=== PATIENT | male | born 1940 | race Caucasian/White ===

== ENCOUNTER → 2017-08-29 14:59 | Outpatient (CLI) | payer MEDICARE, OTHER, SELFPAY ==
[2017-08-29 16:58] LABS: Absolute Lymphocyte Count 1.23 X10^3/ul (0.83-4.51); Absolute Neutrophil Count 6.1 X10^3/uL (2.0-7.7); Basophil# 0.03 X10^3/uL; Basophil% 0.4 % (0-1); Eosinophil# 0.44 X10^3/uL; Eosinophils% 5.3 % (0-5); Hematocrit 30.9 % (40-54); Lymphocyte # 1.23 X10^3/ul (4.0); Lymphocyte % 14.7 % (19-41); Mean Corp Hgb Conc 32.4 g/gl (32-36); Mean Corpuscular Hgb 28.8 pg (27.0-32.0); Mean Platelet Vol. 10.6 fl (6.2-12.0); Monocyte% 7.2 % (0-10); Neutrophil # 6.05 X10^3/uL (2.7-7.7); Neutrophil % 72.2 % (47-70); Platelet Count 187 K/mm3 (150-450); RBC Distribution Width SD 45.5 fl (35.1-43.9); Red Blood Count 3.47 M/mm3 (4.6-6.2); White Blood Count 8.4 K/mm3 (4.4-11.0)
[2017-08-29 17:05] LABS: Albumin, Serum 3.5 g/dL (3.2-5.0); BUN 58 mg/dL (7-18); BUN/Creat Ratio 20.9 RATIO (10-20); Calcium,Total 8.2 mg/dL (8.5-10.1); Chloride 101 mmol/L (98-107); Creatinine, Serum 2.77 mg/dL (0.70-1.30); EST Glomerular Filtration Rate 24 mL/min (>60); Est Glom Filt Rate - Afr Amer 29 mL/min (>60); Glucose 159 mg/dL (74-106); Potassium 3.8 mmol/L (3.5-5.1); Sodium Level 138 mmol/L (136-145)
[2017-08-29 17:11] LABS: Hemoglobin A1c 6.6 % (4.2-6.3)
[2017-08-29 17:18] LABS: POSITIVE COUNT NO; POSITIVE DIFFERENTIAL NO; POSITIVE MORPHOLOGY NO
[2017-08-29 18:08] LABS: Microalbumin:Creatinine Ratio 1160.6 mg/g CRE (<30 mg/g CRE); Protein, Urine (Random) 138.9 mg/dL (<11.9); Protein:Creat Ratio 1439 mg/g CRE (0-200)
[2017-08-30 12:00] LABS: Vitamin D,25 Hydroxy 44.3 ng/mL (29.95-100.01)
[2017-08-30 12:02] LABS: PTHIN 184.9 pg/mL (18.4-80.1)
== END ==
PROVIDERS: Family Provider Family Medicine; PCP Family Medicine; Visit Provider Pediatrics Pediatric Nephrology
DX: N25.81 Secondary hyperparathyroidism of renal origin (principal); D63.1 Anemia in chronic kidney disease
CPT/HCPCS: 36415; 80069; 82043; 82306; 82570; 83036; 83970; 84156; 85025

== ENCOUNTER → 2017-11-26 15:02 | Outpatient (CLI) | payer MEDICARE, OTHER, SELFPAY ==
[2017-11-26 16:07] LABS: Absolute Lymphocyte Count 1.22 X10^3/ul (0.83-4.51); Absolute Neutrophil Count 5.1 X10^3/uL (2.0-7.7); Basophil# 0.02 X10^3/uL; Basophil% 0.3 % (0-1); Eosinophil# 0.42 X10^3/uL; Eosinophils% 5.9 % (0-5); Hematocrit 32.9 % (40-54); Hemoglobin 10.7 g/dl (13.0-16.5); Lymphocyte # 1.22 X10^3/ul (4.0); Mean Corp Hgb Conc 32.5 g/gl (32-36); Mean Corpuscular Hgb 28.8 pg (27.0-32.0); Mean Corpuscular Volume 88.4 fL (80-94); Monocyte# 0.43 X10^3/uL; Neutrophil # 5.07 X10^3/uL (2.7-7.7); Neutrophil % 70.7 % (47-70); Platelet Count 193 K/mm3 (150-450); RBC Distribution Width CV 13.8 % (11.6-14.6); RBC Distribution Width SD 44.8 fl (35.1-43.9); Red Blood Count 3.72 M/mm3 (4.6-6.2); White Blood Count 7.2 K/mm3 (4.4-11.0)
[2017-11-26 16:08] LABS: POSITIVE COUNT NO; POSITIVE DIFFERENTIAL NO; POSITIVE MORPHOLOGY NO
[2017-11-26 16:32] LABS: ALB/GLOB Ratio 1.2 RATIO (0.9-2.4); AST(SGOT) 19 U/L (15-37); Alanine Aminotransfer ALT/SGPT 34 U/L (16-61); Albumin, Serum 3.5 g/dL (3.2-5.0); Alkaline Phosphatase 130 U/L (45-117); Anion Gap 8 (5-15); BUN 52 mg/dL (7-18); BUN/Creat Ratio 18.8 RATIO (10-20); Calcium,Total 8.2 mg/dL (8.5-10.1); Chloride 102 mmol/L (98-107); Creatinine, Serum 2.77 mg/dL (0.70-1.30); EST Glomerular Filtration Rate 24 mL/min (>60); Est Glom Filt Rate - Afr Amer 29 mL/min (>60); Glucose 318 mg/dL (74-106); Potassium 4.2 mmol/L (3.5-5.1); Protein, Total 6.5 g/dL (6.4-8.2); Sodium Level 138 mmol/L (136-145); Uric Acid 5.1 mg/dL (3.5-7.2)
== END ==
PROVIDERS: Family Provider Family Medicine; PCP Family Medicine; Visit Provider Internal Medicine Rheumatology
DX: M10.9 Gout, unspecified (principal); M17.0 Bilateral primary osteoarthritis of knee; Q66.7 Congenital pes cavus; I11.0 Hypertensive heart disease with heart failure; I50.9 Heart failure, unspecified; I25.10 Atherosclerotic heart disease of native coronary artery without angina pectoris; E11.9 Type 2 diabetes mellitus without complications; I48.91 Unspecified atrial fibrillation; I69.30 Unspecified sequelae of cerebral infarction; Z95.4 Presence of other heart-valve replacement
CPT/HCPCS: 36415; 80053; 84550; 85025

== ENCOUNTER 2017-12-26 23:41 | Inpatient (IN) | payer MEDICARE, OTHER, SELFPAY ==
[2017-12-26 23:42] VITALS: BP 170/69; PULSE 60; RESP 18; TEMP 36.9; O2SAT 92; BMI 25.8
[2017-12-27] VITALS (17 sets, daily range): BP systolic 136–169; BP diastolic 68–88; PULSE 35–65; RESP 16–18; TEMP 36.6–37.9; O2SAT 93–97; BMI 26.7
--- NOTE | 2017-12-27 00:18 | EKG12_ITS ---
Test Reason : WEAKNESS Blood Pressure : / mmHG Vent. Rate : 055 BPM Atrial Rate : 044 BPM P-R Int : 000 ms QRS Dur : 090 ms QT Int : 460 ms P-R-T Axes : 000 062 113 degrees QTc Int : 440 ms Atrial fibrillation with premature ventricular or aberrantly conducted complexes Nonspecific ST and T wave abnormality Abnormal ECG Confirmed by IBETH MIRANDA, GILDARDO ([id number]), television news video editor KJ ROOT ([id number]) on 12/30/2017 2:27:45 PM Referred By: KAYY Confirmed By:GILDARDO CRISTINA MD
--- NOTE | 2017-12-27 00:20 | RAD_ITS ---
STUDY: X-RAY CHEST REASON FOR EXAM: Male, 77 years old. Weakness TECHNIQUE: A single frontal view of the chest was obtained. COMPARISON: November 30, 2010 FINDINGS: The lungs are underaerated. There are minimal increased markings in both lung bases. There is no demonstrated pleural abnormality. There is moderate enlargement of the cardiac silhouette. Sternotomy wires are present. An aortic valve prosthesis is present. The mediastinum and hilar regions are unremarkable. The central vessels are indistinct. There is atherosclerotic calcification of the thoracic aorta. There are diffuse degenerative changes of the visualized spine. The visualized ribs, clavicles, and shoulders are unremarkable. There is no demonstrated abnormality of the visualized upper abdomen. RAD/Chest 1 View (Portable) IMPRESSION: There is moderate enlargement of the cardiac silhouette with vascular congestion. There is no obvious effusion. There is minimal bibasilar atelectasis. Electronically Signed: Sylwia Perez MD at 1:15 EDT Tel Direct: [phone], Service support ,
--- NOTE | 2017-12-27 00:22 | ED.DCSUM_ITS ---
- ER Visit Summary Date of Service: 12/27/17 Chief Complaint: [] Weakness could not get out of the bathtub History of Present Illness: The patient is a 77 M patient stated he felt weak tonight can get out of the bathtub. He tried for over an hour. He has a deep tab. He has never got caught in it like this before. He has had troubles in the past getting out because it so deep. His try to help him out they finally got him to a stool after working so hard he did not have the strength to stand up. He does have chronic back pain and states that the accident from time to time but no injury. He did not hit his head or neck. He is on Xarelto for fibrillation. stated that he has been feeling mildly weak for 1-2 weeks intermittently. He ambulates without any assist device. He ambulates today without problems. Blood sugar was normal for paramedics. Physical Examination: [] Vital signs reviewed General: Well-nourished well-developed Head: Normocephalic atraumatic Eyes: Pupils equal round and reactive to light extraocular movements intact ENT: TMs clear no hemotympanum no trauma Neck: Nontender full range of motion Cardiovascular: Regular rate with a regular rhythm no murmurs normal S1-S2 Respiratory: No distress clear to auscultation bilaterally chest nontender Abdomen: Soft nontender nondistended normal bowel sounds no masses Back: Nontender no CVA tenderness Extremities: Nontender active range of motion ?4 extremities no trauma Skin: Normal color no trauma Neuro alert oriented cranial nerves II through XII intact. No gross motor or sensory deficit Test Results: [] Emergency Department Course and Treatment: [] Patient given IV fluids. Lab work and EKG as well as chest x-ray obtained. Lab work shows acute leukocytosis with a white count of 17.9 with a left shift. There is no acute source at this time. Is not febrile. He has had intermittent mild cough with no significant respiratory illness. Urine analysis shows no evidence of infection. We will start him on ceftriaxone and azithromycin empirically and get 2 blood cultures. Chest x-ray shows nothing acute. Troponin came back indeterminate 0.14. He has no chest pain or shortness of breath. This could be secondary to his chronic renal insufficiency as his creatinine is 2.7. Patient will be admitted for further evaluation of the above. Treatment Plan: [] Disposition: [] Impression: [] Weakness with inability to ambulate Indeterminate troponin Chronic renal insufficiency Leukocytosis This note was generated with [employer] dictation software. It may contain incorrect words, spelling, and punctuation that were not noted in review of the chart prior to signing ED Disposition - Plan for ED Patient: Chief Complaint: Weakness Referrals: Donavon Hamilton MD [Primary Care Provider] -
[2017-12-27 00:30] LABS: Absolute Lymphocyte Count 0.91 X10^3/ul (0.83-4.51); Absolute Neutrophil Count 15.6 X10^3/uL (2.0-7.7); Basophil# 0.03 X10^3/uL; Basophil% 0.2 % (0-1); Eosinophil# 0.13 X10^3/uL; Eosinophils% 0.7 % (0-5); Hematocrit 30.5 % (40-54); Hemoglobin 10.7 g/dl (13.0-16.5); Lymphocyte # 0.91 X10^3/ul (4.0); Lymphocyte % 5.1 % (19-41); Mean Corp Hgb Conc 35.1 g/gl (32-36); Mean Corpuscular Volume 88.4 fL (80-94); Mean Platelet Vol. 10.5 fl (6.2-12.0); Monocyte# 1.22 X10^3/uL; Monocyte% 6.8 % (0-10); Neutrophil # 15.56 X10^3/uL (2.7-7.7); Neutrophil % 86.8 % (47-70); Platelet Count 180 K/mm3 (150-450); RBC Distribution Width CV 13.5 % (11.6-14.6); RBC Distribution Width SD 41.9 fl (35.1-43.9); Red Blood Count 3.45 M/mm3 (4.6-6.2); White Blood Count 17.9 K/mm3 (4.4-11.0)
[2017-12-27 00:31] LABS: POSITIVE COUNT NO; POSITIVE DIFFERENTIAL NO; POSITIVE MORPHOLOGY NO
[2017-12-27 00:42] LABS: Anion Gap 7 (5-15); BUN 59 mg/dL (7-18); BUN/Creat Ratio 21.6 RATIO (10-20); Calcium,Total 8.5 mg/dL (8.5-10.1); Chloride 105 mmol/L (98-107); Creatinine, Serum 2.73 mg/dL (0.70-1.30); EST Glomerular Filtration Rate 24 mL/min (>60); Est Glom Filt Rate - Afr Amer 29 mL/min (>60); Estimated Creatinine Clearance 20.85 ml/min; Glucose 81 mg/dL (74-106); Potassium 4.5 mmol/L (3.5-5.1); Sodium Level 138 mmol/L (136-145)
[2017-12-27] MEDS: 0.9% Normal Saline 1,000 ML 250 ML IV (00:59)
[2017-12-27 01:25] LABS: Bacteria 0 SEEN /hpf (None Seen); Mucous, Urine 0 SEEN /hpf (<or=2+); Red Blood Cells-Urine 0 SEEN /hpf (0-5); Squamous Epithelial Cells - UA 0 SEEN /hpf (0-5); White Blood Cells 0 SEEN /hpf (0-5)
[2017-12-27 01:29] LABS: Color, Urine Yellow (Yellow); Glucose, Dipstick Normal (Normal); Ketone-Dipstick Negative (Negative); Leukocyte Esterase-Dipstick 25 /ul (Negative); Nitrite-Dipstick Negative (Negative); Occult Blood-Urine 10 /ul (Negative); Protein-Dipstick 500 mg/dl (Negative); Urine Bilirubin Dipstick Negative (Negative); Urine Clarity Clear (Clear); Urine Urobilinogen Normal (Normal)
--- NOTE | 2017-12-27 02:12 | PCM.HP.STD ---
Problem List (1) Leukocytosis Status: Acute Qualifiers: Leukocytosis type: unspecified Qualified Code(s): D72.829 - Elevated white blood cell count, unspecified (2) CAP (community acquired pneumonia) Status: Suspected Qualifiers: Laterality: unspecified laterality Qualified Code(s): J18.9 - Pneumonia, unspecified organism (3) Elevated troponin Status: Acute (4) CKD (chronic kidney disease) Status: Chronic Qualifiers: Chronic kidney disease stage: stage 3 (moderate) Qualified Code(s): N18.3 - Chronic kidney disease, stage 3 (moderate) (5) H/O mitral valve repair Status: Chronic (6) aoritc bovine 2010 replacement Status: Chronic (7) H/O aortic valve repair Status: Chronic (8) Pure hypercholesterolemia Status: Chronic (9) HTN (hypertension) Status: Chronic Qualifiers: Hypertension type: essential hypertension Qualified Code(s): I10 - Essential (primary) hypertension (10) DM (diabetes mellitus) Status: Chronic Qualifiers: Diabetes mellitus type: type 2 Diabetes mellitus care home insulin use: with care home use Diabetes mellitus complication status: with unspecified complications Qualified Code(s): E11.8 - Type 2 diabetes mellitus with unspecified complications; Z79.4 - disease education specialist (current) use of insulin (11) Hx of CABG Status: Chronic (12) Gout Status: Chronic Qualifiers: Gout site: unspecified site Gout etiology: unspecified cause Chronicity: unspecified Qualified Code(s): M10.9 - Gout, unspecified (13) Afib Status: Chronic Qualifiers: Atrial fibrillation type: paroxysmal Qualified Code(s): I48.0 - Paroxysmal atrial fibrillation History of Present Illness Date of Admission: 12/27/17 Chief Complaint: Weakness The patient is a 77 y/o M w/ PMHx: CAD s/p CABG, Chronic Normocytic Anemia, Hx KS, Valvular Heart Disease s/p AVR Bovine and Repair Mitral, Diabetes mellitus type II, Anxiety and Depression, PAF, HTN, HLD, CKD stage III (baseline Cr 2.4-2.7) who presents to the [facility] ED on 12/27/17 with history of severe debilitating weakness, notable on evening prior to presentation, noting he was unable to get out of the bath with recent mild cough, fatigue, malaise over the last 1-2 weeks. He denies any productive sputum and has no coughing during examination. In the ED work-up included T 98.5, heart rate 60, BP 170/69, respiratory rate 18, 92% on room air, CBC with WBC 17.9, hemoglobin 10.7, platelet 180 with left shift, BMP with BUN/creatinine 59/2.73, troponin 0 0.140 with no comparison, urinalysis notable for mild dehydration otherwise no acute infection evident, chest x-ray with cardiomegaly, mild congestion with no obvious effusion, minimal bibasilar atelectasis noted, blood cultures ?2 obtained per ED. In the ED patient administered normal saline, Rocephin, azithromycin as discussed with ED physician for possible community-acquired pneumonia given notable appearance and unclear specific etiology for leukocytosis. Past Medical History Past Medical History (Chronic Problems): Chronic Problems CKD (chronic kidney disease) (Chronic) H/O mitral valve repair (Chronic) aoritc bovine 2010 replacement (Chronic) H/O aortic valve repair (Chronic) Pure hypercholesterolemia (Chronic) HTN (hypertension) (Chronic) DM (diabetes mellitus) (Chronic) Hx of CABG (Chronic) Gout (Chronic) Afib (Chronic) History of myocardial infarction (Chronic) Allergies escitalopram [From Lexapro] Allergy (Verified 12/26/17 23:47) Unknown levofloxacin [From Levaquin] Allergy (Verified 12/31/16 16:35) Other LUPUS Penicillins Allergy (Verified 12/26/17 23:47) Unknown Opioids - Morphine Analogues Adverse Reaction (Verified 12/31/16 16:35) Other CONFUSION Home Medications: Ambulatory Orders Medication Instructions Recorded Allopurinol [Zyloprim] 100 mg PO DAILYCM 12/31/16 Amlodipine [Norvasc] 5 mg PO QHS 12/31/16 Carvedilol [Coreg (Beta Ellie)] 6.25 mg PO BID 12/31/16 Furosemide [Lasix] 40 mg PO BIDLX 12/31/16 Insulin Detemir [Levemir] 40 unit SQ DAILY 12/31/16 Aspirin [Aspir-Low] 81 mg PO DAILY 30 Days tablet. 01/02/17 Atorvastatin Calcium 40 mg PO DAILY 12/27/17 Insulin Aspart [Novolog Flexpen 7 units SC BIDCM 12/27/17 ([facility])] Rivaroxaban [Xarelto] 15 mg PO DAILY 12/27/17 Surgical History: - - CABG x 1, Bovine AVR, Mitral Valve Repair, L TKR, Ear Surgery. Psychiatric History: Anxiety, Depression Lives: Spouse/ Significant Other Smoking Status: Former smoker Tobacco Use: Non-smoker Alcohol: None Drugs: None - *Family History Maternal History Items: Diabetes, Heart Disease, Hypertension Paternal History Items: Diabetes, Heart Disease, Hypertension Review of Systems Constitutional: Reports: Anorexia, Malaise, Weakness, Fatigue. Denies: Chills, Fever, Weight Change HEENT: Denies: Head Aches, Sinus Congestion, Sinus Drainage Cardiovascular: Denies: Chest Pain, Palpitations Respiratory: Reports: Cough, Shortness of breath upon exertion. Denies: Shortness of breath at rest, Sputum production Gastrointestinal: Denies: Abdominal Pain, Nausea, Vomiting Genitourinary: Denies: Dysuria Musculoskeletal: Reports: Back Pain. Denies: Joint Pain, Joint Tenderness Skin: Denies: Rash, Wounds Neurological: Denies: Numbness, Tingling, Focal weakness Psychiatric: Reports: Anxiety, Depression. Denies: Homicidal Ideations, Suicidal Ideations Hematologic/ Lymphatic: Reports: Anemia. Denies: Easy Bruising, Easy Bleeding VTE Information - Inpt Only VTE Present on Admission: No VTE Mechan Device Prophylaxis: SCD's VTE Pharm Prophylaxis ordered?: No Reason prophylaxis not ordered:: Treatment Not Indicated Patient Problems: Active and Suspected Problems Leukocytosis (Acute) CAP (community acquired pneumonia) (Suspected) Elevated troponin (Acute) Subjective: Seated upright in the ED bed, fatigued appearance. Objective: Physical Examination: General: awake, alert, oriented x 3 including person, place, recent events, slow to respond, cooperative, laying in ED bed in no apparent distress. Skin: normal color, turgor, no icterus, cyanosis. HEENT: AT/NC, EOMI, PERRLA, mildly dry MM, no carotid bruits or JVD noted. Lungs: Diminished BS BL bases, mild effort, no rales, ronchi or wheezing. Heart: Regular rate and rhythm; no gallop, rub audible, SM. Abdomen: soft, NTTP, ND, normal BS, no HSM. Extremities: no cyanosis, clubbing, BL pedal mild edema. Neurological: patient awake, alert, oriented x 3 as noted; cognitive function appears intact but suspect mildly decreased from baseline; pupils equally reactive to light and accomodation; cranial nerves II-XII grossly normal, moving all 4 extremities but strength severely globally decreased. Psychiatric: affect appears flat, no acute evidence of depressive or anxiety feelings. - Physical Exam Vital Signs Temp Pulse Resp BP Pulse Ox 98.5 F 60 18 170/69 H 92 12/26/17 23:42 12/26/17 23:42 12/26/17 23:42 12/26/17 23:42 12/26/17 23:42 Oxygen Delivery Method Room Air Weight: 165 lb Body Mass Index (BMI) 25.8 Laboratory Tests Past 24 Hrs 12/27/17 12/27/17 12/27/17 00:05 00:05 01:20 WBC 17.9 H RBC 3.45 L Hgb 10.7 L Hct 30.5 L MCV 88.4 MCH 31.0 MCHC 35.1 RDW 13.5 RDW Differential 41.9 Plt Count 180 MPV 10.5 Immature Gran % (Auto) 0.400 Neut % (Auto) 86.8 H Lymph % (Auto) 5.1 L Cedar % (Auto) 6.8 Eos % (Auto) 0.7 Baso % (Auto) 0.2 Absolute Neuts (auto) 15.6 H Absolute Lymphs (auto) 0.91 Total Counted Not Reportable Sodium 138 Potassium 4.5 Chloride 105 Carbon Dioxide 26.0 Anion Gap 7 BUN 59 H Creatinine 2.73 H Estim Creat Clear Calc 20.85 Est GFR (MDRD) Af Amer 29 L Est GFR (MDRD) Non-Af 24 L BUN/Creatinine Ratio 21.6 H Glucose 81 Calcium 8.5 Troponin I 0.140 H Urine Color Yellow Urine Clarity Clear Urine pH 6.0 Ur Specific [place] 1.020 Urine Protein 500 H Urine Glucose (UA) Normal Urine Ketones Negative Urine Occult Blood 10 H Urine Nitrite Negative Urine Bilirubin Negative Urine Urobilinogen Normal Ur Leukocyte Esterase 25 H Urine RBC 0 SEEN Urine WBC 0 SEEN Ur Squamous Epith Cells 0 SEEN Urine Bacteria 0 SEEN Urine Mucus 0 SEEN Assessment/Plan All Active Problems Leukocytosis (Acute) Elevated troponin (Acute) The patient is a 77 y/o M w/ PMHx: CAD s/p CABG, Chronic Normocytic Anemia, Hx KS, Valvular Heart Disease s/p AVR Bovine and Repair Mitral, Diabetes mellitus type II, Anxiety and Depression, PAF, HTN, HLD, CKD stage III who presents to the [facility] ED on 12/27/17 with history of severe debilitating weakness, notable on evening prior to presentation, noting he was unable to get out of the bath with recent mild cough, fatigue, malaise over the last 1-2 weeks. He denies any productive sputum and has no coughing during examination. (1) Debility, Weakness, Leukocytosis suspected secondary to ? Community Acquired Pneumonia: CXR in the ED w/ cardiomegaly, mild congestion, bibasilar atelectasis. Admission CBC w/ WBC 17.9 with left shift. Will admit to MS, maintain on oxygen with wean as tolerated to room air, continue ATC duonebs, PRN albuterol, maintained on IV Rocephin and Azithromycin, HOB, IS parameters w/ pending sputum cultures and urine antigens as well as respiratory viral panel. Bld cx x 2 obtained in the ED. Given not marked appearance of ED initial plain single view film, will hydrate and repeat PA and Lateral in AM. PT, OT, CM consulted given severity of weakness, may need placement. (2) Indeterminate cardiac enzyme: EKG in ED SR with no acute evidence of ischemia, CXR w/ chronic changes, suspected CAP as noted, initial trop 0.140. Will place on a monitored bed to assure no acute myocardial infarction with serial cardiac enzymes and EKGs. ASA, NG. Mag pending. ECHO pending. Cardiology consulted, pending. (3) CAD: s/p KS, CABG, continue home asa, statin, BB regimen. (4) Hypertension: Continue home regimen including Norvasc, Coreg, Lasix, PRN hydralazine. (5) Hyperlipidemia: Continue home statin regimen. (6) Diabetes mellitus type II: Continue home insulin regimen, ADA diet, accu checks w/ ISS. (7) Valvular heart disease: Status post AVR with bovine valve and repair of mitral valve. [facility], requested as noted. (8) PAF: Maintain on home coreg, xarelto regimen. No recent ECHO noted in [place], requested as noted. (9) Chronic Kidney Disease Stage III: Admission BUN/Cr 59/2.73, baseline renal function 2.4-2.7 more recently, repeat BMP in AM. (10) Chronic Normocytic Anemia: Admission Hgb 10.7, baseline 9-10 range, stable. (11) DVT prophylaxis: SCDs, continue home Xarelto regimen. (12) CODE status: Discussed CODE status at length including difference between FULL code, DNR-CCA and DNR-CC status. Patient notes having living will and healthcare power of tax attorney is his . Following discussions about the differences in these status, requested FULL CODE status. Advanced Care Planning Face to Face Time: 17 minutes. Code Visit Inpatient E&M: 35619 Init Hosp L3 Procedures: 26877 Advncd Care Plan 30 Min
[2017-12-27] MEDS: Ceftriaxone 1 GM/50 ML BAG IV (02:31)
--- NOTE | 2017-12-27 02:55 | NURSING ---
er report received. called ana rosa winchester and let him know the patient can come to the floor.
--- NOTE | 2017-12-27 03:19 | ECHOD_ITS ---
Reason For Study: Arrhythmia Procedure This was a 2D Doppler, Color Flow transthoracic echocardiogram. The exam was of fair technical quality due to diminished acoustic windows. Exam performed portable in patient room. Left Ventricle Normal LV size. Mild segmental systolic dysfunction (see wall motion). The estimated ejection fraction is 50 %. Unable to assess diastolic dysfunction. Mid-inferoseptal : Hypokinetic. Mid- anteroseptal : Hypokinetic. Septal Seffner : Hypokinetic. Right Ventricle Normal RV size. Normal systolic function. Atria The left atrium is severely enlarged. The right atrium is mildly enlarged. No doppler evidence for ASD. Mitral Valve An annuloplasty ring is noted in the mitral position. Trivial transvalvular insufficiency of the mitral valve. Tricuspid Valve Normal tricuspid valve. Moderate (2+) tricuspid valve insufficiency. Right ventricular systolic pressure estimated to be 92 mmHg. Aortic Valve Stable appearing bioprosthetic aortic valve apparatus. Pulmonic Valve The pulmonic valve is not well visualized. Moderate (2+) pulmonic valve insufficiency. Great Vessels Normal sized aortic root. Pericardium/Pleural No pericardial effusion. MMode/2D Measurements & Calculations LVIDd: 5.2 cm IVSd: 1.2 cm LVOT diam: 2.0 cm LVIDs: 3.0 cm LVPWd: 1.4 cm LVOT area: 3.2 cm2 FS: 42.2 % Ao root diam: 3.7 cm LAV(MOD-sp4): 144.7 ml LA A4 area: 35.0 cm2 RA A4 area: 23.5 cm2 Doppler Measurements & Calculations MV E max jessica: 291.1 cm/sec MV V2 max: 290.0 cm/sec MV P1/2t max jessica: 292.1 cm/sec MV max P.6 mmHg MV P1/2t: 148.9 msec MV V2 mean: 102.3 cm/sec MV dec slope: 574.6 cm/sec2 MV mean P.8 mmHg MVA(P1/2t): 1.5 cm2 MV V2 VTI: 95.2 cm MVA(VTI): 0.76 cm2 Ao V2 max: 260.7 cm/sec LV V1 max: 98.6 cm/sec SV(LVOT): 72.4 ml Ao max P.2 mmHg LV V1 max P.9 mmHg Ao V2 mean: 157.6 cm/sec LV V1 mean P.8 mmHg Ao mean P.3 mmHg LV V1 mean: 62.4 cm/sec Ao V2 VTI: 52.9 cm LV V1 VTI: 22.5 cm PAUL(I,D): 1.4 cm2 PAUL(V,D): 1.2 cm2 PA V2 max: 140.2 cm/sec TR max jessica: 457.7 cm/sec TR max P.8 mmHg Interpretation Summary Mild segmental systolic dysfunction (see wall motion). The estimated ejection fraction is 50 %. The left atrium is severely enlarged. The right atrium is mildly enlarged. An annuloplasty ring is noted in the mitral position. Trivial transvalvular insufficiency of the mitral valve. Moderate (2+) tricuspid valve insufficiency. Stable appearing bioprosthetic aortic valve apparatus. Moderate (2+) pulmonic valve insufficiency. Right ventricular systolic pressure estimated to be 92 mmHg c/w severe pulmonary hypertension. Unable to assess diastolic dysfunction. Ordering Physician: Yari Cohen Referring Physician: Pallavi Campbell Performed By: Celio Lynch RCS
[2017-12-27] MEDS: 0.9% Normal Saline 1,000 ML 100 ML IV ×3 (03:27→21:21)
[2017-12-27 04:11] LABS: Bedside Glucose 53 mg/dL (70-110)
[2017-12-27 04:11] LABS: Bedside Glucose 80 mg/dL (70-110)
[2017-12-27 05:26] LABS: Magnesium 2.6 mg/dL (1.6-2.6)
--- NOTE | 2017-12-27 05:55 | EKG12_ITS ---
Test Reason : AM EKG Blood Pressure : / mmHG Vent. Rate : 054 BPM Atrial Rate : 312 BPM P-R Int : 000 ms QRS Dur : 094 ms QT Int : 530 ms P-R-T Axes : 000 044 192 degrees QTc Int : 502 ms Atrial fibrillation Nonspecific ST and T wave abnormality Prolonged QT Abnormal ECG Confirmed by IBETH MIRANDA, GILDARDO ([id number]), society editor KJ ROOT ([id number]) on 12/30/2017 3:45:01 PM Referred By: SIVAKUMAR Confirmed By:GILDARDO CRISTINA MD
[2017-12-27] MEDS: Ipratropium/Albuterol Sulfate 3 ML AMPUL.NEB INHALATION ×3 (06:36→17:07)
[2017-12-27 06:49] LABS: Absolute Lymphocyte Count 1.27 X10^3/ul (0.83-4.51); Basophil# 0.02 X10^3/uL; Basophil% 0.1 % (0-1); Eosinophil# 0.11 X10^3/uL; Eosinophils% 0.7 % (0-5); Hematocrit 28.1 % (40-54); Hemoglobin 9.6 g/dl (13.0-16.5); Lymphocyte # 1.27 X10^3/ul (4.0); Lymphocyte % 8.2 % (19-41); Mean Corp Hgb Conc 34.2 g/gl (32-36); Mean Corpuscular Hgb 30.7 pg (27.0-32.0); Mean Corpuscular Volume 89.8 fL (80-94); Mean Platelet Vol. 10.1 fl (6.2-12.0); Monocyte# 1.03 X10^3/uL; Monocyte% 6.6 % (0-10); Neutrophil # 13.01 X10^3/uL (2.7-7.7); Neutrophil % 84.1 % (47-70); Platelet Count 155 K/mm3 (150-450); RBC Distribution Width CV 13.5 % (11.6-14.6); RBC Distribution Width SD 43.3 fl (35.1-43.9); Red Blood Count 3.13 M/mm3 (4.6-6.2); White Blood Count 15.5 K/mm3 (4.4-11.0)
[2017-12-27 06:50] LABS: Bedside Glucose 103 mg/dL (70-110)
[2017-12-27 06:56] LABS: POSITIVE COUNT NO; POSITIVE DIFFERENTIAL NO; POSITIVE MORPHOLOGY NO
[2017-12-27 07:12] LABS: Anion Gap 8 (5-15); BUN 59 mg/dL (7-18); BUN/Creat Ratio 21.9 RATIO (10-20); Chloride 106 mmol/L (98-107); Cholesterol 84 mg/dL (200); Creatinine, Serum 2.69 mg/dL (0.70-1.30); EST Glomerular Filtration Rate 25 mL/min (>60); Est Glom Filt Rate - Afr Amer 30 mL/min (>60); Estimated Creatinine Clearance 21.16 ml/min; Glucose 103 mg/dL (74-106); High Density Lipoprotein 46 mg/dL; Potassium 4.6 mmol/L (3.5-5.1); Sodium Level 139 mmol/L (136-145); Triglycerides 46 mg/dL; Very Low Density Lipoprotein 9 mg/dL (5-40)
--- NOTE | 2017-12-27 08:30 | RAD_ITS ---
STUDY: X-RAY CHEST REASON FOR EXAM: Male, 77 years old. Short of breath TECHNIQUE: Frontal and lateral views of the chest. COMPARISON: 12/27/2017 at 12:27 AM. FINDINGS: Possible infiltrate developing or worsening in the medial right lung base since prior study. No other significant changes. Again seen is moderate cardiomegaly with prosthetic cardiac valves. RAD/Chest PA and Lateral IMPRESSION: Possible developing or worsening infiltrate in the medial right lung base. Electronically Signed: Mauro Del Rio MD at 16:55 EDT , Service support ,
--- NOTE | 2017-12-27 09:58 | CASEMGMT ---
SEE MALATHI SANABRIA ASSESS LINK: D/C PLAN: Home with possible Out-pt PT/OT. Ordered. Evaluations pending. If out-pt PT/OT recommended, pt will need a script for [facility] where pt states is agreeable to going to. MALATHI SANABRIA Face to Face with patient for initial transition planning/care coordination assessment. MALATHI SANABRIA introduced self and role at [facility]. Patient resting in bed, alert and oriented. Patient willing to participate in assessment and is able to answer all questions appropriately. Pt lives with his . has 2-story home with the bedrooms and bathroom with a tub on the 2nd floor and [facility] also a bathroom on the 1st floor that has a shower. Pt could use a tub bench in the bathroom upstairs. Script obtained and given to pt. Pt made aware this will not be covered under insurance but that it will be tax-deductible with the script. Pt also instructed hand-held shower could be purchased at [employer] as well. Pt voices no other needs at this time. CM to continue to follow for discharge planning that may arise. Rodrigo CARRERA RN, CM
[2017-12-27] MEDS: Glucerna Shake 120 ML LIQUID PO ×3 (10:06→16:51)
--- NOTE | 2017-12-27 10:06 | PCM.CONS.C ---
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 (5) H/O mitral valve repair Status: Chronic (6) Pure hypercholesterolemia Status: Chronic (7) HTN (hypertension) Status: Chronic Qualifiers: Hypertension type: essential hypertension Qualified Code(s): I10 - Essential (primary) hypertension (8) DM (diabetes mellitus) Status: Chronic Qualifiers: Diabetes mellitus type: type 2 Diabetes mellitus rn long term care insulin use: with snf use Diabetes mellitus complication status: with unspecified complications Qualified Code(s): E11.8 - Type 2 diabetes mellitus with unspecified complications; Z79.4 - alf (current) use of insulin (9) CKD (chronic kidney disease) Status: Chronic Qualifiers: Chronic kidney disease stage: stage 3 (moderate) Qualified Code(s): N18.3 - Chronic kidney disease, stage 3 (moderate) (10) Leukocytosis Status: Acute Qualifiers: Leukocytosis type: unspecified Qualified Code(s): D72.829 - Elevated white blood cell count, unspecified (11) CAP (community acquired pneumonia) Status: Suspected Qualifiers: Laterality: unspecified laterality Qualified Code(s): J18.9 - Pneumonia, unspecified organism (12) Elevated troponin Status: Acute Reason for Consult Date of Consultation: 12/27/17 History of Present Illness: The patient is a 77 year old white male with a past cardiovascular history which apparently has included atrial fibrillation/flutter, CAD, CABG, status post aortic valve repair/mitral valve repair, status post aortic valve replacement, hyperlipidemia, hypertension, superimposed upon diabetes mellitus, chronic renal insufficiency, who now presents for a variety of symptoms including cough, sputum production, fatigue/weakness, gradual debilitation, who has been noted to have indeterminate troponin I levels. He states he has received his cardiovascular care through the [facility]. He follows with a [facility] manager managed backup services-Dr. Corey Sun. He notes he also follows with a [facility] neurologist in [place], [place]. He has denied any ongoing symptoms of chest discomfort. He has denied any acute episodes of worsening shortness of breath or dyspnea. There has been no issues of near syncope or syncope. He states that he had concerns of cough and sputum production. He was brought into the emergency department. His cardiac enzymes were indeterminant and have demonstrated no significant change. His rhythm has remained in atrial fibrillation/flutter. His ECG demonstrated associated nonspecific ST and T-wave changes. His chest x-ray suggested postoperative changes. The official report is pending at this time. There are no [facility] records available for review at this time. [] Past Medical History Allergies/Adverse Reactions: Allergies escitalopram [From Lexapro] Allergy (Verified 12/26/17 23:47) Unknown levofloxacin [From Levaquin] Allergy (Verified 12/31/16 16:35) Other LUPUS Penicillins Allergy (Verified 12/26/17 23:47) Unknown Opioids - Morphine Analogues Adverse Reaction (Verified 12/31/16 16:35) Other CONFUSION Home Medications: Ambulatory Orders Medication Instructions Recorded Allopurinol [Zyloprim] 100 mg PO DAILYCM 12/31/16 Amlodipine [Norvasc] 5 mg PO QHS 12/31/16 Carvedilol [Coreg (Beta Ellie)] 6.25 mg PO BID 12/31/16 Furosemide [Lasix] 40 mg PO BIDLX 12/31/16 Insulin Detemir [Levemir] 40 unit SQ DAILY 12/31/16 Aspirin [Aspir-Low] 81 mg PO DAILY 30 Days tablet. 01/02/17 Atorvastatin Calcium 40 mg PO DAILY 12/27/17 Insulin Aspart [Novolog Flexpen 7 units SC BIDCM 12/27/17 ([facility])] Rivaroxaban [Xarelto] 15 mg PO DAILY 12/27/17 Past Medical History (Chronic Problems): Chronic Problems Atrial fibrillation and flutter (Chronic) CAD (coronary artery disease) (Chronic) CKD (chronic kidney disease) (Chronic) H/O mitral valve repair (Chronic) aoritc bovine 2010 replacement (Chronic) H/O aortic valve repair (Chronic) Pure hypercholesterolemia (Chronic) HTN (hypertension) (Chronic) DM (diabetes mellitus) (Chronic) Hx of CABG (Chronic) Gout (Chronic) Afib (Chronic) History of myocardial infarction (Chronic) Surgical History: - - CABG x 1, Bovine AVR, Mitral Valve Repair, L TKR, Ear Surgery. Psychiatric History: Anxiety, Depression - *Family History Maternal History Items: Diabetes, Heart Disease, Hypertension Paternal History Items: Diabetes, Heart Disease, Hypertension Lives: Spouse/ Significant Other Smoking Status: Former smoker Tobacco Use: Non-smoker Alcohol: None Drugs: None Review of Systems - Review of Systems General: Reports: Fatigue, Weakness. Denies: Fever, Night Sweats Cardiovascular: Denies: Chest Discomfort, Shortness of Breath, Orthopnea, PND, Peripheral Edema, Palpitations, Lightheadedness, Dizziness, Near Syncope, Syncope Respiratory: Reports: Cough, Sputum Production. Denies: Hemoptysis Gastrointestinal: Denies: Hematemesis, Hematochezia, Melena Genitourinary: Denies: Dysuria, Hematuria Skin: Denies: Rash Subjectve: This is a 77-year-old white male who appears to be resting comfortably at the moment in no acute distress. Objective: Vital Signs Temp Pulse Resp BP Pulse Ox 98.0 F 55 L 18 136/72 H 97 12/27/17 09:25 12/27/17 09:25 12/27/17 09:25 12/27/17 09:25 12/27/17 09:25 Oxygen Delivery Method Room Air Weight: 170 lb 10.205 oz Body Mass Index (BMI) 26.7 Intake and Output for Last 24 Hours 12/25/17 12/26/17 12/27/17 23:59 23:59 23:59 Intake Total 774 / 774 Balance 774 / 774 General: Awake, Alert, Oriented x 3, Cooperative, No Acute Distress Neck: No JVD Lungs: - - Diminished inspiratory effort Cardiovascular: Irregular Rhythm, Normal S1, Normal S2 Murmur Murmur: Grade 2/6, Soft, Mid Systolic, LLSB, LVOT, Sternal Notch Vascular: No Carotid Bruits Abdomen: Bowel Sounds Present, Soft, Non Tender Extremities: No edema 12/27/17 04:12: Troponin I 0.134 H 12/27/17 06:34: WBC 15.5 H, RBC 3.13 L, Hgb 9.6 L, Hct 28.1 L, MCV 89.8, MCH 30.7, MCHC 34.2, RDW 13.5, RDW Differential 43.3, Plt Count 155, MPV 10.1, Immature Gran % (Auto) 0.300, Neut % (Auto) 84.1 H, Lymph % (Auto) 8.2 L, [place] % (Auto) 6.6, Eos % (Auto) 0.7, Baso % (Auto) 0.1, Absolute Neuts (auto) 13.0 H, Total Counted Not Reportable 12/27/17 06:34: Sodium 139, Potassium 4.6, Chloride 106, Carbon Dioxide 25.0, Anion Gap 8, BUN 59 H, Creatinine 2.69 H, Est GFR (MDRD) Af Amer 30 L, Est GFR (MDRD) Non-Af 25 L, BUN/Creatinine Ratio 21.9 H, Glucose 103, Calcium 8.0 L, Triglycerides 46, Cholesterol 84, LDL Cholesterol 29, VLDL Cholesterol 9, HDL Cholesterol 46 12/27/17 06:34: Troponin I 0.135 H Rhythm: Atrial fibrillation/flutter EKG: As noted above ECHO: Pending CXR: As noted above: Official report pending Assessment/Plan 1. Atrial fibrillation/flutter-permanent The patient states he has a history of underlying atrial fibrillation/flutter. He has been on medical therapy. This has included anticoagulant therapy. He will need to continue anti-coagulant therapy and rate limiting therapy as deemed appropriate. 2. CAD status post CABG The details of the patient's underlying CAD and subsequent CABG history are unknown at this time. He states his surgery was many years ago at the [facility]. An attempt will be made to obtain these records. In the meantime he is being followed. His cardiac enzymes and ECGs are being reviewed. An echocardiogram is pending. He will continue medical management as deemed appropriate. 3. Valvular heart disease: Status post aortic and mitral valve repair; status post aortic valve replacement-bioprosthetic The patient does have underlying valvular heart disease as previously described. Again he states his evaluation care has been at the [facility]. Based upon his ongoing concerns and findings an echocardiogram is pending to further evaluate his cardiac anatomy and physiology. 4. Hyperlipidemia He should continue risk factor evaluation care as deemed appropriate. 5. Hypertension His blood pressure can be monitored. His medications can be adjusted as deemed appropriate. 6. Diabetes mellitus He will continue under the care of internal medicine. 7. Chronic renal insufficiency He does follow with a multigrapher in the [place], [place] area. He states he has not been told of the need for hemodialysis thus far. His creatinine level appears to be chronically elevated especially over the last approximately 2 years. His creatinine level would raise concerns about any additional IV contrast related studies that could bring out IV contrast related nephropathy and further deterioration of his renal function, etc. Thus he is not an ideal candidate for such procedures at this time. 8. Leukocytosis The patient did have an elevated WBC. He is being evaluated for obvious infectious disease etiologies may contribute to this. 9. Pneumonia There is concern based on the patient's symptoms and his objective findings thus far that he may have a community-acquired pneumonia. He is being evaluated by internal medicine. He is being treated with antibiotic therapy. 10. Elevated troponin I levels The patient does have indeterminate troponin I levels. They have not significantly changed. He has not had the appearance of acute changes on his electrocardiogram. An echocardiogram is pending to evaluate his ventricular size, wall motion, and systolic function. It is not clear that his elevated troponin I levels represent a primary acute cardiovascular event. This may be a type II event secondary to supply demand mismatch brought on by noncardiovascular events as well as being superimposed upon his chronically elevated creatinine level at approximately 2.7. At the present time, he will continue cardiovascular evaluation care from a noninvasive standpoint. He will continue medical management. Again he is not an ideal candidate for invasive evaluation with cardiac catheterization based upon concerns of IV contrast related nephropathy, etc. This note was generated with [employer] dictation software. It may contain incorrect words, spelling, and punctuation that were not noted in checking the note before signing.
[2017-12-27] MEDS: Insulin Lispro 100 UNIT/ML INSULN.PEN 7 UNIT SC ×2 (10:07→16:52)
[2017-12-27] MEDS: Furosemide 40 MG Tablet PO ×2 (10:08→17:19)
[2017-12-27] MEDS: Rivaroxaban 15 MG Tablet PO (10:08)
[2017-12-27] MEDS: Allopurinol 100 MG Tablet PO (10:08)
[2017-12-27] MEDS: guaiFENesin 1,200 MG Tablet 1200 MG PO ×2 (10:08→21:11)
--- NOTE | 2017-12-27 10:11 | CON.PCM_ITS ---
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 insulin use: with custodial use Diabetes mellitus complication status: with unspecified complications Qualified Code(s): E11.8 - Type 2 diabetes mellitus with unspecified complications; Z79.4 - MCFP (current) use of insulin (9) CKD (chronic kidney disease) Status: Chronic Qualifiers: Chronic kidney disease stage: stage 3 (moderate) Qualified Code(s): N18.3 - Chronic kidney disease, stage 3 (moderate) (10) Leukocytosis Status: Acute Qualifiers: Leukocytosis type: unspecified Qualified Code(s): D72.829 - Elevated white blood cell count, unspecified (11) CAP (community acquired pneumonia) Status: Suspected Qualifiers: Laterality: unspecified laterality Qualified Code(s): J18.9 - Pneumonia, unspecified organism (12) Elevated troponin Status: Acute Reason for Consult Date of Consultation: 12/27/17 History of Present Illness: The patient is a 77 year old white male with a past cardiovascular history which apparently has included atrial fibrillation/flutter, CAD, CABG, status post aortic valve repair/mitral valve repair, status post aortic valve replacement, hyperlipidemia, hypertension, superimposed upon diabetes mellitus, chronic renal insufficiency, who now presents for a variety of symptoms including cough, sputum production, fatigue/weakness, gradual debilitation, who has been noted to have indeterminate troponin I levels. He states he has received his cardiovascular care through the [facility]. He follows with a [facility] university professor-Dr. Corey Sun. He notes he also follows with a [facility] neurologist in [place], [place]. He has denied any ongoing symptoms of chest discomfort. He has denied any acute episodes of worsening shortness of breath or dyspnea. There has been no issues of near syncope or syncope. He states that he had concerns of cough and sputum production. He was brought into the emergency department. His cardiac enzymes were indeterminant and have demonstrated no significant change. His rhythm has remained in atrial fibrillation/flutter. His ECG demonstrated associated nonspecific ST and T-wave changes. His chest x-ray suggested postoperative changes. The official report is pending at this time. There are no [facility] records available for review at this time. [] Past Medical History Allergies/Adverse Reactions: Allergies escitalopram [From Lexapro] Allergy (Verified 12/26/17 23:47) Unknown levofloxacin [From Levaquin] Allergy (Verified 12/31/16 16:35) Other LUPUS Penicillins Allergy (Verified 12/26/17 23:47) Unknown Opioids - Morphine Analogues Adverse Reaction (Verified 12/31/16 16:35) Other CONFUSION Home Medications: Ambulatory Orders Medication Instructions Recorded Allopurinol [Zyloprim] 100 mg PO DAILYCM 12/31/16 Amlodipine [Norvasc] 5 mg PO QHS 12/31/16 Carvedilol [Coreg (Beta Ellie)] 6.25 mg PO BID 12/31/16 Furosemide [Lasix] 40 mg PO BIDLX 12/31/16 Insulin Detemir [Levemir] 40 unit SQ DAILY 12/31/16 Aspirin [Aspir-Low] 81 mg PO DAILY 30 Days tablet. 01/02/17 Atorvastatin Calcium 40 mg PO DAILY 12/27/17 Insulin Aspart [Novolog Flexpen 7 units SC BIDCM 12/27/17 ([facility])] Rivaroxaban [Xarelto] 15 mg PO DAILY 12/27/17 Past Medical History (Chronic Problems): Chronic Problems Atrial fibrillation and flutter (Chronic) CAD (coronary artery disease) (Chronic) CKD (chronic kidney disease) (Chronic) H/O mitral valve repair (Chronic) aoritc bovine 2010 replacement (Chronic) H/O aortic valve repair (Chronic) Pure hypercholesterolemia (Chronic) HTN (hypertension) (Chronic) DM (diabetes mellitus) (Chronic) Hx of CABG (Chronic) Gout (Chronic) Afib (Chronic) History of myocardial infarction (Chronic) Surgical History: - - CABG x 1, Bovine AVR, Mitral Valve Repair, L TKR, Ear Surgery. Psychiatric History: Anxiety, Depression - *Family History Maternal History Items: Diabetes, Heart Disease, Hypertension Paternal History Items: Diabetes, Heart Disease, Hypertension Lives: Spouse/ Significant Other Smoking Status: Former smoker Tobacco Use: Non-smoker Alcohol: None Drugs: None Review of Systems - Review of Systems General: Reports: Fatigue, Weakness. Denies: Fever, Night Sweats Cardiovascular: Denies: Chest Discomfort, Shortness of Breath, Orthopnea, PND, Peripheral Edema, Palpitations, Lightheadedness, Dizziness, Near Syncope, Syncope Respiratory: Reports: Cough, Sputum Production. Denies: Hemoptysis Gastrointestinal: Denies: Hematemesis, Hematochezia, Melena Genitourinary: Denies: Dysuria, Hematuria Skin: Denies: Rash Subjectve: This is a 77-year-old white male who appears to be resting comfortably at the moment in no acute distress. Objective: Vital Signs Temp Pulse Resp BP Pulse Ox 98.0 F 55 L 18 136/72 H 97 12/27/17 09:25 12/27/17 09:25 12/27/17 09:25 12/27/17 09:25 12/27/17 09:25 Oxygen Delivery Method Room Air Weight: 170 lb 10.205 oz Body Mass Index (BMI) 26.7 Intake and Output for Last 24 Hours 12/25/17 12/26/17 12/27/17 23:59 23:59 23:59 Intake Total 774 / 774 Balance 774 / 774 General: Awake, Alert, Oriented x 3, Cooperative, No Acute Distress Neck: No JVD Lungs: - - Diminished inspiratory effort Cardiovascular: Irregular Rhythm, Normal S1, Normal S2 Murmur Murmur: Grade 2/6, Soft, Mid Systolic, LLSB, LVOT, Sternal Notch Vascular: No Carotid Bruits Abdomen: Bowel Sounds Present, Soft, Non Tender Extremities: No edema 12/27/17 04:12: Troponin I 0.134 H 12/27/17 06:34: WBC 15.5 H, RBC 3.13 L, Hgb 9.6 L, Hct 28.1 L, MCV 89.8, MCH 30.7, MCHC 34.2, RDW 13.5, RDW Differential 43.3, Plt Count 155, MPV 10.1, Immature Gran % (Auto) 0.300, Neut % (Auto) 84.1 H, Lymph % (Auto) 8.2 L, [place] % (Auto) 6.6, Eos % (Auto) 0.7, Baso % (Auto) 0.1, Absolute Neuts (auto) 13.0 H , Total Counted Not Reportable 12/27/17 06:34: Sodium 139, Potassium 4.6, Chloride 106, Carbon Dioxide 25.0, Anion Gap 8, BUN 59 H, Creatinine 2.69 H, Est GFR (MDRD) Af Amer 30 L, Est GFR ( MDRD) Non-Af 25 L, BUN/Creatinine Ratio 21.9 H, Glucose 103, Calcium 8.0 L, Triglycerides 46, Cholesterol 84, LDL Cholesterol 29, VLDL Cholesterol 9, HDL Cholesterol 46 12/27/17 06:34: Troponin I 0.135 H Rhythm: Atrial fibrillation/flutter EKG: As noted above ECHO: Pending CXR: As noted above: Official report pending Assessment/Plan 1. Atrial fibrillation/flutter-permanent The patient states he has a history of underlying atrial fibrillation/flutter. He has been on medical therapy. This has included anticoagulant therapy. He will need to continue anti-coagulant therapy and rate limiting therapy as deemed appropriate. 2. CAD status post CABG The details of the patient's underlying CAD and subsequent CABG history are unknown at this time. He states his surgery was many years ago at the [facility]. An attempt will be made to obtain these records. In the meantime he is being followed. His cardiac enzymes and ECGs are being reviewed. An echocardiogram is pending. He will continue medical management as deemed appropriate. 3. Valvular heart disease: Status post aortic and mitral valve repair; status post aortic valve replacement-bioprosthetic The patient does have underlying valvular heart disease as previously described. Again he states his evaluation care has been at the [facility]. Based upon his ongoing concerns and findings an echocardiogram is pending to further evaluate his cardiac anatomy and physiology. 4. Hyperlipidemia He should continue risk factor evaluation care as deemed appropriate. 5. Hypertension His blood pressure can be monitored. His medications can be adjusted as deemed appropriate. 6. Diabetes mellitus He will continue under the care of internal medicine. 7. Chronic renal insufficiency He does follow with a weaver [employer] in the [place], [place] area. He states he has not been told of the need for hemodialysis thus far. His creatinine level appears to be chronically elevated especially over the last approximately 2 years. His creatinine level would raise concerns about any additional IV contrast related studies that could bring out IV contrast related nephropathy and further deterioration of his renal function, etc. Thus he is not an ideal candidate for such procedures at this time. 8. Leukocytosis The patient did have an elevated WBC. He is being evaluated for obvious infectious disease etiologies may contribute to this. 9. Pneumonia There is concern based on the patient's symptoms and his objective findings thus far that he may have a community-acquired pneumonia. He is being evaluated by internal medicine. He is being treated with antibiotic therapy. 10. Elevated troponin I levels The patient does have indeterminate troponin I levels. They have not significantly changed. He has not had the appearance of acute changes on his electrocardiogram. An echocardiogram is pending to evaluate his ventricular size, wall motion, and systolic function. It is not clear that his elevated troponin I levels represent a primary acute cardiovascular event. This may be a type II event secondary to supply demand mismatch brought on by noncardiovascular events as well as being superimposed upon his chronically elevated creatinine level at approximately 2.7. At the present time, he will continue cardiovascular evaluation care from a noninvasive standpoint. He will continue medical management. Again he is not an ideal candidate for invasive evaluation with cardiac catheterization based upon concerns of IV contrast related nephropathy, etc. This note was generated with [employer] dictation software. It may contain incorrect words, spelling, and punctuation that were not noted in checking the note before signing.
--- NOTE | 2017-12-27 10:52 | PCM.PN.HOSP ---
Patient Problems: Active and Suspected Problems Leukocytosis (Acute) CAP (community acquired pneumonia) (Suspected) Elevated troponin (Acute) Subjective: Patient seen and examined. He was admitted by the ED on 318 with the complaint of severe weakness with an associated cough productive of yellowish sputum fatigue and malaise for 1-2 weeks. He was found to have leukocytosis of white cell count of 17.9, initial troponin was mildly elevated at 0.140 chest x-ray showed cardiomegaly with mild congestion and minimal bibasilar atelectasis noted. Has been managed for pneumonia and was started on IV ceftriaxone and IV azithromycin. Patient seen and examined. He still complains of excessive fatigue and was unable to even go to the bathroom on his own without assistance today. He still has a cough which is productive of scanty yellowish sputum. He denies any fever or chills, any abdominal pain, any diarrhea or vomiting. Review of systems otherwise negative. Vitals/I&O's: Vital Signs Temp Pulse Resp BP Pulse Ox 98.0 F 54 L 18 136/72 H 97 12/27/17 09:25 12/27/17 10:16 12/27/17 09:25 12/27/17 09:25 12/27/17 09:25 Oxygen Delivery Method Room Air Weight: 170 lb 10.205 oz Body Mass Index (BMI) 26.7 Intake and Output for Last 24 Hours 12/25/17 12/26/17 12/27/17 23:59 23:59 23:59 Intake Total 774 / 774 Balance 774 / 774 General: Alert, Oriented x3, Cooperative, No apparent distress HEENT: Atraumatic, PERRLA, EOMI, Normocephalic Oral: Moist Mucosa Neck: Supple, No JVD, Negative Carotid Bruits Lungs: - - decreased breath sounds in left lower lung rosado, with coarse crackles bibasally Cardiovascular: Regular Rhythm, Normal S1, Normal S2, No murmurs, Bradycardic Abdomen: Bowel Sounds Present, Soft, Non Tender, Non-Distended, No Hepato-splenomegaly Extremities: No clubbing, No cyanosis, No edema, Capillary Refill Less than 3 Seconds Skin: No rashes, No breakdown Musculoskeletal: No Tenderness to Palpation of Joints or Extremities Lymphatic: No Cervical, Supraclavicular, or Inguinal Adenopathy Neurological: Cranial nerves II-XII grossly intact, Motor Exam 5/5 strength throughout Psych/Mental Status: Normal Affect, Appropriate, Alert and oriented to time, place, person, mood and affect Laboratory Results 12/27/17 03:48: POC Glucose 53 L 12/27/17 04:04: POC Glucose 80 12/27/17 04:12: Troponin I 0.134 H 12/27/17 06:34: WBC 15.5 H, RBC 3.13 L, Hgb 9.6 L, Hct 28.1 L, MCV 89.8, MCH 30.7, MCHC 34.2, RDW 13.5, RDW Differential 43.3, Plt Count 155, MPV 10.1, Immature Gran % (Auto) 0.300, Neut % (Auto) 84.1 H, Lymph % (Auto) 8.2 L, [place] % (Auto) 6.6, Eos % (Auto) 0.7, Baso % (Auto) 0.1, Absolute Neuts (auto) 13.0 H, Absolute Lymphs (auto) 1.27, Total Counted Not Reportable 12/27/17 06:34: Sodium 139, Potassium 4.6, Chloride 106, Carbon Dioxide 25.0, Anion Gap 8, BUN 59 H, Creatinine 2.69 H, Estim Creat Clear Calc 21.16, Est GFR (MDRD) Af Amer 30 L, Est GFR (MDRD) Non-Af 25 L, BUN/Creatinine Ratio 21.9 H, Glucose 103, Calcium 8.0 L, Triglycerides 46, Cholesterol 84, LDL Cholesterol 29, VLDL Cholesterol 9, HDL Cholesterol 46 12/27/17 06:34: Troponin I 0.135 H 12/27/17 06:43: POC Glucose 103 Current Medications Acetaminophen (Tylenol) 650 mg PO Q4H PRN PRN PRN Reason: FEVER Acetaminophen (Tylenol) 650 mg PO Q6H PRN PRN PRN Reason: Mild Pain (scale 0-3)/T>100.7 Al Hydroxide/Mg Hydroxide (Mylanta Ii) 30 ml PO Q6H PRN PRN PRN Reason: Gastric burning Albuterol Sulfate (Ventolin Aerosols) 2.5 mg INHALATION Q2H PRN PRN PRN Reason: SHORTNESS OF BREATH Albuterol/Ipratropium (Duoneb) 3 ml INHALATION Q6H.RT SUJEY Last Admin: 12/27/17 06:36 Dose: 3 ml Allopurinol (Zyloprim) 100 mg PO DAILYCM [facility] Last Admin: 12/27/17 10:08 Dose: 100 mg Amlodipine Besylate (Norvasc) 5 mg PO QHS [facility] Atorvastatin Calcium (Lipitor) 40 mg PO QHS [facility] Carvedilol (Coreg) 6.25 mg PO BID [facility] Last Admin: 12/27/17 10:16 Dose: Not Given Furosemide (Lasix) 40 mg PO BIDLX [facility] Last Admin: 12/27/17 10:08 Dose: 40 mg Guaifenesin (Mucinex) 1,200 mg PO BID [facility] Last Admin: 12/27/17 10:08 Dose: 1,200 mg Sodium Chloride () 1,000 mls @ 100 mls/hr IV .Q10H [facility] Last Admin: 12/27/17 03:27 Dose: 100 mls/hr Azithromycin 500 mg/ Dextrose 255 mls @ 250 mls/hr IV Q24 [facility] Stop: 12/30/17 11:02 Ceftriaxone Sodium (Rocephin) 1 gm in 50 mls @ 100 mls/hr IV Q24 [facility] Insulin Glargine (Lantus (Bkc)) 40 units SC DAILY [facility] Last Admin: 12/27/17 10:08 Dose: 40 units Insulin Human Lispro (Humalog Kwikpen (Bkc)) 7 unit SC BIDCM [facility] Last Admin: 12/27/17 10:07 Dose: 7 units Insulin Human Lispro (Humalog Kwikpen (Bkc)) 0 unit SC ACHS [facility] PRN Reason: Protocol Last Admin: 12/27/17 06:49 Dose: Not Given Magnesium Hydroxide (Milk Of Magnesia) 30 ml PO DAILY PRN PRN Reason: Constipation Nitroglycerin (Nitrostat) 0.4 mg SUBLINGUAL Q5M PRN PRN Reason: Angina pain Nutritional Formula (Lactose Free) (Glucerna Shake) 120 ml PO TIDCM [facility] Last Admin: 12/27/17 10:06 Dose: 120 ml Ondansetron HCl (Zofran) 4 mg IV Q8H PRN PRN PRN Reason: NAUSEA Promethazine HCl (Phenergan) 12.5 mg IV Q6H PRN PRN PRN Reason: NAUSEA/VOMITING Rivaroxaban (Xarelto) 15 mg PO DAILY [facility] Last Admin: 12/27/17 10:08 Dose: 15 mg Medical Necessity - Tobacco Use Smoking Status: Former smoker Tobacco Use: Non-smoker Assessment/Plan All Active Problems Leukocytosis (Acute) Elevated troponin (Acute) 1. Community acquired pneumonia patient remains afebrile but feels very fatigued white cell count has trended down slightly to 15, from 17.9 on admission blood cultures pending urine for Strep an Legionella was negative. CXR showed: mild congestion, cardiomegaly, biasilar atelectasis on breathing treatments with duonebs on IV ceftriaxone and azithromycin oxygen as needed to maintain saturation >92% 2. Elevated troponins troponin was 0.14 on admission, ->0134->0.135 has a history of CAD s/p CABG denies any chest pain; no baseline troponins in EMR may be due to demand ischemia; impaired kidney function may also impair troponin clearance on aspirin, SL nitroglycerin prn 2D echo ordered. Cardiology consulted; advocate conservative management for now 3. CAD s/p CABG: on aspirin, statin and beta tyler 4. Hypertension: fairly controlled. On amlodipine, coreg and lasix 5. Hyperlipidemia: on statin 6. Diabetes mellitus: on lantus 40IU daily and lispro sc 7IU tidwm. on ISS. Accuchecks ACHS 7. Paroxysmal A. fib: On carvedilol and on Xarelto. Rate controlled 8. CKD 3: Creatinine was 2.73 on admission which is around his baseline. 2.69 this morning. Will monitor. 9. Chronic normocytic anemia: Hemoglobin is 10.7 from his baseline. Patient claims of excessive tiredness and fatigue. Check TSH 10. Valvular heart disease s/p aortic valve replacement and mitral valve repair stable. Had bovine valve replacement 11. DVT prophylaxis: On SCDs Code status: Full code This note was generated with [employer] dictation software. It may contain incorrect words, spelling, and punctuation that were not noted in checking the note before signing. Code Visit Inpatient E&M: 31109 [facility] Hosp L3
--- NOTE | 2017-12-27 10:56 | PN_ITS ---
Patient Problems: Active and Suspected Problems Leukocytosis (Acute) CAP (community acquired pneumonia) (Suspected) Elevated troponin (Acute) Subjective: Patient seen and examined. He was admitted by the ED on 318 with the complaint of severe weakness with an associated cough productive of yellowish sputum fatigue and malaise for 1-2 weeks. He was found to have leukocytosis of white cell count of 17.9, initial troponin was mildly elevated at 0.140 chest x-ray showed cardiomegaly with mild congestion and minimal bibasilar atelectasis noted. Has been managed for pneumonia and was started on IV ceftriaxone and IV azithromycin. Patient seen and examined. He still complains of excessive fatigue and was unable to even go to the bathroom on his own without assistance today. He still has a cough which is productive of scanty yellowish sputum. He denies any fever or chills, any abdominal pain, any diarrhea or vomiting. Review of systems otherwise negative. Vitals/I&O's: Vital Signs Temp Pulse Resp BP Pulse Ox 98.0 F 54 L 18 136/72 H 97 12/27/17 09:25 12/27/17 10:16 12/27/17 09:25 12/27/17 09:25 12/27/17 09:25 Oxygen Delivery Method Room Air Weight: 170 lb 10.205 oz Body Mass Index (BMI) 26.7 Intake and Output for Last 24 Hours 12/25/17 12/26/17 12/27/17 23:59 23:59 23:59 Intake Total 774 / 774 Balance 774 / 774 General: Alert, Oriented x3, Cooperative, No apparent distress HEENT: Atraumatic, PERRLA, EOMI, Normocephalic Oral: Moist Mucosa Neck: Supple, No JVD, Negative Carotid Bruits Lungs: - - decreased breath sounds in left lower lung rosado, with coarse crackles bibasally Cardiovascular: Regular Rhythm, Normal S1, Normal S2, No murmurs, Bradycardic Abdomen: Bowel Sounds Present, Soft, Non Tender, Non-Distended, No Hepato- splenomegaly Extremities: No clubbing, No cyanosis, No edema, Capillary Refill Less than 3 Seconds Skin: No rashes, No breakdown Musculoskeletal: No Tenderness to Palpation of Joints or Extremities Lymphatic: No Cervical, Supraclavicular, or Inguinal Adenopathy Neurological: Cranial nerves II-XII grossly intact, Motor Exam 5/5 strength throughout Psych/Mental Status: Normal Affect, Appropriate, Alert and oriented to time, place, person, mood and affect Laboratory Results 12/27/17 03:48: POC Glucose 53 L 12/27/17 04:04: POC Glucose 80 12/27/17 04:12: Troponin I 0.134 H 12/27/17 06:34: WBC 15.5 H, RBC 3.13 L, Hgb 9.6 L, Hct 28.1 L, MCV 89.8, MCH 30.7, MCHC 34.2, RDW 13.5, RDW Differential 43.3, Plt Count 155, MPV 10.1, Immature Gran % (Auto) 0.300, Neut % (Auto) 84.1 H, Lymph % (Auto) 8.2 L, [place] % (Auto) 6.6, Eos % (Auto) 0.7, Baso % (Auto) 0.1, Absolute Neuts (auto) 13.0 H , Absolute Lymphs (auto) 1.27, Total Counted Not Reportable 12/27/17 06:34: Sodium 139, Potassium 4.6, Chloride 106, Carbon Dioxide 25.0, Anion Gap 8, BUN 59 H, Creatinine 2.69 H, Estim Creat Clear Calc 21.16, Est GFR (MDRD) Af Amer 30 L, Est GFR (MDRD) Non-Af 25 L, BUN/Creatinine Ratio 21.9 H, Glucose 103, Calcium 8.0 L, Triglycerides 46, Cholesterol 84, LDL Cholesterol 29 , VLDL Cholesterol 9, HDL Cholesterol 46 12/27/17 06:34: Troponin I 0.135 H 12/27/17 06:43: POC Glucose 103 Current Medications Acetaminophen (Tylenol) 650 mg PO Q4H PRN PRN PRN Reason: FEVER Acetaminophen (Tylenol) 650 mg PO Q6H PRN PRN PRN Reason: Mild Pain (scale 0-3)/T>100.7 Al Hydroxide/Mg Hydroxide (Mylanta Ii) 30 ml PO Q6H PRN PRN PRN Reason: Gastric burning Albuterol Sulfate (Ventolin Aerosols) 2.5 mg INHALATION Q2H PRN PRN PRN Reason: SHORTNESS OF BREATH Albuterol/Ipratropium (Duoneb) 3 ml INHALATION Q6H.RT SUJEY Last Admin: 12/27/17 06:36 Dose: 3 ml Allopurinol (Zyloprim) 100 mg PO DAILYCM [facility] Last Admin: 12/27/17 10:08 Dose: 100 mg Amlodipine Besylate (Norvasc) 5 mg PO QHS [facility] Atorvastatin Calcium (Lipitor) 40 mg PO QHS [facility] Carvedilol (Coreg) 6.25 mg PO BID [facility] Last Admin: 12/27/17 10:16 Dose: Not Given Furosemide (Lasix) 40 mg PO BIDLX [facility] Last Admin: 12/27/17 10:08 Dose: 40 mg Guaifenesin (Mucinex) 1,200 mg PO BID [facility] Last Admin: 12/27/17 10:08 Dose: 1,200 mg Sodium Chloride () 1,000 mls @ 100 mls/hr IV .Q10H [facility] Last Admin: 12/27/17 03:27 Dose: 100 mls/hr Azithromycin 500 mg/ Dextrose 255 mls @ 250 mls/hr IV Q24 [facility] Stop: 12/30/17 11:02 Ceftriaxone Sodium (Rocephin) 1 gm in 50 mls @ 100 mls/hr IV Q24 [facility] Insulin Glargine (Lantus (Bkc)) 40 units SC DAILY [facility] Last Admin: 12/27/17 10:08 Dose: 40 units Insulin Human Lispro (Humalog Kwikpen (Bkc)) 7 unit SC BIDCM [facility] Last Admin: 12/27/17 10:07 Dose: 7 units Insulin Human Lispro (Humalog Kwikpen (Bkc)) 0 unit SC ACHS [facility] PRN Reason: Protocol Last Admin: 12/27/17 06:49 Dose: Not Given Magnesium Hydroxide (Milk Of Magnesia) 30 ml PO DAILY PRN PRN Reason: Constipation Nitroglycerin (Nitrostat) 0.4 mg SUBLINGUAL Q5M PRN PRN Reason: Angina pain Nutritional Formula (Lactose Free) (Glucerna Shake) 120 ml PO TIDCM [facility] Last Admin: 12/27/17 10:06 Dose: 120 ml Ondansetron HCl (Zofran) 4 mg IV Q8H PRN PRN PRN Reason: NAUSEA Promethazine HCl (Phenergan) 12.5 mg IV Q6H PRN PRN PRN Reason: NAUSEA/VOMITING Rivaroxaban (Xarelto) 15 mg PO DAILY [facility] Last Admin: 12/27/17 10:08 Dose: 15 mg Medical Necessity - Tobacco Use Smoking Status: Former smoker Tobacco Use: Non-smoker Assessment/Plan All Active Problems Leukocytosis (Acute) Elevated troponin (Acute) 1. Community acquired pneumonia * patient remains afebrile but feels very fatigued * white cell count has trended down slightly to 15, from 17.9 on admission * blood cultures pending * urine for Strep an Legionella was negative. * CXR showed: mild congestion, cardiomegaly, biasilar atelectasis * on breathing treatments with duonebs * on IV ceftriaxone and azithromycin * oxygen as needed to maintain saturation >92% * 2. Elevated troponins * troponin was 0.14 on admission, ->0134->0.135 * has a history of CAD s/p CABG * denies any chest pain; no baseline troponins in EMR * may be due to demand ischemia; impaired kidney function may also impair troponin clearance * on aspirin, SL nitroglycerin prn * 2D echo ordered. * Cardiology consulted; advocate conservative management for now * 3. CAD s/p CABG: on aspirin, statin and beta tyler 4. Hypertension: fairly controlled. On amlodipine, coreg and lasix 5. Hyperlipidemia: on statin 6. Diabetes mellitus: on lantus 40IU daily and lispro sc 7IU tidwm. on ISS. Accuchecks ACHS 7. Paroxysmal A. fib: On carvedilol and on Xarelto. Rate controlled 8. CKD 3: Creatinine was 2.73 on admission which is around his baseline. 2.69 this morning. Will monitor. 9. Chronic normocytic anemia: Hemoglobin is 10.7 from his baseline. Patient claims of excessive tiredness and fatigue. Check TSH 10. Valvular heart disease s/p aortic valve replacement and mitral valve repair * stable. Had bovine valve replacement 11. DVT prophylaxis: On SCDs Code status: Full code This note was generated with [employer] software. It may contain incorrect words, spelling, and punctuation that were not noted in checking the note before signing. Code Visit Inpatient E&M: 84694 [facility] Hosp L3
[2017-12-27 12:01] LABS: Thyroid Stim Hormone (TSH) 1.86 uIU/mL (0.358-3.74)
[2017-12-27 12:21] LABS: Bedside Glucose 93 mg/dL (70-110)
[2017-12-27] MEDS: Oseltamivir Phosphate 30 MG Capsule PO (12:55)
--- NOTE | 2017-12-27 14:14 | CASEMGMT ---
Addendum entered by Migdalia Parker 12/27/17 17:18: Pt continues w/fatigue and weakness and did not ambulate further than 6 feet w/PT. D/C plan undetermined at this time. Rodrigo CARRERA RN, CM Original Note: MALATHI SANABRIA NOTE: Out-pt order for PT/OT given to pt and for [employer]. Order also faxed to [employer] @ [phone] along with facesheet and insurance information. stated she will call to make an appointment after pt discharged. Pt and both deny further needs at this time. CM to follow for discharge planning needs that may arise. Rodrigo CARRERA RN, CM
[2017-12-27 17:01] LABS: Bedside Glucose 125 mg/dL (70-110)
[2017-12-27] MEDS: Carvedilol 6.25 MG Tablet PO (17:19)
[2017-12-27] MEDS: Acetaminophen 325 MG Tablet 650 MG PO (18:40)
[2017-12-27] MEDS: Atorvastatin Calcium 40 MG Tablet PO (21:11)
[2017-12-27] MEDS: amLODIPine 5 MG Tablet PO (21:11)
[2017-12-27 21:25] LABS: Bedside Glucose 74 mg/dL (70-110)
[2017-12-27 22:36] LABS: Bedside Glucose 87 mg/dL (70-110)
[2017-12-28] VITALS (15 sets, daily range): BP systolic 132–195; BP diastolic 56–78; PULSE 47–81; RESP 16–20; TEMP 36.7–37.2; O2SAT 93–97
--- NOTE | 2017-12-28 05:55 | EKG12_ITS ---
Test Reason : CP Blood Pressure : / mmHG Vent. Rate : 050 BPM Atrial Rate : 312 BPM P-R Int : 000 ms QRS Dur : 090 ms QT Int : 472 ms P-R-T Axes : 000 116 -32 degrees QTc Int : 430 ms Atrial flutter with variable A-V block ST & T wave abnormality, consider inferior-lateral ischemia Poor R wave progression Abnormal ECG Confirmed by IBETH MIRANDA, GILDARDO ([id number]), mapping editor KJ ROOT ([id number] on 01/01/2018 11:33:16 AM Referred By: NATALI SHAVER Confirmed By:GILDARDO CRISTINA MD
--- NOTE | 2017-12-28 06:14 | NURSING ---
0530 RN called pts Kristina to inform her of patients increased confusion and disorientation throughout the night. Pt is now convinced that staff is manipulating him and he does not trust us. He is stating that he wants to leave. He is being uncooperative and refuses to listen to staff. So far he is not being physical but RN suggested to to call patients cell phone and see if she can reorient him to the situation. After pt spoke with his and sat with different staff member he became slightly more calm and agreed to lay back in bed and attempt to go to sleep. Bed alarm was turned back on.
[2017-12-28] MEDS: 0.9% Normal Saline 1,000 ML 100 ML IV (06:57)
[2017-12-28 07:06] LABS: Bedside Glucose 73 mg/dL (70-110)
[2017-12-28] MEDS: Glucerna Shake 120 ML LIQUID PO (08:41)
[2017-12-28] MEDS: Carvedilol 6.25 MG Tablet PO ×2 (08:48→21:43)
[2017-12-28] MEDS: Oseltamivir Phosphate 30 MG Capsule PO (08:48)
[2017-12-28] MEDS: Allopurinol 100 MG Tablet PO (08:48)
[2017-12-28] MEDS: Furosemide 40 MG Tablet PO ×2 (08:48→17:22)
[2017-12-28] MEDS: Rivaroxaban 15 MG Tablet PO (08:48)
[2017-12-28] MEDS: guaiFENesin 1,200 MG Tablet 1200 MG PO ×2 (08:48→21:42)
[2017-12-28] MEDS: Ceftriaxone 1 GM/50 ML BAG IV (08:53)
[2017-12-28] MEDS: Acetaminophen 325 MG Tablet 650 MG PO (09:34)
--- NOTE | 2017-12-28 09:39 | PCM.PN.HOSP ---
Patient Problems: Active and Suspected Problems Leukocytosis (Acute) CAP (community acquired pneumonia) (Suspected) Elevated troponin (Acute) Subjective: Patient seen and examined. He was sitting up in bed still quite weak. He said he felt a bit better but still not as well as he was prior to when he came in. She tested positive for influenza A and has been started on Tamiflu 75 mg twice daily. He remains on IV ceftriaxone and azithromycin. Cough is better and he denies any fever or chills, no abdominal pain, any diarrhea or vomiting. Review of systems is otherwise negative. Cardiology on board o/a of slightly elevated troponins. Vitals and labs reviewed. Vitals/I&O's: Vital Signs Temp Pulse Resp BP Pulse Ox 98.7 F 68 18 187/78 H 94 12/28/17 08:55 12/28/17 08:55 12/28/17 08:55 12/28/17 08:55 12/28/17 08:55 Oxygen Delivery Method Room Air Weight: 170 lb 10.205 oz Body Mass Index (BMI) 26.7 Intake and Output for Last 24 Hours 12/26/17 12/27/17 12/28/17 23:59 23:59 23:59 Intake Total 3298 / 3298 626 / 626 Output Total 800 / 800 Balance 2498 / 2498 626 / 626 General: Alert, Oriented x3, Cooperative, No apparent distress, Lethargic HEENT: Atraumatic, PERRLA, EOMI, Normocephalic Oral: Moist Mucosa Neck: Supple, No JVD, Negative Carotid Bruits Lungs: - - has decreased breath sounds bibasally, with few coarse crackles auscultated. Cardiovascular: Regular rate, Regular Rhythm, Normal S1, Normal S2, No murmurs Abdomen: Bowel Sounds Present, Soft, Non Tender, Non-Distended, No Hepato-splenomegaly Extremities: No clubbing, No cyanosis, Capillary Refill Less than 3 Seconds, - - mild 1+ pitting pedal edema Skin: No rashes, No breakdown Musculoskeletal: No Tenderness to Palpation of Joints or Extremities Lymphatic: No Cervical, Supraclavicular, or Inguinal Adenopathy Neurological: Cranial nerves II-XII grossly intact, Neuro grossly intact Psych/Mental Status: Normal Affect, Appropriate, Alert and oriented to time, place, person, mood and affect Microbiology Past 72 Hours 12/27/17 05:42 Mucosa - Nasopharyngeal Respiratory Panel (PCR) - Preliminary Laboratory Results 12/27/17 06:34: TSH 1.86 12/27/17 12:07: POC Glucose 93 12/27/17 16:50: POC Glucose 125 H 12/27/17 21:09: POC Glucose 74 12/27/17 22:32: POC Glucose 87 12/28/17 07:00: POC Glucose 73 Microbiology 12/27/17 05:42 Respiratory Panel (PCR) - Preliminary Mucosa - Nasopharyngeal 12/27/17 01:20 Legionella Antigen - Final Interface Orders Streptococcus pneumoniae Antigen (M - Final Laboratory Tests 12/28/17 12/27/17 12/27/17 Range/Units 07:00 22:32 21:09 TSH (0.358-3.74) uIU/mL POC Glucose 73 87 74 (70-110) mg/dL 12/27/17 12/27/17 12/27/17 Range/Units 16:50 12:07 06:34 TSH 1.86 (0.358-3.74) uIU/mL POC Glucose 125 H 93 (70-110) mg/dL Diagnostic Data Chest X-Ray 12/27/17 08:30 IMPRESSION: Possible developing or worsening infiltrate in the medial right lung base. Electronically Signed: Mauro Del Rio MD at 16:55 EDT , Service support , Current Medications Acetaminophen (Tylenol) 650 mg PO Q4H PRN PRN PRN Reason: FEVER Last Admin: 12/28/17 09:34 Dose: 650 mg Acetaminophen (Tylenol) 650 mg PO Q6H PRN PRN PRN Reason: Mild Pain (scale 0-3)/T>100.7 Al Hydroxide/Mg Hydroxide (Mylanta Ii) 30 ml PO Q6H PRN PRN PRN Reason: Gastric burning Albuterol Sulfate (Ventolin Aerosols) 2.5 mg INHALATION Q2H PRN PRN PRN Reason: SHORTNESS OF BREATH Albuterol/Ipratropium (Duoneb) 3 ml INHALATION Q6H.RT SUJEY Last Admin: 12/28/17 07:52 Dose: Not Given Allopurinol (Zyloprim) 100 mg PO DAILYCM [facility] Last Admin: 12/28/17 08:48 Dose: 100 mg Amlodipine Besylate (Norvasc) 5 mg PO QHS [facility] Last Admin: 12/27/17 21:11 Dose: 5 mg Atorvastatin Calcium (Lipitor) 40 mg PO QHS [facility] Last Admin: 12/27/17 21:11 Dose: 40 mg Carvedilol (Coreg) 6.25 mg PO BID [facility] Last Admin: 12/28/17 08:48 Dose: 6.25 mg Furosemide (Lasix) 40 mg PO BIDLX [facility] Last Admin: 12/28/17 08:48 Dose: 40 mg Guaifenesin (Mucinex) 1,200 mg PO BID [facility] Last Admin: 12/28/17 08:48 Dose: 1,200 mg Azithromycin 500 mg/ Dextrose 255 mls @ 250 mls/hr IV Q24 [facility] Stop: 12/30/17 11:02 Last Admin: 12/28/17 09:34 Dose: 250 mls/hr Ceftriaxone Sodium (Rocephin) 1 gm in 50 mls @ 100 mls/hr IV Q24 [facility] Last Admin: 12/28/17 08:53 Dose: 100 mls/hr Insulin Glargine (Lantus (Bkc)) 40 units SC DAILY [facility] Last Admin: 12/28/17 08:49 Dose: 40 units Insulin Human Lispro (Humalog Kwikpen (Bkc)) [facility] Last Admin: 12/28/17 08:41 Dose: Not Given Insulin Human Lispro (Humalog Kwikpen (Bkc)) 0 unit SC ACHS [facility] PRN Reason: Protocol Last Admin: 12/28/17 07:37 Dose: Not Given Magnesium Hydroxide (Milk Of Magnesia) 30 ml PO DAILY PRN PRN Reason: Constipation Nitroglycerin (Nitrostat) 0.4 mg SUBLINGUAL Q5M PRN PRN Reason: Angina pain Nutritional Formula (Lactose Free) (Glucerna Shake) 120 ml PO TIDCM [facility] Last Admin: 12/28/17 08:41 Dose: 120 ml Ondansetron HCl (Zofran) 4 mg IV Q8H PRN PRN PRN Reason: NAUSEA Oseltamivir Phosphate (Tamiflu) 30 mg PO DAILY [facility] Stop: 12/31/17 10:01 Last Admin: 12/28/17 08:48 Dose: 30 mg Promethazine HCl (Phenergan) 12.5 mg IV Q6H PRN PRN PRN Reason: NAUSEA/VOMITING Rivaroxaban (Xarelto) 15 mg PO DAILY [facility] Last Admin: 12/28/17 08:48 Dose: 15 mg Medical Necessity - Tobacco Use Smoking Status: Former smoker Tobacco Use: Non-smoker Assessment/Plan All Active Problems Leukocytosis (Acute) Elevated troponin (Acute) 1. Influenza infection Patient tested positive for influenza A. Was started on Tamiflu yesterday. White cell count pending today. Was elevated on admission. Blood culture pending. Continue Tamiflu for 5 days- on renally adjusted dose 2. Community acquired pneumonia patient remains afebrile but feels very fatigued White cell count pending today. X-ray repeated on 12/27/2017 showed possible infiltrates developing or worsening in the medial right lung base since prior study. Remains on IV ceftriaxone and azithromycin. Continue to monitor. Maintain oxygen to maintain saturation above 92%. on breathing treatments with duonebs 2. Elevated troponins troponin was 0.14 on admission, ->0134->0.135 has a history of CAD s/p CABG denies any chest pain; no baseline troponins in EMR 2D echo: EF of 50%, severely dilated LA an mildly enlarged RA, mild segmental systolic dysfunction, with hypokinetic mid anteroseptal and mid inferoseptal camp, an hyokinetic septal apex. RVSP was 92mmHg indicating severe pulmonary hypertension. Mild segemental systolic dysfunction; unable to assess diastolic dysfunction cardiology on board. Advocate conservative management now. 3. Severe pulmonary hypertension RVSP is 92mmHg per echo. Will discuss with cardiology aboaut further workup. may benefit from right heart cath to confirm pressures. 4. CAD s/p CABG: on aspirin, statin and beta tyler 5. Hypertension: fairly controlled. On amlodipine, coreg and lasix 6. Hyperlipidemia: on statin 7. Diabetes mellitus: on lantus 40IU daily and lispro sc 7IU tidwm. on ISS. Accuchecks ACHS 8. Paroxysmal A. fib: On carvedilol and on Xarelto. Rate controlled 9. CKD 3: Creatinine was 2.73 on admission which is around his baseline. 2.69 this morning. Will monitor. 10. Chronic normocytic anemia: Hemoglobin is 10.7 from his baseline. Patient claims of excessive tiredness and fatigue. TSH was WNL. 11. Valvular heart disease s/p aortic valve replacement and mitral valve repair stable. Had bovine valve replacement 12. DVT prophylaxis: On SCDs Code status: Full code This note was generated with [employer] software. It may contain incorrect words, spelling, and punctuation that were not noted in checking the note before signing. Code Visit Inpatient E&M: 44838 Subs Hosp L3
--- NOTE | 2017-12-28 09:51 | PN_ITS ---
Patient Problems: Active and Suspected Problems Leukocytosis (Acute) CAP (community acquired pneumonia) (Suspected) Elevated troponin (Acute) Subjective: Patient seen and examined. He was sitting up in bed still quite weak. He said he felt a bit better but still not as well as he was prior to when he came in. She tested positive for influenza A and has been started on Tamiflu 75 mg twice daily. He remains on IV ceftriaxone and azithromycin. Cough is better and he denies any fever or chills, no abdominal pain, any diarrhea or vomiting. Review of systems is otherwise negative. Cardiology on board o/a of slightly elevated troponins. Vitals and labs reviewed. Vitals/I&O's: Vital Signs Temp Pulse Resp BP Pulse Ox 98.7 F 68 18 187/78 H 94 12/28/17 08:55 12/28/17 08:55 12/28/17 08:55 12/28/17 08:55 12/28/17 08:55 Oxygen Delivery Method Room Air Weight: 170 lb 10.205 oz Body Mass Index (BMI) 26.7 Intake and Output for Last 24 Hours 12/26/17 12/27/17 12/28/17 23:59 23:59 23:59 Intake Total 3298 / 3298 626 / 626 Output Total 800 / 800 Balance 2498 / 2498 626 / 626 General: Alert, Oriented x3, Cooperative, No apparent distress, Lethargic HEENT: Atraumatic, PERRLA, EOMI, Normocephalic Oral: Moist Mucosa Neck: Supple, No JVD, Negative Carotid Bruits Lungs: - - has decreased breath sounds bibasally, with few coarse crackles auscultated. Cardiovascular: Regular rate, Regular Rhythm, Normal S1, Normal S2, No murmurs Abdomen: Bowel Sounds Present, Soft, Non Tender, Non-Distended, No Hepato- splenomegaly Extremities: No clubbing, No cyanosis, Capillary Refill Less than 3 Seconds, - - mild 1+ pitting pedal edema Skin: No rashes, No breakdown Musculoskeletal: No Tenderness to Palpation of Joints or Extremities Lymphatic: No Cervical, Supraclavicular, or Inguinal Adenopathy Neurological: Cranial nerves II-XII grossly intact, Neuro grossly intact Psych/Mental Status: Normal Affect, Appropriate, Alert and oriented to time, place, person, mood and affect Microbiology Past 72 Hours 12/27/17 05:42 Mucosa - Nasopharyngeal Respiratory Panel (PCR) - Preliminary Laboratory Results 12/27/17 06:34: TSH 1.86 12/27/17 12:07: POC Glucose 93 12/27/17 16:50: POC Glucose 125 H 12/27/17 21:09: POC Glucose 74 12/27/17 22:32: POC Glucose 87 12/28/17 07:00: POC Glucose 73 Microbiology 12/27/17 05:42 Respiratory Panel (PCR) - Preliminary Mucosa - Nasopharyngeal 12/27/17 01:20 Legionella Antigen - Final Interface Orders Streptococcus pneumoniae Antigen (M - Final Laboratory Tests 3 12/28/17 12/27/17 12/27/17 Range/Units 07:00 22:32 21:09 TSH (0.358-3.74) uIU/mL POC Glucose 73 87 74 (70-110) mg/dL 3 12/27/17 12/27/17 12/27/17 Range/Units 16:50 12:07 06:34 TSH 1.86 (0.358-3.74) uIU/mL POC Glucose 125 H 93 (70-110) mg/dL Diagnostic Data Chest X-Ray 12/27/17 08:30 IMPRESSION: Possible developing or worsening infiltrate in the medial right lung base. Electronically Signed: Mauro Del Rio MD at 16:55 EDT , Service support , Current Medications Acetaminophen (Tylenol) 650 mg PO Q4H PRN PRN PRN Reason: FEVER Last Admin: 12/28/17 09:34 Dose: 650 mg Acetaminophen (Tylenol) 650 mg PO Q6H PRN PRN PRN Reason: Mild Pain (scale 0-3)/T>100.7 Al Hydroxide/Mg Hydroxide (Mylanta Ii) 30 ml PO Q6H PRN PRN PRN Reason: Gastric burning Albuterol Sulfate (Ventolin Aerosols) 2.5 mg INHALATION Q2H PRN PRN PRN Reason: SHORTNESS OF BREATH Albuterol/Ipratropium (Duoneb) 3 ml INHALATION Q6H.RT SUJEY Last Admin: 12/28/17 07:52 Dose: Not Given Allopurinol (Zyloprim) 100 mg PO DAILYCM [facility] Last Admin: 12/28/17 08:48 Dose: 100 mg Amlodipine Besylate (Norvasc) 5 mg PO QHS [facility] Last Admin: 12/27/17 21:11 Dose: 5 mg Atorvastatin Calcium (Lipitor) 40 mg PO QHS [facility] Last Admin: 12/27/17 21:11 Dose: 40 mg Carvedilol (Coreg) 6.25 mg PO BID [facility] Last Admin: 12/28/17 08:48 Dose: 6.25 mg Furosemide (Lasix) 40 mg PO BIDLX [facility] Last Admin: 12/28/17 08:48 Dose: 40 mg Guaifenesin (Mucinex) 1,200 mg PO BID [facility] Last Admin: 12/28/17 08:48 Dose: 1,200 mg Azithromycin 500 mg/ Dextrose 255 mls @ 250 mls/hr IV Q24 [facility] Stop: 12/30/17 11:02 Last Admin: 12/28/17 09:34 Dose: 250 mls/hr Ceftriaxone Sodium (Rocephin) 1 gm in 50 mls @ 100 mls/hr IV Q24 [facility] Last Admin: 12/28/17 08:53 Dose: 100 mls/hr Insulin Glargine (Lantus (Bkc)) 40 units SC DAILY [facility] Last Admin: 12/28/17 08:49 Dose: 40 units Insulin Human Lispro (Humalog Kwikpen (Bkc)) 7 unit SC BIDCM [facility] Last Admin: 12/28/17 08:41 Dose: Not Given Insulin Human Lispro (Humalog Kwikpen (Bkc)) 0 unit SC ACHS [facility] PRN Reason: Protocol Last Admin: 12/28/17 07:37 Dose: Not Given Magnesium Hydroxide (Milk Of Magnesia) 30 ml PO DAILY PRN PRN Reason: Constipation Nitroglycerin (Nitrostat) 0.4 mg SUBLINGUAL Q5M PRN PRN Reason: Angina pain Nutritional Formula (Lactose Free) (Glucerna Shake) 120 ml PO TIDCM [facility] Last Admin: 12/28/17 08:41 Dose: 120 ml Ondansetron HCl (Zofran) 4 mg IV Q8H PRN PRN PRN Reason: NAUSEA Oseltamivir Phosphate (Tamiflu) 30 mg PO DAILY [facility] Stop: 12/31/17 10:01 Last Admin: 12/28/17 08:48 Dose: 30 mg Promethazine HCl (Phenergan) 12.5 mg IV Q6H PRN PRN PRN Reason: NAUSEA/VOMITING Rivaroxaban (Xarelto) 15 mg PO DAILY [facility] Last Admin: 12/28/17 08:48 Dose: 15 mg Medical Necessity - Tobacco Use Smoking Status: Former smoker Tobacco Use: Non-smoker Assessment/Plan All Active Problems Leukocytosis (Acute) Elevated troponin (Acute) 1. Influenza infection * Patient tested positive for influenza A. Was started on Tamiflu yesterday. * White cell count pending today. Was elevated on admission. Blood culture pending. * Continue Tamiflu for 5 days- on renally adjusted dose 2. Community acquired pneumonia * patient remains afebrile but feels very fatigued * White cell count pending today. X-ray repeated on 12/27/2017 showed possible infiltrates developing or worsening in the medial right lung base since prior study. * Remains on IV ceftriaxone and azithromycin. * Continue to monitor. * Maintain oxygen to maintain saturation above 92%. * on breathing treatments with duonebs * 2. Elevated troponins * troponin was 0.14 on admission, ->0134->0.135 * has a history of CAD s/p CABG * denies any chest pain; no baseline troponins in EMR * 2D echo: EF of 50%, severely dilated LA an mildly enlarged RA, mild segmental systolic dysfunction, with hypokinetic mid anteroseptal and mid inferoseptal camp, an hyokinetic septal apex. RVSP was 92mmHg indicating severe pulmonary hypertension. Mild segemental systolic dysfunction; unable to assess diastolic dysfunction * cardiology on board. Advocate conservative management now. 3. Severe pulmonary hypertension * RVSP is 92mmHg per echo. Will discuss with cardiology aboaut further workup. may benefit from right heart cath to confirm pressures. * 4. CAD s/p CABG: on aspirin, statin and beta tyler 5. Hypertension: fairly controlled. On amlodipine, coreg and lasix 6. Hyperlipidemia: on statin 7. Diabetes mellitus: on lantus 40IU daily and lispro sc 7IU tidwm. on ISS. Accuchecks ACHS 8. Paroxysmal A. fib: On carvedilol and on Xarelto. Rate controlled 9. CKD 3: Creatinine was 2.73 on admission which is around his baseline. 2.69 this morning. Will monitor. 10. Chronic normocytic anemia: Hemoglobin is 10.7 from his baseline. Patient claims of excessive tiredness and fatigue. TSH was WNL. 11. Valvular heart disease s/p aortic valve replacement and mitral valve repair * stable. Had bovine valve replacement 12. DVT prophylaxis: On SCDs Code status: Full code This note was generated with [employer] dictation software. It may contain incorrect words, spelling, and punctuation that were not noted in checking the note before signing. Code Visit Inpatient E&M: 14419 Subs Hosp L3
[2017-12-28 10:36] LABS: Bedside Glucose 165 mg/dL (70-110)
--- NOTE | 2017-12-28 10:41 | EKG12_ITS ---
Test Reason : AM EKG Blood Pressure : / mmHG Vent. Rate : 055 BPM Atrial Rate : 288 BPM P-R Int : 000 ms QRS Dur : 090 ms QT Int : 480 ms P-R-T Axes : 000 042 -69 degrees QTc Int : 459 ms Atrial fibrillation with premature ventricular or aberrantly conducted complexes Low voltage QRS (limb leads) Poor R wave progression Abnormal ECG Confirmed by IBETH MIRANDA, GILDARDO ([id number]), non linear editor KJ ROOT ([id number] on 01/01/2018 11:28:24 AM Referred By: MARGARET Confirmed By:GILDARDO CRISTINA MD
[2017-12-28 11:04] LABS: Absolute Neutrophil Count 13.8 X10^3/uL (2.0-7.7); Basophil# 0.01 X10^3/uL; Basophil% 0.1 % (0-1); Eosinophil# 0.06 X10^3/uL; Eosinophils% 0.4 % (0-5); Hematocrit 26.3 % (40-54); Hemoglobin 8.8 g/dl (13.0-16.5); Mean Corp Hgb Conc 33.5 g/gl (32-36); Mean Corpuscular Hgb 29.7 pg (27.0-32.0); Mean Corpuscular Volume 88.9 fL (80-94); Mean Platelet Vol. 9.9 fl (6.2-12.0); Monocyte# 1.13 X10^3/uL; Monocyte% 7.1 % (0-10); Neutrophil # 13.81 X10^3/uL (2.7-7.7); Neutrophil % 87.1 % (47-70); Platelet Count 148 K/mm3 (150-450); RBC Distribution Width SD 45.2 fl (35.1-43.9); Red Blood Count 2.96 M/mm3 (4.6-6.2); White Blood Count 15.9 K/mm3 (4.4-11.0)
[2017-12-28 11:09] LABS: POSITIVE COUNT NO; POSITIVE DIFFERENTIAL NO; POSITIVE MORPHOLOGY NO
[2017-12-28 11:14] LABS: Anion Gap 9 (5-15); BUN 59 mg/dL (7-18); BUN/Creat Ratio 21.4 RATIO (10-20); Calcium,Total 7.9 mg/dL (8.5-10.1); Chloride 104 mmol/L (98-107); Creatinine, Serum 2.76 mg/dL (0.70-1.30); EST Glomerular Filtration Rate 24 mL/min (>60); Est Glom Filt Rate - Afr Amer 29 mL/min (>60); Estimated Creatinine Clearance 20.62 ml/min; Glucose 174 mg/dL (74-106); Potassium 4.6 mmol/L (3.5-5.1); Sodium Level 134 mmol/L (136-145)
[2017-12-28 11:16] LABS: Bedside Glucose 158 mg/dL (70-110)
--- NOTE | 2017-12-28 11:57 | CASEMGMT ---
Social Work Referral for placement. Spoke with patient in room along with patient . Patient closing eyes and had to be woken up several times to continue with conversation. Patient agreeable to this social science research assistant speaking with patient spouse, Kristina. Kristina reporting that patient was independent prior to hospitalization and lived at home with spouse in a 2-story home with no steps to enter. Patient bedroom is on the second floor. Patient does have a walker at home if needed and is new on oxygen. Patient utilizing no DME prior to hospitalization. This social science research assistant broaching topic of skilled facility placement as patient has not been able to walk over 15' with a walker. Patient spouse becoming tearful when broaching topic of SNF. Emotional support given. Educated Kristina that plan would be for patient to transition to SNF to have rehabilitation and strengthening prior to returning home and that the goal is not for patient to transition long-term. Kristina voicing to have some SNF's in mind but not open to giving names or receiving a list of facilities at this time. Kristina wanting to see how patient is doing on Saturday and go from there. Support given. Social work to continue to follow as needed. Sadia GONZALES, ELECTRICIAN
[2017-12-28] MEDS: Ipratropium/Albuterol Sulfate 3 ML AMPUL.NEB INHALATION ×2 (12:42→18:43)
--- NOTE | 2017-12-28 14:07 | PCM.PN.CARD ---
Subjectve: The patient is awake and alert. He denies ongoing chest discomfort or difficulty breathing at this time. He notes earlier today he had an episode when getting up where he became somewhat diaphoretic. He felt better after resting in bed. Objective: Vital Signs Temp Pulse Resp BP Pulse Ox 98.2 F 48 L 16 195/73 H 97 12/28/17 10:33 12/28/17 12:43 12/28/17 12:43 12/28/17 10:33 12/28/17 12:43 Oxygen Flow Rate (L/min) 2 Oxygen Delivery Method Nasal Cannula Weight: 170 lb 10.205 oz Body Mass Index (BMI) 26.7 Intake and Output for Last 24 Hours 12/26/17 12/27/17 12/28/17 23:59 23:59 23:59 Intake Total 3298 / 3298 1566 / 1566 Output Total 800 / 800 Balance 2498 / 2498 1566 / 1566 General: Awake, Alert, Oriented x 3, Cooperative, No Acute Distress Neck: No JVD Lungs: - - Diminished inspiratory effort Cardiovascular: Irregular Rhythm, Normal S1, Normal S2 Murmur Murmur: Grade 2/6, Soft, Mid Systolic, LLSB, LVOT, Sternal Notch Abdomen: Bowel Sounds Present, Soft, Non Tender 12/28/17 10:45: WBC 15.9 H, RBC 2.96 L, Hgb 8.8 L, Hct 26.3 L, MCV 88.9, MCH 29.7, MCHC 33.5, RDW 14.0, RDW Differential 45.2 H, Plt Count 148 L, MPV 9.9, Immature Gran % (Auto) 0.300, Neut % (Auto) 87.1 H, Lymph % (Auto) 5.0 L, [place] % (Auto) 7.1, Eos % (Auto) 0.4, Baso % (Auto) 0.1, Absolute Neuts (auto) 13.8 H, Total Counted Not Reportable 12/28/17 10:45: Sodium 134 L, Potassium 4.6, Chloride 104, Carbon Dioxide 21.0, Anion Gap 9, BUN 59 H, Creatinine 2.76 H, Est GFR (MDRD) Af Amer 29 L, Est GFR (MDRD) Non-Af 24 L, BUN/Creatinine Ratio 21.4 H, Glucose 174 H, Calcium 7.9 L Rhythm: Atrial fibrillation EKG: Atrial fibrillation; T wave abnormality: Consider myocardial ischemia-inferolateral ECHO: Please see official report Medical Necessity - Tobacco Use Smoking Status: Former smoker Tobacco Use: Non-smoker Assessment/Plan 1. Atrial fibrillation/flutter-permanent The patient states he has a history of underlying atrial fibrillation/flutter. He has been on medical therapy. This has included anticoagulant therapy. He will need to continue anti-coagulant therapy and rate limiting therapy as deemed appropriate. 2. CAD status post CABG The details of the patient's underlying CAD and subsequent CABG history are unknown at this time. He states his surgery was many years ago at the [facility]. An attempt will be made to obtain these records. In the meantime he is being followed. His cardiac enzymes and ECGs are being reviewed. He is ECG did demonstrate a T wave abnormality potentially compatible with myocardial ischemia in the inferolateral distribution. His transthoracic echocardiogram demonstrated his overall LV systolic function to be borderline low with an estimated LVEF of 50%. Ideally, based upon a combination of his symptoms, cardiac enzymes, ECG changes, etc. he would be considered for further evaluation with diagnostic cardiac catheterization to reassess his underlying [place] vessel and graft vessel status for the need for further catheter based revascularization therapy. However, there is hesitancy in doing so based upon his elevated creatinine level and the risk of IV contrast related nephropathy. Thus at the present time an attempt will be made to optimize his medical management. He will be placed on aspirin therapy, nitrate therapy, as well as antihypertensive and afterload reducing therapy with hydralazine. 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 3. Valvular heart disease: Status post aortic and mitral valve repair; status post aortic valve replacement-bioprosthetic Based upon his echocardiographic studies his mitral valve annuloplasty ring appears to be stable and his bioprosthetic aortic valve apparatus appears to be stable. 4. Hyperlipidemia He should continue risk factor evaluation care as deemed appropriate. 5. Hypertension His blood pressure can be monitored. His medications can be adjusted as deemed appropriate. 6. Diabetes mellitus He will continue under the care of internal medicine. 7. Chronic renal insufficiency He does follow with a car distributor in the [place], [place] area. He states he has not been told of the need for hemodialysis thus far. His creatinine level appears to be chronically elevated especially over the last approximately 2 years. His creatinine level would raise concerns about any additional IV contrast related studies that could bring out IV contrast related nephropathy and further deterioration of his renal function, etc. Thus he is not an ideal candidate for such procedures at this time. 8. Leukocytosis The patient did have an elevated WBC. He is being evaluated and cared for with respect to concerns of an underlying influenza virus. 9. Pneumonia There is concern based on the patient's symptoms and his objective findings thus far that he may have a community-acquired pneumonia. He is being evaluated by internal medicine. He is being treated with antibiotic therapy. 10. Elevated troponin I levels The patient does have indeterminate troponin I levels. They have not significantly changed. His noninvasive studies are as noted above. It is not clear that his elevated troponin I levels represent a primary acute cardiovascular event. This may be a type II event secondary to supply demand mismatch brought on by noncardiovascular events as well as being superimposed upon his chronically elevated creatinine level at approximately 2.7. At the present time, he will continue cardiovascular evaluation care from a noninvasive standpoint. He will continue medical management. Again he is not an ideal candidate for invasive evaluation with cardiac catheterization based upon concerns of IV contrast related nephropathy, etc. Comment: The above was discussed and reviewed with the patient and the [facility] staff. This note was generated with [employer] dictation software. It may contain incorrect words, spelling, and punctuation that were not noted in checking the note before signing.
--- NOTE | 2017-12-28 14:13 | PN.CARD_ITS ---
Subjectve: The patient is awake and alert. He denies ongoing chest discomfort or difficulty breathing at this time. He notes earlier today he had an episode when getting up where he became somewhat diaphoretic. He felt better after resting in bed. Objective: Vital Signs Temp Pulse Resp BP Pulse Ox 98.2 F 48 L 16 195/73 H 97 12/28/17 10:33 12/28/17 12:43 12/28/17 12:43 12/28/17 10:33 12/28/17 12:43 Oxygen Flow Rate (L/min) 2 Oxygen Delivery Method Nasal Cannula Weight: 170 lb 10.205 oz Body Mass Index (BMI) 26.7 Intake and Output for Last 24 Hours 12/26/17 12/27/17 12/28/17 23:59 23:59 23:59 Intake Total 3298 / 3298 1566 / 1566 Output Total 800 / 800 Balance 2498 / 2498 1566 / 1566 General: Awake, Alert, Oriented x 3, Cooperative, No Acute Distress Neck: No JVD Lungs: - - Diminished inspiratory effort Cardiovascular: Irregular Rhythm, Normal S1, Normal S2 Murmur Murmur: Grade 2/6, Soft, Mid Systolic, LLSB, LVOT, Sternal Notch Abdomen: Bowel Sounds Present, Soft, Non Tender 12/28/17 10:45: WBC 15.9 H, RBC 2.96 L, Hgb 8.8 L, Hct 26.3 L, MCV 88.9, MCH 29.7, MCHC 33.5, RDW 14.0, RDW Differential 45.2 H, Plt Count 148 L, MPV 9.9, Immature Gran % (Auto) 0.300, Neut % (Auto) 87.1 H, Lymph % (Auto) 5.0 L, [place] % (Auto) 7.1, Eos % (Auto) 0.4, Baso % (Auto) 0.1, Absolute Neuts (auto) 13.8 H , Total Counted Not Reportable 12/28/17 10:45: Sodium 134 L, Potassium 4.6, Chloride 104, Carbon Dioxide 21.0, Anion Gap 9, BUN 59 H, Creatinine 2.76 H, Est GFR (MDRD) Af Amer 29 L, Est GFR ( MDRD) Non-Af 24 L, BUN/Creatinine Ratio 21.4 H, Glucose 174 H, Calcium 7.9 L Rhythm: Atrial fibrillation EKG: Atrial fibrillation; T wave abnormality: Consider myocardial ischemia- inferolateral ECHO: Please see official report Medical Necessity - Tobacco Use Smoking Status: Former smoker Tobacco Use: Non-smoker Assessment/Plan 1. Atrial fibrillation/flutter-permanent The patient states he has a history of underlying atrial fibrillation/flutter. He has been on medical therapy. This has included anticoagulant therapy. He will need to continue anti-coagulant therapy and rate limiting therapy as deemed appropriate. 2. CAD status post CABG The details of the patient's underlying CAD and subsequent CABG history are unknown at this time. He states his surgery was many years ago at the [facility]. An attempt will be made to obtain these records. In the meantime he is being followed. His cardiac enzymes and ECGs are being reviewed. He is ECG did demonstrate a T wave abnormality potentially compatible with myocardial ischemia in the inferolateral distribution. His transthoracic echocardiogram demonstrated his overall LV systolic function to be borderline low with an estimated LVEF of 50%. Ideally, based upon a combination of his symptoms, cardiac enzymes, ECG changes , etc. he would be considered for further evaluation with diagnostic cardiac catheterization to reassess his underlying [place] vessel and graft vessel status for the need for further catheter based revascularization therapy. However, there is hesitancy in doing so based upon his elevated creatinine level and the risk of IV contrast related nephropathy. Thus at the present time an attempt will be made to optimize his medical management. He will be placed on aspirin therapy, nitrate therapy, as well as antihypertensive and afterload reducing therapy with hydralazine. 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 3. Valvular heart disease: Status post aortic and mitral valve repair; status post aortic valve replacement-bioprosthetic Based upon his echocardiographic studies his mitral valve annuloplasty ring appears to be stable and his bioprosthetic aortic valve apparatus appears to be stable. 4. Hyperlipidemia He should continue risk factor evaluation care as deemed appropriate. 5. Hypertension His blood pressure can be monitored. His medications can be adjusted as deemed appropriate. 6. Diabetes mellitus He will continue under the care of internal medicine. 7. Chronic renal insufficiency He does follow with a shoe treer in the [place], [place] area. He states he has not been told of the need for hemodialysis thus far. His creatinine level appears to be chronically elevated especially over the last approximately 2 years. His creatinine level would raise concerns about any additional IV contrast related studies that could bring out IV contrast related nephropathy and further deterioration of his renal function, etc. Thus he is not an ideal candidate for such procedures at this time. 8. Leukocytosis The patient did have an elevated WBC. He is being evaluated and cared for with respect to concerns of an underlying influenza virus. 9. Pneumonia There is concern based on the patient's symptoms and his objective findings thus far that he may have a community-acquired pneumonia. He is being evaluated by internal medicine. He is being treated with antibiotic therapy. 10. Elevated troponin I levels The patient does have indeterminate troponin I levels. They have not significantly changed. His noninvasive studies are as noted above. It is not clear that his elevated troponin I levels represent a primary acute cardiovascular event. This may be a type II event secondary to supply demand mismatch brought on by noncardiovascular events as well as being superimposed upon his chronically elevated creatinine level at approximately 2.7. At the present time, he will continue cardiovascular evaluation care from a noninvasive standpoint. He will continue medical management. Again he is not an ideal candidate for invasive evaluation with cardiac catheterization based upon concerns of IV contrast related nephropathy, etc. Comment: The above was discussed and reviewed with the patient and the [facility] staff. This note was generated with [employer] dictation software. It may contain incorrect words, spelling, and punctuation that were not noted in checking the note before signing.
[2017-12-28] MEDS: Aspirin E.C. 81 MG Tablet PO (14:43)
[2017-12-28] MEDS: Isosorbide DN 10 MG Tablet PO ×2 (14:44→21:43)
[2017-12-28] MEDS: hydrALAZINE 25 MG Tablet PO ×2 (14:44→21:42)
[2017-12-28 16:16] LABS: Bedside Glucose 75 mg/dL (70-110)
[2017-12-28] MEDS: amLODIPine 5 MG Tablet PO (21:42)
[2017-12-28] MEDS: Atorvastatin Calcium 40 MG Tablet PO (21:43)
[2017-12-29] VITALS (18 sets, daily range): BP systolic 132–185; BP diastolic 67–92; PULSE 54–108; RESP 16–24; TEMP 36.6–36.9; O2SAT 91–98
[2017-12-29 00:21] LABS: Bedside Glucose 98 mg/dL (70-110)
[2017-12-29] MEDS: Phenol/Sodium Phenolate 180ML 5 SPRAY MM (01:31)
[2017-12-29] MEDS: Isosorbide DN 10 MG Tablet PO ×3 (05:54→22:09)
[2017-12-29] MEDS: hydrALAZINE 25 MG Tablet PO ×3 (05:54→22:09)
[2017-12-29] MEDS: Dextrose 50%-Water 25 GM/50 ML DISP.SYRIN IV (06:02)
[2017-12-29 06:15] LABS: Absolute Lymphocyte Count 0.94 X10^3/ul (0.83-4.51); Absolute Neutrophil Count 12.2 X10^3/uL (2.0-7.7); Basophil# 0.02 X10^3/uL; Basophil% 0.1 % (0-1); Eosinophil# 0.22 X10^3/uL; Eosinophils% 1.5 % (0-5); Hematocrit 24.7 % (40-54); Hemoglobin 8.3 g/dl (13.0-16.5); Lymphocyte # 0.94 X10^3/ul (4.0); Lymphocyte % 6.5 % (19-41); Mean Corp Hgb Conc 33.6 g/gl (32-36); Mean Corpuscular Hgb 29.6 pg (27.0-32.0); Mean Corpuscular Volume 88.2 fL (80-94); Mean Platelet Vol. 10.7 fl (6.2-12.0); Monocyte# 1.08 X10^3/uL; Monocyte% 7.4 % (0-10); Neutrophil # 12.21 X10^3/uL (2.7-7.7); Neutrophil % 84.3 % (47-70); Platelet Count 163 K/mm3 (150-450); RBC Distribution Width SD 45.6 fl (35.1-43.9); White Blood Count 14.5 K/mm3 (4.4-11.0)
[2017-12-29 06:23] LABS: POSITIVE COUNT NO; POSITIVE DIFFERENTIAL NO; POSITIVE MORPHOLOGY NO
[2017-12-29 06:29] LABS: Anion Gap 12 (5-15); BUN 65 mg/dL (7-18); BUN/Creat Ratio 22.2 RATIO (10-20); Chloride 103 mmol/L (98-107); Creatinine, Serum 2.93 mg/dL (0.70-1.30); EST Glomerular Filtration Rate 22 mL/min (>60); Est Glom Filt Rate - Afr Amer 27 mL/min (>60); Estimated Creatinine Clearance 19.43 ml/min; Glucose 44 mg/dL (74-106); Potassium 4.2 mmol/L (3.5-5.1); Sodium Level 138 mmol/L (136-145)
[2017-12-29] MEDS: Ipratropium/Albuterol Sulfate 3 ML AMPUL.NEB INHALATION ×2 (07:16→19:18)
[2017-12-29] MEDS: Allopurinol 100 MG Tablet PO (07:56)
[2017-12-29] MEDS: Aspirin E.C. 81 MG Tablet PO (07:56)
[2017-12-29] MEDS: Glucerna Shake 120 ML LIQUID PO ×3 (07:56→17:06)
[2017-12-29 08:06] LABS: Bedside Glucose 103 mg/dL (70-110)
--- NOTE | 2017-12-29 09:42 | PCM.PN.HOSP ---
Patient Problems: Active and Suspected Problems Leukocytosis (Acute) CAP (community acquired pneumonia) (Suspected) Elevated troponin (Acute) Subjective: Patient seen and examined. He was sitting up in a chair and looks more alert. He denied any active issues overnight. Denies any fever chills, and had a mild cough which is nonproductive. He denied any chest pain, abdominal pain, diarrhea vomiting. His tightness seems to be improving. 12 point Review of systems otherwise negative. Vitals/I&O's: Vital Signs Temp Pulse Resp BP Pulse Ox 97.9 F 54 L 16 185/78 H 98 12/29/17 05:51 12/29/17 07:16 12/29/17 07:16 12/29/17 05:51 12/29/17 07:16 Oxygen Flow Rate (L/min) 2 Oxygen Delivery Method Nasal Cannula Weight: 170 lb 10.205 oz Body Mass Index (BMI) 26.7 Intake and Output for Last 24 Hours 12/27/17 12/28/17 12/29/17 23:59 23:59 23:59 Intake Total 3298 / 3298 2286 / 2286 120 / 120 Output Total 800 / 800 Balance 2498 / 2498 2286 / 2286 120 / 120 General: Alert, Oriented x3, Cooperative, No apparent distress HEENT: Atraumatic, PERRLA, EOMI, Normocephalic Oral: Moist Mucosa Neck: Supple, No JVD, Negative Carotid Bruits Lungs: Normal air movement, - - coarse crackles in right lower lung base Cardiovascular: Regular rate, Regular Rhythm, Normal S1, Normal S2, No murmurs Abdomen: Bowel Sounds Present, Soft, Non Tender, Non-Distended, No Hepato-splenomegaly Extremities: No clubbing, No cyanosis, No edema, Capillary Refill Less than 3 Seconds Skin: No rashes, No breakdown Musculoskeletal: No Tenderness to Palpation of Joints or Extremities Lymphatic: No Cervical, Supraclavicular, or Inguinal Adenopathy Neurological: Cranial nerves II-XII grossly intact, Neuro grossly intact Psych/Mental Status: Flat Affect, Alert and oriented to time, place, person, mood and affect Microbiology Past 72 Hours 12/27/17 05:42 Mucosa - Nasopharyngeal Respiratory Panel (PCR) - Preliminary Laboratory Results 12/28/17 10:29: POC Glucose 165 H 12/28/17 10:45: WBC 15.9 H, RBC 2.96 L, Hgb 8.8 L, Hct 26.3 L, MCV 88.9, MCH 29.7, MCHC 33.5, RDW 14.0, RDW Differential 45.2 H, Plt Count 148 L, MPV 9.9, Immature Gran % (Auto) 0.300, Neut % (Auto) 87.1 H, Lymph % (Auto) 5.0 L, [place] % (Auto) 7.1, Eos % (Auto) 0.4, Baso % (Auto) 0.1, Absolute Neuts (auto) 13.8 H, Absolute Lymphs (auto) 0.80 L, Total Counted Not Reportable 12/28/17 10:45: Sodium 134 L, Potassium 4.6, Chloride 104, Carbon Dioxide 21.0, Anion Gap 9, BUN 59 H, Creatinine 2.76 H, Estim Creat Clear Calc 20.62, Est GFR (MDRD) Af Amer 29 L, Est GFR (MDRD) Non-Af 24 L, BUN/Creatinine Ratio 21.4 H, Glucose 174 H, Calcium 7.9 L 12/28/17 11:11: POC Glucose 158 H 12/28/17 16:13: POC Glucose 75 12/28/17 21:47: POC Glucose 98 12/29/17 05:20: WBC 14.5 H, RBC 2.80 L, Hgb 8.3 L, Hct 24.7 L, MCV 88.2, MCH 29.6, MCHC 33.6, RDW 14.0, RDW Differential 45.6 H, Plt Count 163, MPV 10.7, Immature Gran % (Auto) 0.200, Neut % (Auto) 84.3 H, Lymph % (Auto) 6.5 L, [place] % (Auto) 7.4, Eos % (Auto) 1.5, Baso % (Auto) 0.1, Absolute Neuts (auto) 12.2 H, Absolute Lymphs (auto) 0.94, Total Counted Not Reportable 12/29/17 05:20: Sodium 138, Potassium 4.2, Chloride 103, Carbon Dioxide 23.0, Anion Gap 12, BUN 65 H, Creatinine 2.93 H, Estim Creat Clear Calc 19.43, Est GFR (MDRD) Af Amer 27 L, Est GFR (MDRD) Non-Af 22 L, BUN/Creatinine Ratio 22.2 H, Glucose 44 L*, Calcium 8.0 L 12/29/17 07:54: POC Glucose 103 Current Medications Acetaminophen (Tylenol) 650 mg PO Q4H PRN PRN PRN Reason: FEVER Last Admin: 12/28/17 09:34 Dose: 650 mg Acetaminophen (Tylenol) 650 mg PO Q6H PRN PRN PRN Reason: Mild Pain (scale 0-3)/T>100.7 Al Hydroxide/Mg Hydroxide (Mylanta Ii) 30 ml PO Q6H PRN PRN PRN Reason: Gastric burning Albuterol Sulfate (Ventolin Aerosols) 2.5 mg INHALATION Q2H PRN PRN PRN Reason: SHORTNESS OF BREATH Albuterol/Ipratropium (Duoneb) 3 ml INHALATION Q6H.RT [facility] Last Admin: 12/29/17 07:16 Dose: 3 ml Allopurinol (Zyloprim) 100 mg PO DAILYCM [facility] Last Admin: 12/29/17 07:56 Dose: 100 mg Amlodipine Besylate (Norvasc) 5 mg PO QHS [facility] Last Admin: 12/28/17 21:42 Dose: 5 mg Aspirin (Ecotrin) 81 mg PO DAILY@0800 [facility] Last Admin: 12/29/17 07:56 Dose: 81 mg Atorvastatin Calcium (Lipitor) 40 mg PO QHS [facility] Last Admin: 12/28/17 21:43 Dose: 40 mg Carvedilol (Coreg) 6.25 mg PO BID [facility] Last Admin: 12/28/17 21:43 Dose: 6.25 mg Dextrose (D50w Syringe) 0 gm IV X1 PRN; Protocol PRN Reason: Hypoglycemia Furosemide (Lasix) 40 mg PO BIDLX [facility] Last Admin: 12/28/17 17:22 Dose: 40 mg Glucagon () 1 mg IM .X1 PRN PRN Reason: Hypoglycemia Guaifenesin (Mucinex) 1,200 mg PO BID [facility] Last Admin: 12/28/17 21:42 Dose: 1,200 mg Hydralazine HCl (Apresoline) 25 mg PO TID [facility] Last Admin: 12/29/17 05:54 Dose: 25 mg Azithromycin 500 mg/ Dextrose 255 mls @ 250 mls/hr IV Q24 [facility] Stop: 12/30/17 11:02 Last Admin: 12/28/17 09:34 Dose: 250 mls/hr Ceftriaxone Sodium (Rocephin) 1 gm in 50 mls @ 100 mls/hr IV Q24 [facility] Last Admin: 12/28/17 08:53 Dose: 100 mls/hr Insulin Glargine (Lantus (Bkc)) 40 units SC DAILY [facility] Last Admin: 12/29/17 08:08 Dose: Not Given Insulin Human Lispro (Humalog Kwikpen (Bkc)) 7 unit SC BIDCM [facility] Last Admin: 12/29/17 08:00 Dose: Not Given Insulin Human Lispro (Humalog Kwikpen (Bkc)) 0 unit SC ACHS [facility] PRN Reason: Protocol Last Admin: 12/29/17 07:36 Dose: Not Given Isosorbide Dinitrate (Isordil) 10 mg PO TID [facility] Last Admin: 12/29/17 05:54 Dose: 10 mg Magnesium Hydroxide (Milk Of Magnesia) 30 ml PO DAILY PRN PRN Reason: Constipation Nitroglycerin (Nitrostat) 0.4 mg SUBLINGUAL Q5M PRN PRN Reason: Angina pain Nutritional Formula (Lactose Free) (Glucerna Shake) 120 ml PO TIDCM [facility] Last Admin: 12/29/17 07:56 Dose: 120 ml Ondansetron HCl (Zofran) 4 mg IV Q8H PRN PRN PRN Reason: NAUSEA Oseltamivir Phosphate (Tamiflu) 30 mg PO DAILY [facility] Stop: 12/31/17 10:01 Last Admin: 12/28/17 08:48 Dose: 30 mg Phenol/Menthol (Chloraseptic (Bkc)) 5 spray MM Q2H PRN PRN PRN Reason: SORE THROAT Last Admin: 12/29/17 01:31 Dose: 5 spray Promethazine HCl (Phenergan) 12.5 mg IV Q6H PRN PRN PRN Reason: NAUSEA/VOMITING Rivaroxaban (Xarelto) 15 mg PO DAILY [facility] Last Admin: 12/28/17 08:48 Dose: 15 mg Medical Necessity - Tobacco Use Smoking Status: Former smoker Tobacco Use: Non-smoker Assessment/Plan All Active Problems Leukocytosis (Acute) Elevated troponin (Acute) 1. Influenza infection Patient tested positive for influenza A. Was started on Tamiflu- today is day 3 white count remains elevated at 14.5; no other obvious source of infection blood cultures showed no growth in 48 hrs 2. Community acquired pneumonia white cell count remains elevated but patient feels better wbc is 15 today. X-ray repeated on 12/27/2017 showed possible infiltrates developing or worsening in the medial right lung base since prior study. on IV ceftriaxone and azithromycin. will switch to PO doxycycline today as patient has remained afebrile. Continue to monitor. Maintain oxygen to maintain saturation above 92%. on breathing treatments with duonebs 2. Elevated troponins troponin was 0.14 on admission, ->0134->0.135 has a history of CAD s/p CABG 2D echo: EF of 50%, severely dilated LA an mildly enlarged RA, mild segmental systolic dysfunction, with hypokinetic mid anteroseptal and mid inferoseptal camp, an hyokinetic septal apex. RVSP was 92mmHg indicating severe pulmonary hypertension. Mild segemental systolic dysfunction; unable to assess diastolic dysfunction cardiology on board. Advocate conservative management now in light of patient's debilitated state and CKD which puts him at risk of contrast induced nephrophaty 3. Severe pulmonary hypertension RVSP is 92mmHg per echo. conservative management for now in light of comorbidities. 4. CAD s/p CABG: on aspirin, statin and beta tyler 5. Hypertension: poorly controlled. On amlodipine, coreg and lasix. BP is 185/78 this morning. Goes down to 130s overnight. Will adjust BP meds as appropriate 6. Hyperlipidemia: on statin 7. Diabetes mellitus: was hypoglycemic this morning, with blood sugar being in the 40s. Hypoglycemia resolved with administration of D50. will hold lantus 40IU daily and lispro sc 7IU tidwm. on ISS. Accuchecks ACHS 8. Paroxysmal A. fib: On carvedilol and on Xarelto. Rate controlled 9. CKD 3: Creatinine was 2.73 on admission which is around his baseline. 2.93 this morning. Will monitor. 10. Chronic normocytic anemia: Hb today is 8.3' baseline is ~ 10. will monitor 11. Valvular heart disease s/p aortic valve replacement and mitral valve repair stable. Had bovine valve replacement 12. DVT prophylaxis: On SCDs Code status: Full code Disposition: for likely DC tomorrow This note was generated with [employer] dictation software. It may contain incorrect words, spelling, and punctuation that were not noted in checking the note before signing. Code Visit Inpatient E&M: 78229 Subs Hosp L2
--- NOTE | 2017-12-29 09:51 | PN_ITS ---
Patient Problems: Active and Suspected Problems Leukocytosis (Acute) CAP (community acquired pneumonia) (Suspected) Elevated troponin (Acute) Subjective: Patient seen and examined. He was sitting up in a chair and looks more alert. He denied any active issues overnight. Denies any fever chills, and had a mild cough which is nonproductive. He denied any chest pain, abdominal pain, diarrhea vomiting. His tightness seems to be improving. 12 point Review of systems otherwise negative. Vitals/I&O's: Vital Signs Temp Pulse Resp BP Pulse Ox 97.9 F 54 L 16 185/78 H 98 12/29/17 05:51 12/29/17 07:16 12/29/17 07:16 12/29/17 05:51 12/29/17 07:16 Oxygen Flow Rate (L/min) 2 Oxygen Delivery Method Nasal Cannula Weight: 170 lb 10.205 oz Body Mass Index (BMI) 26.7 Intake and Output for Last 24 Hours 12/27/17 12/28/17 12/29/17 23:59 23:59 23:59 Intake Total 3298 / 3298 2286 / 2286 120 / 120 Output Total 800 / 800 Balance 2498 / 2498 2286 / 2286 120 / 120 General: Alert, Oriented x3, Cooperative, No apparent distress HEENT: Atraumatic, PERRLA, EOMI, Normocephalic Oral: Moist Mucosa Neck: Supple, No JVD, Negative Carotid Bruits Lungs: Normal air movement, - - coarse crackles in right lower lung base Cardiovascular: Regular rate, Regular Rhythm, Normal S1, Normal S2, No murmurs Abdomen: Bowel Sounds Present, Soft, Non Tender, Non-Distended, No Hepato- splenomegaly Extremities: No clubbing, No cyanosis, No edema, Capillary Refill Less than 3 Seconds Skin: No rashes, No breakdown Musculoskeletal: No Tenderness to Palpation of Joints or Extremities Lymphatic: No Cervical, Supraclavicular, or Inguinal Adenopathy Neurological: Cranial nerves II-XII grossly intact, Neuro grossly intact Psych/Mental Status: Flat Affect, Alert and oriented to time, place, person, mood and affect Microbiology Past 72 Hours 12/27/17 05:42 Mucosa - Nasopharyngeal Respiratory Panel (PCR) - Preliminary Laboratory Results 12/28/17 10:29: POC Glucose 165 H 12/28/17 10:45: WBC 15.9 H, RBC 2.96 L, Hgb 8.8 L, Hct 26.3 L, MCV 88.9, MCH 29.7, MCHC 33.5, RDW 14.0, RDW Differential 45.2 H, Plt Count 148 L, MPV 9.9, Immature Gran % (Auto) 0.300, Neut % (Auto) 87.1 H, Lymph % (Auto) 5.0 L, [place] % (Auto) 7.1, Eos % (Auto) 0.4, Baso % (Auto) 0.1, Absolute Neuts (auto) 13.8 H , Absolute Lymphs (auto) 0.80 L, Total Counted Not Reportable 12/28/17 10:45: Sodium 134 L, Potassium 4.6, Chloride 104, Carbon Dioxide 21.0, Anion Gap 9, BUN 59 H, Creatinine 2.76 H, Estim Creat Clear Calc 20.62, Est GFR (MDRD) Af Amer 29 L, Est GFR (MDRD) Non-Af 24 L, BUN/Creatinine Ratio 21.4 H, Glucose 174 H, Calcium 7.9 L 12/28/17 11:11: POC Glucose 158 H 12/28/17 16:13: POC Glucose 75 12/28/17 21:47: POC Glucose 98 12/29/17 05:20: WBC 14.5 H, RBC 2.80 L, Hgb 8.3 L, Hct 24.7 L, MCV 88.2, MCH 29.6, MCHC 33.6, RDW 14.0, RDW Differential 45.6 H, Plt Count 163, MPV 10.7, Immature Gran % (Auto) 0.200, Neut % (Auto) 84.3 H, Lymph % (Auto) 6.5 L, [place] % (Auto) 7.4, Eos % (Auto) 1.5, Baso % (Auto) 0.1, Absolute Neuts (auto) 12.2 H , Absolute Lymphs (auto) 0.94, Total Counted Not Reportable 12/29/17 05:20: Sodium 138, Potassium 4.2, Chloride 103, Carbon Dioxide 23.0, Anion Gap 12, BUN 65 H, Creatinine 2.93 H, Estim Creat Clear Calc 19.43, Est GFR (MDRD) Af Amer 27 L, Est GFR (MDRD) Non-Af 22 L, BUN/Creatinine Ratio 22.2 H , Glucose 44 L*, Calcium 8.0 L 12/29/17 07:54: POC Glucose 103 Current Medications Acetaminophen (Tylenol) 650 mg PO Q4H PRN PRN PRN Reason: FEVER Last Admin: 12/28/17 09:34 Dose: 650 mg Acetaminophen (Tylenol) 650 mg PO Q6H PRN PRN PRN Reason: Mild Pain (scale 0-3)/T>100.7 Al Hydroxide/Mg Hydroxide (Mylanta Ii) 30 ml PO Q6H PRN PRN PRN Reason: Gastric burning Albuterol Sulfate (Ventolin Aerosols) 2.5 mg INHALATION Q2H PRN PRN PRN Reason: SHORTNESS OF BREATH Albuterol/Ipratropium (Duoneb) 3 ml INHALATION Q6H.RT [facility] Last Admin: 12/29/17 07:16 Dose: 3 ml Allopurinol (Zyloprim) 100 mg PO DAILYCM [facility] Last Admin: 12/29/17 07:56 Dose: 100 mg Amlodipine Besylate (Norvasc) 5 mg PO QHS [facility] Last Admin: 12/28/17 21:42 Dose: 5 mg Aspirin (Ecotrin) 81 mg PO DAILY@0800 [facility] Last Admin: 12/29/17 07:56 Dose: 81 mg Atorvastatin Calcium (Lipitor) 40 mg PO QHS [facility] Last Admin: 12/28/17 21:43 Dose: 40 mg Carvedilol (Coreg) 6.25 mg PO BID [facility] Last Admin: 12/28/17 21:43 Dose: 6.25 mg Dextrose (D50w Syringe) 0 gm IV X1 PRN; Protocol PRN Reason: Hypoglycemia Furosemide (Lasix) 40 mg PO BIDLX [facility] Last Admin: 12/28/17 17:22 Dose: 40 mg Glucagon () 1 mg IM .X1 PRN PRN Reason: Hypoglycemia Guaifenesin (Mucinex) 1,200 mg PO BID [facility] Last Admin: 12/28/17 21:42 Dose: 1,200 mg Hydralazine HCl (Apresoline) 25 mg PO TID [facility] Last Admin: 12/29/17 05:54 Dose: 25 mg Azithromycin 500 mg/ Dextrose 255 mls @ 250 mls/hr IV Q24 [facility] Stop: 12/30/17 11:02 Last Admin: 12/28/17 09:34 Dose: 250 mls/hr Ceftriaxone Sodium (Rocephin) 1 gm in 50 mls @ 100 mls/hr IV Q24 [facility] Last Admin: 12/28/17 08:53 Dose: 100 mls/hr Insulin Glargine (Lantus (Bkc)) 40 units SC DAILY [facility] Last Admin: 12/29/17 08:08 Dose: Not Given Insulin Human Lispro (Humalog Kwikpen (Bkc)) 7 unit SC BIDCM [facility] Last Admin: 12/29/17 08:00 Dose: Not Given Insulin Human Lispro (Humalog Kwikpen (Bkc)) 0 unit SC ACHS [facility] PRN Reason: Protocol Last Admin: 12/29/17 07:36 Dose: Not Given Isosorbide Dinitrate (Isordil) 10 mg PO TID [facility] Last Admin: 12/29/17 05:54 Dose: 10 mg Magnesium Hydroxide (Milk Of Magnesia) 30 ml PO DAILY PRN PRN Reason: Constipation Nitroglycerin (Nitrostat) 0.4 mg SUBLINGUAL Q5M PRN PRN Reason: Angina pain Nutritional Formula (Lactose Free) (Glucerna Shake) 120 ml PO TIDCM [facility] Last Admin: 12/29/17 07:56 Dose: 120 ml Ondansetron HCl (Zofran) 4 mg IV Q8H PRN PRN PRN Reason: NAUSEA Oseltamivir Phosphate (Tamiflu) 30 mg PO DAILY [facility] Stop: 12/31/17 10:01 Last Admin: 12/28/17 08:48 Dose: 30 mg Phenol/Menthol (Chloraseptic (Bkc)) 5 spray MM Q2H PRN PRN PRN Reason: SORE THROAT Last Admin: 12/29/17 01:31 Dose: 5 spray Promethazine HCl (Phenergan) 12.5 mg IV Q6H PRN PRN PRN Reason: NAUSEA/VOMITING Rivaroxaban (Xarelto) 15 mg PO DAILY [facility] Last Admin: 12/28/17 08:48 Dose: 15 mg Medical Necessity - Tobacco Use Smoking Status: Former smoker Tobacco Use: Non-smoker Assessment/Plan All Active Problems Leukocytosis (Acute) Elevated troponin (Acute) 1. Influenza infection * Patient tested positive for influenza A. Was started on Tamiflu- today is day 3 * white count remains elevated at 14.5; no other obvious source of infection * blood cultures showed no growth in 48 hrs * * 2. Community acquired pneumonia * white cell count remains elevated but patient feels better * wbc is 15 today. * X-ray repeated on 12/27/2017 showed possible infiltrates developing or worsening in the medial right lung base since prior study. * on IV ceftriaxone and azithromycin. will switch to PO doxycycline today as patient has remained afebrile. * Continue to monitor. * Maintain oxygen to maintain saturation above 92%. * on breathing treatments with duonebs * 2. Elevated troponins * troponin was 0.14 on admission, ->0134->0.135 * has a history of CAD s/p CABG * 2D echo: EF of 50%, severely dilated LA an mildly enlarged RA, mild segmental systolic dysfunction, with hypokinetic mid anteroseptal and mid inferoseptal camp, an hyokinetic septal apex. RVSP was 92mmHg indicating severe pulmonary hypertension. Mild segemental systolic dysfunction; unable to assess diastolic dysfunction * cardiology on board. Advocate conservative management now in light of patient' s debilitated state and CKD which puts him at risk of contrast induced nephrophaty 3. Severe pulmonary hypertension * RVSP is 92mmHg per echo. * conservative management for now in light of comorbidities. * 4. CAD s/p CABG: on aspirin, statin and beta tyler 5. Hypertension: * poorly controlled. On amlodipine, coreg and lasix. * BP is 185/78 this morning. Goes down to 130s overnight. Will adjust BP meds as appropriate 6. Hyperlipidemia: on statin 7. Diabetes mellitus: * was hypoglycemic this morning, with blood sugar being in the 40s. Hypoglycemia resolved with administration of D50. * will hold lantus 40IU daily and lispro sc 7IU tidwm. on ISS. Accuchecks ACHS 8. Paroxysmal A. fib: On carvedilol and on Xarelto. Rate controlled 9. CKD 3: Creatinine was 2.73 on admission which is around his baseline. 2.93 this morning. Will monitor. 10. Chronic normocytic anemia: * Hb today is 8.3' baseline is ~ 10. * will monitor * 11. Valvular heart disease s/p aortic valve replacement and mitral valve repair * stable. Had bovine valve replacement 12. DVT prophylaxis: On SCDs Code status: Full code Disposition: for likely DC tomorrow This note was generated with S[employer]oki dictation software. It may contain incorrect words, spelling, and punctuation that were not noted in checking the note before signing. Code Visit Inpatient E&M: 40118 Subs Hosp L2
[2017-12-29] MEDS: Furosemide 40 MG Tablet PO ×2 (10:39→17:05)
[2017-12-29] MEDS: Oseltamivir Phosphate 30 MG Capsule PO (10:39)
[2017-12-29] MEDS: guaiFENesin 1,200 MG Tablet 1200 MG PO ×2 (10:39→22:09)
[2017-12-29] MEDS: Rivaroxaban 15 MG Tablet PO (10:40)
[2017-12-29] MEDS: Carvedilol 6.25 MG Tablet PO ×2 (10:40→22:09)
[2017-12-29] MEDS: Ceftriaxone 1 GM/50 ML BAG IV (10:40)
[2017-12-29] MEDS: amLODIPine 10 MG Tablet PO (10:57)
[2017-12-29] MEDS: Insulin Lispro 100 UNIT/ML INSULN.PEN SC ×3 (11:36→22:21)
[2017-12-29 11:45] LABS: Bedside Glucose 153 mg/dL (70-110)
--- NOTE | 2017-12-29 11:47 | PCM.PN.CARD ---
Subjectve: The patient appears to be without continued complaints of chest discomfort or worsening shortness of breath or dyspnea. He denies any palpitations. Objective: Vital Signs Temp Pulse Resp BP Pulse Ox 98.0 F 55 L 16 182/82 H 97 12/29/17 10:48 12/29/17 10:48 12/29/17 10:48 12/29/17 10:48 12/29/17 10:48 Oxygen Flow Rate (L/min) 1 Oxygen Delivery Method Nasal Cannula Weight: 170 lb 10.205 oz Body Mass Index (BMI) 26.7 Intake and Output for Last 24 Hours 12/27/17 12/28/17 12/29/17 23:59 23:59 23:59 Intake Total 3298 / 3298 2286 / 2286 120 / 120 Output Total 800 / 800 Balance 2498 / 2498 2286 / 2286 120 / 120 General: Awake, Alert, Oriented x 3, No Acute Distress Neck: No JVD Lungs: - - Diminished inspiratory effort Cardiovascular: Irregular Rhythm, Premature Ectopic Beats, Normal S1, Normal S2 Murmur Murmur: Grade 2/6, Soft, Mid Systolic, LLSB, LVOT, Sternal Notch Abdomen: Bowel Sounds Present, Soft, Non Tender 12/29/17 05:20: WBC 14.5 H, RBC 2.80 L, Hgb 8.3 L, Hct 24.7 L, MCV 88.2, MCH 29.6, MCHC 33.6, RDW 14.0, RDW Differential 45.6 H, Plt Count 163, MPV 10.7, Immature Gran % (Auto) 0.200, Neut % (Auto) 84.3 H, Lymph % (Auto) 6.5 L, [place] % (Auto) 7.4, Eos % (Auto) 1.5, Baso % (Auto) 0.1, Absolute Neuts (auto) 12.2 H, Total Counted Not Reportable 12/29/17 05:20: Sodium 138, Potassium 4.2, Chloride 103, Carbon Dioxide 23.0, Anion Gap 12, BUN 65 H, Creatinine 2.93 H, Est GFR (MDRD) Af Amer 27 L, Est GFR (MDRD) Non-Af 22 L, BUN/Creatinine Ratio 22.2 H, Glucose 44 L*, Calcium 8.0 L Rhythm: Atrial fibrillation; intermittent episodes of an nonsustained wide complex tachycardia Medical Necessity - Tobacco Use Smoking Status: Former smoker Tobacco Use: Non-smoker Assessment/Plan 1. Atrial fibrillation/flutter-permanent The patient states he has a history of underlying atrial fibrillation/flutter. He has been on medical therapy. This has included anticoagulant therapy. He will need to continue anti-coagulant therapy and rate limiting therapy as deemed appropriate. 2. Nonsustained wide complex tachycardia The patient has demonstrated episodes of a nonsustained wide complex tachycardia. It is unclear whether this represents a Marrero C versus nonsustained VT. The patient appears to be without obvious associated symptoms or hemodynamic compromise. He will continue medical management. Ideally this would include his beta-tyler therapy. However based upon his underlying cardiovascular condition and his recurrent events that may be reasonable to consider additional therapy with antiarrhythmic therapy such as amiodarone. 3. CAD status post CABG The details of the patient's underlying CAD and subsequent CABG history are unknown at this time. He states his surgery was many years ago at the [facility]. Request has been placed to obtain previous medical records for continuity of care. In the meantime he is being followed. His cardiac enzymes and ECGs are being reviewed. He is ECG did demonstrate a T wave abnormality potentially compatible with myocardial ischemia in the inferolateral distribution. His transthoracic echocardiogram demonstrated his overall LV systolic function to be borderline low with an estimated LVEF of 50%. Ideally, based upon a combination of his symptoms, cardiac enzymes, ECG changes, etc. he would be considered for further evaluation with diagnostic cardiac catheterization to reassess his underlying [place] vessel and graft vessel status for the need for further catheter based revascularization therapy. However, there is hesitancy in doing so based upon his elevated creatinine level and the risk of IV contrast related nephropathy. Thus at the present time an attempt will be made to optimize his medical management. He will be placed on aspirin therapy, nitrate therapy, as well as antihypertensive and afterload reducing therapy with hydralazine. If he does progress to a point where he does require repeat invasive evaluation care then iteration may be given if it is in the patient's best interest to return to his primary freelance programmer/app developer, who is an maple syrup maker, at the [facility] system for further tertiary care center evaluation from a cardiovascular standpoint as well as from a nephrology standpoint. 4. Valvular heart disease: Status post aortic and mitral valve repair; status post aortic valve replacement-bioprosthetic Based upon his echocardiographic studies his mitral valve annuloplasty ring appears to be stable and his bioprosthetic aortic valve apparatus appears to be stable. 5. Hyperlipidemia He should continue risk factor evaluation care as deemed appropriate. 6. Hypertension His blood pressure can be monitored. His amlodipine dose is being increased to assist with his blood pressure control. 7. Diabetes mellitus He will continue under the care of internal medicine. 8. Chronic renal insufficiency He does follow with a director museum or zoo in the [place], [place] area. He states he has not been told of the need for hemodialysis thus far. His creatinine level appears to be chronically elevated especially over the last approximately 2 years. His creatinine level would raise concerns about any additional IV contrast related studies that could bring out IV contrast related nephropathy and further deterioration of his renal function, etc. Thus he is not an ideal candidate for such procedures at this time. 9. Leukocytosis The patient did have an elevated WBC. He is being evaluated and cared for with respect to concerns of an underlying influenza virus. 10. Pneumonia There is concern based on the patient's symptoms and his objective findings thus far that he may have a community-acquired pneumonia. He is being evaluated by internal medicine. He is being treated with antibiotic therapy. 11. Elevated troponin I levels The patient does have indeterminate troponin I levels. They have not significantly changed. His noninvasive studies are as noted above. It is not clear that his elevated troponin I levels represent a primary acute cardiovascular event. This may be a type II event secondary to supply demand mismatch brought on by noncardiovascular events as well as being superimposed upon his chronically elevated creatinine level at approximately 2.7. At the present time, he will continue cardiovascular evaluation care from a noninvasive standpoint. He will continue medical management. Again he is not an ideal candidate for invasive evaluation with cardiac catheterization based upon concerns of IV contrast related nephropathy, etc. Comment: The above was discussed and reviewed with the patient and the [facility] staff. This note was generated with Work[employer]ation software. It may contain incorrect words, spelling, and punctuation that were not noted in checking the note before signing.
--- NOTE | 2017-12-29 11:51 | PN.CARD_ITS ---
Subjectve: The patient appears to be without continued complaints of chest discomfort or worsening shortness of breath or dyspnea. He denies any palpitations. Objective: Vital Signs Temp Pulse Resp BP Pulse Ox 98.0 F 55 L 16 182/82 H 97 12/29/17 10:48 12/29/17 10:48 12/29/17 10:48 12/29/17 10:48 12/29/17 10:48 Oxygen Flow Rate (L/min) 1 Oxygen Delivery Method Nasal Cannula Weight: 170 lb 10.205 oz Body Mass Index (BMI) 26.7 Intake and Output for Last 24 Hours 12/27/17 12/28/17 12/29/17 23:59 23:59 23:59 Intake Total 3298 / 3298 2286 / 2286 120 / 120 Output Total 800 / 800 Balance 2498 / 2498 2286 / 2286 120 / 120 General: Awake, Alert, Oriented x 3, No Acute Distress Neck: No JVD Lungs: - - Diminished inspiratory effort Cardiovascular: Irregular Rhythm, Premature Ectopic Beats, Normal S1, Normal S2 Murmur Murmur: Grade 2/6, Soft, Mid Systolic, LLSB, LVOT, Sternal Notch Abdomen: Bowel Sounds Present, Soft, Non Tender 12/29/17 05:20: WBC 14.5 H, RBC 2.80 L, Hgb 8.3 L, Hct 24.7 L, MCV 88.2, MCH 29.6, MCHC 33.6, RDW 14.0, RDW Differential 45.6 H, Plt Count 163, MPV 10.7, Immature Gran % (Auto) 0.200, Neut % (Auto) 84.3 H, Lymph % (Auto) 6.5 L, [place] % (Auto) 7.4, Eos % (Auto) 1.5, Baso % (Auto) 0.1, Absolute Neuts (auto) 12.2 H , Total Counted Not Reportable 12/29/17 05:20: Sodium 138, Potassium 4.2, Chloride 103, Carbon Dioxide 23.0, Anion Gap 12, BUN 65 H, Creatinine 2.93 H, Est GFR (MDRD) Af Amer 27 L, Est GFR (MDRD) Non-Af 22 L, BUN/Creatinine Ratio 22.2 H, Glucose 44 L*, Calcium 8.0 L Rhythm: Atrial fibrillation; intermittent episodes of an nonsustained wide complex tachycardia Medical Necessity - Tobacco Use Smoking Status: Former smoker Tobacco Use: Non-smoker Assessment/Plan 1. Atrial fibrillation/flutter-permanent The patient states he has a history of underlying atrial fibrillation/flutter. He has been on medical therapy. This has included anticoagulant therapy. He will need to continue anti-coagulant therapy and rate limiting therapy as deemed appropriate. 2. Nonsustained wide complex tachycardia The patient has demonstrated episodes of a nonsustained wide complex tachycardia. It is unclear whether this represents a Marrero C versus nonsustained VT. The patient appears to be without obvious associated symptoms or hemodynamic compromise. He will continue medical management. Ideally this would include his beta- tyler therapy. However based upon his underlying cardiovascular condition and his recurrent events that may be reasonable to consider additional therapy with antiarrhythmic therapy such as amiodarone. 3. CAD status post CABG The details of the patient's underlying CAD and subsequent CABG history are unknown at this time. He states his surgery was many years ago at the [facility]. Request has been placed to obtain previous medical records for continuity of care. In the meantime he is being followed. His cardiac enzymes and ECGs are being reviewed. He is ECG did demonstrate a T wave abnormality potentially compatible with myocardial ischemia in the inferolateral distribution. His transthoracic echocardiogram demonstrated his overall LV systolic function to be borderline low with an estimated LVEF of 50%. Ideally, based upon a combination of his symptoms, cardiac enzymes, ECG changes , etc. he would be considered for further evaluation with diagnostic cardiac catheterization to reassess his underlying [place] vessel and graft vessel status for the need for further catheter based revascularization therapy. However, there is hesitancy in doing so based upon his elevated creatinine level and the risk of IV contrast related nephropathy. Thus at the present time an attempt will be made to optimize his medical management. He will be placed on aspirin therapy, nitrate therapy, as well as antihypertensive and afterload reducing therapy with hydralazine. If he does progress to a point where he does require repeat invasive evaluation care then iteration may be given if it is in the patient's best interest to return to his primary grass farm laborer, who is an director acute, at the [facility] system for further tertiary care center evaluation from a cardiovascular standpoint as well as from a nephrology standpoint. 4. Valvular heart disease: Status post aortic and mitral valve repair; status post aortic valve replacement-bioprosthetic Based upon his echocardiographic studies his mitral valve annuloplasty ring appears to be stable and his bioprosthetic aortic valve apparatus appears to be stable. 5. Hyperlipidemia He should continue risk factor evaluation care as deemed appropriate. 6. Hypertension His blood pressure can be monitored. His amlodipine dose is being increased to assist with his blood pressure control. 7. Diabetes mellitus He will continue under the care of internal medicine. 8. Chronic renal insufficiency He does follow with a creative consultant in the [place], [place] area. He states he has not been told of the need for hemodialysis thus far. His creatinine level appears to be chronically elevated especially over the last approximately 2 years. His creatinine level would raise concerns about any additional IV contrast related studies that could bring out IV contrast related nephropathy and further deterioration of his renal function, etc. Thus he is not an ideal candidate for such procedures at this time. 9. Leukocytosis The patient did have an elevated WBC. He is being evaluated and cared for with respect to concerns of an underlying influenza virus. 10. Pneumonia There is concern based on the patient's symptoms and his objective findings thus far that he may have a community-acquired pneumonia. He is being evaluated by internal medicine. He is being treated with antibiotic therapy. 11. Elevated troponin I levels The patient does have indeterminate troponin I levels. They have not significantly changed. His noninvasive studies are as noted above. It is not clear that his elevated troponin I levels represent a primary acute cardiovascular event. This may be a type II event secondary to supply demand mismatch brought on by noncardiovascular events as well as being superimposed upon his chronically elevated creatinine level at approximately 2.7. At the present time, he will continue cardiovascular evaluation care from a noninvasive standpoint. He will continue medical management. Again he is not an ideal candidate for invasive evaluation with cardiac catheterization based upon concerns of IV contrast related nephropathy, etc. Comment: The above was discussed and reviewed with the patient and the [facility] staff. This note was generated with TerraLUXation software. It may contain incorrect words, spelling, and punctuation that were not noted in checking the note before signing.
[2017-12-29] MEDS: Amiodarone 200 MG Tablet PO ×2 (13:08→22:09)
[2017-12-29] MEDS: Insulin Lispro 100 UNIT/ML INSULN.PEN 7 UNIT SC (17:04)
[2017-12-29 17:10] LABS: Bacteria 0 SEEN /hpf (None Seen); Mucous, Urine 0 SEEN /hpf (<or=2+); Red Blood Cells-Urine 0 SEEN /hpf (0-5); Squamous Epithelial Cells - UA 0 SEEN /hpf (0-5)
[2017-12-29 17:10] LABS: Bedside Glucose 247 mg/dL (70-110)
[2017-12-29 17:54] LABS: Color, Urine Yellow (Yellow); Glucose, Dipstick Normal (Normal); Ketone-Dipstick Negative (Negative); Leukocyte Esterase-Dipstick 25 /ul (Negative); Nitrite-Dipstick Negative (Negative); Occult Blood-Urine Negative /ul (Negative); Protein-Dipstick 100 mg/dl (Negative); Urine Bilirubin Dipstick Negative (Negative); Urine Clarity Clear (Clear); Urine Urobilinogen Normal (Normal)
[2017-12-29 18:01] LABS: White Blood Cells 0-5 SEEN /hpf (0-5)
[2017-12-29] MEDS: Mag Hydrox/Al Hydrox/Simeth 30 ML UDC PO (22:02)
[2017-12-29] MEDS: Atorvastatin Calcium 40 MG Tablet PO (22:09)
[2017-12-29 22:31] LABS: Bedside Glucose 152 mg/dL (70-110)
[2017-12-30] VITALS (24 sets, daily range): BP systolic 118–190; BP diastolic 56–95; PULSE 42–66; RESP 16–24; TEMP 36.7–37.3; O2SAT 88–100
[2017-12-30] MEDS: Sodium Chloride 0.65% 1 SPRAY SPRAY.BTL 2 SPRAY NASAL (04:08)
[2017-12-30] MEDS: hydrALAZINE 25 MG Tablet PO (05:23)
[2017-12-30] MEDS: Isosorbide DN 10 MG Tablet PO (05:23)
[2017-12-30] MEDS: Amiodarone 200 MG Tablet PO (05:23)
[2017-12-30] MEDS: Ipratropium/Albuterol Sulfate 3 ML AMPUL.NEB INHALATION ×2 (05:45→12:24)
--- NOTE | 2017-12-30 05:55 | EKG12_ITS ---
Test Reason : Blood Pressure : / mmHG Vent. Rate : 054 BPM Atrial Rate : 250 BPM P-R Int : 000 ms QRS Dur : 090 ms QT Int : 474 ms P-R-T Axes : 000 053 245 degrees QTc Int : 449 ms Atrial fibrillation Low voltage QRS Nonspecific ST and T wave abnormality Abnormal ECG Confirmed by IBETH MIRANDA, GILDARDO ([id number]), deputy editor in chief KJ ROOT ([id number] on 01/01/2018 11:26:29 AM Referred By: SIENA Confirmed By:GILDARDO CRISTINA MD
[2017-12-30 06:03] LABS: Absolute Lymphocyte Count 1.23 X10^3/ul (0.83-4.51); Absolute Neutrophil Count 12.5 X10^3/uL (2.0-7.7); Basophil# 0.01 X10^3/uL; Basophil% 0.1 % (0-1); Eosinophil# 0.35 X10^3/uL; Eosinophils% 2.3 % (0-5); Hematocrit 25.9 % (40-54); Hemoglobin 8.8 g/dl (13.0-16.5); Lymphocyte # 1.23 X10^3/ul (4.0); Lymphocyte % 8.2 % (19-41); Mean Corpuscular Hgb 29.7 pg (27.0-32.0); Mean Corpuscular Volume 87.5 fL (80-94); Mean Platelet Vol. 10.1 fl (6.2-12.0); Monocyte# 0.84 X10^3/uL; Monocyte% 5.6 % (0-10); Neutrophil # 12.49 X10^3/uL (2.7-7.7); Neutrophil % 83.6 % (47-70); Platelet Count 217 K/mm3 (150-450); RBC Distribution Width SD 44.9 fl (35.1-43.9); Red Blood Count 2.96 M/mm3 (4.6-6.2)
[2017-12-30 06:06] LABS: POSITIVE COUNT NO; POSITIVE DIFFERENTIAL NO; POSITIVE MORPHOLOGY NO
[2017-12-30 06:27] LABS: Anion Gap 15 (5-15); BUN 72 mg/dL (7-18); BUN/Creat Ratio 22.2 RATIO (10-20); Calcium,Total 8.2 mg/dL (8.5-10.1); Chloride 98 mmol/L (98-107); Creatinine, Serum 3.24 mg/dL (0.70-1.30); EST Glomerular Filtration Rate 20 mL/min (>60); Est Glom Filt Rate - Afr Amer 24 mL/min (>60); Estimated Creatinine Clearance 17.57 ml/min; Glucose 143 mg/dL (74-106); Potassium 4.6 mmol/L (3.5-5.1); Sodium Level 134 mmol/L (136-145)
[2017-12-30 07:06] LABS: Bedside Glucose 150 mg/dL (70-110)
[2017-12-30] MEDS: Insulin Lispro 100 UNIT/ML INSULN.PEN 7 UNIT SC (08:38)
[2017-12-30] MEDS: Insulin Lispro 100 UNIT/ML INSULN.PEN SC ×2 (08:38→11:36)
[2017-12-30] MEDS: Allopurinol 100 MG Tablet PO (08:40)
[2017-12-30] MEDS: Glucerna Shake 120 ML LIQUID PO ×2 (08:40→11:36)
[2017-12-30] MEDS: Aspirin E.C. 81 MG Tablet PO (08:44)
[2017-12-30] MEDS: Carvedilol 6.25 MG Tablet PO (09:12)
[2017-12-30] MEDS: Oseltamivir Phosphate 30 MG Capsule PO (09:12)
[2017-12-30] MEDS: 0.9% Normal Saline 1,000 ML 60 ML IV (09:47)
[2017-12-30] MEDS: Ceftriaxone 1 GM/50 ML BAG IV (09:47)
[2017-12-30 09:56] LABS: Bedside Glucose 214 mg/dL (70-110)
[2017-12-30] MEDS: Rivaroxaban 15 MG Tablet PO (09:57)
[2017-12-30] MEDS: amLODIPine 10 MG Tablet PO (09:57)
--- NOTE | 2017-12-30 11:08 | CASEMGMT ---
Addendum entered by Aysha Jamison 12/30/17 12:03: Social Work Met with pt and in room and pt continues to deny need for SNF. Therapy notes reviewed with pt and . SW discussed home health PT/OT. Pt is reluctant to home health but is insistant that pt receive continued therapy and pt cooperative. No preferred home health company. Pt does have a wheeled walker. Pt bedroom is on second floor but there is a bath on the first floor. Pt plans to sleep on couch or recliner if he is unable to complete stairs at this time. Referral made to MALATHI Cleary CM for home health. Plan: Home with home health services JANET Martinez Original Note: Social Work Reviewed weekend therapy notes and SW conversation on Saturday. Met with pt in room. Presented idea of SNF and pt denies need. Also denies need for home health. He states he can return home and will get stronger on his own. SW inquired about bed and bath on second floor and pt confirmed this. With pt permission, phone call placed to to discuss discharge plan. VM left and will await return call for d/c planning. JANET Martinez
[2017-12-30 11:31] LABS: Bedside Glucose 190 mg/dL (70-110)
[2017-12-30] MEDS: guaiFENesin 1,200 MG Tablet 1200 MG PO (11:36)
--- NOTE | 2017-12-30 12:26 | CASEMGMT ---
Per Ronel HANNAH, pt agrees to [facility] at this time and pt/ state no preference. Call to Mishel at [facility] and she states they can take pt at this time for PT/OT and requests referral be faxed. Referral to [facility] at this time. Jason SERVIN CM
[2017-12-30 13:25] LABS: Bedside Glucose 228 mg/dL (70-110)
--- NOTE | 2017-12-30 14:06 | CASEMGMT ---
Social Work SW responded to rapid response. Pt in room and SW met with her. SW offered support and asked if she would like to step out of the room. denies stating as she wants to stay in the room during code. SW stayed with and offered support. denies need for SW to call someone to come in stating she will call her family. SW escorted pt to ICU waiting room and informed nurses she will wait to be taken back to the room with pt. denies SW to sit with her until she can see pt. SW offered emotional support. Will followup. JANET Martinez
--- NOTE | 2017-12-30 14:20 | PCM.PN.HOSP ---
Patient Problems: Active and Suspected Problems Leukocytosis (Acute) CAP (community acquired pneumonia) (Suspected) Elevated troponin (Acute) Subjective: Patient seen and examined. Patient when reviewed earlier this morning had no complaints and wanted to go home. He denied any shortness of breath, fever or chills, cough, chest pain, abdominal pain, diarrhea or vomiting. He wasn't as confused as he had been yesterday. REview of systems was otherwise negative. Patient was noted to desaturate to 88% with ambulation, and so he was to go home with home oxygen. However, after working with physical therapy, patient became lethargic and was found to be bradycardic, with HR going down into 30s and 40s. A rapid response was called. BP was in the 140s systolic, and he was very diaphoretic, with a weak pulse. After a dose of 0.5mg of atropine, HR went up to 50s. EKG showed junctional bradycardia. He was emergently transferred up to the ICU. Vitals/I&O's: Vital Signs Temp Pulse Resp BP Pulse Ox 98.3 F 61 16 161/77 H 98 12/30/17 08:37 12/30/17 12:24 12/30/17 12:24 12/30/17 08:37 12/30/17 14:06 Oxygen Flow Rate (L/min) 4 Oxygen Delivery Method Nasal Cannula Weight: 170 lb 10.205 oz Body Mass Index (BMI) 26.7 Intake and Output for Last 24 Hours 12/28/17 12/29/17 12/30/17 23:59 23:59 23:59 Intake Total 2286 / 2286 1444 / 1444 240 / 240 Output Total 200 / 200 Balance 2286 / 2286 1244 / 1244 240 / 240 General: Alert, Oriented x3, Cooperative, Lethargic, - - very weak and diaphoretic HEENT: Atraumatic, PERRLA, EOMI, Normocephalic Oral: Moist Mucosa Neck: Supple, No JVD, Negative Carotid Bruits Lungs: Clear to auscultation, Normal air movement, No rhonchi, No wheeze Cardiovascular: Normal S1, Normal S2, No murmurs, Bradycardic Abdomen: Bowel Sounds Present, Soft, Non Tender, Non-Distended, No Hepato-splenomegaly Extremities: No clubbing, No cyanosis, No edema, Capillary Refill Less than 3 Seconds Skin: No rashes, No breakdown Musculoskeletal: No Tenderness to Palpation of Joints or Extremities Lymphatic: No Cervical, Supraclavicular, or Inguinal Adenopathy Neurological: Cranial nerves II-XII grossly intact, Motor Exam 5/5 strength throughout Psych/Mental Status: Flat Affect Microbiology Past 72 Hours 12/28/17 14:23 Sputum, Expectorated/Coughed Gram Stain - Final 12/28/17 14:23 Sputum, Expectorated/Coughed Respiratory Culture - Preliminary 12/27/17 05:42 Mucosa - Nasopharyngeal Respiratory Panel (PCR) - Preliminary Laboratory Results 12/29/17 16:58: POC Glucose 247 H 12/29/17 17:00: Urine Color Yellow, Urine Clarity Clear, Urine pH 5.0, Ur Specific [place] 1.020, Urine Protein 100 H, Urine Glucose (UA) Normal, Urine Ketones Negative, Urine Occult Blood Negative, Urine Nitrite Negative, Urine Bilirubin Negative, Urine Urobilinogen Normal, Ur Leukocyte Esterase 25 H, Urine RBC 0 SEEN, Urine WBC 0-5 SEEN, Ur Squamous Epith Cells 0 SEEN, Urine Bacteria 0 SEEN, Urine Mucus 0 SEEN 12/29/17 22:16: POC Glucose 152 H 12/30/17 05:38: WBC 15.0 H, RBC 2.96 L, Hgb 8.8 L, Hct 25.9 L, MCV 87.5, MCH 29.7, MCHC 34.0, RDW 14.0, RDW Differential 44.9 H, Plt Count 217, MPV 10.1, Immature Gran % (Auto) 0.200, Neut % (Auto) 83.6 H, Lymph % (Auto) 8.2 L, [place] % (Auto) 5.6, Eos % (Auto) 2.3, Baso % (Auto) 0.1, Absolute Neuts (auto) 12.5 H, Absolute Lymphs (auto) 1.23, Total Counted Not Reportable 12/30/17 05:38: Sodium 134 L, Potassium 4.6, Chloride 98, Carbon Dioxide 21.0, Anion Gap 15, BUN 72 H, Creatinine 3.24 H, Estim Creat Clear Calc 17.57, Est GFR (MDRD) Af Amer 24 L, Est GFR (MDRD) Non-Af 20 L, BUN/Creatinine Ratio 22.2 H, Glucose 143 H, Calcium 8.2 L 12/30/17 06:42: POC Glucose 150 H 12/30/17 09:49: POC Glucose 214 H 12/30/17 11:20: POC Glucose 190 H 12/30/17 13:23: POC Glucose 228 H Diagnostic Data Chest X-Ray 12/27/17 08:30 IMPRESSION: Possible developing or worsening infiltrate in the medial right lung base. Electronically Signed: Mauro Del Rio MD at 16:55 EDT , Service support , Current Medications Acetaminophen (Tylenol) 650 mg PO Q4H PRN PRN PRN Reason: FEVER Last Admin: 12/28/17 09:34 Dose: 650 mg Acetaminophen (Tylenol) 650 mg PO Q6H PRN PRN PRN Reason: Mild Pain (scale 0-3)/T>100.7 Al Hydroxide/Mg Hydroxide (Mylanta Ii) 30 ml PO Q6H PRN PRN PRN Reason: Gastric burning Last Admin: 12/29/17 22:02 Dose: 30 ml Albuterol Sulfate (Ventolin Aerosols) 2.5 mg INHALATION Q2H PRN PRN PRN Reason: SHORTNESS OF BREATH Albuterol/Ipratropium (Duoneb) 3 ml INHALATION Q6H.RT [facility] Last Admin: 12/30/17 12:24 Dose: 3 ml [facility] Last Admin: 12/30/17 08:40 Dose: 100 mg Amiodarone HCl (Cordarone) 200 mg PO TID [facility] Stop: 01/05/18 06:01 Last Admin: 12/30/17 05:23 Dose: 200 mg Amiodarone HCl (Cordarone) 200 mg PO BID [facility] Stop: 01/19/18 10:01 Amiodarone HCl (Cordarone) 200 mg PO DAILY [facility] Amlodipine Besylate (Norvasc) 10 mg PO DAILY [facility] Last Admin: 12/30/17 09:57 Dose: 10 mg Aspirin (Ecotrin) 81 mg PO DAILY@0800 [facility] Last Admin: 12/30/17 08:44 Dose: 81 mg Atorvastatin Calcium (Lipitor) 40 mg PO QHS [facility] Last Admin: 12/29/17 22:09 Dose: 40 mg Carvedilol (Coreg) 6.25 mg PO BID [facility] Last Admin: 12/30/17 09:12 Dose: 6.25 mg Dextrose (D50w Syringe) 0 gm IV X1 PRN; Protocol PRN Reason: Hypoglycemia Glucagon () 1 mg IM .X1 PRN PRN Reason: Hypoglycemia Guaifenesin (Mucinex) 1,200 mg PO BID [facility] Last Admin: 12/30/17 11:36 Dose: 1,200 mg Hydralazine HCl (Apresoline) 25 mg PO TID [facility] Last Admin: 12/30/17 05:23 Dose: 25 mg Ceftriaxone Sodium (Rocephin) 1 gm in 50 mls @ 100 mls/hr IV Q24 [facility] Last Admin: 12/30/17 09:47 Dose: 100 mls/hr Sodium Chloride () 1,000 mls @ 60 mls/hr IV .[id number] [facility] Stop: 12/30/17 23:54 Last Admin: 12/30/17 09:47 Dose: 60 mls/hr Insulin Glargine (Lantus (Bkc)) 40 units SC DAILY [facility] Last Admin: 12/30/17 10:03 Dose: 40 units Insulin Human Lispro (Humalog Kwikpen (Bkc)) 7 unit SC BIDCM [facility] Last Admin: 12/30/17 08:38 Dose: 7 units Insulin Human Lispro (Humalog Kwikpen (Bkc)) 0 unit SC ACHS [facility] PRN Reason: Protocol Last Admin: 12/30/17 11:36 Dose: 2 u Isosorbide Dinitrate (Isordil) 10 mg PO TID [facility] Last Admin: 12/30/17 05:23 Dose: 10 mg Magnesium Hydroxide (Milk Of Magnesia) 30 ml PO DAILY PRN PRN Reason: Constipation Nitroglycerin (Nitrostat) 0.4 mg SUBLINGUAL Q5M PRN PRN Reason: Angina pain Nutritional Formula (Lactose Free) (Glucerna Shake) 120 ml PO TIDCM [facility] Last Admin: 12/30/17 11:36 Dose: 120 ml Ondansetron HCl (Zofran) 4 mg IV Q8H PRN PRN PRN Reason: NAUSEA Oseltamivir Phosphate (Tamiflu) 30 mg PO DAILY [facility] Stop: 12/31/17 10:01 Last Admin: 12/30/17 09:12 Dose: 30 mg Phenol/Menthol (Chloraseptic (Bkc)) 5 spray MM Q2H PRN PRN PRN Reason: SORE THROAT Last Admin: 12/29/17 01:31 Dose: 5 spray Promethazine HCl (Phenergan) 12.5 mg IV Q6H PRN PRN PRN Reason: NAUSEA/VOMITING Rivaroxaban (Xarelto) 15 mg PO DAILY [facility] Last Admin: 12/30/17 09:57 Dose: 15 mg Sodium Chloride ([place] Nasal [place]) 2 spray NASAL TID PRN PRN PRN Reason: NASAL DRYNESS Last Admin: 12/30/17 04:08 Dose: 2 spray Medical Necessity - Tobacco Use Smoking Status: Former smoker Tobacco Use: Non-smoker Assessment/Plan All Active Problems Leukocytosis (Acute) Elevated troponin (Acute) 1. Bradycardia became acutely bradycardic today after working with physical therapy HR went down into the 30s and 40s,a nd he was very diaphoretic. BP was 140s systolic given 0.5mg of atropine once, and HR went up into the 50s this may be due to a conduction abnormality, in light of his elevated troponins; cath had been deferred o/a of CKD and conservative management was advocated cardiology consulted 2. Influenza infection resolving. Today is day 4 on tamiflu. stop date is . 3. Community acquired pneumonia resolving. wbc still remains elevated on PO doxycycline. breathing treatments with atrovent 4. Elevated troponins troponin was 0.14 on admission, ->0134->0.135 has a history of CAD s/p CABG 2D echo: EF of 50%, severely dilated LA an mildly enlarged RA, mild segmental systolic dysfunction, with hypokinetic mid anteroseptal and mid inferoseptal camp, an hyokinetic septal apex. RVSP was 92mmHg indicating severe pulmonary hypertension. Mild segemental systolic dysfunction; unable to assess diastolic dysfunction cardiology on board. Advocate conservative management now in light of patient's debilitated state and CKD which puts him at risk of contrast induced nephrophathy cardiology to re-evaluate him in light of new onset bradycardia 5. Severe pulmonary hypertension RVSP is 92mmHg per echo. conservative management for now in light of comorbidities. 6. CAD s/p CABG: on aspirin, statin and beta tyler 7. Hypertension: poorly controlled. On amlodipine, coreg and lasix. amlodipine was increased to 10mg yesterday; will hold Coreg in light of symptomatic bradycardia on hydralazine 25mg tid; will increase 8. Hyperlipidemia: on statin 9. Diabetes mellitus: lantus on hold o/a of asymptomatic hypoglycemia 1 day ago ISS. Accuchecks ACHS will monitor 10. Paroxysmal A. fib: On carvedilol and on Xarelto. Started on amiodarone 200mg tid per cardiology. will hold amiodarone and Carvedilol on hold o/a of bradycardia 11. CKD 3: Creatinine was 2.73 on admission which is around his baseline. Cr went up to 3.24 today. Given bolus of IVF NS 500cc once. will monitor. 12. Chronic normocytic anemia: Hb today is 8.8' baseline is ~ 10. will monitor 13. Valvular heart disease s/p aortic valve replacement and mitral valve repair stable. Had bovine valve replacement 12. DVT prophylaxis: On xarelto Code status: Full code Disposition: for likely DC tomorrow This note was generated with [employer] dictation software. It may contain incorrect words, spelling, and punctuation that were not noted in checking the note before signing. Code Visit Inpatient E&M: 63711 Subs Hosp L3
--- NOTE | 2017-12-30 14:30 | PN_ITS ---
Patient Problems: Active and Suspected Problems Leukocytosis (Acute) CAP (community acquired pneumonia) (Suspected) Elevated troponin (Acute) Subjective: Patient seen and examined. Patient when reviewed earlier this morning had no complaints and wanted to go home. He denied any shortness of breath, fever or chills, cough, chest pain, abdominal pain, diarrhea or vomiting. He wasn't as confused as he had been yesterday. REview of systems was otherwise negative. Patient was noted to desaturate to 88% with ambulation, and so he was to go home with home oxygen. However, after working with physical therapy, patient became lethargic and was found to be bradycardic, with HR going down into 30s and 40s. A rapid response was called. BP was in the 140s systolic, and he was very diaphoretic, with a weak pulse. After a dose of 0.5mg of atropine, HR went up to 50s. EKG showed junctional bradycardia. He was emergently transferred up to the ICU. Vitals/I&O's: Vital Signs Temp Pulse Resp BP Pulse Ox 98.3 F 61 16 161/77 H 98 12/30/17 08:37 12/30/17 12:24 12/30/17 12:24 12/30/17 08:37 12/30/17 14:06 Oxygen Flow Rate (L/min) 4 Oxygen Delivery Method Nasal Cannula Weight: 170 lb 10.205 oz Body Mass Index (BMI) 26.7 Intake and Output for Last 24 Hours 12/28/17 12/29/17 12/30/17 23:59 23:59 23:59 Intake Total 2286 / 2286 1444 / 1444 240 / 240 Output Total 200 / 200 Balance 2286 / 2286 1244 / 1244 240 / 240 General: Alert, Oriented x3, Cooperative, Lethargic, - - very weak and diaphoretic HEENT: Atraumatic, PERRLA, EOMI, Normocephalic Oral: Moist Mucosa Neck: Supple, No JVD, Negative Carotid Bruits Lungs: Clear to auscultation, Normal air movement, No rhonchi, No wheeze Cardiovascular: Normal S1, Normal S2, No murmurs, Bradycardic Abdomen: Bowel Sounds Present, Soft, Non Tender, Non-Distended, No Hepato- splenomegaly Extremities: No clubbing, No cyanosis, No edema, Capillary Refill Less than 3 Seconds Skin: No rashes, No breakdown Musculoskeletal: No Tenderness to Palpation of Joints or Extremities Lymphatic: No Cervical, Supraclavicular, or Inguinal Adenopathy Neurological: Cranial nerves II-XII grossly intact, Motor Exam 5/5 strength throughout Psych/Mental Status: Flat Affect Microbiology Past 72 Hours 12/28/17 14:23 Sputum, Expectorated/Coughed Gram Stain - Final 12/28/17 14:23 Sputum, Expectorated/Coughed Respiratory Culture - Preliminary 12/27/17 05:42 Mucosa - Nasopharyngeal Respiratory Panel (PCR) - Preliminary Laboratory Results 12/29/17 16:58: POC Glucose 247 H 12/29/17 17:00: Urine Color Yellow, Urine Clarity Clear, Urine pH 5.0, Ur Specific [place] 1.020, Urine Protein 100 H, Urine Glucose (UA) Normal, Urine Ketones Negative, Urine Occult Blood Negative, Urine Nitrite Negative, Urine Bilirubin Negative, Urine Urobilinogen Normal, Ur Leukocyte Esterase 25 H, Urine RBC 0 SEEN, Urine WBC 0-5 SEEN, Ur Squamous Epith Cells 0 SEEN, Urine Bacteria 0 SEEN, Urine Mucus 0 SEEN 12/29/17 22:16: POC Glucose 152 H 12/30/17 05:38: WBC 15.0 H, RBC 2.96 L, Hgb 8.8 L, Hct 25.9 L, MCV 87.5, MCH 29.7, MCHC 34.0, RDW 14.0, RDW Differential 44.9 H, Plt Count 217, MPV 10.1, Immature Gran % (Auto) 0.200, Neut % (Auto) 83.6 H, Lymph % (Auto) 8.2 L, [place] % (Auto) 5.6, Eos % (Auto) 2.3, Baso % (Auto) 0.1, Absolute Neuts (auto) 12.5 H , Absolute Lymphs (auto) 1.23, Total Counted Not Reportable 12/30/17 05:38: Sodium 134 L, Potassium 4.6, Chloride 98, Carbon Dioxide 21.0, Anion Gap 15, BUN 72 H, Creatinine 3.24 H, Estim Creat Clear Calc 17.57, Est GFR (MDRD) Af Amer 24 L, Est GFR (MDRD) Non-Af 20 L, BUN/Creatinine Ratio 22.2 H , Glucose 143 H, Calcium 8.2 L 12/30/17 06:42: POC Glucose 150 H 12/30/17 09:49: POC Glucose 214 H 12/30/17 11:20: POC Glucose 190 H 12/30/17 13:23: POC Glucose 228 H Diagnostic Data Chest X-Ray 12/27/17 08:30 IMPRESSION: Possible developing or worsening infiltrate in the medial right lung base. Electronically Signed: Mauro Del Rio MD at 16:55 EDT , Service support , Current Medications Acetaminophen (Tylenol) 650 mg PO Q4H PRN PRN PRN Reason: FEVER Last Admin: 12/28/17 09:34 Dose: 650 mg Acetaminophen (Tylenol) 650 mg PO Q6H PRN PRN PRN Reason: Mild Pain (scale 0-3)/T>100.7 Al Hydroxide/Mg Hydroxide (Mylanta Ii) 30 ml PO Q6H PRN PRN PRN Reason: Gastric burning Last Admin: 12/29/17 22:02 Dose: 30 ml Albuterol Sulfate (Ventolin Aerosols) 2.5 mg INHALATION Q2H PRN PRN PRN Reason: SHORTNESS OF BREATH Albuterol/Ipratropium (Duoneb) 3 ml INHALATION Q6H.RT [facility] Last Admin: 12/30/17 12:24 Dose: 3 ml [facility]) [facility] Last Admin: 12/30/17 08:40 Dose: 100 mg Amiodarone HCl (Cordarone) 200 mg PO TID [facility] Stop: 01/05/18 06:01 Last Admin: 12/30/17 05:23 Dose: 200 mg Amiodarone HCl (Cordarone) 200 mg PO BID [facility] Stop: 01/19/18 10:01 Amiodarone HCl (Cordarone) 200 mg PO DAILY [facility] Amlodipine Besylate (Norvasc) 10 mg PO DAILY [facility] Last Admin: 12/30/17 09:57 Dose: 10 mg Aspirin (Ecotrin) 81 mg PO DAILY@0800 [facility] Last Admin: 12/30/17 08:44 Dose: 81 mg Atorvastatin Calcium (Lipitor) 40 mg PO QHS [facility] Last Admin: 12/29/17 22:09 Dose: 40 mg Carvedilol (Coreg) 6.25 mg PO BID [facility] Last Admin: 12/30/17 09:12 Dose: 6.25 mg Dextrose (D50w Syringe) 0 gm IV X1 PRN; Protocol PRN Reason: Hypoglycemia Glucagon () 1 mg IM .X1 PRN PRN Reason: Hypoglycemia Guaifenesin (Mucinex) 1,200 mg PO BID [facility] Last Admin: 12/30/17 11:36 Dose: 1,200 mg Hydralazine HCl (Apresoline) 25 mg PO TID [facility] Last Admin: 12/30/17 05:23 Dose: 25 mg Ceftriaxone Sodium (Rocephin) 1 gm in 50 mls @ 100 mls/hr IV Q24 [facility] Last Admin: 12/30/17 09:47 Dose: 100 mls/hr Sodium Chloride () 1,000 mls @ 60 mls/hr IV .[id number] [facility] Stop: 12/30/17 23:54 Last Admin: 12/30/17 09:47 Dose: 60 mls/hr Insulin Glargine (Lantus (Bkc)) 40 units SC DAILY [facility] Last Admin: 12/30/17 10:03 Dose: 40 units Insulin Human Lispro (Humalog Kwikpen (Bkc)) 7 unit SC BIDCM [facility] Last Admin: 12/30/17 08:38 Dose: 7 units Insulin Human Lispro (Humalog Kwikpen (Bkc)) 0 unit SC ACHS [facility] PRN Reason: Protocol Last Admin: 12/30/17 11:36 Dose: 2 u Isosorbide Dinitrate (Isordil) 10 mg PO TID [facility] Last Admin: 12/30/17 05:23 Dose: 10 mg Magnesium Hydroxide (Milk Of Magnesia) 30 ml PO DAILY PRN PRN Reason: Constipation Nitroglycerin (Nitrostat) 0.4 mg SUBLINGUAL Q5M PRN PRN Reason: Angina pain Nutritional Formula (Lactose Free) (Glucerna Shake) 120 ml PO TIDCM [facility] Last Admin: 12/30/17 11:36 Dose: 120 ml Ondansetron HCl (Zofran) 4 mg IV Q8H PRN PRN PRN Reason: NAUSEA Oseltamivir Phosphate (Tamiflu) 30 mg PO DAILY [facility] Stop: 12/31/17 10:01 Last Admin: 12/30/17 09:12 Dose: 30 mg Phenol/Menthol (Chloraseptic (Bkc)) 5 spray MM Q2H PRN PRN PRN Reason: SORE THROAT Last Admin: 12/29/17 01:31 Dose: 5 spray Promethazine HCl (Phenergan) 12.5 mg IV Q6H PRN PRN PRN Reason: NAUSEA/VOMITING Rivaroxaban (Xarelto) 15 mg PO DAILY [facility] Last Admin: 12/30/17 09:57 Dose: 15 mg Sodium Chloride ([place] Nasal [place]) 2 spray NASAL TID PRN PRN PRN Reason: NASAL DRYNESS Last Admin: 12/30/17 04:08 Dose: 2 spray Medical Necessity - Tobacco Use Smoking Status: Former smoker Tobacco Use: Non-smoker Assessment/Plan All Active Problems Leukocytosis (Acute) Elevated troponin (Acute) 1. Bradycardia * became acutely bradycardic today after working with physical therapy * HR went down into the 30s and 40s,a nd he was very diaphoretic. BP was 140s systolic * given 0.5mg of atropine once, and HR went up into the 50s * this may be due to a conduction abnormality, in light of his elevated troponins; cath had been deferred o/a of CKD and conservative management was advocated * cardiology consulted 2. Influenza infection * resolving. Today is day 4 on tamiflu. stop date is . * * 3. Community acquired pneumonia * resolving. wbc still remains elevated * on PO doxycycline. * breathing treatments with atrovent * * 4. Elevated troponins * troponin was 0.14 on admission, ->0134->0.135 * has a history of CAD s/p CABG * 2D echo: EF of 50%, severely dilated LA an mildly enlarged RA, mild segmental systolic dysfunction, with hypokinetic mid anteroseptal and mid inferoseptal camp, an hyokinetic septal apex. RVSP was 92mmHg indicating severe pulmonary hypertension. Mild segemental systolic dysfunction; unable to assess diastolic dysfunction * cardiology on board. Advocate conservative management now in light of patient' s debilitated state and CKD which puts him at risk of contrast induced nephrophathy * cardiology to re-evaluate him in light of new onset bradycardia 5. Severe pulmonary hypertension * RVSP is 92mmHg per echo. * conservative management for now in light of comorbidities. * 6. CAD s/p CABG: on aspirin, statin and beta tyler 7. Hypertension: * poorly controlled. On amlodipine, coreg and lasix. * amlodipine was increased to 10mg yesterday; will hold Coreg in light of symptomatic bradycardia * on hydralazine 25mg tid; will increase * 8. Hyperlipidemia: on statin 9. Diabetes mellitus: * lantus on hold o/a of asymptomatic hypoglycemia 1 day ago * ISS. Accuchecks ACHS * will monitor * 10. Paroxysmal A. fib: On carvedilol and on Xarelto. Started on amiodarone 200mg tid per cardiology. will hold amiodarone and Carvedilol on hold o/a of bradycardia 11. CKD 3: * Creatinine was 2.73 on admission which is around his baseline. Cr went up to 3.24 today. Given bolus of IVF NS 500cc once. will monitor. 12. Chronic normocytic anemia: * Hb today is 8.8' baseline is ~ 10. * will monitor * 13. Valvular heart disease s/p aortic valve replacement and mitral valve repair * stable. Had bovine valve replacement 12. DVT prophylaxis: On xarelto Code status: Full code Disposition: for likely DC tomorrow This note was generated with [employer] dictation software. It may contain incorrect words, spelling, and punctuation that were not noted in checking the note before signing. Code Visit Inpatient E&M: 29985 [facility] Hosp L3
--- NOTE | 2017-12-30 14:46 | CHAPLAIN ---
Type of Pastoral Visit ___ Initial Visit ___ Follow-up Visit ___ On-call Visit ___ General Patient Visit ___ Spiritual Assessment ___ Family Conference ___ Bereavement _x__ Rapid Response ___ Code Blue ___ Other (describe below) Pastoral Care Referral From _x__ Patient ___ Family ___ Nurse ___ Physician ___ B[employer] Cutting Machine Operator ___ Head Coach _x__ Other (describe below) Sacrament/Intervention ___ Active listening ___ Anointing ___ Buddhist ___ Bereavement ___ Communion ___ Shanae exploration ___ ___ Life review ___ Prayer ___ Reconciliation ___ Sacrament of Sick _x__ Supportive presence ___ Wedding ___ Other (describe below) Pastoral Comments patient had been a referral for spiritual support; rapid response called; team cared for patient and moved him to ICU from the PCU; spoke with spouse of pt and offered support for herself and pt; spouse repeated that she was fine; spouse did not seek additional support at this time
--- NOTE | 2017-12-30 15:07 | PCM.CON.CC ---
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 (7) H/O aortic valve repair Status: Chronic (8) Pure hypercholesterolemia Status: Chronic (9) HTN (hypertension) Status: Chronic Qualifiers: Hypertension type: essential hypertension Qualified Code(s): I10 - Essential (primary) hypertension (10) DM (diabetes mellitus) Status: Chronic Qualifiers: Diabetes mellitus type: type 2 Diabetes mellitus halfway insulin use: with local company intermodal truck driver use Diabetes mellitus complication status: with unspecified complications Qualified Code(s): E11.8 - Type 2 diabetes mellitus with unspecified complications; Z79.4 - half-way (current) use of insulin (11) Gout Status: Chronic Qualifiers: Gout site: unspecified site Gout etiology: unspecified cause Chronicity: unspecified Qualified Code(s): M10.9 - Gout, unspecified (12) History of myocardial infarction Status: Chronic Reason for Consult Date of Consultation: 12/30/17 Reason for Consultation: Syncopal event History of Present Illness: The patient is a 77 year old M, with past medical history listed below, who presented to [facility] on 12/27/2017 secondary to severe weakness and an inability to stand. Patient reportedly had had increased cough, fatigue and malaise over the last 1-2 weeks. Patient states that he was in the bathtub and was unable to have the strength to stand. On presentation, patient was noted to have a heart rate of 60 and 92% on room air. Patient did have a leukocytosis with a WBC count of 17.9. Patient's hemoglobin was noted at 10.7. Patient's creatinine was 2.73, which is close to baseline. Chest x-ray showed cardiomegaly with no obvious infiltrate. Patient was placed on Rocephin and azithromycin and then admitted to the PCU. Throughout patient's hospital course, patient was being treated for community-acquired pneumonia. Patient did have a mild elevation in troponin that was to be secondary to supply demand mismatch. Patient was noted to have an elevated RVSP of 92 mmHg indicating severe pulmonary hypertension. Patient had also question of nonsustained ventricular tachycardia and was placed on amiodarone. Patient was reportedly planning on going home today. However, at approximately 1320 rapid response team was called secondary to a syncopal event. Patient reportedly had gone to the bathroom and come back was short of breath. Patient then tried to sit back up on the side of the bed and became less responsive. MACHINE OVERHAULER was called. EKG showed junctional rhythm. Patient was transferred to the intensive care unit for further monitoring. Dr. Mead is aware, but that has not seen the patient to my knowledge. Currently, patient reports that he is back to his baseline while lying at a 30? angle. Patient denies any shortness of breath, chest pain, abdominal pain, nausea or vomiting. 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 Patient denies any exposure to asbestos or tuberculosis. Patient used to drink beer regularly, but has not had any alcohol in approximately 8 years. Patient denies any smoking. Patient denies similar events to this, but states that his heart rate is typically lower when he goes to see his outbound sales professional the [facility]. Patient does report black stools at baseline, but attributes this to supplemental iron therapy. Patient does report that he had a lower GI bleed approximately 1 year ago. Patient had a colonoscopy and Xarelto was held for 3 months. Patient denies any recent bleeding otherwise such as hemoptysis, epistaxis or hematochezia. Review of systems otherwise negative ?10 systems. Past Medical History Past Medical History (Chronic Problems): Chronic Problems Atrial fibrillation and flutter (Chronic) CAD (coronary artery disease) (Chronic) CKD (chronic kidney disease) (Chronic) H/O mitral valve repair (Chronic) aoritc bovine 2010 replacement (Chronic) H/O aortic valve repair (Chronic) Pure hypercholesterolemia (Chronic) HTN (hypertension) (Chronic) DM (diabetes mellitus) (Chronic) Hx of CABG (Chronic) Gout (Chronic) Afib (Chronic) History of myocardial infarction (Chronic) Allergies escitalopram [From Lexapro] Allergy (Verified 12/26/17 23:47) Unknown levofloxacin [From Levaquin] Allergy (Verified 12/31/16 16:35) Other LUPUS Penicillins Allergy (Verified 12/26/17 23:47) Unknown Opioids - Morphine Analogues Adverse Reaction (Verified 12/31/16 16:35) Other CONFUSION Home Medications: Ambulatory Orders Medication Instructions Recorded Allopurinol [Zyloprim] 200 mg PO DAILYCM 12/31/16 Amlodipine [Norvasc] 5 mg PO QHS 12/31/16 Carvedilol [Coreg (Beta Ellie)] 6.25 mg PO BID 12/31/16 Furosemide [Lasix] 40 mg PO BIDLX 12/31/16 Insulin Detemir [Levemir] 40 unit SQ DAILY 12/31/16 Aspirin [Aspir-Low] 81 mg PO DAILY 30 Days tablet. 01/02/17 Atorvastatin Calcium 40 mg PO DAILY 12/27/17 Insulin Aspart [Novolog Flexpen 7 units SC BIDCM 12/27/17 ([facility])] Rivaroxaban [Xarelto] 15 mg PO DAILY 12/27/17 Surgical History: - - CABG x 1, Bovine AVR, Mitral Valve Repair, L TKR, Ear Surgery. Psychiatric History: Anxiety, Depression Lives: Spouse/ Significant Other Smoking Status: Former smoker Tobacco Use: Non-smoker Alcohol: None Drugs: None - *Family History Maternal History Items: Diabetes, Heart Disease, Hypertension Paternal History Items: Diabetes, Heart Disease, Hypertension Review of Systems Comment: HPI, otherwise negative ?10 systems. Patient Problems: Active and Suspected Problems Leukocytosis (Acute) CAP (community acquired pneumonia) (Suspected) Elevated troponin (Acute) Objective: Multiple x-rays were reviewed dating back to November 30, 2017. Patient does have a persistent right lower lobe shadow that has been read as pneumonia. My clinical suspicion is this is secondary to increased hilar prominence from severe pulmonary hypertension. Echocardiogram was reviewed and described in HPI. - Physical Exam General: Alert, Oriented x3, Cooperative, No apparent distress, Well developed, Well nourished, - - Appears stated age. Speaking in full sentences. HEENT: Atraumatic, PERRLA, EOMI, Normocephalic, - - Pale conjunctivae. No scleral icterus or injection noted. Oral: No Gingival or Mucosal Lesions/ Ulcerations, Dry Mucosa Neck: Supple, No JVD, No Nodes, Trachea Midline Lungs: Clear to auscultation, Normal air movement, No rhonchi, No wheeze, No rales, - - Symmetric expansion. No dullness to percussion. Cardiovascular: Regular Rhythm, Normal S1, Normal S2, No murmurs, Bradycardic, No rub noted, No Gallop Abdomen: Bowel Sounds Present, Soft, Non Tender, Non-Distended Extremities: No clubbing, No cyanosis, No edema Skin: No rashes, No breakdown Musculoskeletal: No Tenderness to Palpation of Joints or Extremities Lymphatic: No Cervical, Supraclavicular, or Inguinal Adenopathy Neurological: Cranial nerves II-XII grossly intact, Neuro grossly intact, - - Gait not tested Psych/Mental Status: Alert and oriented to time, place, person, mood and affect Vital Signs Temp Pulse Resp BP Pulse Ox 36.8 C 61 16 161/77 H 98 12/30/17 08:37 12/30/17 12:24 12/30/17 12:24 12/30/17 08:37 12/30/17 14:06 Oxygen Flow Rate (L/min) 4 Oxygen Delivery Method Nasal Cannula Weight: 77.4 kg Body Mass Index (BMI) 26.7 Intake and Output for Last 24 Hours 12/28/17 12/29/17 12/30/17 23:59 23:59 23:59 Intake Total 2286 / 2286 1444 / 1444 240 / 240 Output Total 200 / 200 Balance 2286 / 2286 1244 / 1244 240 / 240 Microbiology Past 72 Hours 12/28/17 14:23 Gram Stain - Final Sputum, Expectorated/Coughed Respiratory Culture - Preliminary 12/27/17 05:42 Respiratory Panel (PCR) - Preliminary Mucosa - Nasopharyngeal Laboratory Tests Past 24 Hrs 12/29/17 12/30/17 12/30/17 17:00 05:38 05:38 WBC 15.0 H RBC 2.96 L Hgb 8.8 L Hct 25.9 L MCV 87.5 MCH 29.7 MCHC 34.0 RDW 14.0 RDW Differential 44.9 H Plt Count 217 MPV 10.1 Immature Gran % (Auto) 0.200 Neut % (Auto) 83.6 H Lymph % (Auto) 8.2 L [place] % (Auto) 5.6 Eos % (Auto) 2.3 Baso % (Auto) 0.1 Absolute Neuts (auto) 12.5 H Absolute Lymphs (auto) 1.23 Total Counted Not Reportable Sodium 134 L Potassium 4.6 Chloride 98 Carbon Dioxide 21.0 Anion Gap 15 BUN 72 H Creatinine 3.24 H Estim Creat Clear Calc 17.57 Est GFR (MDRD) Af Amer 24 L Est GFR (MDRD) Non-Af 20 L BUN/Creatinine Ratio 22.2 H Glucose 143 H Calcium 8.2 L Urine Color Yellow Urine Clarity Clear Urine pH 5.0 Ur Specific [place] 1.020 Urine Protein 100 H Urine Glucose (UA) Normal Urine Ketones Negative Urine Occult Blood Negative Urine Nitrite Negative Urine Bilirubin Negative Urine Urobilinogen Normal Ur Leukocyte Esterase 25 H Urine RBC 0 SEEN Urine WBC 0-5 SEEN Ur Squamous Epith Cells 0 SEEN Urine Bacteria 0 SEEN Urine Mucus 0 SEEN POC Glucose 12/30/17 12/30/17 12/30/17 13:23 11:20 09:49 POC Glucose 228 H 190 H 214 H 12/30/17 12/29/17 12/29/17 06:42 22:16 16:58 POC Glucose 150 H 152 H 247 H Assessment/Plan Active and Suspected Problems Leukocytosis (Acute) CAP (community acquired pneumonia) (Suspected) Elevated troponin (Acute) RECOMMENDATIONS: 1. Repeat CBC to evaluate for further blood loss 2. Obtain chemistries with repletion as indicated 3. Hold blood pressure medications and amiodarone until seen by cardiology 4. Potentially check orthostatics if no intervention planned 5. Wean oxygen as tolerated to keep saturations greater than 90% IMPRESSIONS: 1. Bradycardia Patient appears to be in third-degree heart block with junctional escape on my review of telemetry strips. Patient was placed on amiodarone therapy during this hospitalization secondary to nonsustained wide-complex tachycardia. It is unclear if this is leading to current rhythm dysfunction. Will hold patient's blood pressure medications and amiodarone until seen by cardiology. Patient may require transvenous pacer, but appears to be doing well with no change in body position. Will obtain electrolytes to evaluate for possible metabolic derangements leading to current rhythm. 2. Suspected pneumonia Hospitalist is reporting influenza infection on Tamiflu therapy. This cannot be verified by review of the electronic medical record. Patient does have significant leukocytosis and was placed on doxycycline. Patient's infiltrate appears grossly unchanged compared to previous x-ray on Sima 7. Patient is reporting a cough, but no purulent sputum or fevers have been noted throughout hospitalization. Patient is currently on 4 L nasal cannula, but saturating 100%. 3. Severe pulmonary hypertension/CAD status post CABG/paroxysmal A. fib-flutter/aortic and mitral valve repair Unclear temporal relationship at this time. Elevated pulmonary artery pressures may be leading to symptomatic bradycardia. Patient is not desaturating at this time, but is on supplemental oxygen secondary to elevated troponin previously. 4. Chronic normocytic anemia She is reporting black stools, but is unclear if this represents melena. Patient is on iron at baseline. Patient's hemoglobin appears to be down from his baseline at 10. Will obtain a blood count to see if there is been significant drop in hemoglobin. 5. CKD stage III/diabetes mellitus/hyperlipidemia/hypertension/advanced age Complicates care, management, recovery and prognosis. Renal function appears to be at baseline. Hypertensive medications will be held given his bradycardia. Continue with Accu-Cheks q. before meals and at bedtime. Patient has had asymptomatic hypoglycemia during this hospitalization. Code Visit Inpatient E&M: 28463 Init Hosp L3
[2017-12-30 15:16] LABS: Bedside Glucose 165 mg/dL (70-110)
[2017-12-30 15:16] LABS: Bedside Glucose 42 mg/dL (70-110)
--- NOTE | 2017-12-30 15:20 | CON.PCM_ITS ---
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 (7) H/O aortic valve repair Status: Chronic (8) Pure hypercholesterolemia Status: Chronic (9) HTN (hypertension) Status: Chronic Qualifiers: Hypertension type: essential hypertension Qualified Code(s): I10 - Essential (primary) hypertension (10) DM (diabetes mellitus) Status: Chronic Qualifiers: Diabetes mellitus type: type 2 Diabetes mellitus prison insulin use: with cash management coordinator use Diabetes mellitus complication status: with unspecified complications Qualified Code(s): E11.8 - Type 2 diabetes mellitus with unspecified complications; Z79.4 - penitentiary (current) use of insulin (11) Gout Status: Chronic Qualifiers: Gout site: unspecified site Gout etiology: unspecified cause Chronicity: unspecified Qualified Code(s): M10.9 - Gout, unspecified (12) History of myocardial infarction Status: Chronic Reason for Consult Date of Consultation: 12/30/17 Reason for Consultation: Syncopal event History of Present Illness: The patient is a 77 year old M, with past medical history listed below, who presented to [facility] on 12/27/2017 secondary to severe weakness and an inability to stand. Patient reportedly had had increased cough, fatigue and malaise over the last 1-2 weeks. Patient states that he was in the bathtub and was unable to have the strength to stand. On presentation, patient was noted to have a heart rate of 60 and 92% on room air. Patient did have a leukocytosis with a WBC count of 17.9. Patient's hemoglobin was noted at 10.7. Patient's creatinine was 2.73, which is close to baseline. Chest x-ray showed cardiomegaly with no obvious infiltrate. Patient was placed on Rocephin and azithromycin and then admitted to the PCU. Throughout patient's hospital course, patient was being treated for community- acquired pneumonia. Patient did have a mild elevation in troponin that was to be secondary to supply demand mismatch. Patient was noted to have an elevated RVSP of 92 mmHg indicating severe pulmonary hypertension. Patient had also question of nonsustained ventricular tachycardia and was placed on amiodarone. Patient was reportedly planning on going home today. However, at approximately 1320 rapid response team was called secondary to a syncopal event. Patient reportedly had gone to the bathroom and come back was short of breath. Patient then tried to sit back up on the side of the bed and became less responsive. MACHINE TOOL OPERATOR was called. EKG showed junctional rhythm. Patient was transferred to the intensive care unit for further monitoring. Dr. Mead is aware, but that has not seen the patient to my knowledge. Currently, patient reports that he is back to his baseline while lying at a 30? angle. Patient denies any shortness of breath, chest pain, abdominal pain, nausea or vomiting. 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 Patient denies any exposure to asbestos or tuberculosis. Patient used to drink beer regularly , but has not had any alcohol in approximately 8 years. Patient denies any smoking. Patient denies similar events to this, but states that his heart rate is typically lower when he goes to see his cover cutter the [facility]. Patient does report black stools at baseline, but attributes this to supplemental iron therapy. Patient does report that he had a lower GI bleed approximately 1 year ago. Patient had a colonoscopy and Xarelto was held for 3 months. Patient denies any recent bleeding otherwise such as hemoptysis, epistaxis or hematochezia. Review of systems otherwise negative ?10 systems. Past Medical History Past Medical History (Chronic Problems): Chronic Problems Atrial fibrillation and flutter (Chronic) CAD (coronary artery disease) (Chronic) CKD (chronic kidney disease) (Chronic) H/O mitral valve repair (Chronic) aoritc bovine 2010 replacement (Chronic) H/O aortic valve repair (Chronic) Pure hypercholesterolemia (Chronic) HTN (hypertension) (Chronic) DM (diabetes mellitus) (Chronic) Hx of CABG (Chronic) Gout (Chronic) Afib (Chronic) History of myocardial infarction (Chronic) Allergies escitalopram [From Lexapro] Allergy (Verified 12/26/17 23:47) Unknown levofloxacin [From Levaquin] Allergy (Verified 12/31/16 16:35) Other LUPUS Penicillins Allergy (Verified 12/26/17 23:47) Unknown Opioids - Morphine Analogues Adverse Reaction (Verified 12/31/16 16:35) Other CONFUSION Home Medications: Ambulatory Orders Medication Instructions Recorded Allopurinol [Zyloprim] 200 mg PO DAILYCM 12/31/16 Amlodipine [Norvasc] 5 mg PO QHS 12/31/16 Carvedilol [Coreg (Beta Ellie)] 6.25 mg PO BID 12/31/16 Furosemide [Lasix] 40 mg PO BIDLX 12/31/16 Insulin Detemir [Levemir] 40 unit SQ DAILY 12/31/16 Aspirin [Aspir-Low] 81 mg PO DAILY 30 Days tablet. 01/02/17 Atorvastatin Calcium 40 mg PO DAILY 12/27/17 Insulin Aspart [Novolog Flexpen 7 units SC BIDCM 12/27/17 ([facility])] Rivaroxaban [Xarelto] 15 mg PO DAILY 12/27/17 Surgical History: - - CABG x 1, Bovine AVR, Mitral Valve Repair, L TKR, Ear Surgery. Psychiatric History: Anxiety, Depression Lives: Spouse/ Significant Other Smoking Status: Former smoker Tobacco Use: Non-smoker Alcohol: None Drugs: None - *Family History Maternal History Items: Diabetes, Heart Disease, Hypertension Paternal History Items: Diabetes, Heart Disease, Hypertension Review of Systems Comment: HPI, otherwise negative ?10 systems. Patient Problems: Active and Suspected Problems Leukocytosis (Acute) CAP (community acquired pneumonia) (Suspected) Elevated troponin (Acute) Objective: Multiple x-rays were reviewed dating back to November 30, 2017. Patient does have a persistent right lower lobe shadow that has been read as pneumonia. My clinical suspicion is this is secondary to increased hilar prominence from severe pulmonary hypertension. Echocardiogram was reviewed and described in HPI. - Physical Exam General: Alert, Oriented x3, Cooperative, No apparent distress, Well developed, Well nourished, - - Appears stated age. Speaking in full sentences. HEENT: Atraumatic, PERRLA, EOMI, Normocephalic, - - Pale conjunctivae. No scleral icterus or injection noted. Oral: No Gingival or Mucosal Lesions/ Ulcerations, Dry Mucosa Neck: Supple, No JVD, No Nodes, Trachea Midline Lungs: Clear to auscultation, Normal air movement, No rhonchi, No wheeze, No rales, - - Symmetric expansion. No dullness to percussion. Cardiovascular: Regular Rhythm, Normal S1, Normal S2, No murmurs, Bradycardic, No rub noted, No Gallop Abdomen: Bowel Sounds Present, Soft, Non Tender, Non-Distended Extremities: No clubbing, No cyanosis, No edema Skin: No rashes, No breakdown Musculoskeletal: No Tenderness to Palpation of Joints or Extremities Lymphatic: No Cervical, Supraclavicular, or Inguinal Adenopathy Neurological: Cranial nerves II-XII grossly intact, Neuro grossly intact, - - Gait not tested Psych/Mental Status: Alert and oriented to time, place, person, mood and affect Vital Signs Temp Pulse Resp BP Pulse Ox 36.8 C 61 16 161/77 H 98 12/30/17 08:37 12/30/17 12:24 12/30/17 12:24 12/30/17 08:37 12/30/17 14:06 Oxygen Flow Rate (L/min) 4 Oxygen Delivery Method Nasal Cannula Weight: 77.4 kg Body Mass Index (BMI) 26.7 Intake and Output for Last 24 Hours 12/28/17 12/29/17 12/30/17 23:59 23:59 23:59 Intake Total 2286 / 2286 1444 / 1444 240 / 240 Output Total 200 / 200 Balance 2286 / 2286 1244 / 1244 240 / 240 Microbiology Past 72 Hours 12/28/17 14:23 Gram Stain - Final Sputum, Expectorated/Coughed Respiratory Culture - Preliminary 12/27/17 05:42 Respiratory Panel (PCR) - Preliminary Mucosa - Nasopharyngeal Laboratory Tests Past 24 Hrs 12/29/17 12/30/17 12/30/17 17:00 05:38 05:38 WBC 15.0 H RBC 2.96 L Hgb 8.8 L Hct 25.9 L MCV 87.5 MCH 29.7 MCHC 34.0 RDW 14.0 RDW Differential 44.9 H Plt Count 217 MPV 10.1 Immature Gran % (Auto) 0.200 Neut % (Auto) 83.6 H Lymph % (Auto) 8.2 L [place] % (Auto) 5.6 Eos % (Auto) 2.3 Baso % (Auto) 0.1 Absolute Neuts (auto) 12.5 H Absolute Lymphs (auto) 1.23 Total Counted Not Reportable Sodium 134 L Potassium 4.6 Chloride 98 Carbon Dioxide 21.0 Anion Gap 15 BUN 72 H Creatinine 3.24 H Estim Creat Clear Calc 17.57 Est GFR (MDRD) Af Amer 24 L Est GFR (MDRD) Non-Af 20 L BUN/Creatinine Ratio 22.2 H Glucose 143 H Calcium 8.2 L Urine Color Yellow Urine Clarity Clear Urine pH 5.0 Ur Specific [place] 1.020 Urine Protein 100 H Urine Glucose (UA) Normal Urine Ketones Negative Urine Occult Blood Negative Urine Nitrite Negative Urine Bilirubin Negative Urine Urobilinogen Normal Ur Leukocyte Esterase 25 H Urine RBC 0 SEEN Urine WBC 0-5 SEEN Ur Squamous Epith Cells 0 SEEN Urine Bacteria 0 SEEN Urine Mucus 0 SEEN POC Glucose 12/30/17 12/30/17 12/30/17 13:23 11:20 09:49 POC Glucose 228 H 190 H 214 H 12/30/17 12/29/17 12/29/17 06:42 22:16 16:58 POC Glucose 150 H 152 H 247 H Assessment/Plan Active and Suspected Problems Leukocytosis (Acute) CAP (community acquired pneumonia) (Suspected) Elevated troponin (Acute) RECOMMENDATIONS: 1. Repeat CBC to evaluate for further blood loss 2. Obtain chemistries with repletion as indicated 3. Hold blood pressure medications and amiodarone until seen by cardiology 4. Potentially check orthostatics if no intervention planned 5. Wean oxygen as tolerated to keep saturations greater than 90% IMPRESSIONS: 1. Bradycardia Patient appears to be in third-degree heart block with junctional escape on my review of telemetry strips. Patient was placed on amiodarone therapy during this hospitalization secondary to nonsustained wide-complex tachycardia. It is unclear if this is leading to current rhythm dysfunction. Will hold patient's blood pressure medications and amiodarone until seen by cardiology. Patient may require transvenous pacer, but appears to be doing well with no change in body position. Will obtain electrolytes to evaluate for possible metabolic derangements leading to current rhythm. 2. Suspected pneumonia Hospitalist is reporting influenza infection on Tamiflu therapy. This cannot be verified by review of the electronic medical record. Patient does have significant leukocytosis and was placed on doxycycline. Patient's infiltrate appears grossly unchanged compared to previous x-ray on Sima 7. Patient is reporting a cough, but no purulent sputum or fevers have been noted throughout hospitalization. Patient is currently on 4 L nasal cannula, but saturating 100%. 3. Severe pulmonary hypertension/CAD status post CABG/paroxysmal A. fib- flutter/aortic and mitral valve repair Unclear temporal relationship at this time. Elevated pulmonary artery pressures may be leading to symptomatic bradycardia. Patient is not desaturating at this time, but is on supplemental oxygen secondary to elevated troponin previously. 4. Chronic normocytic anemia She is reporting black stools, but is unclear if this represents melena. Patient is on iron at baseline. Patient's hemoglobin appears to be down from his baseline at 10. Will obtain a blood count to see if there is been significant drop in hemoglobin. 5. CKD stage III/diabetes mellitus/hyperlipidemia/hypertension/advanced age Complicates care, management, recovery and prognosis. Renal function appears to be at baseline. Hypertensive medications will be held given his bradycardia. Continue with Accu-Cheks q. before meals and at bedtime. Patient has had asymptomatic hypoglycemia during this hospitalization. Code Visit Inpatient E&M: 93323 Init Hosp L3
[2017-12-30 16:38] LABS: Anion Gap 12 (5-15); BUN 70 mg/dL (7-18); BUN/Creat Ratio 21.1 RATIO (10-20); Calcium,Total 7.5 mg/dL (8.5-10.1); Chloride 98 mmol/L (98-107); Creatinine, Serum 3.31 mg/dL (0.70-1.30); EST Glomerular Filtration Rate 19 mL/min (>60); Est Glom Filt Rate - Afr Amer 23 mL/min (>60); Glucose 229 mg/dL (74-106); Magnesium 2.7 mg/dL (1.6-2.6); Phosphorus 5.6 mg/dL (2.5-4.9); Potassium 5.2 mmol/L (3.5-5.1); Sodium Level 128 mmol/L (136-145)
[2017-12-30 16:43] LABS: Hematocrit 25.7 % (40-54); Hemoglobin 8.6 g/dl (13.0-16.5); Mean Corp Hgb Conc 33.5 g/gl (32-36); Mean Corpuscular Hgb 29.9 pg (27.0-32.0); Mean Corpuscular Volume 89.2 fL (80-94); Mean Platelet Vol. 10.5 fl (6.2-12.0); Platelet Count 210 K/mm3 (150-450); RBC Distribution Width CV 13.9 % (11.6-14.6); RBC Distribution Width SD 45.2 fl (35.1-43.9); Red Blood Count 2.88 M/mm3 (4.6-6.2); White Blood Count 15.7 K/mm3 (4.4-11.0)
[2017-12-30 16:45] LABS: Scan Indicated on CBC? Y/N NO
[2017-12-30 17:16] LABS: Bedside Glucose 141 mg/dL (70-110)
--- NOTE | 2017-12-30 17:29 | PCM.PN.CARD ---
Subjectve: The patient had an episode earlier this day, after being up and ambulating, where he became diaphoretic and subsequently was reported as unresponsive. He was noted to be in an underlying bradycardia dysrhythmia at that time. He was subsequently transferred to the ICU for further evaluation. He denied any chest discomfort. He denied any significant change in his respiratory status. In the ICU he appeared awake and alert. His was with him and stated this was similar to the event that he had at home that triggered his hospitalization initially. Objective: Vital Signs Temp Pulse Resp BP Pulse Ox 98.3 F 46 L 18 128/80 H 99 12/30/17 08:37 12/30/17 17:00 12/30/17 17:00 12/30/17 17:00 12/30/17 17:00 Oxygen Flow Rate (L/min) 1 Oxygen Delivery Method Nasal Cannula Weight: 170 lb 10.205 oz Body Mass Index (BMI) 26.7 Intake and Output for Last 24 Hours 12/28/17 12/29/17 12/30/17 23:59 23:59 23:59 Intake Total 2286 / 2286 1444 / 1444 240 / 240 Output Total 200 / 200 Balance 2286 / 2286 1244 / 1244 240 / 240 General: Awake, Alert, Oriented x 3 Lungs: - - No obvious rales or rhonchi Cardiovascular: Irregular Rhythm, Normal S1, Normal S2 Abdomen: Bowel Sounds Present, Soft, Non Tender 12/29/17 17:00: Urine Color Yellow, Urine Clarity Clear, Urine pH 5.0, Ur Specific [place] 1.020, Urine Protein 100 H, Urine Glucose (UA) Normal, Urine Ketones Negative, Urine Occult Blood Negative, Urine Nitrite Negative, Urine Bilirubin Negative, Urine Urobilinogen Normal, Ur Leukocyte Esterase 25 H, Urine RBC 0 SEEN, Urine WBC 0-5 SEEN 12/30/17 05:38: WBC 15.0 H, RBC 2.96 L, Hgb 8.8 L, Hct 25.9 L, MCV 87.5, MCH 29.7, MCHC 34.0, RDW 14.0, RDW Differential 44.9 H, Plt Count 217, MPV 10.1, Immature Gran % (Auto) 0.200, Neut % (Auto) 83.6 H, Lymph % (Auto) 8.2 L, [place] % (Auto) 5.6, Eos % (Auto) 2.3, Baso % (Auto) 0.1, Absolute Neuts (auto) 12.5 H, Total Counted Not Reportable 12/30/17 05:38: Sodium 134 L, Potassium 4.6, Chloride 98, Carbon Dioxide 21.0, Anion Gap 15, BUN 72 H, Creatinine 3.24 H, Est GFR (MDRD) Af Amer 24 L, Est GFR (MDRD) Non-Af 20 L, BUN/Creatinine Ratio 22.2 H, Glucose 143 H, Calcium 8.2 L 12/30/17 13:35: WBC 15.7 H, RBC 2.88 L, Hgb 8.6 L, Hct 25.7 L, MCV 89.2, MCH 29.9, MCHC 33.5, RDW 13.9, RDW Differential 45.2 H, Plt Count 210, MPV 10.5 12/30/17 13:35: Sodium 128 L, Potassium 5.2 H, Chloride 98, Carbon Dioxide 18.0 L, Anion Gap 12, BUN 70 H, Creatinine 3.31 H, Est GFR (MDRD) Af Amer 23 L, Est GFR (MDRD) Non-Af 19 L, BUN/Creatinine Ratio 21.1 H, Glucose 229 H, Calcium 7.5 L, Phosphorus 5.6 H, Magnesium 2.7 H Rhythm: Atrial fibrillation with slow ventricular response Medical Necessity - Tobacco Use Smoking Status: Former smoker Tobacco Use: Non-smoker Assessment/Plan 1. Atrial fibrillation/flutter-permanent The patient states he has a history of underlying atrial fibrillation/flutter. He has been on medical therapy. This has included anticoagulant therapy. He was on beta-tyler therapy and rate limiting therapy. Her, at the present time, this is going to be placed on hold noting his progressive bradycardia dysrhythmia. Also, based upon his progressive bradycardia dysrhythmia and his associated events he should be considered for further EP consultation for consideration for possible permanent pacemaker support versus, based upon his findings of nonsustained wide complex tachycardia, possible ICD support. 2. Nonsustained wide complex tachycardia The patient has demonstrated episodes of a nonsustained wide complex tachycardia. The patient appears to be without obvious associated symptoms or hemodynamic compromise. The initial plan was to continue medical management with his beta-blockers with the addition of antiarrhythmic therapy with amiodarone and subsequent follow-up with his primary sole assessor for further consideration for EP consultation, etc. However based upon his recurrent events, noting his bradycardia dysrhythmias, it may be reasonable at this time to consider EP consultation sooner than later for the need for not only permanent pacemaker support for possible ICD support. 3. CAD status post CABG The details of the patient's underlying CAD and subsequent CABG history are unknown at this time. He states his surgery was many years ago at the [facility]. Request has been placed to obtain previous medical records for continuity of care. In the meantime he is being followed. He is ECG did demonstrate a T wave abnormality potentially compatible with myocardial ischemia in the inferolateral distribution. His transthoracic echocardiogram demonstrated his overall LV systolic function to be borderline low with an estimated LVEF of 50%. Ideally, based upon a combination of his symptoms, cardiac enzymes, ECG changes, etc. he would be considered for further evaluation with diagnostic cardiac catheterization to reassess his underlying [place]it[place] vessel and graft vessel status for the need for further catheter based revascularization therapy. However, there is hesitancy in doing so based upon his elevated creatinine level and the risk of IV contrast related nephropathy. Thus at the present time an attempt will be made to optimize his medical management. He will be placed on aspirin therapy, nitrate therapy, as well as antihypertensive and afterload reducing therapy with hydralazine. 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 4. Valvular heart disease: Status post aortic and mitral valve repair; status post aortic valve replacement-bioprosthetic Based upon his echocardiographic studies his mitral valve annuloplasty ring appears to be stable and his bioprosthetic aortic valve apparatus appears to be stable. 5. Hyperlipidemia He should continue risk factor evaluation care as deemed appropriate. 6. Hypertension His blood pressure can be monitored. His amlodipine dose is being increased to assist with his blood pressure control. 7. Diabetes mellitus He will continue under the care of internal medicine. 8. Chronic renal insufficiency He does follow with a church history teacher in the [place], [place] area. He states he has not been told of the need for hemodialysis thus far. His creatinine level appears to be chronically elevated especially over the last approximately 2 years. His creatinine level would raise concerns about any additional IV contrast related studies that could bring out IV contrast related nephropathy and further deterioration of his renal function, etc. Thus he is not an ideal candidate for such procedures at this time. 9. Leukocytosis The patient did have an elevated WBC. He is being evaluated and cared for with respect to concerns of an underlying influenza virus. 10. Pneumonia There is concern based on the patient's symptoms and his objective findings thus far that he may have a community-acquired pneumonia. He is being evaluated by internal medicine. He is being treated with antibiotic therapy. 11. Elevated troponin I levels The patient does have indeterminate troponin I levels. They have not significantly changed. His noninvasive studies are as noted above. It is not clear that his elevated troponin I levels represent a primary acute cardiovascular event. This may be a type II event secondary to supply demand mismatch brought on by noncardiovascular events as well as being superimposed upon his chronically elevated creatinine level at approximately 2.7. At the present time, he will continue cardiovascular evaluation care from a noninvasive standpoint. He will continue medical management. Again he is not an ideal candidate for invasive evaluation with cardiac catheterization based upon concerns of IV contrast related nephropathy, etc. Overall, at the current time, it is recommended the patient be transferred to a tertiary care center, preferably with his [facility] sole assessor for consideration for EP consultation for further evaluation recommendations regarding his underlying cardiac dysrhythmias, bradycardia dysrhythmias, associated events, etc. for the need for further PPM versus ICD therapy. Comment: The above was discussed and reviewed with the patient and Dr. Bowers of the [facility] hospitalist staff. She has arranged transfer of the patient to [facility] under the care of his [facility] cardiology team for further evaluation / care. This note was generated with Anywhere [employer] software. It may contain incorrect words, spelling, and punctuation that were not noted in checking the note before signing.
--- NOTE | 2017-12-30 17:38 | TREXTCAR_ITS ---
- Diet 12/27/17 02:35 Diet: Cardiac: Calorie-Controlled Food consistency:: Regular Liquid Consistency:: Regular/Thin How many daily calories?: 1800 calorie - Routine Orders/Code Status Enema Type: Fleetz Enema Frequency: Daily PRN Suppository Type: Dulcolax 10mg Suppository Frequency: Daily PRN O2 Frequency: PRN Keep PO Greater than or Equal to (%): 92 Code Status: Full Code - Allergies/Procedures Done in Hospital Allergies/Adverse Reactions: Allergies escitalopram [From Lexapro] Allergy (Verified 12/26/17 23:47) Unknown levofloxacin [From Levaquin] Allergy (Verified 12/31/16 16:35) Other LUPUS Penicillins Allergy (Verified 12/26/17 23:47) Unknown Opioids - Morphine Analogues Adverse Reaction (Verified 12/31/16 16:35) Other CONFUSION Procedures: 2-D Echocardiogram - Type of Care/Length of Stay Estimated LOS: Convalescent Care Less Than 30 days Type of Care Needed: Skilled - [facility] Rehab Potential: Fair Prognosis: Fair - Additional Orders/Day of Discharge H&P will serve as current which was dated: 12/27/17 Day of Discharge: 12/30/17 - Dietary and Speech Recommendations Dietitian Recommendations/Changes: Rec continue Cardiac, 1800 Calorie Controlled diet. Rec continue Glucerna Shake TID on medpass for additional calories and protein if consumed. - Follow Up Care Primary Care Physician: Donavon Hamilton MD [Primary Care Provider] - Please follow up with your Primary Care Physician in: one week
--- NOTE | 2017-12-30 17:38 | PCM.DC.SUM ---
Discharge Date and Diagnosis - Problem List Patient Problems: Active and Suspected Problems Leukocytosis (Acute) CAP (community acquired pneumonia) (Suspected) Elevated troponin (Acute) Date of Admission: 12/27/17 Date of Discharge: 12/30/17 - Primary Discharge Diagnosis Active and Suspected Problems Leukocytosis (Acute) CAP (community acquired pneumonia) (Suspected) Elevated troponin (Acute) symptomatic bradycardia - Secondary Discharge Diagnosis Chronic Problems Atrial fibrillation and flutter (Chronic) CAD (coronary artery disease) (Chronic) CKD (chronic kidney disease) (Chronic) H/O mitral valve repair (Chronic) 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 Electronically Signed: Mauro Del Rio MD at 16:55 EDT , Service support , Laboratory Tests 12/27/17 12/27/17 12/27/17 00:05 00:05 00:05 WBC 17.9 H RBC 3.45 L Hgb 10.7 L Hct 30.5 L MCV 88.4 MCH 31.0 MCHC 35.1 RDW 13.5 RDW Differential 41.9 Plt Count 180 MPV 10.5 Immature Gran % (Auto) 0.400 Neut % (Auto) 86.8 H Lymph % (Auto) 5.1 L Bibb % (Auto) 6.8 Eos % (Auto) 0.7 Baso % (Auto) 0.2 Absolute Neuts (auto) 15.6 H Absolute Lymphs (auto) 0.91 Total Counted Not Reportable Sodium 138 Potassium 4.5 Chloride 105 Carbon Dioxide 26.0 Anion Gap 7 BUN 59 H Creatinine 2.73 H Estim Creat Clear Calc 20.85 Est GFR (MDRD) Af Amer 29 L Est GFR (MDRD) Non-Af 24 L BUN/Creatinine Ratio 21.6 H Glucose 81 Calcium 8.5 Phosphorus Magnesium 2.6 Troponin I 0.140 H Triglycerides Cholesterol LDL Cholesterol VLDL Cholesterol HDL Cholesterol TSH Urine Color Urine Clarity Urine pH Ur Specific [place] Urine Protein Urine Glucose (UA) Urine Ketones Urine Occult Blood Urine Nitrite Urine Bilirubin Urine Urobilinogen Ur Leukocyte Esterase Urine RBC Urine WBC Ur Squamous Epith Cells Urine Bacteria Urine Mucus POC Glucose 12/27/17 12/27/17 12/27/17 01:20 03:48 04:04 WBC RBC Hgb Hct MCV MCH MCHC RDW RDW Differential Plt Count MPV Immature Gran % (Auto) Neut % (Auto) Lymph % (Auto) Bibb % (Auto) Eos % (Auto) Baso % (Auto) Absolute Neuts (auto) Absolute Lymphs (auto) Total Counted Sodium Potassium Chloride Carbon Dioxide Anion Gap BUN Creatinine Estim Creat Clear Calc Est GFR (MDRD) Af Amer Est GFR (MDRD) Non-Af BUN/Creatinine Ratio Glucose Calcium Phosphorus Magnesium Troponin I Triglycerides Cholesterol LDL Cholesterol VLDL Cholesterol HDL Cholesterol TSH Urine Color Yellow Urine Clarity Clear Urine pH 6.0 Ur Specific [place] 1.020 Urine Protein 500 H Urine Glucose (UA) Normal Urine Ketones Negative Urine Occult Blood 10 H Urine Nitrite Negative Urine Bilirubin Negative Urine Urobilinogen Normal Ur Leukocyte Esterase 25 H Urine RBC 0 SEEN Urine WBC 0 SEEN Ur Squamous Epith Cells 0 SEEN Urine Bacteria 0 SEEN Urine Mucus 0 SEEN POC Glucose 53 L 80 12/27/17 12/27/17 12/27/17 04:12 06:34 06:34 WBC 15.5 H RBC 3.13 L Hgb 9.6 L Hct 28.1 L MCV 89.8 MCH 30.7 MCHC 34.2 RDW 13.5 RDW Differential 43.3 Plt Count 155 MPV 10.1 Immature Gran % (Auto) 0.300 Neut % (Auto) 84.1 H Lymph % (Auto) 8.2 L Bibb % (Auto) 6.6 Eos % (Auto) 0.7 Baso % (Auto) 0.1 Absolute Neuts (auto) 13.0 H Absolute Lymphs (auto) 1.27 Total Counted Not Reportable Sodium 139 Potassium 4.6 Chloride 106 Carbon Dioxide 25.0 Anion Gap 8 BUN 59 H Creatinine 2.69 H Estim Creat Clear Calc 21.16 Est GFR (MDRD) Af Amer 30 L Est GFR (MDRD) Non-Af 25 L BUN/Creatinine Ratio 21.9 H Glucose 103 Calcium 8.0 L Phosphorus Magnesium Troponin I 0.134 H Triglycerides 46 Cholesterol 84 LDL Cholesterol 29 VLDL Cholesterol 9 HDL Cholesterol 46 TSH Urine Color Urine Clarity Urine pH Ur Specific [place] Urine Protein Urine Glucose (UA) Urine Ketones Urine Occult Blood Urine Nitrite Urine Bilirubin Urine Urobilinogen Ur Leukocyte Esterase Urine RBC Urine WBC Ur Squamous Epith Cells Urine Bacteria Urine Mucus POC Glucose 12/27/17 12/27/17 12/27/17 06:34 06:34 06:43 WBC RBC Hgb Hct MCV MCH MCHC RDW RDW Differential Plt Count MPV Immature Gran % (Auto) Neut % (Auto) Lymph % (Auto) Bibb % (Auto) Eos % (Auto) Baso % (Auto) Absolute Neuts (auto) Absolute Lymphs (auto) Total Counted Sodium Potassium Chloride Carbon Dioxide Anion Gap BUN Creatinine Estim Creat Clear Calc Est GFR (MDRD) Af Amer Est GFR (MDRD) Non-Af BUN/Creatinine Ratio Glucose Calcium Phosphorus Magnesium Troponin I 0.135 H Triglycerides Cholesterol LDL Cholesterol VLDL Cholesterol HDL Cholesterol TSH 1.86 Urine Color Urine Clarity Urine pH Ur Specific [place] Urine Protein Urine Glucose (UA) Urine Ketones Urine Occult Blood Urine Nitrite Urine Bilirubin Urine Urobilinogen Ur Leukocyte Esterase Urine RBC Urine WBC Ur Squamous Epith Cells Urine Bacteria Urine Mucus POC Glucose 103 12/27/17 12/27/17 12/27/17 12:07 16:50 21:09 WBC RBC Hgb Hct MCV MCH MCHC RDW RDW Differential Plt Count MPV Immature Gran % (Auto) Neut % (Auto) Lymph % (Auto) Bibb % (Auto) Eos % (Auto) Baso % (Auto) Absolute Neuts (auto) Absolute Lymphs (auto) Total Counted Sodium Potassium Chloride Carbon Dioxide Anion Gap BUN Creatinine Estim Creat Clear Calc Est GFR (MDRD) Af Amer Est GFR (MDRD) Non-Af BUN/Creatinine Ratio Glucose Calcium Phosphorus Magnesium Troponin I Triglycerides Cholesterol LDL Cholesterol VLDL Cholesterol HDL Cholesterol TSH Urine Color Urine Clarity Urine pH Ur Specific [place] Urine Protein Urine Glucose (UA) Urine Ketones Urine Occult Blood Urine Nitrite Urine Bilirubin Urine Urobilinogen Ur Leukocyte Esterase Urine RBC Urine WBC Ur Squamous Epith Cells Urine Bacteria Urine Mucus POC Glucose 93 125 H 74 12/27/17 12/28/17 12/28/17 22:32 07:00 10:29 WBC RBC Hgb Hct MCV MCH MCHC RDW RDW Differential Plt Count MPV Immature Gran % (Auto) Neut % (Auto) Lymph % (Auto) Bibb % (Auto) Eos % (Auto) Baso % (Auto) Absolute Neuts (auto) Absolute Lymphs (auto) Total Counted Sodium Potassium Chloride Carbon Dioxide Anion Gap BUN Creatinine Estim Creat Clear Calc Est GFR (MDRD) Af Amer Est GFR (MDRD) Non-Af BUN/Creatinine Ratio Glucose Calcium Phosphorus Magnesium Troponin I Triglycerides Cholesterol LDL Cholesterol VLDL Cholesterol HDL Cholesterol TSH Urine Color Urine Clarity Urine pH Ur Specific [place] Urine Protein Urine Glucose (UA) Urine Ketones Urine Occult Blood Urine Nitrite Urine Bilirubin Urine Urobilinogen Ur Leukocyte Esterase Urine RBC Urine WBC Ur Squamous Epith Cells Urine Bacteria Urine Mucus POC Glucose 87 73 165 H 12/28/17 12/28/17 12/28/17 10:45 10:45 11:11 WBC 15.9 H RBC 2.96 L Hgb 8.8 L Hct 26.3 L MCV 88.9 MCH 29.7 MCHC 33.5 RDW 14.0 RDW Differential 45.2 H Plt Count 148 L MPV 9.9 Immature Gran % (Auto) 0.300 Neut % (Auto) 87.1 H Lymph % (Auto) 5.0 L Bibb % (Auto) 7.1 Eos % (Auto) 0.4 Baso % (Auto) 0.1 Absolute Neuts (auto) 13.8 H Absolute Lymphs (auto) 0.80 L Total Counted Not Reportable Sodium 134 L Potassium 4.6 Chloride 104 Carbon Dioxide 21.0 Anion Gap 9 BUN 59 H Creatinine 2.76 H Estim Creat Clear Calc 20.62 Est GFR (MDRD) Af Amer 29 L Est GFR (MDRD) Non-Af 24 L BUN/Creatinine Ratio 21.4 H Glucose 174 H Calcium 7.9 L Phosphorus Magnesium Troponin I Triglycerides Cholesterol LDL Cholesterol VLDL Cholesterol HDL Cholesterol TSH Urine Color Urine Clarity Urine pH Ur Specific [place] Urine Protein Urine Glucose (UA) Urine Ketones Urine Occult Blood Urine Nitrite Urine Bilirubin Urine Urobilinogen Ur Leukocyte Esterase Urine RBC Urine WBC Ur Squamous Epith Cells Urine Bacteria Urine Mucus POC Glucose 158 H 12/28/17 12/28/17 12/29/17 16:13 21:47 05:20 WBC 14.5 H RBC 2.80 L Hgb 8.3 L Hct 24.7 L MCV 88.2 MCH 29.6 MCHC 33.6 RDW 14.0 RDW Differential 45.6 H Plt Count 163 MPV 10.7 Immature Gran % (Auto) 0.200 Neut % (Auto) 84.3 H Lymph % (Auto) 6.5 L Bibb % (Auto) 7.4 Eos % (Auto) 1.5 Baso % (Auto) 0.1 Absolute Neuts (auto) 12.2 H Absolute Lymphs (auto) 0.94 Total Counted Not Reportable Sodium Potassium Chloride Carbon Dioxide Anion Gap BUN Creatinine Estim Creat Clear Calc Est GFR (MDRD) Af Amer Est GFR (MDRD) Non-Af BUN/Creatinine Ratio Glucose Calcium Phosphorus Magnesium Troponin I Triglycerides Cholesterol LDL Cholesterol VLDL Cholesterol HDL Cholesterol TSH Urine Color Urine Clarity Urine pH Ur Specific [place] Urine Protein Urine Glucose (UA) Urine Ketones Urine Occult Blood Urine Nitrite Urine Bilirubin Urine Urobilinogen Ur Leukocyte Esterase Urine RBC Urine WBC Ur Squamous Epith Cells Urine Bacteria Urine Mucus POC Glucose 75 98 12/29/17 12/29/17 12/29/17 05:20 05:57 06:09 WBC RBC Hgb Hct MCV MCH MCHC RDW RDW Differential Plt Count MPV Immature Gran % (Auto) Neut % (Auto) Lymph % (Auto) Bibb % (Auto) Eos % (Auto) Baso % (Auto) Absolute Neuts (auto) Absolute Lymphs (auto) Total Counted Sodium 138 Potassium 4.2 Chloride 103 Carbon Dioxide 23.0 Anion Gap 12 BUN 65 H Creatinine 2.93 H Estim Creat Clear Calc 19.43 Est GFR (MDRD) Af Amer 27 L Est GFR (MDRD) Non-Af 22 L BUN/Creatinine Ratio 22.2 H Glucose 44 L* Calcium 8.0 L Phosphorus Magnesium Troponin I Triglycerides Cholesterol LDL Cholesterol VLDL Cholesterol HDL Cholesterol TSH Urine Color Urine Clarity Urine pH Ur Specific [place] Urine Protein Urine Glucose (UA) Urine Ketones Urine Occult Blood Urine Nitrite Urine Bilirubin Urine Urobilinogen Ur Leukocyte Esterase Urine RBC Urine WBC Ur Squamous Epith Cells Urine Bacteria Urine Mucus POC Glucose 42 L* 165 H 12/29/17 12/29/17 12/29/17 07:54 11:36 16:58 WBC RBC Hgb Hct MCV MCH MCHC RDW RDW Differential Plt Count MPV Immature Gran % (Auto) Neut % (Auto) Lymph % (Auto) Bibb % (Auto) Eos % (Auto) Baso % (Auto) Absolute Neuts (auto) Absolute Lymphs (auto) Total Counted Sodium Potassium Chloride Carbon Dioxide Anion Gap BUN Creatinine Estim Creat Clear Calc Est GFR (MDRD) Af Amer Est GFR (MDRD) Non-Af BUN/Creatinine Ratio Glucose Calcium Phosphorus Magnesium Troponin I Triglycerides Cholesterol LDL Cholesterol VLDL Cholesterol HDL Cholesterol TSH Urine Color Urine Clarity Urine pH Ur Specific [place] Urine Protein Urine Glucose (UA) Urine Ketones Urine Occult Blood Urine Nitrite Urine Bilirubin Urine Urobilinogen Ur Leukocyte Esterase Urine RBC Urine WBC Ur Squamous Epith Cells Urine Bacteria Urine Mucus POC Glucose 103 153 H 247 H 12/29/17 12/29/17 12/30/17 17:00 22:16 05:38 WBC 15.0 H RBC 2.96 L Hgb 8.8 L Hct 25.9 L MCV 87.5 MCH 29.7 MCHC 34.0 RDW 14.0 RDW Differential 44.9 H Plt Count 217 MPV 10.1 Immature Gran % (Auto) 0.200 Neut % (Auto) 83.6 H Lymph % (Auto) 8.2 L Bibb % (Auto) 5.6 Eos % (Auto) 2.3 Baso % (Auto) 0.1 Absolute Neuts (auto) 12.5 H Absolute Lymphs (auto) 1.23 Total Counted Not Reportable Sodium Potassium Chloride Carbon Dioxide Anion Gap BUN Creatinine Estim Creat Clear Calc Est GFR (MDRD) Af Amer Est GFR (MDRD) Non-Af BUN/Creatinine Ratio Glucose Calcium Phosphorus Magnesium Troponin I Triglycerides Cholesterol LDL Cholesterol VLDL Cholesterol HDL Cholesterol TSH Urine Color Yellow Urine Clarity Clear Urine pH 5.0 Ur Specific [place] 1.020 Urine Protein 100 H Urine Glucose (UA) Normal Urine Ketones Negative Urine Occult Blood Negative Urine Nitrite Negative Urine Bilirubin Negative Urine Urobilinogen Normal Ur Leukocyte Esterase 25 H Urine RBC 0 SEEN Urine WBC 0-5 SEEN Ur Squamous Epith Cells 0 SEEN Urine Bacteria 0 SEEN Urine Mucus 0 SEEN POC Glucose 152 H 12/30/17 12/30/17 12/30/17 05:38 06:42 09:49 WBC RBC Hgb Hct MCV MCH MCHC RDW RDW Differential Plt Count MPV Immature Gran % (Auto) Neut % (Auto) Lymph % (Auto) Bibb % (Auto) Eos % (Auto) Baso % (Auto) Absolute Neuts (auto) Absolute Lymphs (auto) Total Counted Sodium 134 L Potassium 4.6 Chloride 98 Carbon Dioxide 21.0 Anion Gap 15 BUN 72 H Creatinine 3.24 H Estim Creat Clear Calc 17.57 Est GFR (MDRD) Af Amer 24 L Est GFR (MDRD) Non-Af 20 L BUN/Creatinine Ratio 22.2 H Glucose 143 H Calcium 8.2 L Phosphorus Magnesium Troponin I Triglycerides Cholesterol LDL Cholesterol VLDL Cholesterol HDL Cholesterol TSH Urine Color Urine Clarity Urine pH Ur Specific [place] Urine Protein Urine Glucose (UA) Urine Ketones Urine Occult Blood Urine Nitrite Urine Bilirubin Urine Urobilinogen Ur Leukocyte Esterase Urine RBC Urine WBC Ur Squamous Epith Cells Urine Bacteria Urine Mucus POC Glucose 150 H 214 H 12/30/17 12/30/17 12/30/17 11:20 13:23 13:35 WBC 15.7 H RBC 2.88 L Hgb 8.6 L Hct 25.7 L MCV 89.2 MCH 29.9 MCHC 33.5 RDW 13.9 RDW Differential 45.2 H Plt Count 210 MPV 10.5 Immature Gran % (Auto) Neut % (Auto) Lymph % (Auto) Bibb % (Auto) Eos % (Auto) Baso % (Auto) Absolute Neuts (auto) Absolute Lymphs (auto) Total Counted Sodium Potassium Chloride Carbon Dioxide Anion Gap BUN Creatinine Estim Creat Clear Calc Est GFR (MDRD) Af Amer Est GFR (MDRD) Non-Af BUN/Creatinine Ratio Glucose Calcium Phosphorus Magnesium Troponin I Triglycerides Cholesterol LDL Cholesterol VLDL Cholesterol HDL Cholesterol TSH Urine Color Urine Clarity Urine pH Ur Specific [place] Urine Protein Urine Glucose (UA) Urine Ketones Urine Occult Blood Urine Nitrite Urine Bilirubin Urine Urobilinogen Ur Leukocyte Esterase Urine RBC Urine WBC Ur Squamous Epith Cells Urine Bacteria Urine Mucus POC Glucose 190 H 228 H 12/30/17 12/30/17 13:35 17:04 WBC RBC Hgb Hct MCV MCH MCHC RDW RDW Differential Plt Count MPV Immature Gran % (Auto) Neut % (Auto) Lymph % (Auto) Bibb % (Auto) Eos % (Auto) Baso % (Auto) Absolute Neuts (auto) Absolute Lymphs (auto) Total Counted Sodium 128 L Potassium 5.2 H Chloride 98 Carbon Dioxide 18.0 L Anion Gap 12 BUN 70 H Creatinine 3.31 H Estim Creat Clear Calc 17.20 Est GFR (MDRD) Af Amer 23 L Est GFR (MDRD) Non-Af 19 L BUN/Creatinine Ratio 21.1 H Glucose 229 H Calcium 7.5 L Phosphorus 5.6 H Magnesium 2.7 H Troponin I Triglycerides Cholesterol LDL Cholesterol VLDL Cholesterol HDL Cholesterol TSH Urine Color Urine Clarity Urine pH Ur Specific [place] Urine Protein Urine Glucose (UA) Urine Ketones Urine Occult Blood Urine Nitrite Urine Bilirubin Urine Urobilinogen Ur Leukocyte Esterase Urine RBC Urine WBC Ur Squamous Epith Cells Urine Bacteria Urine Mucus POC Glucose 141 H cardiology, pulmonary critical care Procedures: 2-D Echocardiogram Summary of Care Provided: The patient is a 77 year old M with a past medical history of CAD status post CABG, valvular heart disease status post bovine aortic valve replacement and mitral valve aortic repair, diabetes, hypertension and gout. He was admitted via the ED on 01/13/2018 with complaint of severe weakness and inability to stand with associated cough fatigue and malaise for 1-2 weeks prior to presentation. He had a leukocytosis of 17.9 on admission and creatinine was 2.70 which is close to his baseline. Chest x-ray done showed cardiomegaly with no obvious infiltrate. He was started on IV Rocephin and IV azithromycin and managed acquired pneumonia initially. He tested positive for flu and subsequently antibiotics were stopped and he was put on a 5 day course of Tamiflu 30 mg daily, adjusted for his kidney function. Patient was noted to have mild troponin elevation which was thought to be possibly due to demand ischemia. Cardiology was consulted and he had an echo which showed EF of 50%, and mild hypokinesia of the left ventricle with RVSP of 92 mmHg. There was a question of nonsustained ventricular tachycardia in addition to his chronic paroxysmal A. fib. Patient was therefore started on p.o. amiodarone in addition to his carvedilol. Patient stabilized and was scheduled to be discharged on 12/30/2017. However around 1320 today, rapid response was called on account of syncopal event. Patient had gotten up to go to the bathroom and subsequently became very short of breath and was found to be bradycardic. EKG done showed a junctional rhythm with heart rate 83. However, para monitor, heart rate was going as low as 30s and 40s. He was given a dose of atropine 0.5 mg IV and heart rate went up to the 50s. Patient's blood pressure was initially unrecordable but subsequently came up to 140 systolic. Patient was transferred up to the ICU. Cardiology reviewed him and made decision to transfer patient as he would need a pacemaker and nurse reviewer who could do a pacemaker in [facility] was not available this week. AMiodarone and carvedilol were also stopped. Was also told that he would benefit from an ICD in light of his history of A. fib and also nonsustained V. tach whilst on admission. Patient's primary nurse reviewer is Dr. Corey Sun at [facility]. Patient was transferred to [facility] where his primary nurse reviewer is, and was accepted under the service of Dr Blackmon. [] Discharge Diet: 2000 mg Sodium Diet Discharge Activity: Return to Normal Activity Weight Bearing Status: Weight bearing as tolerated Call your doctor if you observe: Shortness of breath, Increased palpitations (irregular heartbeat) Home Medications: Medications to take at Discharge Allopurinol [Zyloprim] 200 mg PO DAILYCM 12/31/16 Amlodipine [Norvasc] 5 mg PO QHS 12/31/16 Furosemide [Lasix] 40 mg PO BIDLX 12/31/16 Insulin Detemir [Levemir] 40 unit SQ DAILY 12/31/16 Aspirin [Aspir-Low] 81 mg PO DAILY 30 Days tablet. 01/02/17 Atorvastatin Calcium 40 mg PO DAILY 12/27/17 Insulin Aspart [Novolog Flexpen] 7 units SC BIDCM 12/27/17 Rivaroxaban [Xarelto] 15 mg PO DAILY 12/27/17 Oseltamivir Phosphate [Tamiflu] 30 mg PO DAILY #1 cap 12/30/17 Following Prescrptions Were Given to Patient: Oseltamivir Phosphate [Tamiflu] 30 mg PO DAILY #1 cap Primary Care Physician: Donavon Hamilton MD [Primary Care Provider] - Please follow up with your Primary Care Physician in: one week Disposition: Acute care Hospital [facility] Minutes spent on discharge:: 50 Patient Condition:: Critical Medical Necessity - Tobacco Use Smoking Status: Former smoker Tobacco Use: Non-smoker Meaningful Use Info Meaningful Use Diagnoses (Choose all that apply): None applicable Code Visit Inpatient E&M: 07786 Disch Hosp
--- NOTE | 2017-12-30 17:43 | PN.CARD_ITS ---
Subjectve: The patient had an episode earlier this day, after being up and ambulating, where he became diaphoretic and subsequently was reported as unresponsive. He was noted to be in an underlying bradycardia dysrhythmia at that time. He was subsequently transferred to the ICU for further evaluation. He denied any chest discomfort. He denied any significant change in his respiratory status. In the ICU he appeared awake and alert. His was with him and stated this was similar to the event that he had at home that triggered his hospitalization initially. Objective: Vital Signs Temp Pulse Resp BP Pulse Ox 98.3 F 46 L 18 128/80 H 99 12/30/17 08:37 12/30/17 17:00 12/30/17 17:00 12/30/17 17:00 12/30/17 17:00 Oxygen Flow Rate (L/min) 1 Oxygen Delivery Method Nasal Cannula Weight: 170 lb 10.205 oz Body Mass Index (BMI) 26.7 Intake and Output for Last 24 Hours 12/28/17 12/29/17 12/30/17 23:59 23:59 23:59 Intake Total 2286 / 2286 1444 / 1444 240 / 240 Output Total 200 / 200 Balance 2286 / 2286 1244 / 1244 240 / 240 General: Awake, Alert, Oriented x 3 Lungs: - - No obvious rales or rhonchi Cardiovascular: Irregular Rhythm, Normal S1, Normal S2 Abdomen: Bowel Sounds Present, Soft, Non Tender 12/29/17 17:00: Urine Color Yellow, Urine Clarity Clear, Urine pH 5.0, Ur Specific [place] 1.020, Urine Protein 100 H, Urine Glucose (UA) Normal, Urine Ketones Negative, Urine Occult Blood Negative, Urine Nitrite Negative, Urine Bilirubin Negative, Urine Urobilinogen Normal, Ur Leukocyte Esterase 25 H, Urine RBC 0 SEEN, Urine WBC 0-5 SEEN 12/30/17 05:38: WBC 15.0 H, RBC 2.96 L, Hgb 8.8 L, Hct 25.9 L, MCV 87.5, MCH 29.7, MCHC 34.0, RDW 14.0, RDW Differential 44.9 H, Plt Count 217, MPV 10.1, Immature Gran % (Auto) 0.200, Neut % (Auto) 83.6 H, Lymph % (Auto) 8.2 L, [place] % (Auto) 5.6, Eos % (Auto) 2.3, Baso % (Auto) 0.1, Absolute Neuts (auto) 12.5 H , Total Counted Not Reportable 12/30/17 05:38: Sodium 134 L, Potassium 4.6, Chloride 98, Carbon Dioxide 21.0, Anion Gap 15, BUN 72 H, Creatinine 3.24 H, Est GFR (MDRD) Af Amer 24 L, Est GFR (MDRD) Non-Af 20 L, BUN/Creatinine Ratio 22.2 H, Glucose 143 H, Calcium 8.2 L 12/30/17 13:35: WBC 15.7 H, RBC 2.88 L, Hgb 8.6 L, Hct 25.7 L, MCV 89.2, MCH 29.9, MCHC 33.5, RDW 13.9, RDW Differential 45.2 H, Plt Count 210, MPV 10.5 12/30/17 13:35: Sodium 128 L, Potassium 5.2 H, Chloride 98, Carbon Dioxide 18.0 L, Anion Gap 12, BUN 70 H, Creatinine 3.31 H, Est GFR (MDRD) Af Amer 23 L, Est GFR (MDRD) Non-Af 19 L, BUN/Creatinine Ratio 21.1 H, Glucose 229 H, Calcium 7.5 L, Phosphorus 5.6 H, Magnesium 2.7 H Rhythm: Atrial fibrillation with slow ventricular response Medical Necessity - Tobacco Use Smoking Status: Former smoker Tobacco Use: Non-smoker Assessment/Plan 1. Atrial fibrillation/flutter-permanent The patient states he has a history of underlying atrial fibrillation/flutter. He has been on medical therapy. This has included anticoagulant therapy. He was on beta-tyler therapy and rate limiting therapy. Her, at the present time, this is going to be placed on hold noting his progressive bradycardia dysrhythmia. Also, based upon his progressive bradycardia dysrhythmia and his associated events he should be considered for further EP consultation for consideration for possible permanent pacemaker support versus, based upon his findings of nonsustained wide complex tachycardia, possible ICD support. 2. Nonsustained wide complex tachycardia The patient has demonstrated episodes of a nonsustained wide complex tachycardia. The patient appears to be without obvious associated symptoms or hemodynamic compromise. The initial plan was to continue medical management with his beta-blockers with the addition of antiarrhythmic therapy with amiodarone and subsequent follow-up with his primary motel keeper for further consideration for EP consultation, etc. However based upon his recurrent events, noting his bradycardia dysrhythmias, it may be reasonable at this time to consider EP consultation sooner than later for the need for not only permanent pacemaker support for possible ICD support. 3. CAD status post CABG The details of the patient's underlying CAD and subsequent CABG history are unknown at this time. He states his surgery was many years ago at the [facility]. Request has been placed to obtain previous medical records for continuity of care. In the meantime he is being followed. He is ECG did demonstrate a T wave abnormality potentially compatible with myocardial ischemia in the inferolateral distribution. His transthoracic echocardiogram demonstrated his overall LV systolic function to be borderline low with an estimated LVEF of 50%. Ideally, based upon a combination of his symptoms, cardiac enzymes, ECG changes , etc. he would be considered for further evaluation with diagnostic cardiac catheterization to reassess his underlying [place] vessel and graft vessel status for the need for further catheter based revascularization therapy. However, there is hesitancy in doing so based upon his elevated creatinine level and the risk of IV contrast related nephropathy. Thus at the present time an attempt will be made to optimize his medical management. He will be placed on aspirin therapy, nitrate therapy, as well as antihypertensive and afterload reducing therapy with hydralazine. If he does progress to a point where he does require repeat invasive evaluation care then iteration may be given if it is in the patient's best interest to return to his primary motel keeper, who is an joiner apprentice, at the [facility] system for further tertiary care center evaluation from a cardiovascular standpoint as well as from a nephrology standpoint. 4. Valvular heart disease: Status post aortic and mitral valve repair; status post aortic valve replacement-bioprosthetic Based upon his echocardiographic studies his mitral valve annuloplasty ring appears to be stable and his bioprosthetic aortic valve apparatus appears to be stable. 5. Hyperlipidemia He should continue risk factor evaluation care as deemed appropriate. 6. Hypertension His blood pressure can be monitored. His amlodipine dose is being increased to assist with his blood pressure control. 7. Diabetes mellitus He will continue under the care of internal medicine. 8. Chronic renal insufficiency He does follow with a maintenance department manager in the [place], [place] area. He states he has not been told of the need for hemodialysis thus far. His creatinine level appears to be chronically elevated especially over the last approximately 2 years. His creatinine level would raise concerns about any additional IV contrast related studies that could bring out IV contrast related nephropathy and further deterioration of his renal function, etc. Thus he is not an ideal candidate for such procedures at this time. 9. Leukocytosis The patient did have an elevated WBC. He is being evaluated and cared for with respect to concerns of an underlying influenza virus. 10. Pneumonia There is concern based on the patient's symptoms and his objective findings thus far that he may have a community-acquired pneumonia. He is being evaluated by internal medicine. He is being treated with antibiotic therapy. 11. Elevated troponin I levels The patient does have indeterminate troponin I levels. They have not significantly changed. His noninvasive studies are as noted above. It is not clear that his elevated troponin I levels represent a primary acute cardiovascular event. This may be a type II event secondary to supply demand mismatch brought on by noncardiovascular events as well as being superimposed upon his chronically elevated creatinine level at approximately 2.7. At the present time, he will continue cardiovascular evaluation care from a noninvasive standpoint. He will continue medical management. Again he is not an ideal candidate for invasive evaluation with cardiac catheterization based upon concerns of IV contrast related nephropathy, etc. Overall, at the current time, it is recommended the patient be transferred to a tertiary care center, preferably with his [facility] motel keeper for consideration for EP consultation for further evaluation recommendations regarding his underlying cardiac dysrhythmias, bradycardia dysrhythmias, associated events, etc. for the need for further PPM versus ICD therapy. Comment: The above was discussed and reviewed with the patient and Dr. Bowers of the [facility] hospitalist staff. She has arranged transfer of the patient to [facility] under the care of his [facility] cardiology team for further evaluation / care. This note was generated with [employer] software. It may contain incorrect words, spelling, and punctuation that were not noted in checking the note before signing.
--- NOTE | 2017-12-30 17:43 | DS.PCM_ITS ---
Discharge Date and Diagnosis - Problem List Patient Problems: Active and Suspected Problems Leukocytosis (Acute) CAP (community acquired pneumonia) (Suspected) Elevated troponin (Acute) Date of Admission: 12/27/17 Date of Discharge: 12/30/17 - Primary Discharge Diagnosis Active and Suspected Problems Leukocytosis (Acute) CAP (community acquired pneumonia) (Suspected) Elevated troponin (Acute) symptomatic bradycardia - Secondary Discharge Diagnosis Chronic Problems Atrial fibrillation and flutter (Chronic) CAD (coronary artery disease) (Chronic) CKD (chronic kidney disease) (Chronic) H/O mitral valve repair (Chronic) 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 Electronically Signed: Mauro Del Rio MD at 16:55 EDT , Service support , Laboratory Tests 12/27/17 12/27/17 12/27/17 00:05 00:05 00:05 WBC 17.9 H RBC 3.45 L Hgb 10.7 L Hct 30.5 L MCV 88.4 MCH 31.0 MCHC 35.1 RDW 13.5 RDW Differential 41.9 Plt Count 180 MPV 10.5 Immature Gran % (Auto) 0.400 Neut % (Auto) 86.8 H Lymph % (Auto) 5.1 L Bureau % (Auto) 6.8 Eos % (Auto) 0.7 Baso % (Auto) 0.2 Absolute Neuts (auto) 15.6 H Absolute Lymphs (auto) 0.91 Total Counted Not Reportable Sodium 138 Potassium 4.5 Chloride 105 Carbon Dioxide 26.0 Anion Gap 7 BUN 59 H Creatinine 2.73 H Estim Creat Clear Calc 20.85 Est GFR (MDRD) Af Amer 29 L Est GFR (MDRD) Non-Af 24 L BUN/Creatinine Ratio 21.6 H Glucose 81 Calcium 8.5 Phosphorus Magnesium 2.6 Troponin I 0.140 H Triglycerides Cholesterol LDL Cholesterol VLDL Cholesterol HDL Cholesterol TSH Urine Color Urine Clarity Urine pH Ur Specific [place] Urine Protein Urine Glucose (UA) Urine Ketones Urine Occult Blood Urine Nitrite Urine Bilirubin Urine Urobilinogen Ur Leukocyte Esterase Urine RBC Urine WBC Ur Squamous Epith Cells Urine Bacteria Urine Mucus POC Glucose 12/27/17 12/27/17 12/27/17 01:20 03:48 04:04 WBC RBC Hgb Hct MCV MCH MCHC RDW RDW Differential Plt Count MPV Immature Gran % (Auto) Neut % (Auto) Lymph % (Auto) Bureau % (Auto) Eos % (Auto) Baso % (Auto) Absolute Neuts (auto) Absolute Lymphs (auto) Total Counted Sodium Potassium Chloride Carbon Dioxide Anion Gap BUN Creatinine Estim Creat Clear Calc Est GFR (MDRD) Af Amer Est GFR (MDRD) Non-Af BUN/Creatinine Ratio Glucose Calcium Phosphorus Magnesium Troponin I Triglycerides Cholesterol LDL Cholesterol VLDL Cholesterol HDL Cholesterol TSH Urine Color Yellow Urine Clarity Clear Urine pH 6.0 Ur Specific [place] 1.020 Urine Protein 500 H Urine Glucose (UA) Normal Urine Ketones Negative Urine Occult Blood 10 H Urine Nitrite Negative Urine Bilirubin Negative Urine Urobilinogen Normal Ur Leukocyte Esterase 25 H Urine RBC 0 SEEN Urine WBC 0 SEEN Ur Squamous Epith Cells 0 SEEN Urine Bacteria 0 SEEN Urine Mucus 0 SEEN POC Glucose 53 L 80 12/27/17 12/27/17 12/27/17 04:12 06:34 06:34 WBC 15.5 H RBC 3.13 L Hgb 9.6 L Hct 28.1 L MCV 89.8 MCH 30.7 MCHC 34.2 RDW 13.5 RDW Differential 43.3 Plt Count 155 MPV 10.1 Immature Gran % (Auto) 0.300 Neut % (Auto) 84.1 H Lymph % (Auto) 8.2 L Bureau % (Auto) 6.6 Eos % (Auto) 0.7 Baso % (Auto) 0.1 Absolute Neuts (auto) 13.0 H Absolute Lymphs (auto) 1.27 Total Counted Not Reportable Sodium 139 Potassium 4.6 Chloride 106 Carbon Dioxide 25.0 Anion Gap 8 BUN 59 H Creatinine 2.69 H Estim Creat Clear Calc 21.16 Est GFR (MDRD) Af Amer 30 L Est GFR (MDRD) Non-Af 25 L BUN/Creatinine Ratio 21.9 H Glucose 103 Calcium 8.0 L Phosphorus Magnesium Troponin I 0.134 H Triglycerides 46 Cholesterol 84 LDL Cholesterol 29 VLDL Cholesterol 9 HDL Cholesterol 46 TSH Urine Color Urine Clarity Urine pH Ur Specific [place] Urine Protein Urine Glucose (UA) Urine Ketones Urine Occult Blood Urine Nitrite Urine Bilirubin Urine Urobilinogen Ur Leukocyte Esterase Urine RBC Urine WBC Ur Squamous Epith Cells Urine Bacteria Urine Mucus POC Glucose 12/27/17 12/27/17 12/27/17 06:34 06:34 06:43 WBC RBC Hgb Hct MCV MCH MCHC RDW RDW Differential Plt Count MPV Immature Gran % (Auto) Neut % (Auto) Lymph % (Auto) Bureau % (Auto) Eos % (Auto) Baso % (Auto) Absolute Neuts (auto) Absolute Lymphs (auto) Total Counted Sodium Potassium Chloride Carbon Dioxide Anion Gap BUN Creatinine Estim Creat Clear Calc Est GFR (MDRD) Af Amer Est GFR (MDRD) Non-Af BUN/Creatinine Ratio Glucose Calcium Phosphorus Magnesium Troponin I 0.135 H Triglycerides Cholesterol LDL Cholesterol VLDL Cholesterol HDL Cholesterol TSH 1.86 Urine Color Urine Clarity Urine pH Ur Specific [place] Urine Protein Urine Glucose (UA) Urine Ketones Urine Occult Blood Urine Nitrite Urine Bilirubin Urine Urobilinogen Ur Leukocyte Esterase Urine RBC Urine WBC Ur Squamous Epith Cells Urine Bacteria Urine Mucus POC Glucose 103 12/27/17 12/27/17 12/27/17 12:07 16:50 21:09 WBC RBC Hgb Hct MCV MCH MCHC RDW RDW Differential Plt Count MPV Immature Gran % (Auto) Neut % (Auto) Lymph % (Auto) Bureau % (Auto) Eos % (Auto) Baso % (Auto) Absolute Neuts (auto) Absolute Lymphs (auto) Total Counted Sodium Potassium Chloride Carbon Dioxide Anion Gap BUN Creatinine Estim Creat Clear Calc Est GFR (MDRD) Af Amer Est GFR (MDRD) Non-Af BUN/Creatinine Ratio Glucose Calcium Phosphorus Magnesium Troponin I Triglycerides Cholesterol LDL Cholesterol VLDL Cholesterol HDL Cholesterol TSH Urine Color Urine Clarity Urine pH Ur Specific [place] Urine Protein Urine Glucose (UA) Urine Ketones Urine Occult Blood Urine Nitrite Urine Bilirubin Urine Urobilinogen Ur Leukocyte Esterase Urine RBC Urine WBC Ur Squamous Epith Cells Urine Bacteria Urine Mucus POC Glucose 93 125 H 74 12/27/17 12/28/17 12/28/17 22:32 07:00 10:29 WBC RBC Hgb Hct MCV MCH MCHC RDW RDW Differential Plt Count MPV Immature Gran % (Auto) Neut % (Auto) Lymph % (Auto) Bureau % (Auto) Eos % (Auto) Baso % (Auto) Absolute Neuts (auto) Absolute Lymphs (auto) Total Counted Sodium Potassium Chloride Carbon Dioxide Anion Gap BUN Creatinine Estim Creat Clear Calc Est GFR (MDRD) Af Amer Est GFR (MDRD) Non-Af BUN/Creatinine Ratio Glucose Calcium Phosphorus Magnesium Troponin I Triglycerides Cholesterol LDL Cholesterol VLDL Cholesterol HDL Cholesterol TSH Urine Color Urine Clarity Urine pH Ur Specific [place] Urine Protein Urine Glucose (UA) Urine Ketones Urine Occult Blood Urine Nitrite Urine Bilirubin Urine Urobilinogen Ur Leukocyte Esterase Urine RBC Urine WBC Ur Squamous Epith Cells Urine Bacteria Urine Mucus POC Glucose 87 73 165 H 12/28/17 12/28/17 12/28/17 10:45 10:45 11:11 WBC 15.9 H RBC 2.96 L Hgb 8.8 L Hct 26.3 L MCV 88.9 MCH 29.7 MCHC 33.5 RDW 14.0 RDW Differential 45.2 H Plt Count 148 L MPV 9.9 Immature Gran % (Auto) 0.300 Neut % (Auto) 87.1 H Lymph % (Auto) 5.0 L Bureau % (Auto) 7.1 Eos % (Auto) 0.4 Baso % (Auto) 0.1 Absolute Neuts (auto) 13.8 H Absolute Lymphs (auto) 0.80 L Total Counted Not Reportable Sodium 134 L Potassium 4.6 Chloride 104 Carbon Dioxide 21.0 Anion Gap 9 BUN 59 H Creatinine 2.76 H Estim Creat Clear Calc 20.62 Est GFR (MDRD) Af Amer 29 L Est GFR (MDRD) Non-Af 24 L BUN/Creatinine Ratio 21.4 H Glucose 174 H Calcium 7.9 L Phosphorus Magnesium Troponin I Triglycerides Cholesterol LDL Cholesterol VLDL Cholesterol HDL Cholesterol TSH Urine Color Urine Clarity Urine pH Ur Specific [place] Urine Protein Urine Glucose (UA) Urine Ketones Urine Occult Blood Urine Nitrite Urine Bilirubin Urine Urobilinogen Ur Leukocyte Esterase Urine RBC Urine WBC Ur Squamous Epith Cells Urine Bacteria Urine Mucus POC Glucose 158 H 12/28/17 12/28/17 12/29/17 16:13 21:47 05:20 WBC 14.5 H RBC 2.80 L Hgb 8.3 L Hct 24.7 L MCV 88.2 MCH 29.6 MCHC 33.6 RDW 14.0 RDW Differential 45.6 H Plt Count 163 MPV 10.7 Immature Gran % (Auto) 0.200 Neut % (Auto) 84.3 H Lymph % (Auto) 6.5 L Bureau % (Auto) 7.4 Eos % (Auto) 1.5 Baso % (Auto) 0.1 Absolute Neuts (auto) 12.2 H Absolute Lymphs (auto) 0.94 Total Counted Not Reportable Sodium Potassium Chloride Carbon Dioxide Anion Gap BUN Creatinine Estim Creat Clear Calc Est GFR (MDRD) Af Amer Est GFR (MDRD) Non-Af BUN/Creatinine Ratio Glucose Calcium Phosphorus Magnesium Troponin I Triglycerides Cholesterol LDL Cholesterol VLDL Cholesterol HDL Cholesterol TSH Urine Color Urine Clarity Urine pH Ur Specific [place] Urine Protein Urine Glucose (UA) Urine Ketones Urine Occult Blood Urine Nitrite Urine Bilirubin Urine Urobilinogen Ur Leukocyte Esterase Urine RBC Urine WBC Ur Squamous Epith Cells Urine Bacteria Urine Mucus POC Glucose 75 98 12/29/17 12/29/17 12/29/17 05:20 05:57 06:09 WBC RBC Hgb Hct MCV MCH MCHC RDW RDW Differential Plt Count MPV Immature Gran % (Auto) Neut % (Auto) Lymph % (Auto) Bureau % (Auto) Eos % (Auto) Baso % (Auto) Absolute Neuts (auto) Absolute Lymphs (auto) Total Counted Sodium 138 Potassium 4.2 Chloride 103 Carbon Dioxide 23.0 Anion Gap 12 BUN 65 H Creatinine 2.93 H Estim Creat Clear Calc 19.43 Est GFR (MDRD) Af Amer 27 L Est GFR (MDRD) Non-Af 22 L BUN/Creatinine Ratio 22.2 H Glucose 44 L* Calcium 8.0 L Phosphorus Magnesium Troponin I Triglycerides Cholesterol LDL Cholesterol VLDL Cholesterol HDL Cholesterol TSH Urine Color Urine Clarity Urine pH Ur Specific [place] Urine Protein Urine Glucose (UA) Urine Ketones Urine Occult Blood Urine Nitrite Urine Bilirubin Urine Urobilinogen Ur Leukocyte Esterase Urine RBC Urine WBC Ur Squamous Epith Cells Urine Bacteria Urine Mucus POC Glucose 42 L* 165 H 12/29/17 12/29/17 12/29/17 07:54 11:36 16:58 WBC RBC Hgb Hct MCV MCH MCHC RDW RDW Differential Plt Count MPV Immature Gran % (Auto) Neut % (Auto) Lymph % (Auto) Bureau % (Auto) Eos % (Auto) Baso % (Auto) Absolute Neuts (auto) Absolute Lymphs (auto) Total Counted Sodium Potassium Chloride Carbon Dioxide Anion Gap BUN Creatinine Estim Creat Clear Calc Est GFR (MDRD) Af Amer Est GFR (MDRD) Non-Af BUN/Creatinine Ratio Glucose Calcium Phosphorus Magnesium Troponin I Triglycerides Cholesterol LDL Cholesterol VLDL Cholesterol HDL Cholesterol TSH Urine Color Urine Clarity Urine pH Ur Specific [place] Urine Protein Urine Glucose (UA) Urine Ketones Urine Occult Blood Urine Nitrite Urine Bilirubin Urine Urobilinogen Ur Leukocyte Esterase Urine RBC Urine WBC Ur Squamous Epith Cells Urine Bacteria Urine Mucus POC Glucose 103 153 H 247 H 12/29/17 12/29/17 12/30/17 17:00 22:16 05:38 WBC 15.0 H RBC 2.96 L Hgb 8.8 L Hct 25.9 L MCV 87.5 MCH 29.7 MCHC 34.0 RDW 14.0 RDW Differential 44.9 H Plt Count 217 MPV 10.1 Immature Gran % (Auto) 0.200 Neut % (Auto) 83.6 H Lymph % (Auto) 8.2 L Bureau % (Auto) 5.6 Eos % (Auto) 2.3 Baso % (Auto) 0.1 Absolute Neuts (auto) 12.5 H Absolute Lymphs (auto) 1.23 Total Counted Not Reportable Sodium Potassium Chloride Carbon Dioxide Anion Gap BUN Creatinine Estim Creat Clear Calc Est GFR (MDRD) Af Amer Est GFR (MDRD) Non-Af BUN/Creatinine Ratio Glucose Calcium Phosphorus Magnesium Troponin I Triglycerides Cholesterol LDL Cholesterol VLDL Cholesterol HDL Cholesterol TSH Urine Color Yellow Urine Clarity Clear Urine pH 5.0 Ur Specific [place] 1.020 Urine Protein 100 H Urine Glucose (UA) Normal Urine Ketones Negative Urine Occult Blood Negative Urine Nitrite Negative Urine Bilirubin Negative Urine Urobilinogen Normal Ur Leukocyte Esterase 25 H Urine RBC 0 SEEN Urine WBC 0-5 SEEN Ur Squamous Epith Cells 0 SEEN Urine Bacteria 0 SEEN Urine Mucus 0 SEEN POC Glucose 152 H 12/30/17 12/30/17 12/30/17 05:38 06:42 09:49 WBC RBC Hgb Hct MCV MCH MCHC RDW RDW Differential Plt Count MPV Immature Gran % (Auto) Neut % (Auto) Lymph % (Auto) Bureau % (Auto) Eos % (Auto) Baso % (Auto) Absolute Neuts (auto) Absolute Lymphs (auto) Total Counted Sodium 134 L Potassium 4.6 Chloride 98 Carbon Dioxide 21.0 Anion Gap 15 BUN 72 H Creatinine 3.24 H Estim Creat Clear Calc 17.57 Est GFR (MDRD) Af Amer 24 L Est GFR (MDRD) Non-Af 20 L BUN/Creatinine Ratio 22.2 H Glucose 143 H Calcium 8.2 L Phosphorus Magnesium Troponin I Triglycerides Cholesterol LDL Cholesterol VLDL Cholesterol HDL Cholesterol TSH Urine Color Urine Clarity Urine pH Ur Specific [place] Urine Protein Urine Glucose (UA) Urine Ketones Urine Occult Blood Urine Nitrite Urine Bilirubin Urine Urobilinogen Ur Leukocyte Esterase Urine RBC Urine WBC Ur Squamous Epith Cells Urine Bacteria Urine Mucus POC Glucose 150 H 214 H 12/30/17 12/30/17 12/30/17 11:20 13:23 13:35 WBC 15.7 H RBC 2.88 L Hgb 8.6 L Hct 25.7 L MCV 89.2 MCH 29.9 MCHC 33.5 RDW 13.9 RDW Differential 45.2 H Plt Count 210 MPV 10.5 Immature Gran % (Auto) Neut % (Auto) Lymph % (Auto) Bureau % (Auto) Eos % (Auto) Baso % (Auto) Absolute Neuts (auto) Absolute Lymphs (auto) Total Counted Sodium Potassium Chloride Carbon Dioxide Anion Gap BUN Creatinine Estim Creat Clear Calc Est GFR (MDRD) Af Amer Est GFR (MDRD) Non-Af BUN/Creatinine Ratio Glucose Calcium Phosphorus Magnesium Troponin I Triglycerides Cholesterol LDL Cholesterol VLDL Cholesterol HDL Cholesterol TSH Urine Color Urine Clarity Urine pH Ur Specific [place] Urine Protein Urine Glucose (UA) Urine Ketones Urine Occult Blood Urine Nitrite Urine Bilirubin Urine Urobilinogen Ur Leukocyte Esterase Urine RBC Urine WBC Ur Squamous Epith Cells Urine Bacteria Urine Mucus POC Glucose 190 H 228 H 12/30/17 12/30/17 13:35 17:04 WBC RBC Hgb Hct MCV MCH MCHC RDW RDW Differential Plt Count MPV Immature Gran % (Auto) Neut % (Auto) Lymph % (Auto) Bureau % (Auto) Eos % (Auto) Baso % (Auto) Absolute Neuts (auto) Absolute Lymphs (auto) Total Counted Sodium 128 L Potassium 5.2 H Chloride 98 Carbon Dioxide 18.0 L Anion Gap 12 BUN 70 H Creatinine 3.31 H Estim Creat Clear Calc 17.20 Est GFR (MDRD) Af Amer 23 L Est GFR (MDRD) Non-Af 19 L BUN/Creatinine Ratio 21.1 H Glucose 229 H Calcium 7.5 L Phosphorus 5.6 H Magnesium 2.7 H Troponin I Triglycerides Cholesterol LDL Cholesterol VLDL Cholesterol HDL Cholesterol TSH Urine Color Urine Clarity Urine pH Ur Specific [place] Urine Protein Urine Glucose (UA) Urine Ketones Urine Occult Blood Urine Nitrite Urine Bilirubin Urine Urobilinogen Ur Leukocyte Esterase Urine RBC Urine WBC Ur Squamous Epith Cells Urine Bacteria Urine Mucus POC Glucose 141 H cardiology, pulmonary critical care Procedures: 2-D Echocardiogram Summary of Care Provided: The patient is a 77 year old M with a past medical history of CAD status post CABG, valvular heart disease status post bovine aortic valve replacement and mitral valve aortic repair, diabetes, hypertension and gout. He was admitted via the ED on 01/13/2018 with complaint of severe weakness and inability to stand with associated cough fatigue and malaise for 1-2 weeks prior to presentation. He had a leukocytosis of 17.9 on admission and creatinine was 2.70 which is close to his baseline. Chest x-ray done showed cardiomegaly with no obvious infiltrate. He was started on IV Rocephin and IV azithromycin and managed acquired pneumonia initially. He tested positive for flu and subsequently antibiotics were stopped and he was put on a 5 day course of Tamiflu 30 mg daily, adjusted for his kidney function. Patient was noted to have mild troponin elevation which was thought to be possibly due to demand ischemia. Cardiology was consulted and he had an echo which showed EF of 50%, and mild hypokinesia of the left ventricle with RVSP of 92 mmHg. There was a question of nonsustained ventricular tachycardia in addition to his chronic paroxysmal A. fib. Patient was therefore started on p.o. amiodarone in addition to his carvedilol. Patient stabilized and was scheduled to be discharged on 12/30/2017. However around 1320 today, rapid response was called on account of syncopal event. Patient had gotten up to go to the bathroom and subsequently became very short of breath and was found to be bradycardic. EKG done showed a junctional rhythm with heart rate 83. However, para monitor, heart rate was going as low as 30s and 40s. He was given a dose of atropine 0.5 mg IV and heart rate went up to the 50s. Patient's blood pressure was initially unrecordable but subsequently came up to 140 systolic. Patient was transferred up to the ICU. Cardiology reviewed him and made decision to transfer patient as he would need a pacemaker and lead producer who could do a pacemaker in [facility] was not available this week. AMiodarone and carvedilol were also stopped. Was also told that he would benefit from an ICD in light of his history of A. fib and also nonsustained V. tach whilst on admission. Patient's primary lead producer is Dr. Corey Sun at [facility]. Patient was transferred to [facility]] where his primary lead producer is, and was accepted under the service of Dr Blackmon. [] Discharge Diet: 2000 mg Sodium Diet Discharge Activity: Return to Normal Activity Weight Bearing Status: Weight bearing as tolerated Call your doctor if you observe: Shortness of breath, Increased palpitations ( irregular heartbeat) Home Medications: Medications to take at Discharge Allopurinol [Zyloprim] 200 mg PO DAILYCM 12/31/16 Amlodipine [Norvasc] 5 mg PO QHS 12/31/16 Furosemide [Lasix] 40 mg PO BIDLX 12/31/16 Insulin Detemir [Levemir] 40 unit SQ DAILY 12/31/16 Aspirin [Aspir-Low] 81 mg PO DAILY 30 Days tablet. 01/02/17 Atorvastatin Calcium 40 mg PO DAILY 12/27/17 Insulin Aspart [Novolog Flexpen] 7 units SC BIDCM 12/27/17 Rivaroxaban [Xarelto] 15 mg PO DAILY 12/27/17 Oseltamivir Phosphate [Tamiflu] 30 mg PO DAILY #1 cap 12/30/17 Following Prescrptions Were Given to Patient: Oseltamivir Phosphate [Tamiflu] 30 mg PO DAILY #1 cap Primary Care Physician: Donavon Hamilton MD [Primary Care Provider] - Please follow up with your Primary Care Physician in: one week Disposition: Acute care Hospital [facility] Minutes spent on discharge:: 50 Patient Condition:: Critical Medical Necessity - Tobacco Use Smoking Status: Former smoker Tobacco Use: Non-smoker Meaningful Use Info Meaningful Use Diagnoses (Choose all that apply): None applicable Code Visit Inpatient E&M: 15739 Disch Hosp
--- NOTE | 2017-12-30 20:55 | NURSING ---
[facility] HERE FOR PT. DISCUSSED PT'S NEED FOR TRANSPORT AND PMH. VS STABLE. BS 110. PT TRANSFERRED TO [facility] WITHOUT DIFFICULTY. PT HEALTH PACKET PROVIDED TO TRANSFER CREW.
[2017-12-30 21:00] LABS: Bedside Glucose 110 mg/dL (70-110)
--- NOTE | 2018-01-06 13:00 | CASEMGMT ---
[facility] is aware that pt was transferred to a tertiary facility. Jason SERVIN CM
== END 2017-12-30 21:21 | disposition short-term general hospital (02) | DRG 194 ==
LOC: ED 12-27 00:24 → PCU 12-27 02:46 → ICU 12-30 14:00
PROVIDERS: Internal Medicine Cardiovascular Disease; Internal Medicine Critical Care Medicine; Admitting Provider Family Medicine; Emergency Provider Emergency Medicine; Family Provider Family Medicine; PCP Family Medicine; Visit Provider Student in an Organized Health Care Education/Training Program
DX: J10.00 Influenza due to other identified influenza virus with unspecified type of pneumonia (principal); I48.92 Unspecified atrial flutter; E86.0 Dehydration; I48.2 Chronic atrial fibrillation; I48.0 Paroxysmal atrial fibrillation; I25.10 Atherosclerotic heart disease of native coronary artery without angina pectoris; Z95.1 Presence of aortocoronary bypass graft; E11.22 Type 2 diabetes mellitus with diabetic chronic kidney disease; I12.9 Hypertensive chronic kidney disease with stage 1 through stage 4 chronic kidney disease, or unspecified chronic kidney disease; N18.3 Chronic kidney disease, stage 3 (moderate); M1A.9XX0 Chronic gout, unspecified, without tophus (tophi); I25.2 Old myocardial infarction; Z87.891 Personal history of nicotine dependence; Z95.3 Presence of xenogenic heart valve; E78.5 Hyperlipidemia, unspecified; D64.9 Anemia, unspecified; F41.9 Anxiety disorder, unspecified; F32.9 Major depressive disorder, single episode, unspecified; E11.649 Type 2 diabetes mellitus with hypoglycemia without coma; I27.20 Pulmonary hypertension, unspecified; R00.0 Tachycardia, unspecified; R74.8 Abnormal levels of other serum enzymes; R00.1 Bradycardia, unspecified; R55 Syncope and collapse
CPT/HCPCS: 36415; 71045; 71046; 80048; 80061; 81001; 82962; 83735; 84100; 84443; 84484; 85025; 85027; 87040; 87070; 87205; 87449; 87633; 93005; 93306; 94640; 94667; 97110; 97162; 97166; 97530; 97535; 97802; 99285; J7030; J7040; A4216

== ENCOUNTER 2018-04-09 12:07 | Emergency (ER) | payer MEDICARE, OTHER, SELFPAY ==
[2018-04-09 12:09] VITALS: BP 127/67; PULSE 69; RESP 17; TEMP 36.6; O2SAT 98; BMI 23.5
[2018-04-09 13:55] LABS: International Normalized Ratio 3.9; Prothrombin Time (Protime)PT. 38.7 SECONDS (11.7-14.9)
[2018-04-09 14:08] VITALS: BP 186/89; PULSE 57; RESP 18; O2SAT 97
--- NOTE | 2018-04-09 14:23 | ED.RN ---
LAB CALLS WITH CRITICAL RESULT, INR 3.9, DR. DU MADE AWARE.
[2018-04-09] MEDS: Oxymetazoline 0.05% 1 SPRAY SPRAY.BTL 2 SPRAY NASAL (14:30)
[2018-04-09] MEDS: Acetaminophen 500 MG Tablet 1000 MG PO (14:47)
--- NOTE | 2018-04-09 14:47 | ED.DCSUM_ITS ---
- ER Visit Summary Date of Service: 04/09/18 Chief Complaint: Bloody nose History of Present Illness: The patient is a 77 M who woke this morning with blood from his right naris. He states that he has had this problem in the past just not as bad. He is on Coumadin for atrial fibrillation. The patient states that he last had his INR checked last week. He denies any known trauma to the nose. He denies any other symptoms. He is never had to see ENT for cautery. Physical Examination: Afebrile vital signs are stable Gen: Well-nourished well-developed Head: Normocephalic atraumatic Eyes: Perrl EOMI ENT: TMs clear moist mucous membranes there is active bleeding from the right n merritt. He has bleeding up to the tear duct on the right. There is no blood in the posterior pharynx. Neck: Supple no lymphadenopathy no JVD nontender CVS: Regular rate rhythm no murmurs normal S1-S2 Respiratory: No distress clear to auscultation bilaterally chest nontender Abdomen: Soft nontender nondistended normal bowel sounds no masses Back: Nontender Extremity: Nontender no edema Skin: Normal color no rash Neuro: alert orientated ?3 CN II-XII intact normal strength sensation reflexes gait cerebellar Psych: Normal affect normal mood Test Results: INR elevated 3.9 Emergency Department Course and Treatment: The patient had no spencers applied. After which we had him clear his nose of clots. There is no active bleeding. W e used some Afrin and cotton observed. I remove the cotton and there is large clot and active bleeding. Because of his supratherapeutic INR and the active bleeding without an obvious source we went ahead and placed a anterior posterior Rhino Rocket. This was inflated with air. The patient received Tylenol for pain. He will be placed on Keflex. He was advised to discontinue his Coumadin for the next 2 nights have it rechecked in 2 days. He is to follow-up with ENT and is to call there today to arrange follow-up. Impression: 1. Acute epistaxis 2. Supratherapeutic INR This note was generated with [employer] software. It may contain incorrect words, spelling, and punctuation that were not noted in review of the chart prior to signing ED Disposition - Plan for ED Patient: Disposition: Home or Assisted Living Chief Complaint: Nosebleed Instructions: Nosebleed Prescriptions: Cephalexin [Keflex] 500 mg PO BID #10 cap Referrals: Elijah Son MD [STAFF PHYSICIAN] - (in 3 days for packing removal) Additional Instructions: Your INR today was 3.9. This is significantly elevated. I would recommend you hold your Coumadin/warfarin dose for the next 2 days. I would recommend you have your Coumadin/warfarin level redrawn on Saturday. Please inform your provider that handles your Coumadin/warfarin INR that you are on Keflex. This may affect (elevated) your level and you may need to hold your drug more than just the 2 days. You may bleed even with the packing in. If this occurs please return to the emergency department
== END 2018-04-09 15:14 | disposition home or self-care (01) ==
PROVIDERS: Emergency Provider Emergency Medicine; Family Provider Family Medicine; PCP Family Medicine
DX: R04.0 Epistaxis (principal); R79.1 Abnormal coagulation profile; I48.91 Unspecified atrial fibrillation; I25.10 Atherosclerotic heart disease of native coronary artery without angina pectoris; K21.9 Gastro-esophageal reflux disease without esophagitis; I25.2 Old myocardial infarction; Z79.01 Long term (current) use of anticoagulants; Z79.4 Long term (current) use of insulin; Z79.899 Other long term (current) drug therapy; Z95.1 Presence of aortocoronary bypass graft
CPT/HCPCS: 30901; 85610; 99282

== ENCOUNTER → 2018-04-29 13:46 | Outpatient (CLI) | payer MEDICARE, OTHER, SELFPAY ==
[2018-04-09 12:09] VITALS: BMI 23.5
[2018-04-29 15:02] LABS: Absolute Lymphocyte Count 1.18 X10^3/ul (0.83-4.51); Absolute Neutrophil Count 8.2 X10^3/uL (2.0-7.7); Basophil# 0.02 X10^3/uL; Basophil% 0.2 % (0-1); Eosinophil# 0.31 X10^3/uL; Hematocrit 34.5 % (40-54); Hemoglobin 11.3 g/dl (13.0-16.5); Lymphocyte # 1.18 X10^3/ul (4.0); Lymphocyte % 11.5 % (19-41); Mean Corp Hgb Conc 32.8 g/gl (32-36); Mean Corpuscular Hgb 29.1 pg (27.0-32.0); Mean Corpuscular Volume 88.9 fL (80-94); Mean Platelet Vol. 10.9 fl (6.2-12.0); Monocyte# 0.54 X10^3/uL; Monocyte% 5.2 % (0-10); Neutrophil # 8.23 X10^3/uL (2.7-7.7); Neutrophil % 79.9 % (47-70); Platelet Count 220 K/mm3 (150-450); RBC Distribution Width CV 14.8 % (11.6-14.6); RBC Distribution Width SD 47.9 fl (35.1-43.9); Red Blood Count 3.88 M/mm3 (4.6-6.2); White Blood Count 10.3 K/mm3 (4.4-11.0)
[2018-04-29 15:04] LABS: POSITIVE COUNT NO; POSITIVE DIFFERENTIAL NO; POSITIVE MORPHOLOGY NO
[2018-04-29 15:18] LABS: Protein, Urine (Random) 246.6 mg/dL (<11.9); Protein:Creat Ratio 2607 mg/g CRE (0-200)
[2018-04-29 15:29] LABS: ALB/GLOB Ratio 1.1 RATIO (0.9-2.4); AST(SGOT) 15 U/L (15-37); Alanine Aminotransfer ALT/SGPT 25 U/L (16-61); Albumin, Serum 3.6 g/dL (3.2-5.0); Alkaline Phosphatase 135 U/L (45-117); Anion Gap 10 (5-15); BUN 65 mg/dL (7-18); BUN/Creat Ratio 18.2 RATIO (10-20); Calcium,Total 8.6 mg/dL (8.5-10.1); Chloride 100 mmol/L (98-107); Creatinine, Serum 3.58 mg/dL (0.70-1.30); EST Glomerular Filtration Rate 18 mL/min (>60); Est Glom Filt Rate - Afr Amer 21 mL/min (>60); Globulin 3.3 g/dL (2.2-4.2); Glucose 271 mg/dL (74-106); Phosphorus 4.1 mg/dL (2.5-4.9); Protein, Total 6.9 g/dL (6.4-8.2); Sodium Level 139 mmol/L (136-145); Uric Acid 5.7 mg/dL (3.5-7.2)
[2018-04-29 15:37] LABS: Vitamin D,25 Hydroxy 31.7 ng/mL (29.95-100.01)
== END ==
PROVIDERS: Family Provider Family Medicine; PCP Family Medicine; Referring Provider Internal Medicine Nephrology; Visit Provider Internal Medicine Nephrology
DX: N17.9 Acute kidney failure, unspecified (principal); M10.9 Gout, unspecified; Q66.7 Congenital pes cavus; M17.0 Bilateral primary osteoarthritis of knee; N25.81 Secondary hyperparathyroidism of renal origin
CPT/HCPCS: 36415; 80053; 82306; 82570; 83970; 84100; 84156; 84550; 85025

== ENCOUNTER → 2018-06-26 14:02 | Outpatient (CLI) | payer MEDICARE, OTHER, SELFPAY ==
[2018-06-26 15:28] LABS: Anion Gap 12 (5-15); BUN 53 mg/dL (7-18); BUN/Creat Ratio 14.4 RATIO (10-20); Calcium,Total 8.6 mg/dL (8.5-10.1); Chloride 106 mmol/L (98-107); Creatinine, Serum 3.67 mg/dL (0.70-1.30); EST Glomerular Filtration Rate 17 mL/min (>60); Est Glom Filt Rate - Afr Amer 21 mL/min (>60); Glucose 261 mg/dL (74-106); Potassium 4.4 mmol/L (3.5-5.1); Sodium Level 143 mmol/L (136-145)
[2018-06-26 15:36] LABS: Hemoglobin A1c 6.5 % (4.2-6.3)
== END ==
PROVIDERS: Family Provider Family Medicine; PCP Family Medicine; Referring Provider Family Medicine; Visit Provider Family Medicine
DX: E11.22 Type 2 diabetes mellitus with diabetic chronic kidney disease (principal); N18.4 Chronic kidney disease, stage 4 (severe)
CPT/HCPCS: 36415; 80048; 82043; 82570; 83036

== ENCOUNTER → 2018-08-20 14:09 | Outpatient (CLI) | payer MEDICARE, OTHER, SELFPAY ==
[2018-08-20 14:30] LABS: Hematocrit 31.8 % (40-54); Hemoglobin 9.9 g/dl (13.0-16.5); Mean Corp Hgb Conc 31.1 g/gl (32-36); Mean Corpuscular Hgb 30.2 pg (27.0-32.0); Mean Platelet Vol. 10.1 fl (6.2-12.0); Platelet Count 220 K/mm3 (150-450); RBC Distribution Width SD 47.2 fl (35.1-43.9); Red Blood Count 3.28 M/mm3 (4.6-6.2); Scan Indicated on CBC? Y/N NO; White Blood Count 9.3 K/mm3 (4.4-11.0)
[2018-08-20 14:47] LABS: Protein, Urine (Random) 479.4 mg/dL (<11.9); Protein:Creat Ratio 4978 mg/g CRE (0-200)
[2018-08-20 15:08] LABS: Albumin, Serum 3.5 g/dL (3.2-5.0); BUN 61 mg/dL (7-18); BUN/Creat Ratio 15.1 RATIO (10-20); Calcium,Total 8.1 mg/dL (8.5-10.1); Chloride 107 mmol/L (98-107); Creatinine, Serum 4.05 mg/dL (0.70-1.30); EST Glomerular Filtration Rate 15 mL/min (>60); Est Glom Filt Rate - Afr Amer 19 mL/min (>60); Glucose 296 mg/dL (74-106); Potassium 4.2 mmol/L (3.5-5.1); Sodium Level 138 mmol/L (136-145)
[2018-08-20 15:15] LABS: Vitamin D,25 Hydroxy 40.5 ng/mL (29.95-100.01)
[2018-08-20 15:16] LABS: PTHIN 269.3 pg/mL (18.4-80.1)
== END ==
PROVIDERS: Family Provider Family Medicine; PCP Family Medicine; Referring Provider Internal Medicine Nephrology; Visit Provider Internal Medicine Nephrology
DX: N18.4 Chronic kidney disease, stage 4 (severe) (principal); D63.1 Anemia in chronic kidney disease
CPT/HCPCS: 36415; 80069; 82306; 82570; 83970; 84156; 85027

== ENCOUNTER → 2018-10-22 14:10 | Outpatient (CLI) | payer MEDICARE, OTHER, SELFPAY ==
[2018-10-22 15:10] LABS: Hematocrit 28.2 % (40-54); Hemoglobin 9.2 g/dl (13.0-16.5); Mean Corp Hgb Conc 32.6 g/gl (32-36); Mean Corpuscular Volume 91.9 fL (80-94); Mean Platelet Vol. 10.5 fl (6.2-12.0); Platelet Count 182 K/mm3 (150-450); RBC Distribution Width CV 14.9 % (11.6-14.6); RBC Distribution Width SD 49.7 fl (35.1-43.9); Red Blood Count 3.07 M/mm3 (4.6-6.2)
[2018-10-22 15:13] LABS: Scan Indicated on CBC? Y/N NO
[2018-10-22 15:15] LABS: Protein, Urine (Random) 406.9 mg/dL (<11.9); Protein:Creat Ratio 4908 mg/g CRE (0-200)
[2018-10-22 15:21] LABS: Albumin, Serum 3.2 g/dL (3.2-5.0); BUN 67 mg/dL (7-18); BUN/Creat Ratio 15.5 RATIO (10-20); Calcium,Total 8.3 mg/dL (8.5-10.1); Chloride 107 mmol/L (98-107); Creatinine, Serum 4.33 mg/dL (0.70-1.30); EST Glomerular Filtration Rate 14 mL/min (>60); Est Glom Filt Rate - Afr Amer 17 mL/min (>60); Glucose 211 mg/dL (74-106); Phosphorus 5.3 mg/dL (2.5-4.9); Potassium 4.3 mmol/L (3.5-5.1); Sodium Level 138 mmol/L (136-145)
[2018-10-22 15:25] LABS: Hemoglobin A1c 6.2 % (4.2-6.3)
[2018-10-22 15:27] LABS: PTHIN 248.2 pg/mL (18.4-80.1); Vitamin D,25 Hydroxy 62.2 ng/mL (29.95-100.01)
== END ==
PROVIDERS: Family Provider Family Medicine; PCP Family Medicine; Referring Provider Internal Medicine Nephrology; Visit Provider Internal Medicine Nephrology
DX: E11.22 Type 2 diabetes mellitus with diabetic chronic kidney disease (principal); I12.9 Hypertensive chronic kidney disease with stage 1 through stage 4 chronic kidney disease, or unspecified chronic kidney disease; N18.4 Chronic kidney disease, stage 4 (severe)
CPT/HCPCS: 36415; 80069; 82306; 82570; 83036; 83970; 84156; 85027

== ENCOUNTER → 2018-12-10 14:25 | Outpatient (CLI) | payer MEDICARE, OTHER, SELFPAY ==
[2018-12-10 15:31] LABS: Anion Gap 11 (5-15); BUN 79 mg/dL (7-18); BUN/Creat Ratio 16.3 RATIO (10-20); Calcium,Total 8.4 mg/dL (8.5-10.1); Chloride 107 mmol/L (98-107); Creatinine, Serum 4.85 mg/dL (0.70-1.30); EST Glomerular Filtration Rate 12 mL/min (>60); Est Glom Filt Rate - Afr Amer 15 mL/min (>60); Glucose 245 mg/dL (74-106); Potassium 4.4 mmol/L (3.5-5.1); Sodium Level 142 mmol/L (136-145)
[2018-12-10 15:47] LABS: Protein:Creat Ratio 4823 mg/g CRE (0-200)
== END ==
PROVIDERS: Family Provider Family Medicine; PCP Family Medicine; Referring Provider Internal Medicine Nephrology; Visit Provider Internal Medicine Nephrology
DX: N18.5 Chronic kidney disease, stage 5 (principal)
CPT/HCPCS: 36415; 80048; 82570; 84156

== ENCOUNTER → 2019-02-02 11:29 | Outpatient (CLI) | payer MEDICARE, OTHER, SELFPAY ==
[2019-02-02 12:44] LABS: Absolute Lymphocyte Count 0.77 X10^3/uL (0.83-4.51); Absolute Neutrophil Count 6.7 X10^3/uL (2.0-7.7); Basophil# 0.05 X10^3/uL; Basophil% 0.6 % (0-1); Eosinophil# 0.46 X10^3/uL; Eosinophils% 5.4 % (0-5); Hematocrit 28.8 % (40-54); Hemoglobin 9.1 g/dL (13.0-16.5); Lymphocyte # 0.77 X10^3/ul (4.0); Lymphocyte % 9.1 % (19-41); Mean Corp Hgb Conc 31.6 g/dL (32-36); Mean Corpuscular Hgb 30.3 pg (27.0-32.0); Mean Platelet Vol. 11.8 fl (6.2-12.0); Monocyte# 0.53 X10^3/uL; Monocyte% 6.2 % (0-10); NRBC Flagged by Analyzer 0 % (0-5); Neutrophil # 6.65 X10^3/uL (2.7-7.7); Neutrophil % 78.3 % (47-70); Platelet Count 149 K/mm3 (150-450); RBC Distribution Width CV 14.6 % (11.6-14.6); RBC Distribution Width SD 50.9 fl (35.1-43.9); White Blood Count 8.5 K/mm3 (4.4-11.0)
[2019-02-02 13:11] LABS: ALB/GLOB Ratio 1.1 RATIO (0.9-2.4); AST(SGOT) 18 U/L (15-37); Alanine Aminotransfer ALT/SGPT 35 U/L (16-61); Albumin, Serum 3.4 g/dL (3.2-5.0); Alkaline Phosphatase 177 U/L (45-117); Anion Gap 10 (5-15); BUN 82 mg/dL (7-18); BUN/Creat Ratio 14.7 RATIO (10-20); Calcium,Total 8.4 mg/dL (8.5-10.1); Chloride 106 mmol/L (98-107); Creatinine, Serum 5.59 mg/dL (0.70-1.30); EST Glomerular Filtration Rate 11 mL/min (>60); Est Glom Filt Rate - Afr Amer 13 mL/min (>60); Globulin 3.1 g/dL (2.2-4.2); Glucose 253 mg/dL (74-106); Phosphorus 5.8 mg/dL (2.5-4.9); Potassium 3.8 mmol/L (3.5-5.1); Protein, Total 6.5 g/dL (6.4-8.2); Sodium Level 138 mmol/L (136-145); Uric Acid 4.5 mg/dL (3.5-7.2)
[2019-02-02 13:14] LABS: Vitamin D,25 Hydroxy 69.9 ng/mL (29.95-100.01)
[2019-02-02 17:34] LABS: Hepatitis B Surface Antigen Non-Reactive (Nonreactive)
== END ==
PROVIDERS: Family Provider Family Medicine; PCP Family Medicine; Referring Provider Internal Medicine Nephrology; Visit Provider Internal Medicine Nephrology
DX: I13.2 Hypertensive heart and chronic kidney disease with heart failure and with stage 5 chronic kidney disease, or end stage renal disease (principal); N18.5 Chronic kidney disease, stage 5; E11.22 Type 2 diabetes mellitus with diabetic chronic kidney disease; I50.9 Heart failure, unspecified; I25.10 Atherosclerotic heart disease of native coronary artery without angina pectoris; I48.91 Unspecified atrial fibrillation; Q66.7 Congenital pes cavus; M17.0 Bilateral primary osteoarthritis of knee; M10.9 Gout, unspecified; I69.30 Unspecified sequelae of cerebral infarction
CPT/HCPCS: 36415; 80053; 82306; 83970; 84100; 84550; 85025; 87340

== ENCOUNTER 2019-07-27 13:57 | Emergency (ER) | payer MEDICARE, OTHER, SELFPAY ==
[2019-07-27] VITALS (9 sets, daily range): BP systolic 122–161; BP diastolic 46–58; PULSE 48–58; RESP 16–20; TEMP 36.4–36.6; O2SAT 99–100; BMI 23.0
--- NOTE | 2019-07-27 14:00 | EKG12_ITS ---
Test Reason : STROKE TEAM Blood Pressure : / mmHG Vent. Rate : 051 BPM Atrial Rate : 357 BPM P-R Int : 000 ms QRS Dur : 094 ms QT Int : 498 ms P-R-T Axes : 000 083 069 degrees QTc Int : 458 ms Atrial flutter Low Voltage QRS (Limb Leads) Cannot rule out Anterior infarct , age undetermined Abnormal ECG Confirmed by IBETH MIRANDA, GILDARDO ([id number]), editorial intern MAURILIO SERRANO ([id number]) on 07/29/2019 1:31:30 PM Referred By: ERIC Confirmed By:GILDARDO CRISTINA MD
--- NOTE | 2019-07-27 14:00 | CT_ITS ---
STUDY: CT BRAIN WITHOUT CONTRAST REASON FOR EXAM: Male, 78 years old. STROKE RADIATION DOSAGE (If Supplied By Facility): CTDIvol = ( 60.81 ) mGy, DLP = ( 1135.50 ) mGycm TECHNIQUE: Transaxial CT imaging of the brain was performed without administration of intravenous contrast material. Individualized dose optimization techniques were used for this CT. COMPARISON: None. FINDINGS: There is cerebral atrophy with widening of the extra-axial spaces and ventricular dilatation. There are areas of decreased attenuation within the white matter tracts of the supratentorial brain, consistent with microvascular disease changes. There is no intracranial hemorrhage. Normal soft tissue structures. Normal visualized paranasal sinuses. CT/Brain/Head without Contrast IMPRESSION: No intracranial hemorrhage. Chronic involutional changes of the brain. N.B. : The above information has been verbally conveyed by Brinda Mario MD to Dr Ines MD, on 07/27/2019 14:31:54 (ET). Electronically Signed: Brinda Mario MD at 14:32 EST Tel , Service support ,
--- NOTE | 2019-07-27 14:01 | CT_ITS ---
STUDY: CTA HEAD AND NECK WITH CONTRAST REASON FOR EXAM: Male, 78 years old. STROKE, NEURO DEFICIT RADIATION DOSAGE (If Supplied By Facility): CTDIvol = ( ) mGy, DLP = ( ) mGycm TECHNIQUE: CT angiography was performed with a multi-detector CT scanner. Data acquisition was obtained from the skull base through the vertex following intravenous administration of IV 100ML ISOVUE 370. MIP images were reconstructed from the axial data set. Post-processing of the angiographic images was performed, with multiplanar reformation and 3D reconstruction. Individualized dose optimization techniques were used for this CT. COMPARISON: No relevant priors. FINDINGS: Normal bilateral petrous carotid arteries. There is calcified plaque formation of the right cavernous carotid artery, without a cross-sectional luminal stenosis. There is calcified plaque formation of the left cavernous carotid artery, without a cross-sectional luminal stenosis. Normal right A1 segments of the anterior cerebral artery. Normal left A1 segments of the anterior cerebral artery. Normal intact anterior communicating artery (ACOM). Normal bilateral A2 segments of the anterior cerebral arteries. There is a filling defect involving the distal right M1 segment and bifurcation. There is filling of the M2 branches Normal right M1 and M2 segments of the middle cerebral arteries, with a normal M1 bifurcation. Normal left M1 and M2 segments of the middle cerebral arteries, with a normal M1 bifurcation. There is non-visualization of the right posterior communicating artery (PCOM). There is non-visualization of the left posterior communicating artery (PCOM). Normal bilateral vertebral arteries. Normal basilar artery with a normal basilar bifurcation. The visualized bilateral superior cerebellar (SCA) arteries are normal. Normal bilateral P1, P2 and visualized P3 segments of the posterior cerebral arteries. AORTIC ARCH: There is atherosclerotic plaque of the visualized aortic arch. Normal origins of the brachiocephalic, left common carotid, and left subclavian arteries. RIGHT CAROTID ARTERIES: Normal right common carotid artery (CCA). There is moderate atherosclerotic plaque formation with moderate narrowing of the right carotid bulb. There is extensive atherosclerotic plaque formation of the proximal internal carotid artery with an estimated stenosis of greater than 70%. There is atherosclerotic tortuous elongation of the cervical portion of the right internal carotid artery. Normal origin of the right external carotid artery (ECA). LEFT CAROTID ARTERIES: There is atherosclerotic plaque formation of the common carotid artery, but without a hemodynamically significant stenosis. There is moderate atherosclerotic plaque formation with moderate narrowing of the carotid bulb. There is mild atherosclerotic plaque formation of the origin of the left internal carotid artery with less than 50% cross sectional diameter stenosis. There is atherosclerotic tortuous elongation of the cervical portion of the left internal carotid artery. Normal origin of the left external carotid artery (ECA). VERTEBRAL ARTERIES: There is diffuse atherosclerosis with mild narrowing of the bilateral vertebral arteries. 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 N.B. : The above information has been verbally conveyed by Brinda Mario MD to Dr Ines MD, on 07/27/2019 14:35:38 (ET). Electronically Signed: Brinda Mario MD at 14:41 EST Tel , Service support ,
--- NOTE | 2019-07-27 14:07 | ED.VISSUMM ---
- ER Visit Summary Date of Service: 07/27/19 Chief Complaint: Stroke History of Present Illness: The patient is a 78 M who presents with a possible stroke that occurred approximately 35 minutes prior to arrival. Patient developed left facial weakness, difficulty speaking, and left upper and lower extremity weakness today. noticed his symptoms beginning suddenly. Patient is having some difficulty speaking and is a poor historian. Patient has a history of end-stage renal disease and is on dialysis. Patient also is on Plavix for recent cardiac stent. Physical Examination: Vital signs are stable. Patient is afebrile. Patient is in no acute distress. Pupils are equal, round, and reactive to light bilaterally. Extraocular muscles are grossly intact. Conjunctiva is normal. There is left facial weakness. There is weakness of the left upper and lower extremities. Strength is 0 out of 5 in the left upper and lower extremities. Heart was regular rate and rhythm. Lungs are clear and equal bilaterally. Abdomen is soft. Bowel sounds are normal. There is no tenderness. Test Results: CT scan of the head was obtained. There is no acute bleed. There are chronic changes. CTA of the head neck was obtained. There is a occlusion of the distal segment of the M1 middle cerebral artery on the right. This was interpreted by the radiologist and reviewed by myself. Portable chest x-ray was obtained. EKG showed atrial fibrillation with a rate of 51. There are no acute ST or T wave changes. CBC shows a mild anemia with a hemoglobin of 9.2 and hematocrit of 28.2. This was stable compared to previous results. Platelet count was 145. Creatinine is 2.35 which is consistent with his end-stage renal disease. Troponin was 0.083. Emergency Department Course and Treatment: The was present with the stroke neurologist on the robot. Risks and benefits of TPA were explained including bleeding from his recent left femoral arterial puncture site, intracranial bleeding, gastrointestinal bleeding, and . The was given opportunity to ask any questions and all of her questions were answered. She did consent to administering the TPA. TPA was ordered and is being administered. Patient will be transferred to [facility] for further stroke care. Patient's understood and was agreeable with the plan. Disposition: Transfer to [facility] Impression: 1. Acute embolic stroke 2. Critical care time 30 to 74 minutes Critical care time included time spent discussing with family, paramedics, consultants. This also included time obtaining history, performing physical exam, interpreting results of tests, and decision making. This was separate from any time performing procedures. This note was generated with [employer] dictation software. It may contain incorrect words, spelling, and punctuation that were not noted in review of the chart prior to signing ED Disposition - Plan for ED Patient: Disposition: [facility] Diagnosis: Acute embolic stroke Referrals: Donavon Hamilton MD [Primary Care Provider] -
--- NOTE | 2019-07-27 14:21 | CM.ED ---
SOCIAL WORK REASON FOR REFERRAL: STROKE ALERT RESPONDED TO STROKE ALERT. AWAITED FOR TO ARRIVE. PER , PATIENT WAS AT DIALYSIS THIS MORNING, CAME HOME AND TOOK A NAP. WHEN PATIENT AWOKE FROM NAP USED THE REST ROOM AND WENT TO THE KITCHEN. STATES SYMPTOMS STARTED 30 MINUTES AGO. EMOTIONAL SUPPORT PROVIDED. THIS WORKER TO REMAIN AVAILABLE FOR NEEDS. Nader GILLESPIE, INFORMATION SYSTEMS ANALYST, PROFESSIONAL NURSING TUTOR.
[2019-07-27 14:26] LABS: Absolute Lymphocyte Count 0.96 X10^3/uL (0.83-4.51); Absolute Neutrophil Count 7.5 X10^3/uL (2.0-7.7); Basophil# 0.08 X10^3/uL; Basophil% 0.8 % (0-1); Eosinophil# 0.43 X10^3/uL; Eosinophils% 4.4 % (0-5); Hematocrit 28.2 % (40-54); Hemoglobin 9.2 g/dL (13.0-16.5); Lymphocyte # 0.96 X10^3/ul (4.0); Lymphocyte % 9.7 % (19-41); Mean Corp Hgb Conc 32.6 g/dL (32-36); Mean Corpuscular Hgb 31.4 pg (27.0-32.0); Mean Corpuscular Volume 96.2 fL (80-94); Mean Platelet Vol. 9.6 fl (6.2-12.0); Monocyte# 0.74 X10^3/uL; Monocyte% 7.5 % (0-10); NRBC Flagged by Analyzer 0 % (0-5); Neutrophil # 7.48 X10^3/uL (2.7-7.7); Neutrophil % 75.8 % (47-70); Platelet Count 145 K/mm3 (150-450); RBC Distribution Width CV 16.2 % (11.6-14.6); RBC Distribution Width SD 56.3 fl (35.1-43.9); Red Blood Count 2.93 M/mm3 (4.6-6.2); White Blood Count 9.9 K/mm3 (4.4-11.0)
[2019-07-27 14:33] LABS: International Normalized Ratio 1.2; Prothrombin Time (Protime)PT. 14.7 SECONDS (11.7-14.9)
[2019-07-27 14:34] LABS: Partial Thromboplast Time 34.5 Seconds (24.1-36.2)
[2019-07-27 14:42] LABS: Anion Gap 3 (5-15); BUN 9 mg/dL (7-18); BUN/Creat Ratio 3.8 RATIO (10-20); Calcium,Total 8.1 mg/dL (8.5-10.1); Chloride 101 mmol/L (98-107); Creatinine, Serum 2.35 mg/dL (0.70-1.30); EST Glomerular Filtration Rate 29 mL/min (>60); Est Glom Filt Rate - Afr Amer 35 mL/min (>60); Estimated Creatinine Clearance 23.83 ml/min; Glucose 150 mg/dL (74-106); Potassium 3.8 mmol/L (3.5-5.1); Sodium Level 136 mmol/L (136-145)
[2019-07-27] MEDS: 0.9% Normal Saline 1,000 ML 100 ML IV (15:15)
== END 2019-07-27 15:24 | disposition short-term general hospital (02) ==
PROVIDERS: Emergency Medicine; Emergency Provider Emergency Medicine; PCP Family Medicine
DX: I63.511 Cerebral infarction due to unspecified occlusion or stenosis of right middle cerebral artery (principal); R29.810 Facial weakness; G81.94 Hemiplegia, unspecified affecting left nondominant side; R47.01 Aphasia; R29.715 NIHSS score 15; I25.10 Atherosclerotic heart disease of native coronary artery without angina pectoris; N18.6 End stage renal disease; D63.1 Anemia in chronic kidney disease; Z99.2 Dependence on renal dialysis; Z95.5 Presence of coronary angioplasty implant and graft; Z79.82 Long term (current) use of aspirin; Z79.02 Long term (current) use of antithrombotics/antiplatelets
CPT/HCPCS: 70450; 70496; 70498; 80048; 84484; 85018; 85025; 85610; 85730; 93005; 96365; 99251; 99285; J2997; J7030; Q9967; A4216; G0463

== ENCOUNTER → 2019-07-27 | Outpatient (CLI) | payer MEDICARE, OTHER, SELFPAY ==
[2019-07-27 08:32] LABS: Hemoglobin 9.1 g/dL (13.0-16.5)
== END | disposition home or self-care (01) ==
PROVIDERS: PCP Family Medicine; Referring Provider Internal Medicine Nephrology; Visit Provider Internal Medicine Nephrology
DX: N18.6 End stage renal disease (principal); D63.1 Anemia in chronic kidney disease
CPT/HCPCS: 85018

== ENCOUNTER 2019-09-02 07:56 | Inpatient (IN) | payer MEDICARE, OTHER, SELFPAY ==
[2019-07-27 14:13] VITALS: BMI 23.0
[2019-09-02] VITALS (11 sets, daily range): BP systolic 104–153; BP diastolic 36–54; PULSE 60–79; RESP 16–21; TEMP 36.3–37.4; O2SAT 93–97; BMI 23.9; BMI 22.6
--- NOTE | 2019-09-02 08:11 | CT_ITS ---
STUDY: CT BRAIN WITHOUT CONTRAST REASON FOR EXAM: Male, 78 years old. Fell out of car 2 days ago, swelling to right side of head, on blood thinners, hypertension, CVA with TPA 06/2019. RADIATION DOSAGE (If Supplied By Facility): CTDIvol = ( 44.99 ) mGy, DLP = ( 846.73 ) mGycm TECHNIQUE: Transaxial CT imaging of the brain was performed without administration of intravenous contrast material. Individualized dose optimization techniques were used for this CT. COMPARISON: Comparison is made with prior study dated July 27, 2019. FINDINGS: Soft tissue swelling overlying the posterior right parietal bone. Normal calvarium. There is moderate cerebral atrophy with widening of the extra-axial spaces and ventricular dilatation. There are areas of decreased attenuation within the white matter tracts of the supratentorial brain, consistent with microvascular disease changes. Normal basal ganglia and thalami. Normal brainstem. There is mild cerebellar atrophy. There is no intracranial hemorrhage. There are no findings of an acute ischemic infarction. Atherosclerotic calcification of the cavernous portions of the internal carotid arteries bilaterally. Normal visualized paranasal sinuses. CT/Brain/Head without Contrast IMPRESSION: Chronic involutional changes of the brain. Soft tissue swelling overlying the posterior right parietal bone. Electronically Signed: Jg Guerra, at 10:06 EDT , Service support ,
--- NOTE | 2019-09-02 08:11 | CT_ITS ---
STUDY: CT CERVICAL SPINE WITHOUT CONTRAST REASON FOR EXAM: Male, 78 years old. Fell out of car 2 days ago, swelling to right side of head, on blood thinners, hypertension, CVA with TPA 06/2019. RADIATION DOSAGE (If Supplied By Facility): CTDIvol = ( 24.62 ) mGy, DLP = ( 471.79 ) mGycm TECHNIQUE: High resolution transaxial imaging was performed without contrast material. Sagittal and coronal images were reconstructed. Individualized dose optimization techniques were used for this CT. COMPARISON: None FINDINGS: Normal craniovertebral junction. There are degenerative changes of the anterior atlantoaxial articulation. Normal odontoid process. There is straightening of the normal cervical lordosis. Normal vertebral bodies and posterior osseous elements. Vertebral artery calcification. C2-3: Right-sided facet joint arthritis and hypertrophy worse on the right side. C3-4: Moderate degree of disc space narrowing with spondylosis and uncovertebral arthrosis. Facet joint osteoarthritis and hypertrophy with bilateral neural foraminal stenosis worse on the left side. C4-5: Moderate degree of disc space narrowing. Spondylosis. Uncovertebral arthrosis. Moderate degree of bilateral neural foraminal stenosis. C5-6: Moderate degree of disc space narrowing with spondylosis. Uncovertebral arthrosis. Mild to moderate degree of bilateral neural foraminal stenosis worse on the left side. C6-7: Marked degree of disc space narrowing with spondylosis. Uncovertebral arthrosis. Facet joint osteoarthritis with bilateral neural foraminal stenosis. C7-T1: There is a grade 1 anterior listhesis of C7 on T1. Moderate degree of disc space narrowing. Facet joint osteoarthritis. Neural foraminal stenosis worse on the left side. Atherosclerotic calcification of the carotid arteries. CT/Spine Cervical without Contras IMPRESSION: Multilevel degenerative changes, as described above. Anterior listhesis of C7 on T1 without evidence of fracture most likely secondary to degenerative changes and facet joint osteoarthritis. Electronically Signed: Jg Guerra, at 10:04 EDT , Service support ,
--- NOTE | 2019-09-02 08:16 | EKG12_ITS ---
Test Reason : Blood Pressure : / mmHG Vent. Rate : 060 BPM Atrial Rate : 340 BPM P-R Int : 000 ms QRS Dur : 090 ms QT Int : 434 ms P-R-T Axes : 000 047 036 degrees QTc Int : 434 ms Atrial flutter with variable A-V block Abnormal ECG Confirmed by KULWANT MIRANDA, DAISY ([id number]), publications editor KJ ROOT ([id number]) on 09/04/2019 9:33:02 AM Referred By: BRITTANI Confirmed By:ALVAREZ BLUM MD
--- NOTE | 2019-09-02 08:36 | ED.VISSUMM ---
- ER Visit Summary Date of Service: 09/02/19 Chief Complaint: Fall History of Present Illness: The patient is a 78 M who fell 2 days ago. He fell secondary to generalized weakness. He also has chronic right side weakness after a stroke. He denies any new focal weakness. He did hit his head and hurt his right elbow and right leg. He does take Coumadin for history of atrial fibrillation/flutter. He goes to dialysis Saturday, Saturday, and Saturday. He was unable to go today because his right foot was hurting so much and he was unable to ambulate. Physical Examination: Afebrile and vital signs unremarkable. Patient alert and oriented. He has a right side occipital ecchymosis but otherwise his head is unremarkable. Neck is nontender. Right arm shows redness and swelling at the right elbow with an overlying abrasion. He is neurovascular intact distally. Left arm unremarkable. Heart irregular rhythm. Lungs clear. Abdomen soft. He has ecchymosis to his bilateral shoulders and bilateral flanks on inspection. Spine is nontender. Hips are nontender. Right knee shows mild tenderness and abrasion anteriorly. Right foot is diffusely swollen and ecchymotic. He is neurovascularly intact. Test Results: EKG showed atrial flutter with a ventricular rate of 60. Labs pending. Imaging of his head, neck, chest, pelvis, right elbow, right knee, and right foot pending. Emergency Department Course and Treatment: EKG was performed. We will check some basic labs and imaging of his injured areas. He received fentanyl for pain while awaiting results. White count 24,000. He has a history of leukocytosis, but it has not been that high before. Hemoglobin 9.8, stable, which is reassuring given his supratherapeutic INR 4.3, fall 2 days ago and ecchymosis. Metabolic panel reflects his renal disease. CT brain and cervical spine showed chronic changes. Chest x-ray and pelvis x-ray showed chronic changes. X-rays of his elbow, knee, and foot showed no acute abnormality, no fracture. On reevaluation, patient's blood pressure is stable. He is unable to function at home because he cannot ambulate or follow-up at dialysis. He will need inpatient care. I advised him he may need placement if he is not improved quickly. Hospitalist was contacted for further care. Treatment Plan: As above Disposition: Admission Impression: Right foot pain, inability to ambulate Left elbow contusion Concussion Leukocytosis End-stage renal disease Supratherapeutic INR This note was generated with [employer] dictation software. It may contain incorrect words, spelling, and punctuation that were not noted in review of the chart prior to signing ED Disposition - Plan for ED Patient: Referrals: Donavon Hamilton MD [Primary Care Provider] -
[2019-09-02] MEDS: fentaNYL 100 MCG/2 ML Ampul 25 MCG IV (09:13)
--- NOTE | 2019-09-02 09:33 | NURSING ---
CHEMISTRIES AND COAGS HEMOLIZED. LAB AWARE THEY NEED TO COME REDRAW
--- NOTE | 2019-09-02 09:38 | RAD_ITS ---
STUDY: X-RAY - RIGHT KNEE REASON FOR EXAM: Male, 78 years old. pt. Fell Ben, weakness, unable to ambulate, pain TECHNIQUE: 4 view(s) of the knee. COMPARISON: None. FINDINGS: Normal visualized distal femur. Normal visualized proximal tibia and fibula. Normal proximal tibiofibular articulation. Normal medial femorotibial compartment. Normal lateral femorotibial compartment. Normal patellofemoral articulation. There are atherosclerotic calcifications. RAD/Knee 4 or More Views IMPRESSION: Vascular calcification. Electronically Signed: gJ Guerra, at 10:17 EDT , Service support ,
--- NOTE | 2019-09-02 09:38 | RAD_ITS ---
STUDY: X-RAY CHEST REASON FOR EXAM: Male, 78 years old. pt. Fell Saturday, weakness, unable to ambulate, pain TECHNIQUE: Single AP portable view of the chest. COMPARISON: Comparison is made with prior examination dated December 27, 2017. FINDINGS: A left-sided double-lumen catheter is in situ with the tip in the right atrium. EKG electrodes are seen. Stable mild increased markings at the lung bases suggestive of scarring. There is no demonstrated pleural abnormality. Sternal cerclage wires are present from a prior sternotomy. The patient is status post mitral and aortic valve replacements. Moderate cardiomegaly. Normal mediastinum and van. Normal visualized pulmonary arteries. There is atherosclerotic calcification of the aortic arch with tortuosity. There are diffuse degenerative changes of the visualized thoracic spine. Normal visualized ribs, clavicles, and shoulders. There is no demonstrated abnormality of the visualized soft tissue structures of the upper abdomen. RAD/Chest 1 View IMPRESSION: Cardiomegaly and prior prosthetic valve replacement involving the aortic and mitral valves. Stable mild increased markings at the lung bases suggestive of scarring. A left-sided double-lumen catheter seen with the tip in the right atrium. Electronically Signed: Jg Guerra, at 10:12 EDT , Service support ,
--- NOTE | 2019-09-02 09:38 | RAD_ITS ---
STUDY: X-RAY - RIGHT ELBOW REASON FOR EXAM: Male, 78 years old. pt. Fell Saturday, weakness, unable to ambulate, pain TECHNIQUE: 3 view(s) of the elbow. COMPARISON: None. FINDINGS: Normal visualized humerus, radius and ulna. There is degenerative arthrosis of the radiocapitellar and ulnotrochlear articulations. Soft tissue swelling. Vascular calcification. RAD/Elbow min 3 Views IMPRESSION: Arthrosis of the elbow, as described above. Soft tissue swelling and vascular calcification. Electronically Signed: Jg Guerra, at 10:13 EDT , Service support ,
--- NOTE | 2019-09-02 09:38 | RAD_ITS ---
STUDY: X-RAY - PELVIS REASON FOR EXAM: Male, 78 years old. pt. Fell Saturday, weakness, unable to ambulate, pain TECHNIQUE: One view of the pelvis was obtained. COMPARISON: None. FINDINGS: There is a non-specific bowel gas pattern. There are atherosclerotic vascular calcifications of the pelvic arteries. There is narrowing with cortical sclerosis and osteophyte formation of the sacroiliac joint consistent with degenerative osteoarthritic changes. Normal visualized bilateral superior and inferior pubic rami. Normal pubic symphysis. Normal ischial tuberosities. Normal visualized right femoral head. Normal right acetabulum. There is mild articular joint space narrowing of the right hip. Normal visualized left femoral head. Normal left acetabulum. There is mild articular joint space narrowing of the left hip. RAD/Pelvis 1 or 2 Views IMPRESSION: Degenerative changes. No fracture is seen. Electronically Signed: Jg Guerra, at 10:14 EDT , Service support ,
--- NOTE | 2019-09-02 09:38 | RAD_ITS ---
STUDY: X-RAY - RIGHT FOOT CLINICAL: Male, 78 years old. pt. Fell Saturday, weakness, unable to ambulate, pain TECHNIQUE: 3 view(s) of the foot. COMPARISON: None. FINDINGS: Normal talus, calcaneus, and tarsal bones. Normal visualized subtalar, talonavicular, calcaneocuboid, tarsal and tarsometatarsal articulations. Normal metatarsi. There is degenerative arthrosis of the metatarsophalangeal joint of the hallux . Normal tibial and fibular sesamoid bones. Normal interphalangeal joint of the great toe. Normal phalanges of the great toe. Normal second through fifth metatarsophalangeal joints. Normal interphalangeal joints and phalanges of the lesser toes. There is non-specific soft tissue swelling of the foot. Vascular calcifications. RAD/Foot min 3 Views IMPRESSION: Mild degenerative changes at the first metacarpophalangeal joint. Soft tissue swelling and vascular calcification. Electronically Signed: Jg Guerra, at 10:15 EDT , Service support ,
[2019-09-02 10:13] LABS: Absolute Neutrophil Count 20.8 X10^3/uL (2.0-7.7); Basophil# 0.05 X10^3/uL; Basophil% 0.2 % (0-1); Eosinophils% 0.4 % (0-5); Hematocrit 29.6 % (40-54); Hemoglobin 9.8 g/dL (13.0-16.5); Mean Corp Hgb Conc 33.1 g/dL (32-36); Mean Corpuscular Hgb 30.4 pg (27.0-32.0); Mean Corpuscular Volume 91.9 fL (80-94); Mean Platelet Vol. 10.7 fl (6.2-12.0); Monocyte# 1.54 X10^3/uL; Monocyte% 6.4 % (0-10); NRBC Flagged by Analyzer 0 % (0-5); Neutrophil # 20.82 X10^3/uL (2.7-7.7); POSITIVE DIFFERENTIAL YES; Platelet Count 172 K/mm3 (150-450); RBC Distribution Width CV 15.5 % (11.6-14.6); RBC Distribution Width SD 51.9 fl (35.1-43.9); Red Blood Count 3.22 M/mm3 (4.6-6.2)
[2019-09-02 10:16] LABS: Differential Indicated SCAN CRITERIA MET
[2019-09-02 10:33] LABS: Anion Gap 8 (5-15); BUN 49 mg/dL (7-18); BUN/Creat Ratio 8.4 RATIO (10-20); Calcium,Total 9.4 mg/dL (8.5-10.1); Chloride 96 mmol/L (98-107); Creatinine, Serum 5.82 mg/dL (0.70-1.30); EST Glomerular Filtration Rate 10 mL/min (>60); Est Glom Filt Rate - Afr Amer 12 mL/min (>60); Estimated Creatinine Clearance 9.29 ml/min; Glucose 161 mg/dL (74-106); Potassium 5.7 mmol/L (3.5-5.1); Sodium Level 131 mmol/L (136-145)
[2019-09-02 10:41] LABS: Differential Comment SCANNED
[2019-09-02 10:51] LABS: Prothrombin Time (Protime)PT. 41.2 SECONDS (11.7-14.9)
[2019-09-02 10:52] LABS: Partial Thromboplast Time 99.8 Seconds (24.1-36.2)
[2019-09-02 11:11] LABS: International Normalized Ratio 4.3
--- NOTE | 2019-09-02 11:15 | NURSING ---
DR JOHN PETER
--- NOTE | 2019-09-02 11:26 | NURSING ---
PCU ESRD, UNABLE TO AMBULATE, ELEVATED INR ABIGAILKY
--- NOTE | 2019-09-02 11:35 | ED.RN ---
MESSAGE LEFT FOR RAMYA THAT PATIENT IS GOING TO BE ADMITTED TO HOSPITAL.
--- NOTE | 2019-09-02 12:32 | HP.PCM_ITS ---
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 He has been progressively weaker, falling, and now with ankle pain and inability to ambulate. I am concerned the patient may have underlying dementia as he is unable to provide me significant history at this time, stating that he cannot remember what happened today, just that his called EMS to bring him to the hospital. He currently complains of Right ankle pain. His ROS is negative otherwise. Hx primarily obtained from available documentation. [] Past Medical History Past Medical History (Chronic Problems): Chronic Problems Atrial fibrillation and flutter (Chronic) CAD (coronary artery disease) (Chronic) Chronic a-fib (Chronic) Debility (Chronic) ESRD (end stage renal disease) (Chronic) CKD (chronic kidney disease) (Chronic) H/O mitral valve repair (Chronic) aoritc bovine 2010 replacement (Chronic) H/O aortic valve repair (Chronic) Pure hypercholesterolemia (Chronic) HTN (hypertension) (Chronic) DM (diabetes mellitus) (Chronic) Hx of CABG (Chronic) Gout (Chronic) Afib (Chronic) History of myocardial infarction (Chronic) Allergies escitalopram [From Lexapro] Allergy (Verified 07/27/19 14:56) Unknown levofloxacin [From Levaquin] Allergy (Verified 07/27/19 14:56) Other LUPUS Penicillins Allergy (Verified 07/27/19 14:56) Unknown Opioids - Morphine Analogues Adverse Reaction (Verified 07/27/19 14:56) Other CONFUSION Home Medications: Ambulatory Orders Medication Instructions Recorded Allopurinol [Zyloprim] 200 mg PO DAILYCM 12/31/16 Insulin Detemir [Levemir] 25 unit SQ DAILY 12/31/16 Atorvastatin Calcium [Lipitor] 40 mg PO QHS 04/09/18 Pantoprazole Sodium [Protonix] 40 mg PO DAILY 04/09/18 Sertraline HCl [Zoloft] 50 mg PO DAILY 04/09/18 Tamsulosin HCl [Flomax] 0.4 mg PO QHS 04/09/18 hydrALAZINE [Apresoline] 50 mg PO TID 04/09/18 Amlodipine [Norvasc] 5 mg PO DAILY 07/27/19 Cetirizine HCl 10 mg PO DAILY 07/27/19 Clopidogrel Bisulfate [Clopidogrel] 75 mg PO DAILY 07/27/19 Darbepoetin Daniel in Polysorbat 40 mcg IJ QMONTH 07/27/19 [Aranesp] Magnesium Oxide 400 mg PO DAILY 07/27/19 Nitroglycerin 0.4 mg SL Q5M PRN 07/27/19 Warfarin Sodium [Coumadin] 4 mg PO SUMOTUTHFR 09/02/19 Warfarin Sodium [Coumadin] 6 mg PO WESA 09/02/19 Surgical History: - - CABG x 1, Bovine AVR, Mitral Valve Repair, L TKR, Ear Surgery. Psychiatric History: Anxiety, Depression Lives: Spouse/ Significant Other Smoking Status: Never smoker Tobacco Use: Non-smoker Alcohol: None Drugs: None - *Family History Maternal History Items: Diabetes, Heart Disease, Hypertension Paternal History Items: Diabetes, Heart Disease, Hypertension Review of Systems Unable to obtain accurate/complete ROS d/t: pt confused VTE Information - Inpt Only VTE Present on Admission: No VTE Mechan Device Prophylaxis: None VTE Pharm Prophylaxis ordered?: Yes - Physical Exam Vitals/I&O's: Vital Signs Temp Pulse Resp BP Pulse Ox 98.7 F 65 20 H 104/37 L 96 09/02/19 11:35 09/02/19 11:35 09/02/19 11:35 09/02/19 11:35 09/02/19 11:35 Oxygen Delivery Method Room Air Weight: 139 lb 15.896 oz Body Mass Index (BMI) 22.6 Finger Stick Blood Glucose 237 General: Alert, Cooperative HEENT: Atraumatic, PERRLA, EOMI, Normocephalic Neck: Supple, No JVD, Negative Carotid Bruits Lungs: Clear to auscultation, Normal air movement Cardiovascular: Regular rate, No murmurs Abdomen: Bowel Sounds Present, Soft, Non Tender Extremities: No edema, Capillary Refill Less than 3 Seconds Skin: No rashes, No breakdown Musculoskeletal: No Tenderness to Palpation of Joints or Extremities Neurological: Cranial nerves II-XII grossly intact Psych/Mental Status: Normal Affect, Appropriate Laboratory Results 09/02/19 09:00: WBC Cancelled, Corrected WBC Cancelled, RBC Cancelled, Hgb Cancelled, Hct Cancelled, MCV Cancelled, MCH Cancelled, MCHC Cancelled, RDW Std Deviation Cancelled, RDW Coeff of Soco Cancelled, Plt Count Cancelled, MPV Cancelled, Immature Gran % (Auto) Cancelled, Neut % (Auto) Cancelled, Lymph % (Auto) Cancelled, [place] % (Auto) Cancelled, Eos % (Auto) Cancelled, Baso % (Auto) Cancelled, Absolute Neuts (auto) Cancelled, Absolute Lymphs (auto) Cancelled, Total Counted Cancelled, Neutrophils % (Manual) Cancelled, Band Neutrophils % Cancelled, Lymphocytes % (Manual) Cancelled, Monocytes % (Manual) Cancelled, Eosinophils % (Manual) Cancelled, Basophils % (Manual) Cancelled, Metamyelocytes % Cancelled, Myelocytes % Cancelled, Promyelocytes % Cancelled, Blast Cells % Cancelled, Plasma Cell % (Manual) Cancelled, Other Cells % Cancelled, Nucleated RBC % Cancelled, Nucleated RBCs/100 WBC Cancelled, Differential Comment Cancelled, Diff Path Review Cancelled, Hypersegmented Neuts Cancelled, Atypical Lymphocytes Cancelled, Reactive Lymphocytes Cancelled, Smudge Cells Cancelled, Toxic Granulation Cancelled, Toxic Vacuolation Cancelled, Dohle Bodies Cancelled, Sharon Rods Cancelled, Platelet Estimate Cancelled, Plt Morphology Comment Cancelled, RBC Morphology Cancelled, Polychromasia Cancelled, Hypochromasia Cancelled, Poikilocytosis Cancelled, Basophilic Stippling Cancelled, Anisocytosis Cancelled, Microcytosis Cancelled, Macrocytosis Cancelled, Spherocytes Cancelled, Sickle Cells Cancelled, Target Cells Cancelled, Tear Drop Cells Cancelled, Ovalocytes Cancelled, Stomatocytes Cancelled, [place] Bodies Cancelled, [place] Cells Cancelled, Bite Cells Cancelled, Crenated Cell Cancelled, Acanthocytes (Spur) Cancelled, Rouleaux Cancelled, Schistocytes Cancelled 09/02/19 09:00: PT Cancelled, INR Cancelled, APTT Cancelled 09/02/19 09:00: Sodium Cancelled, Potassium Cancelled, Chloride Cancelled, Carbon Dioxide Cancelled, Anion Gap Cancelled, BUN Cancelled, Creatinine Cancelled, Estim Creat Clear Calc Cancelled, Est GFR (MDRD) Af Amer Cancelled, Est GFR (MDRD) Non-Af Cancelled, BUN/Creatinine Ratio Cancelled, Glucose Cancelled, Calcium Cancelled 09/02/19 10:00: WBC 24.0 H, RBC 3.22 L, Hgb 9.8 L, Hct 29.6 L, MCV 91.9, MCH 30.4, MCHC 33.1, RDW Std Deviation 51.9 H, RDW Coeff of Soco 15.5 H, Plt Count 172, MPV 10.7, Immature Gran % (Auto) 1.000 H, Neut % (Auto) 87.0 H, Lymph % (Auto) 5.0 L, [place] % (Auto) 6.4, Eos % (Auto) 0.4, Baso % (Auto) 0.2, Absolute Neuts (auto) 20.8 H, Absolute Lymphs (auto) 1.20, Nucleated RBC % 0, Differential Comment SCANNED, Diff Path Review September09/02/19 10:00: PT 41.2 H, INR 4.3 H*, APTT 99.8 H* 09/02/19 10:00: Sodium 131 L, Potassium 5.7 H, Chloride 96 L, Carbon Dioxide 27.0, Anion Gap 8, BUN 49 H, Creatinine 5.82 H, Estim Creat Clear Calc 9.29, Est GFR (MDRD) Af Amer 12 L, Est GFR (MDRD) Non-Af 10 L, BUN/Creatinine Ratio 8.4 L , Glucose 161 H, Calcium 9.4 Current Medications Sodium Chloride () 250 mls @ 15 mls/hr IV .[id number] PRN PRN Reason: Saline Flush Sodium Chloride () 250 mls @ 15 mls/hr IV .[id number] PRN PRN Reason: Additional IVPB Infusion Sodium Chloride () 10 - 40 ml IV UD PRN PRN Reason: SALINE FLUSH Assessment/Plan All Active Problems Leukocytosis (Acute) Elevated troponin (Acute) 1. Debility/Falls - PTOT. Pt with progressive weakness and falls at home, no acute explanation for decline, and no acute fx per imaging. WBC elevated but this is chronically fluctuant. CT brain negative for acute change, CT c spine with DDD. 2. ESRD - pt of [facility], consult placed. 3. Hx bovine aortic valve, mitral valve repair 4. Chronic afib - EKG with aflutter rate 60. Pt of Dr. Mead previously considered for PM placement. Hold afib with elevated INR. 5. CAD prior CABG - plavix, statin 6. Dmt2 - SSI, levemir. 7. Suspect dementia - pt unable to provide significant hx. 8. depression - zoloft 9. hx gout - allopurinol 10. GERD - ppi DVT ppx: warfarin therapeutic. DC planning: PTOT, SNF placement This patient was seen by Marvin Hernandez PA-C under the supervision of Dr. Salas.
--- NOTE | 2019-09-02 13:58 | CON.PCM_ITS ---
Consultation - Renal 09/02/19 PCP/ Referring MD: Requesting physician: [] Primary care physician: Donavon Hamilton MD Reason for Consultation:: esrd - History of Present Illness History of Present Illness: The patient is a 78 year old M with a past medical history of end-stage renal disease and coronary artery disease s/p CABG who presented with chief complaint of falls. Apparently he got progressively weaker falling and now he had ankle pain and inability to ambulate. The patient is a very poor historian. He denies fever chest pain shortness of breath nausea vomiting diarrhea. 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 He has no other complaints at this time. - Allergies Allergies: Allergies escitalopram [From Lexapro] Allergy (Verified 07/27/19 14:56) Unknown levofloxacin [From Levaquin] Allergy (Verified 07/27/19 14:56) Other LUPUS Penicillins Allergy (Verified 07/27/19 14:56) Unknown Opioids - Morphine Analogues Adverse Reaction (Verified 07/27/19 14:56) Other CONFUSION - Current Medications Current Medications: Current Medications Acetaminophen (Tylenol) 650 mg PO Q6H PRN PRN PRN Reason: Pain Score 1-10/Temp > 100.7 F Allopurinol (Zyloprim) 200 mg PO DAILYCM [facility] Amlodipine Besylate (Norvasc) 5 mg PO DAILY [facility] Atorvastatin Calcium (Lipitor) 40 mg PO QHS [facility] Clopidogrel Bisulfate (Plavix) 75 mg PO DAILY [facility] Dextrose (D50w Syringe) 0 gm IV X1 PRN; Protocol PRN Reason: Hypoglycemia Glucagon () 1 mg IM .X1 PRN PRN Reason: Hypoglycemia Hydralazine HCl (Apresoline) 50 mg PO TID [facility] Sodium Chloride () 250 mls @ 15 mls/hr IV .[id number] PRN PRN Reason: Saline Flush Sodium Chloride () 250 mls @ 15 mls/hr IV .[id number] PRN PRN Reason: Additional IVPB Infusion Insulin Glargine (Lantus (Bkc)) 25 units SC DAILY [facility] Insulin Human Lispro (Humalog Kwikpen (Bkc)) 0 unit SC ACHS [facility]; Protocol Magnesium Oxide (Mag-Ox 400) 400 mg PO DAILY [facility] Oxycodone HCl (Oxyir) 5 mg PO Q4H PRN PRN PRN Reason: Pain Score 4-10/10 Pantoprazole Sodium (Protonix) 40 mg PO DAILY [facility] Sertraline HCl (Zoloft) 50 mg PO DAILY [facility] Sodium Chloride () 10 - 40 ml IV UD PRN PRN Reason: SALINE FLUSH Tamsulosin HCl (Flomax) 0.4 mg PO QHS [facility] - Past Medical History Past Medical History (Chronic Problems): Chronic Problems Atrial fibrillation and flutter (Chronic) CAD (coronary artery disease) (Chronic) Chronic a-fib (Chronic) Debility (Chronic) ESRD (end stage renal disease) (Chronic) CKD (chronic kidney disease) (Chronic) H/O mitral valve repair (Chronic) aoritc bovine 2010 replacement (Chronic) H/O aortic valve repair (Chronic) Pure hypercholesterolemia (Chronic) HTN (hypertension) (Chronic) DM (diabetes mellitus) (Chronic) Hx of CABG (Chronic) Gout (Chronic) Afib (Chronic) History of myocardial infarction (Chronic) - Past Surgical History Surgical History: - - CABG x 1, Bovine AVR, Mitral Valve Repair, L TKR, Ear Surgery. - Social History Smoking Status: Never smoker Alcohol: None Drugs: None - Family History Maternal History Items: Diabetes, Heart Disease, Hypertension Paternal History Items: Diabetes, Heart Disease, Hypertension Review of Systems Hematologic/ Lymphatic: Reports: - - ROS essentially negative unless noted above in HPI - Physical Exam Vitals/I&O's: Vital Signs Temp Pulse Resp BP Pulse Ox 98.7 F 61 20 H 104/37 L 96 09/02/19 11:35 09/02/19 12:40 09/02/19 11:35 09/02/19 11:35 09/02/19 11:35 Oxygen Delivery Method Room Air Weight: 63.5 kg Body Mass Index (BMI) 22.6 Finger Stick Blood Glucose 237 General: Alert, Cooperative HEENT: Atraumatic, Normocephalic Neck: Supple Lungs: Clear to auscultation, Normal air movement Cardiovascular: Regular rate, Regular Rhythm, Normal S1, Normal S2 Abdomen: Bowel Sounds Present, Soft, Non Tender Extremities: No clubbing Skin: No rashes Laboratory Results 09/02/19 09:00: WBC Cancelled, Corrected WBC Cancelled, RBC Cancelled, Hgb Cancelled, Hct Cancelled, MCV Cancelled, MCH Cancelled, MCHC Cancelled, RDW Std Deviation Cancelled, RDW Coeff of Soco Cancelled, Plt Count Cancelled, MPV Cancelled, Immature Gran % (Auto) Cancelled, Neut % (Auto) Cancelled, Lymph % (Auto) Cancelled, [place] % (Auto) Cancelled, Eos % (Auto) Cancelled, Baso % (Auto) Cancelled, Absolute Neuts (auto) Cancelled, Absolute Lymphs (auto) Cancelled, Total Counted Cancelled, Neutrophils % (Manual) Cancelled, Band Neutrophils % Cancelled, Lymphocytes % (Manual) Cancelled, Monocytes % (Manual) Cancelled, Eosinophils % (Manual) Cancelled, Basophils % (Manual) Cancelled, Metamyelocytes % Cancelled, Myelocytes % Cancelled, Promyelocytes % Cancelled, Blast Cells % Cancelled, Plasma Cell % (Manual) Cancelled, Other Cells % Cancelled, Nucleated RBC % Cancelled, Nucleated RBCs/100 WBC Cancelled, Differential Comment Cancelled, Diff Path Review Cancelled, Hypersegmented Neuts Cancelled, Atypical Lymphocytes Cancelled, Reactive Lymphocytes Cancelled, Smudge Cells Cancelled, Toxic Granulation Cancelled, Toxic Vacuolation Cancelled, Dohle Bodies C ancelled, Sharon Rods Cancelled, Platelet Estimate Cancelled, Plt Morphology Comment Cancelled, RBC Morphology Cancelled, Polychromasia Cancelled, Hypochromasia Cancelled, Poikilocytosis Cancelled, Basophilic Stippling Cancelled, Anisocytosis Cancelled, Microcytosis Cancelled, Macrocytosis Cancelled, Spherocytes Cancelled, Sickle Cells Cancelled, Target Cells Cancelled, Tear Drop Cells Cancelled, Ovalocytes Cancelled, Stomatocytes Cancelled, [place] Bodies Cancelled, [place] Cells Cancelled, Bite Cells Cancelled, Crenated Cell Cancelled, Acanthocytes (Spur) Cancelled, Rouleaux Cancelled, Schistocytes Cancelled 09/02/19 09:00: PT Cancelled, INR Cancelled, APTT Cancelled 09/02/19 09:00: Sodium Cancelled, Potassium Cancelled, Chloride Cancelled, Carbon Dioxide Cancelled, Anion Gap Cancelled, BUN Cancelled, Creatinine Cancelled, Estim Creat Clear Calc Cancelled, Est GFR (MDRD) Af Amer Cancelled, Est GFR (MDRD) Non-Af Cancelled, BUN/Creatinine Ratio Cancelled, Glucose Cancelled, Calcium Cancelled 09/02/19 10:00: WBC 24.0 H, RBC 3.22 L, Hgb 9.8 L, Hct 29.6 L, MCV 91.9, MCH 30.4, MCHC 33.1, RDW Std Deviation 51.9 H, RDW Coeff of Soc[place] 15.5 H, Plt Count 172, MPV 10.7, Immature Gran % (Auto) 1.000 H, Neut % (Auto) 87.0 H, Lymph % (Auto) 5.0 L, [place] % (Auto) 6.4, Eos % (Auto) 0.4, Baso % (Auto) 0.2, Absolute Neuts (auto) 20.8 H, Absolute Lymphs (auto) 1.20, Nucleated RBC % 0, Differential Comment SCANNED, Diff Path Review September09/02/19 10:00: PT 41.2 H, INR 4.3 H*, APTT 99.8 H* 09/02/19 10:00: Sodium 131 L, Potassium 5.7 H, Chloride 96 L, Carbon Dioxide 27. 0, Anion Gap 8, BUN 49 H, Creatinine 5.82 H, Estim Creat Clear Calc 9.29, Est GFR (MDRD) Af Amer 12 L, Est GFR (MDRD) Non-Af 10 L, BUN/Creatinine Ratio 8.4 L, Glucose 161 H, Calcium 9.4 Current Medications Acetaminophen (Tylenol) 650 mg PO Q6H PRN PRN PRN Reason: Pain Score 1-10/Temp > 100.7 F Allop[facility]ol ([facility]oprim) [facility] Amlodipine Besylate (Norvasc) 5 mg PO DAILY [facility] Atorvastatin Calcium (Lipitor) 40 mg PO QHS [facility] Clopidogrel Bisulfate (Plavix) 75 mg PO DAILY [facility] Dextrose (D50w Syringe) 0 gm IV X1 PRN; Protocol PRN Reason: Hypoglycemia Glucagon () 1 mg IM .X1 PRN PRN Reason: Hypoglycemia Hydralazine HCl (Apresoline) 50 mg PO TID [facility] Sodium Chloride () 250 mls @ 15 mls/hr IV .[id number] PRN PRN Reason: Saline Flush Sodium Chloride () 250 mls @ 15 mls/hr IV .[id number] PRN PRN Reason: Additional IVPB Infusion Insulin Glargine (Lantus (Bkc)) 25 units SC DAILY [facility] Insulin Human Lispro (Humalog Kwikpen (Bk)) 0 unit SC ACHS SU[facility]Y; Protocol Magnesium Oxide (Mag-Ox 400) 400 mg PO DAILY [facility] Oxycodone HCl (Oxyir) 5 mg PO Q4H PRN PRN PRN Reason: Pain Score 4-10/10 Pantoprazole Sodium (Protonix) 40 mg PO DAILY [facility] Sertraline HCl (Zoloft) 50 mg PO DAILY [facility] Sodium Chloride () 10 - 40 ml IV UD PRN PRN Reason: SALINE FLUSH Tamsulosin HCl (Flomax) 0.4 mg PO QHS [facility] Assessment/Plan All Active Problems Leukocytosis (Acute) Elevated troponin (Acute) ESRD Hyperkalemia AMS [place] CAD s/p CABG HD today then mwf Leukocytosis set of blood cultures. The patient temperature is less than 98. bp ok continue meds D/w dr. Salas and ANNETTE Hernandez
--- NOTE | 2019-09-02 14:43 | CASEMGMT ---
SW spoke with physician and he said he spoke with patient's . She was thinking patient will need to go to a residential. SW called patient's and discussed this. She does not know the facilities very well as they have only been in [facility] for a year. She said they live by [facility] and she also said the one on [facility]) is fine also. She said if he can walk with a walker he can come home. SW told her SW will follow and help her with d/c plan. Bhavya CABRERA MSW
--- NOTE | 2019-09-02 14:47 | ECHOD_ITS ---
Version 2 Reason For Study: AFIB/FLUTTER Procedure This was a 2D Doppler, Color Flow transthoracic echocardiogram. The study was technically difficult. PT SCANNED SUPINE DUE TO DISCOMFORT, unable to lie in left lateral decubitus position. Exam performed portable in patient room. Left Ventricle Normal LV size. The estimated ejection fraction is 55-60 %. Unable to assess diastolic dysfunction. Dyskinetic septum that could be related to prior open heart surgery. Right Ventricle Normal RV size. Normal systolic function. Atria The left atrium is severely enlarged. The right atrium is mildly enlarged. No doppler evidence for ASD. Mitral Valve There is moderate to severe mitral annular calcification. Mildly elevated velocities across the mitral valve. Trivial mitral valve insufficiency. Status post mitral valve repair with annuloplasty ring. Tricuspid Valve There is no tricuspid stenosis. Trivial tricuspid valve insufficiency. Pulmonary artery systolic pressure is 65 mmHg. Aortic Valve The aortic valve is not well visualized. Mild aortic stenosis. No aortic valve insufficiency. Pulmonic Valve There is no pulmonic valvular stenosis. No pulmonic valve insufficiency. Great Vessels Normal aortic root. Pericardium/Pleural No pericardial effusion. MMode/2D Measurements & Calculations LVIDd: 5.4 cm IVSd: 1.1 cm LVOT diam: 2.0 cm LVIDs: 3.0 cm LVPWd: 1.1 cm LVOT area: 3.3 cm2 FS: 44.5 % LA dimension: 5.4 cm LAV(MOD-bp): 138.7 ml LA A4 area: 33.0 cm2 LAV(MOD-bp) Indexed: 81.0 ml/m2 LAV(MOD-sp2): 116.2 ml LAV(MOD-sp4): 142.1 ml Doppler Measurements & Calculations MV V2 max: 224.7 cm/sec Ao V2 max: 288.3 cm/sec LV V1 max: 114.0 cm/sec MV max P.2 mmHg Ao max P.2 mmHg LV V1 max P.2 mmHg MV V2 mean: 134.0 cm/sec Ao V2 mean: 178.2 cm/sec LV V1 mean P.4 mmHg MV mean P.0 mmHg Ao mean P.7 mmHg LV V1 mean: 72.7 cm/sec MV V2 VTI: 84.0 cm Ao V2 VTI: 54.2 cm LV V1 VTI: 20.2 cm MVA(VTI): 0.79 cm2 PAUL(I,D): 1.2 cm2 PAUL(V,D): 1.3 cm2 SV(LVOT): 66.3 ml PA V2 max: 129.4 cm/sec PI end-d jessica: 128.0 cm/sec TR max jessica: 361.9 cm/sec TR max P.4 mmHg Interpretation Summary The estimated ejection fraction is 55-60 %. Unable to assess diastolic dysfunction. Dyskinetic septum that could be related to prior open heart surgery There is moderate to severe mitral annular calcification. Trivial tricuspid valve insufficiency. Pulmonary artery systolic pressure is 65 mmHg. Mild aortic stenosis. Status post mitral valve repair with annuloplasty ring. Ordering Physician: Corey Salas Referring Physician: Donavon Hamilton Performed By: Julia Santillan, KUSHAL, RVT
[2019-09-02 17:20] LABS: Bedside Glucose 120 mg/dL (70-110)
[2019-09-02] MEDS: Heparin 10,000 UNITS/10 ML Vial 4000 UNITS IV (19:22)
--- NOTE | 2019-09-02 19:39 | DIALYSIS ---
HD x 3.5 hours complete. Tolerated tx well. UF of 1500ml. Used left chest wall catheter. Catheter closed with heparin per fill volume. Caps placed. Dressing intact. Report was given to MALATHI Del Angel.
[2019-09-02] MEDS: hydrALAZINE 50 MG Tablet PO (21:51)
[2019-09-02] MEDS: Atorvastatin Calcium 40 MG Tablet PO (21:52)
[2019-09-02] MEDS: Tamsulosin HCl 0.4 MG Capsule PO (21:52)
[2019-09-02] MEDS: Insulin Lispro 100 UNIT/ML INSULN.PEN SC (21:58)
[2019-09-02 22:45] LABS: Bedside Glucose 201 mg/dL (70-110)
[2019-09-03] VITALS (13 sets, daily range): BP systolic 97–145; BP diastolic 47–62; PULSE 52–71; RESP 16–18; TEMP 36.6–37.3; O2SAT 94–99
[2019-09-03 06:19] LABS: Absolute Lymphocyte Count 1.04 X10^3/uL (0.83-4.51); Absolute Neutrophil Count 21.7 X10^3/uL (2.0-7.7); Basophil# 0.05 X10^3/uL; Basophil% 0.2 % (0-1); Eosinophil# 0.08 X10^3/uL; Eosinophils% 0.3 % (0-5); Hematocrit 27.9 % (40-54); Hemoglobin 8.9 g/dL (13.0-16.5); Lymphocyte # 1.04 X10^3/ul (4.0); Lymphocyte % 4.2 % (19-41); Mean Corp Hgb Conc 31.9 g/dL (32-36); Mean Corpuscular Hgb 29.4 pg (27.0-32.0); Mean Corpuscular Volume 92.1 fL (80-94); Mean Platelet Vol. 10.8 fl (6.2-12.0); Monocyte# 1.58 X10^3/uL; Monocyte% 6.3 % (0-10); NRBC Flagged by Analyzer 0 % (0-5); Neutrophil # 21.72 X10^3/uL (2.7-7.7); Neutrophil % 87.2 % (47-70); POSITIVE DIFFERENTIAL YES; Platelet Count 192 K/mm3 (150-450); RBC Distribution Width CV 15.6 % (11.6-14.6); RBC Distribution Width SD 52.4 fl (35.1-43.9); Red Blood Count 3.03 M/mm3 (4.6-6.2); White Blood Count 24.9 K/mm3 (4.4-11.0)
[2019-09-03 06:27] LABS: Differential Indicated SCAN CRITERIA MET
[2019-09-03 06:30] LABS: Prothrombin Time (Protime)PT. 44.6 SECONDS (11.7-14.9)
[2019-09-03 06:35] LABS: International Normalized Ratio 4.7
[2019-09-03] MEDS: hydrALAZINE 50 MG Tablet PO ×3 (06:35→22:15)
[2019-09-03 06:40] LABS: Bedside Glucose 138 mg/dL (70-110)
[2019-09-03 06:50] LABS: Anion Gap 7 (5-15); BUN 25 mg/dL (7-18); BUN/Creat Ratio 7.4 RATIO (10-20); Calcium,Total 8.9 mg/dL (8.5-10.1); Chloride 96 mmol/L (98-107); EST Glomerular Filtration Rate 19 mL/min (>60); Est Glom Filt Rate - Afr Amer 23 mL/min (>60); Estimated Creatinine Clearance 15.82 ml/min; Glucose 141 mg/dL (74-106); Potassium 4.3 mmol/L (3.5-5.1); Sodium Level 131 mmol/L (136-145)
[2019-09-03] MEDS: amLODIPine 5 MG Tablet PO (09:41)
[2019-09-03] MEDS: Clopidogrel Bisulfate 75 MG Tablet PO (09:41)
[2019-09-03] MEDS: Magnesium Oxide 400 MG Tablet PO (09:41)
[2019-09-03] MEDS: Sertraline 50 MG Tablet PO (09:41)
[2019-09-03] MEDS: Acetaminophen 325 MG Tablet 650 MG PO (09:42)
[2019-09-03] MEDS: 0.9% Saline Lock 10 ML Syringe IV (09:42)
[2019-09-03] MEDS: Allopurinol 100 MG Tablet 200 MG PO (09:42)
[2019-09-03] MEDS: Pantoprazole Sodium 40 MG Tablet PO (09:45)
[2019-09-03 10:25] LABS: Pathologist Review Reviewed
[2019-09-03 10:29] LABS: Pathologist Review Reviewed
--- NOTE | 2019-09-03 10:34 | PCM.HP.ID ---
Problem List (1) Leukocytosis Status: Acute Qualifiers: Leukocytosis type: unspecified Qualified Code(s): D72.829 - Elevated white blood cell count, unspecified Reason for Consult: high wbc Consulted by: Dr. Salas History of Present Illness: The patient is a 78 year old M with h/o tissue valve replacement, ESRD, dementia, presented to ED yesterday due to falls at home. He does not remember much of what happened. Denies fever, aches/pain, cough, SOB, abd pain, n/v/d. No issues with HD catheter. Came to ED, found to have leukocytosis, bcx sent. No events overnight. Full ROS performed and neg except as noted above. - Medical History Past Medical History (Chronic Problems): Chronic Problems Atrial fibrillation and flutter (Chronic) CAD (coronary artery disease) (Chronic) Chronic a-fib (Chronic) Debility (Chronic) ESRD (end stage renal disease) (Chronic) CKD (chronic kidney disease) (Chronic) H/O mitral valve repair (Chronic) aoritc bovine 2010 replacement (Chronic) H/O aortic valve repair (Chronic) Pure hypercholesterolemia (Chronic) HTN (hypertension) (Chronic) DM (diabetes mellitus) (Chronic) Hx of CABG (Chronic) Gout (Chronic) Afib (Chronic) History of myocardial infarction (Chronic) Allergies/Adverse Reactions: Allergies escitalopram [From Lexapro] Allergy (Verified 07/27/19 14:56) Unknown levofloxacin [From Levaquin] Allergy (Verified 07/27/19 14:56) Other LUPUS Penicillins Allergy (Verified 07/27/19 14:56) Unknown Opioids - Morphine Analogues Adverse Reaction (Verified 07/27/19 14:56) Other CONFUSION Home Medications: Ambulatory Orders Medication Instructions Recorded Allopurinol [Zyloprim] 200 mg PO DAILYCM 12/31/16 Insulin Detemir [Levemir] 25 unit SQ DAILY 12/31/16 Atorvastatin Calcium [Lipitor] 40 mg PO QHS 04/09/18 Pantoprazole Sodium [Protonix] 40 mg PO DAILY 04/09/18 Sertraline HCl [Zoloft] 50 mg PO DAILY 04/09/18 Tamsulosin HCl [Flomax] 0.4 mg PO QHS 04/09/18 hydrALAZINE [Apresoline] 50 mg PO TID 04/09/18 Amlodipine [Norvasc] 5 mg PO DAILY 07/27/19 Cetirizine HCl 10 mg PO DAILY 07/27/19 Clopidogrel Bisulfate [Clopidogrel] 75 mg PO DAILY 07/27/19 Darbepoetin Daniel in Polysorbat 40 mcg IJ QMONTH 07/27/19 [Aranesp] Magnesium Oxide 400 mg PO DAILY 07/27/19 Nitroglycerin 0.4 mg SL Q5M PRN 07/27/19 Warfarin Sodium [Coumadin] 4 mg PO SUMOTUTHFR 09/02/19 Warfarin Sodium [Coumadin] 6 mg PO WESA 09/02/19 - Social History Tobacco Use: non-smoker Vital Signs Temp Pulse Resp BP Pulse Ox 98.9 F 71 16 97/51 L 97 09/03/19 09:40 09/03/19 09:40 09/03/19 09:40 09/03/19 09:40 09/03/19 09:40 Oxygen Delivery Method Room Air Weight: 63.5 kg Body Mass Index (BMI) 22.6 Finger Stick Blood Glucose 237 Laboratory Tests Past 24 Hrs 09/02/19 09/02/19 09/03/19 10:00 10:00 05:28 WBC 24.9 H RBC 3.03 L Hgb 8.9 L Hct 27.9 L MCV 92.1 MCH 29.4 MCHC 31.9 L RDW Std Deviation 52.4 H RDW Coeff of [place] 15.6 H Plt Count 192 MPV 10.8 Immature Gran % (Auto) 1.800 H Neut % (Auto) 87.2 H Lymph % (Auto) 4.2 L [place] % (Auto) 6.3 Eos % (Auto) 0.3 Baso % (Auto) 0.2 Absolute Neuts (auto) 21.7 H Absolute Lymphs (auto) 1.04 Nucleated RBC % 0 Differential Comment SCANNED COMMENT Diff Path Review Reviewed Reviewed PT 41.2 H INR 4.3 H* APTT 99.8 H* Sodium Potassium Chloride Carbon Dioxide Anion Gap BUN Creatinine Estim Creat Clear Calc Est GFR (MDRD) Af Amer Est GFR (MDRD) Non-Af BUN/Creatinine Ratio Glucose Calcium 09/03/19 09/03/19 05:28 05:28 WBC RBC Hgb Hct MCV MCH MCHC RDW Std Deviation RDW Coeff of [place] Plt Count MPV Immature Gran % (Auto) Neut % (Auto) Lymph % (Auto) [place] % (Auto) Eos % (Auto) Baso % (Auto) Absolute Neuts (auto) Absolute Lymphs (auto) Nucleated RBC % Differential Comment Diff Path Review PT 44.6 H INR 4.7 H* APTT Sodium 131 L Potassium 4.3 Chloride 96 L Carbon Dioxide 28.0 Anion Gap 7 BUN 25 H Creatinine 3.40 H Estim Creat Clear Calc 15.82 Est GFR (MDRD) Af Amer 23 L Est GFR (MDRD) Non-Af 19 L BUN/Creatinine Ratio 7.4 L Glucose 141 H Calcium 8.9 - Other Studies Radiology: [] reviewed Other Studies: [] Route of nutrition/ use of supplements: [] Nutritional Intake: [] IV Site: [] Lees Catheter: [] - Physical Exam General: Alert, Cooperative, No apparent distress, - - oriented x1 HEENT: Atraumatic, PERRLA, EOMI Neck: Supple, No Nodes Lungs: Rales - R base Cardiovascular: Regular rate, Regular Rhythm, Murmur - soft Abdomen: Soft, Non Tender, Non-Distended Extremities: No edema Skin: No rashes IV Site: Central Line, without redness Musculoskeletal: No Tenderness to Palpation of Joints or Extremities Neurological: Cranial nerves II-XII grossly intact - Assessment/Plan Antibiotics: [] Assessment/Plan: [] leukocytosis with recent falls at home, h/o dementia, ESRD, and tissue valve replacement - bcx neg so far. No fever here. No signs of infection on exam. Will order echo. May need cardiac eval, has seen Dr. Mead in the past here for dysrhythmia and possible need for device placement. Recommend continue to monitor off of abx. Will follow, thank you, d/w Dr. Salas
[2019-09-03] MEDS: Insulin Lispro 100 UNIT/ML INSULN.PEN SC (11:24)
[2019-09-03 11:31] LABS: Bedside Glucose 256 mg/dL (70-110)
--- NOTE | 2019-09-03 12:01 | PCM.PN.REN ---
Subjective: except being constipated the patient has no c/o - Physical Exam Vitals/I&O's: Vital Signs Temp Pulse Resp BP Pulse Ox 98.9 F 71 16 97/51 L 97 09/03/19 09:40 09/03/19 09:40 09/03/19 09:40 09/03/19 09:40 09/03/19 09:40 Oxygen Delivery Method Room Air Weight: 63.5 kg Body Mass Index (BMI) 22.6 Finger Stick Blood Glucose 237 Intake and Output for Last 24 Hours 09/01/19 09/02/19 09/03/19 23:59 23:59 23:59 Intake Total 680 / 680 480 / 480 Balance 680 / 680 480 / 480 General: Alert, Cooperative HEENT: Atraumatic, Normocephalic Oral: Moist Mucosa Neck: Supple, Trachea Midline Lungs: Clear to auscultation, Normal air movement Cardiovascular: Regular rate, Regular Rhythm, Normal S1, Normal S2 Abdomen: Bowel Sounds Present, Soft, Non Tender Extremities: No clubbing, No cyanosis Laboratory Results 09/02/19 10:00: Diff Path Review Reviewed 09/02/19 17:11: POC Glucose 120 H 09/02/19 21:55: POC Glucose 201 H 09/03/19 05:28: WBC 24.9 H, RBC 3.03 L, Hgb 8.9 L, Hct 27.9 L, MCV 92.1, MCH 29.4, MCHC 31.9 L, RDW Std Deviation 52.4 H, RDW Coeff of [place] 15.6 H, Plt Count 192, MPV 10.8, Immature Gran % (Auto) 1.800 H, Neut % (Auto) 87.2 H, Lymph % (Auto) 4.2 L, [place] % (Auto) 6.3, Eos % (Auto) 0.3, Baso % (Auto) 0.2, Absolute Neuts (auto) 21.7 H, Absolute Lymphs (auto) 1.04, Nucleated RBC % 0, Differential Comment COMMENT, Diff Path Review Reviewed 09/03/19 05:28: PT 44.6 H, INR 4.7 H* 09/03/19 05:28: Sodium 131 L, Potassium 4.3, Chloride 96 L, Carbon Dioxide 28.0, Anion Gap 7, BUN 25 H, Creatinine 3.40 H, Estim Creat Clear Calc 15.82, Est GFR (MDRD) Af Amer 23 L, Est GFR (MDRD) Non-Af 19 L, BUN/Creatinine Ratio 7.4 L, Glucose 141 H, Calcium 8.9 09/03/19 06:31: POC Glucose 138 H 09/03/19 11:23: POC Glucose 256 H Current Medications Acetaminophen (Tylenol) 650 mg PO Q6H PRN PRN PRN Reason: Pain Score 1-10/Temp > 100.7 F Last Admin: 09/03/19 09:42 Dose: 650 mg Documented by: Allopurinol (Zyloprim) 200 mg PO DAILYCM [facility] Last Admin: 09/03/19 09:42 Dose: 200 mg Documented by: Amlodipine Besylate (Norvasc) 5 mg PO DAILY [facility] Last Admin: 09/03/19 09:41 Dose: 5 mg Documented by: Atorvastatin Calcium (Lipitor) 40 mg PO QHS [facility] Last Admin: 09/02/19 21:52 Dose: 40 mg Documented by: Clopidogrel Bisulfate (Plavix) 75 mg PO DAILY [facility] Last Admin: 09/03/19 09:41 Dose: 75 mg Documented by: Dextrose (D50w Syringe) 0 gm IV X1 PRN; Protocol PRN Reason: Hypoglycemia Glucagon () 1 mg IM .X1 PRN PRN Reason: Hypoglycemia Hydralazine HCl (Apresoline) 50 mg PO TID [facility] Last Admin: 09/03/19 06:35 Dose: 50 mg Documented by: Sodium Chloride () 250 mls @ 15 mls/hr IV .[id number] PRN PRN Reason: Saline Flush Sodium Chloride () 250 mls @ 15 mls/hr IV .[id number] PRN PRN Reason: Additional IVPB Infusion Insulin Glargine (Lantus (Bkc)) 25 units SC DAILY [facility] Last Admin: 09/03/19 09:42 Dose: 25 u Documented by: Insulin Human Lispro (Humalog Kwikpen (Bk)) 0 unit SC ACHS [facility]; Protocol Last Admin: 09/03/19 11:24 Dose: 4 units Documented by: Magnesium Oxide (Mag-Ox 400) 400 mg PO DAILY [facility] Last Admin: 09/03/19 09:41 Dose: 400 mg Documented by: Oxycodone HCl (Oxyir) 5 mg PO Q4H PRN PRN PRN Reason: Pain Score 4-10/10 Pantoprazole Sodium (Protonix) 40 mg PO DAILY [facility] Last Admin: 09/03/19 09:45 Dose: 40 mg Documented by: Sertraline HCl (Zoloft) 50 mg PO DAILY [facility] Last Admin: 09/03/19 09:41 Dose: 50 mg Documented by: Sodium Chloride () 10 - 40 ml IV UD PRN PRN Reason: SALINE FLUSH Last Admin: 09/03/19 09:42 Dose: 10 ml Documented by: Tamsulosin HCl (Flomax) 0.4 mg PO QHS [facility] Last Admin: 09/02/19 21:52 Dose: 0.4 mg Documented by: Medical Necessity - Tobacco Use Smoking Status: Never smoker Tobacco Use: Non-smoker Assessment/Plan All Active Problems Leukocytosis (Acute) Elevated troponin (Acute) ESRD Hyperkalemia resolved [place] CAD s/p CABG HD mwf Leukocytosis f/u blood cultures.ID on board. bp ok continue meds D/w patient and dr. Salas
--- NOTE | 2019-09-03 12:25 | PN_ITS ---
Subjective: Patient seen and examined. Denies current complaints. Denies fever, chills. Denies shortness of breath. - Physical Exam Vitals/I&O's: Vital Signs Temp Pulse Resp BP Pulse Ox 98.9 F 71 16 97/51 L 97 09/03/19 09:40 09/03/19 09:40 09/03/19 09:40 09/03/19 09:40 09/03/19 09:40 Oxygen Delivery Method Room Air Weight: 139 lb 15.896 oz Body Mass Index (BMI) 22.6 Finger Stick Blood Glucose 237 Intake and Output for Last 24 Hours 09/01/19 09/02/19 09/03/19 23:59 23:59 23:59 Intake Total 680 / 680 480 / 480 Balance 680 / 680 480 / 480 General: Alert, Cooperative, No apparent distress HEENT: Atraumatic, PERRLA, EOMI, Normocephalic Neck: Supple, No JVD, Negative Carotid Bruits Lungs: Clear to auscultation, Normal air movement Cardiovascular: Regular rate, Regular Rhythm, Normal S1, Normal S2, No murmurs Abdomen: Bowel Sounds Present, Soft, Non Tender, Non-Distended Extremities: No clubbing, No cyanosis, No edema, Capillary Refill Less than 3 Seconds Skin: No rashes, No breakdown Musculoskeletal: No Tenderness to Palpation of Joints or Extremities Neurological: Cranial nerves II-XII grossly intact, Neuro grossly intact Psych/Mental Status: Normal Affect, Appropriate Laboratory Results 09/02/19 10:00: Diff Path Review Reviewed 09/02/19 17:11: POC Glucose 120 H 09/02/19 21:55: POC Glucose 201 H 09/03/19 05:28: WBC 24.9 H, RBC 3.03 L, Hgb 8.9 L, Hct 27.9 L, MCV 92.1, MCH 29.4, MCHC 31.9 L, RDW Std Deviation 52.4 H, RDW Coeff of [place] 15.6 H, Plt Count 192, MPV 10.8, Immature Gran % (Auto) 1.800 H, Neut % (Auto) 87.2 H, Lymph % (Auto) 4.2 L, [place] % (Auto) 6.3, Eos % (Auto) 0.3, Baso % (Auto) 0.2, Absolute Neuts (auto) 21.7 H, Absolute Lymphs (auto) 1.04, Nucleated RBC % 0, Differential Comment COMMENT, Diff Path Review Reviewed 09/03/19 05:28: PT 44.6 H, INR 4.7 H* 09/03/19 05:28: Sodium 131 L, Potassium 4.3, Chloride 96 L, Carbon Dioxide 28.0, Anion Gap 7, BUN 25 H, Creatinine 3.40 H, Estim Creat Clear Calc 15.82, Est GFR (MDRD) Af Amer 23 L, Est GFR (MDRD) Non-Af 19 L, BUN/Creatinine Ratio 7.4 L, Glucose 141 H, Calcium 8.9 09/03/19 06:31: POC Glucose 138 H 09/03/19 11:23: POC Glucose 256 H Current Medications Acetaminophen (Tylenol) 650 mg PO Q6H PRN PRN PRN Reason: Pain Score 1-10/Temp > 100.7 F Last Admin: 09/03/19 09:42 Dose: 650 mg Documented by: [facility] Last Admin: 09/03/19 09:42 Dose: 200 mg Documented by: Amlodipine Besylate (Norvasc) 5 mg PO DAILY [facility] Last Admin: 09/03/19 09:41 Dose: 5 mg Documented by: Atorvastatin Calcium (Lipitor) 40 mg PO QHS [facility] Last Admin: 09/02/19 21:52 Dose: 40 mg Documented by: Clopidogrel Bisulfate (Plavix) 75 mg PO DAILY [facility] Last Admin: 09/03/19 09:41 Dose: 75 mg Documented by: Dextrose (D50w Syringe) 0 gm IV X1 PRN; Protocol PRN Reason: Hypoglycemia Glucagon () 1 mg IM .X1 PRN PRN Reason: Hypoglycemia Hydralazine HCl (Apresoline) 50 mg PO TID [facility] Last Admin: 09/03/19 06:35 Dose: 50 mg Documented by: Sodium Chloride () 250 mls @ 15 mls/hr IV .[id number] PRN PRN Reason: Saline Flush Sodium Chloride () 250 mls @ 15 mls/hr IV .[id number] PRN PRN Reason: Additional IVPB Infusion Insulin Glargine (Lantus (Bkc)) 25 units SC DAILY [facility] Last Admin: 09/03/19 09:42 Dose: 25 u Documented by: Insulin Human Lispro (Humalog Kwikpen (Bkc)) 0 unit SC ACHS [facility]; Protocol Last Admin: 09/03/19 11:24 Dose: 4 units Documented by: Magnesium Oxide (Mag-Ox 400) 400 mg PO DAILY [facility] Last Admin: 09/03/19 09:41 Dose: 400 mg Documented by: Oxycodone HCl (Oxyir) 5 mg PO Q4H PRN PRN PRN Reason: Pain Score 4-10/10 Pantoprazole Sodium (Protonix) 40 mg PO DAILY [facility] Last Admin: 09/03/19 09:45 Dose: 40 mg Documented by: Sertraline HCl (Zoloft) 50 mg PO DAILY [facility] Last Admin: 09/03/19 09:41 Dose: 50 mg Documented by: Sodium Chloride () 10 - 40 ml IV UD PRN PRN Reason: SALINE FLUSH Last Admin: 09/03/19 09:42 Dose: 10 ml Documented by: Tamsulosin HCl (Flomax) 0.4 mg PO QHS [facility] Last Admin: 09/02/19 21:52 Dose: 0.4 mg Documented by: Medical Necessity - Tobacco Use Smoking Status: Never smoker Tobacco Use: Non-smoker Assessment/Plan All Active Problems Leukocytosis (Acute) Elevated troponin (Acute) 1. Debility with falls-SNF pending pre-cert. PT/OT. CT of brain negative for acute process. CT of cervical spine with degenerative disc disease. Multiple x-rays of knee, foot, elbow and pelvis with no acute process. Fall precautions. 2. Leukocytosis-afebrile. Blood cultures with no growth so far. Echocardiogram demonstrates an EF of 55 to 60%, moderate to severe mitral annular calcification, pulmonary artery systolic pressure 65 mmHg, status post mitral valve repair with annuloplasty ring, mild aortic stenosis. Chest x-ray unremarkable. No indication for antibiotics at this time. Obtain urinalysis. 3. End-stage renal disease on hemodialysis-nephrology following. 4. 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 Mead. Echo with stable appearing valves as noted above. 5. Chronic atrial fibrillation/atrial flutter-rate controlled. Coumadin on ho ld due to supratherapeutic INR. Trend INR. History of nonsustained wide- complex tachycardia, per previous cardiology note, ICD considered as outpatient. Continue outpatient follow-up. 6. CAD with history of CABG-continue Plavix, statin. 7. Type 2 diabetes [id number] with sliding scale insulin. Continue Levemir. 8. Suspected dementia, unknown behavioral disturbance history- having difficulty taking care of patient at home. Plan for SNF as noted above. 9. Depression-continue SSRI. 10. History of gout-on allopurinol. 11. GERD-continue PPI. 12. Chronic normocytic anemia/anemia of chronic disease-stable, trend CBC. 13. BPH-continue Flomax. 14. Hypertension-stable, continue amlodipine, hydralazine. DVT prophylaxis-Coumadin Discharge planning: SNF pending pre-cert. This patient was seen by SHRUTHI Post under the supervision of Dr. Salas.
--- NOTE | 2019-09-03 14:19 | CASEMGMT ---
BRIELLE faxed referrals to [facility] and [facility]. SW received a call from both facilities and they can accept patient. [facility] however, would charge patient $21 per trip. BRIELLE called patient's and let her know this information. She said she would prefer [facility] due to not having to pay for transport. BRIELLE told her it would likely be Saturday. She thanked for the update. BRIELLE notified Tammy at [facility] and let her know patient's chose [facility]. BRIELLE let Annemarie at [facility] know patient's chose [facility]. Plan: [facility] under skilled level of care Bhavya CABRERA MSW
--- NOTE | 2019-09-03 15:48 | NURSING ---
Attempted straight cath for urine sample at this time with no results
[2019-09-03 16:41] LABS: Bedside Glucose 145 mg/dL (70-110)
[2019-09-03 17:11] LABS: CPK Total, Creatine Kinase 28 U/L (39-308)
[2019-09-03] MEDS: oxyCODONE 5 MG Tablet PO ×2 (18:06→23:03)
[2019-09-03] MEDS: Tamsulosin HCl 0.4 MG Capsule PO (22:15)
[2019-09-03] MEDS: Atorvastatin Calcium 40 MG Tablet PO (22:15)
[2019-09-03 22:25] LABS: Bedside Glucose 137 mg/dL (70-110)
[2019-09-04] VITALS (14 sets, daily range): BP systolic 107–139; BP diastolic 50–76; PULSE 59–87; RESP 16–18; TEMP 36.8–37.2; O2SAT 94–96
[2019-09-04 06:12] LABS: Hematocrit 26.9 % (40-54); Hemoglobin 8.7 g/dL (13.0-16.5); Mean Corp Hgb Conc 32.3 g/dL (32-36); Mean Corpuscular Hgb 29.5 pg (27.0-32.0); Mean Corpuscular Volume 91.2 fL (80-94); Mean Platelet Vol. 10.4 fl (6.2-12.0); Platelet Count 201 K/mm3 (150-450); RBC Distribution Width CV 15.5 % (11.6-14.6); RBC Distribution Width SD 51.3 fl (35.1-43.9); Red Blood Count 2.95 M/mm3 (4.6-6.2); White Blood Count 19.6 K/mm3 (4.4-11.0)
[2019-09-04 06:23] LABS: Prothrombin Time (Protime)PT. 30.5 SECONDS (11.7-14.9)
[2019-09-04] MEDS: hydrALAZINE 50 MG Tablet PO ×3 (06:51→22:42)
[2019-09-04 07:00] LABS: Anion Gap 10 (5-15); BUN 50 mg/dL (7-18); BUN/Creat Ratio 10.1 RATIO (10-20); Calcium,Total 8.6 mg/dL (8.5-10.1); Chloride 92 mmol/L (98-107); Creatinine, Serum 4.96 mg/dL (0.70-1.30); EST Glomerular Filtration Rate 12 mL/min (>60); Est Glom Filt Rate - Afr Amer 15 mL/min (>60); Estimated Creatinine Clearance 10.85 ml/min; Glucose 103 mg/dL (74-106); Potassium 4.4 mmol/L (3.5-5.1); Sodium Level 130 mmol/L (136-145)
[2019-09-04 07:05] LABS: Bedside Glucose 99 mg/dL (70-110)
[2019-09-04] MEDS: Allopurinol 100 MG Tablet 200 MG PO (11:29)
[2019-09-04] MEDS: Magnesium Oxide 400 MG Tablet PO (11:30)
[2019-09-04] MEDS: Pantoprazole Sodium 40 MG Tablet PO (11:31)
[2019-09-04] MEDS: amLODIPine 5 MG Tablet PO (11:31)
[2019-09-04] MEDS: Clopidogrel Bisulfate 75 MG Tablet PO (11:31)
[2019-09-04] MEDS: Sertraline 50 MG Tablet PO (11:31)
[2019-09-04] MEDS: Insulin Lispro 100 UNIT/ML INSULN.PEN SC (11:31)
--- NOTE | 2019-09-04 11:55 | DIALYSIS ---
HD x 3.5 hours complete. Tolerated tx well. Ran on 2k bath. UF of 1000ml. Used left chest wall catheter. Catheter closed with heparin per fill volume. Caps in place. Dressing intact. Report was given to Kenneth Greenberg.
[2019-09-04 12:21] LABS: Bedside Glucose 162 mg/dL (70-110)
--- NOTE | 2019-09-04 12:43 | PN.RENAL_ITS ---
Subjective: no sob/cp - Physical Exam Vitals/I&O's: Vital Signs Temp Pulse Resp BP Pulse Ox 98.3 F 75 16 139/66 H 94 09/04/19 11:54 09/04/19 11:54 09/04/19 11:54 09/04/19 11:54 09/04/19 06:45 Oxygen Delivery Method Room Air Weight: 63.5 kg Body Mass Index (BMI) 22.6 Finger Stick Blood Glucose 237 Intake and Output for Last 24 Hours 09/02/19 09/03/19 09/04/19 23:59 23:59 23:59 Intake Total 680 / 680 960 / 960 Balance 680 / 680 960 / 960 General: Alert, Cooperative HEENT: Atraumatic, Normocephalic Neck: Supple Lungs: Clear to auscultation, Normal air movement Cardiovascular: Regular rate, Regular Rhythm, Normal S1, Normal S2 Abdomen: Bowel Sounds Present, Soft, Non Tender Extremities: No clubbing Skin: No rashes Laboratory Results 09/03/19 05:28: Total Creatine Kinase 28 L 09/03/19 16:30: POC Glucose 145 H 09/03/19 22:11: POC Glucose 137 H 09/04/19 05:52: PT 30.5 H, INR 3.0 09/04/19 05:52: WBC 19.6 H, RBC 2.95 L, Hgb 8.7 L, Hct 26.9 L, MCV 91.2, MCH 29.5, MCHC 32.3, RDW Std Deviation 51.3 H, RDW Coeff of [place] 15.5 H, Plt Count 201, MPV 10.4 09/04/19 05:52: Sodium 130 L, Potassium 4.4, Chloride 92 L, Carbon Dioxide 28.0, Anion Gap 10, BUN 50 H, Creatinine 4.96 H, Estim Creat Clear Calc 10.85, Est GFR (MDRD) Af Amer 15 L, Est GFR (MDRD) Non-Af 12 L, BUN/Creatinine Ratio 10.1, Glucose 103, Calcium 8.6 09/04/19 06:50: POC Glucose 99 09/04/19 11:27: POC Glucose 162 H Current Medications Acetaminophen (Tylenol) 650 mg PO Q6H PRN PRN PRN Reason: Pain Score 1-10/Temp > 100.7 F Last Admin: 09/03/19 09:42 Dose: 650 mg Documented by: Allopurinol (Zyloprim) 200 mg PO DAILYCM [facility] Last Admin: 09/04/19 11:29 Dose: 200 mg Documented by: Amlodipine Besylate (Norvasc) 5 mg PO DAILY [facility] Last Admin: 09/04/19 11:31 Dose: 5 mg Documented by: Atorvastatin Calcium (Lipitor) 40 mg PO QHS [facility] Last Admin: 09/03/19 22:15 Dose: 40 mg Documented by: Clopidogrel Bisulfate (Plavix) 75 mg PO DAILY [facility] Last Admin: 09/04/19 11:31 Dose: 75 mg Documented by: Dextrose (D50w Syringe) 0 gm IV X1 PRN; Protocol PRN Reason: Hypoglycemia Glucagon () 1 mg IM .X1 PRN PRN Reason: Hypoglycemia Hydralazine HCl (Apresoline) 50 mg PO TID [facility] Last Admin: 09/04/19 06:51 Dose: 50 mg Documented by: Sodium Chloride () 250 mls @ 15 mls/hr IV .[id number] PRN PRN Reason: Saline Flush Sodium Chloride () 250 mls @ 15 mls/hr IV .[id number] PRN PRN Reason: Additional IVPB Infusion Insulin Glargine (Lantus (Bkc)) 25 units SC DAILY [facility] Last Admin: 09/04/19 11:30 Dose: 25 u Documented by: Insulin Human Lispro (Humalog Kwikpen (Bk)) 0 unit SC ACHS [facility]; Protocol Last Admin: 09/04/19 11:31 Dose: 2 units Documented by: Magnesium Oxide (Mag-Ox 400) 400 mg PO DAILY [facility] Last Admin: 09/04/19 11:30 Dose: 400 mg Documented by: Oxycodone HCl (Oxyir) 5 mg PO Q4H PRN PRN PRN Reason: Pain Score 4-1010 Last Admin: 09/03/19 23:03 Dose: 5 mg Documented by: Pantoprazole Sodium (Protonix) 40 mg PO DAILY [facility] Last Admin: 09/04/19 11:31 Dose: 40 mg Documented by: Sertraline HCl (Zoloft) 50 mg PO DAILY [facility] Last Admin: 09/04/19 11:31 Dose: 50 mg Documented by: Sodium Chloride () 10 - 40 ml IV UD PRN PRN Reason: SALINE FLUSH Last Admin: 09/03/19 09:42 Dose: 10 ml Documented by: Tamsulosin HCl (Flomax) 0.4 mg PO QHS [facility] Last Admin: 09/03/19 22:15 Dose: 0.4 mg Documented by: Medical Necessity - Tobacco Use Smoking Status: Never smoker Tobacco Use: Non-smoker Assessment/Plan All Active Problems Leukocytosis (Acute) Elevated troponin (Acute) ESRD Hyperkalemia resolved [place] CAD s/p CABG HD mwf Leukocytosis f/u blood cultures still pending today .ID on board bp ok continue meds D/w patient and HD RN
--- NOTE | 2019-09-04 12:44 | PCM.PROGNOTE ---
Subjective: Patient seen and examined. Undergoing dialysis. Denies current complaints. Plan for discharge to SNF tomorrow. - Physical Exam Vitals/I&O's: Vital Signs Temp Pulse Resp BP Pulse Ox 98.3 F 75 16 139/66 H 94 09/04/19 11:54 09/04/19 11:54 09/04/19 11:54 09/04/19 11:54 09/04/19 06:45 Oxygen Delivery Method Room Air Weight: 139 lb 15.896 oz Body Mass Index (BMI) 22.6 Finger Stick Blood Glucose 237 Intake and Output for Last 24 Hours 09/02/19 09/03/19 09/04/19 23:59 23:59 23:59 Intake Total 680 / 680 960 / 960 Balance 680 / 680 960 / 960 General: Alert, Cooperative HEENT: Atraumatic, PERRLA, EOMI, Normocephalic Neck: Supple, No JVD, Negative Carotid Bruits Lungs: Clear to auscultation, Normal air movement Cardiovascular: Regular rate, Regular Rhythm, Normal S1, Normal S2, No murmurs Abdomen: Bowel Sounds Present, Soft, Non Tender, Non-Distended Extremities: No clubbing, No cyanosis, No edema, Capillary Refill Less than 3 Seconds Skin: No rashes, No breakdown Musculoskeletal: No Tenderness to Palpation of Joints or Extremities Neurological: Cranial nerves II-XII grossly intact, Neuro grossly intact Psych/Mental Status: Normal Affect, Appropriate Laboratory Results 09/03/19 05:28: Total Creatine Kinase 28 L 09/03/19 16:30: POC Glucose 145 H 09/03/19 22:11: POC Glucose 137 H 09/04/19 05:52: PT 30.5 H, INR 3.0 09/04/19 05:52: WBC 19.6 H, RBC 2.95 L, Hgb 8.7 L, Hct 26.9 L, MCV 91.2, MCH 29.5, MCHC 32.3, RDW Std Deviation 51.3 H, RDW Coeff of Soco 15.5 H, Plt Count 201, MPV 10.4 09/04/19 05:52: Sodium 130 L, Potassium 4.4, Chloride 92 L, Carbon Dioxide 28.0, Anion Gap 10, BUN 50 H, Creatinine 4.96 H, Estim Creat Clear Calc 10.85, Est GFR (MDRD) Af Amer 15 L, Est GFR (MDRD) Non-Af 12 L, BUN/Creatinine Ratio 10.1, Glucose 103, Calcium 8.6 09/04/19 06:50: POC Glucose 99 09/04/19 11:27: POC Glucose 162 H Current Medications Acetaminophen (Tylenol) 650 mg PO Q6H PRN PRN PRN Reason: Pain Score 1-10/Temp > 100.7 F Last Admin: 09/03/19 09:42 Dose: 650 mg Documented by: Allopurinol (Zyloprim) 200 mg PO DAILYCM [facility] Last Admin: 09/04/19 11:29 Dose: 200 mg Documented by: Amlodipine Besylate (Norvasc) 5 mg PO DAILY [facility] Last Admin: 09/04/19 11:31 Dose: 5 mg Documented by: Atorvastatin Calcium (Lipitor) 40 mg PO QHS [facility] Last Admin: 09/03/19 22:15 Dose: 40 mg Documented by: Clopidogrel Bisulfate (Plavix) 75 mg PO DAILY [facility] Last Admin: 09/04/19 11:31 Dose: 75 mg Documented by: Dextrose (D50w Syringe) 0 gm IV X1 PRN; Protocol PRN Reason: Hypoglycemia Glucagon () 1 mg IM .X1 PRN PRN Reason: Hypoglycemia Hydralazine HCl (Apresoline) 50 mg PO TID [facility] Last Admin: 09/04/19 06:51 Dose: 50 mg Documented by: Sodium Chloride () 250 mls @ 15 mls/hr IV .[id number] PRN PRN Reason: Saline Flush Sodium Chloride () 250 mls @ 15 mls/hr IV .[id number] PRN PRN Reason: Additional IVPB Infusion Insulin Glargine (Lantus (Bkc)) 25 units SC DAILY [facility] Last Admin: 09/04/19 11:30 Dose: 25 u Documented by: Insulin Human Lispro (Humalog Kwikpen (Bk)) 0 unit SC ACHS [facility]; Protocol Last Admin: 09/04/19 11:31 Dose: 2 units Documented by: Magnesium Oxide (Mag-Ox 400) 400 mg PO DAILY [facility] Last Admin: 09/04/19 11:30 Dose: 400 mg Documented by: Oxycodone HCl (Oxyir) 5 mg PO Q4H PRN PRN PRN Reason: Pain Score 4-10/10 Last Admin: 09/03/19 23:03 Dose: 5 mg Documented by: Pantoprazole Sodium (Protonix) 40 mg PO DAILY [facility] Last Admin: 09/04/19 11:31 Dose: 40 mg Documented by: Sertraline HCl (Zoloft) 50 mg PO DAILY [facility] Last Admin: 09/04/19 11:31 Dose: 50 mg Documented by: Sodium Chloride () 10 - 40 ml IV UD PRN PRN Reason: SALINE FLUSH Last Admin: 09/03/19 09:42 Dose: 10 ml Documented by: Tamsulosin HCl (Flomax) 0.4 mg PO QHS [facility] Last Admin: 09/03/19 22:15 Dose: 0.4 mg Documented by: Medical Necessity - Tobacco Use Smoking Status: Never smoker Tobacco Use: Non-smoker Assessment/Plan All Active Problems Leukocytosis (Acute) Elevated troponin (Acute) 1. Debility with falls-SNF pending pre-cert. PT/OT. CT of brain negative for acute process. CT of cervical spine with degenerative disc disease. Multiple x-rays of knee, foot, elbow and pelvis with no acute process. Fall precautions. 2. Leukocytosis-afebrile. Blood cultures with no growth so far. Echocardiogram demonstrates an EF of 55 to 60%, moderate to severe mitral annular calcification, pulmonary artery systolic pressure 65 mmHg, status post mitral valve repair with annuloplasty ring, mild aortic stenosis. Chest x-ray unremarkable. No indication for antibiotics at this time. Obtain urinalysis. Recommend outpatient follow-up with hematology given chronic fluctuation in white count. 3. End-stage renal disease on hemodialysis-nephrology following. 4. 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 Mead. Echo with stable appearing valves as noted above. 5. Chronic atrial fibrillation/atrial flutter-rate controlled. Coumadin on hold due to supratherapeutic INR. Trend INR. History of nonsustained wide-complex tachycardia, per previous cardiology note, ICD considered as outpatient. Continue outpatient follow-up. 6. CAD with history of CABG-continue Plavix, statin. 7. Type 2 diabetes hhyqfade-Efqd-Eajjn with sliding scale insulin. Continue Levemir. 8. Suspected dementia, unknown behavioral disturbance history- having difficulty taking care of patient at home. Plan for SNF as noted above. 9. Depression-continue SSRI. 10. History of gout-on allopurinol. 11. GERD-continue PPI. 12. Chronic normocytic anemia/anemia of chronic disease-stable, trend CBC. 13. BPH-continue Flomax. 14. Hypertension-stable, continue amlodipine, hydralazine. DVT prophylaxis-Coumadin Discharge planning: SNF pending pre-cert. This patient was seen by SHRUTHI Post under the supervision of Dr. Salas.
--- NOTE | 2019-09-04 12:58 | PCM.EXTCARCO ---
- Diet 09/04/19 12:55 Diet: Cardiac: Calorie-Controlled Is pt able to select menu?: Yes How many daily calories?: 1999 calorie - Routine Orders/Code Status Enema Type: Fleetz Enema Frequency: Daily PRN Suppository Type: Dulcolax 10mg Suppository Frequency: Daily PRN Routine Lab Work: CBC, BMP, - - Q Week - Wound(s) right pimentel Wound Type: Abrasion right elbow Wound Type: Skin Tear - Suggestions for Active Care Change Position every (hours): 2 Times a day to sit in chair: 3 - Therapies Physical Therapy: Eval and Treat Occupational Therapy: Eval and Treat - Problem/Diagnosis (1) Leukocytosis Status: Acute Current Visit: Yes (2) CAD (coronary artery disease) Status: Chronic Current Visit: No (3) Chronic a-fib Status: Chronic Current Visit: No (4) Debility Status: Chronic Current Visit: Yes (5) ESRD (end stage renal disease) Status: Chronic Current Visit: No (6) Pure hypercholesterolemia Status: Chronic Current Visit: No (7) HTN (hypertension) Status: Chronic Current Visit: No (8) DM (diabetes mellitus) Status: Chronic Current Visit: No - Allergies/Procedures Done in Hospital Allergies/Adverse Reactions: Allergies escitalopram [From Lexapro] Allergy (Verified 07/27/19 14:56) Unknown levofloxacin [From Levaquin] Allergy (Verified 07/27/19 14:56) Other LUPUS Penicillins Allergy (Verified 07/27/19 14:56) Unknown Opioids - Morphine Analogues Adverse Reaction (Verified 07/27/19 14:56) Other CONFUSION Procedures: 2-D Echocardiogram, Dialysis - Type of Care/Length of Stay Estimated LOS: Convalescent Care Less Than 30 days Type of Care Needed: Skilled Rehab Potential: Fair Prognosis: Fair - Additional Orders/Day of Discharge H&P will serve as current which was dated: 09/02/19 Day of Discharge: 09/05/19 - Dietary and Speech Recommendations Dietitian Recommendations/Changes: Will provide Cardiac:2000 Calorie controlled diet as pt w/ increased nutrition needs d/t HD. - Follow Up Care Primary Care Physician: Donavon Hamilton MD [Primary Care Provider] - Please follow up with your Primary Care Physician in: 1 Week Please Follow Up With: Anthony Al MD When: Nephrology and dialysis as scheduled Please Follow Up With: Emelina Conway MD - hematology When: Call to establish for evaluation of intermittent leukocytosis Please Follow Up With: Alfred Mead MD When: as scheduled
--- NOTE | 2019-09-04 13:59 | CASEMGMT ---
Social Work SW received call from Tammy at [facility] who states they have decided to waive the transportation fee and can accept pt. Phone call to pt and informed and pt choosing for pt to go to the [facility]. VM left for Tammy. D/C plan is for pt to go to [facility] tomorrow. 7000 form completed in [employer] system. Orders faxed to [facility] and Annemarie at the [facility] updated on d/c plan. Plan: [facility] on Saturday JANET Martinez
--- NOTE | 2019-09-04 14:24 | PN.ID_ITS ---
Patient Problems: Active and Suspected Problems Leukocytosis (Acute) Subjective: No fever, no complaints, no abd pain - Physical Exam Vitals/I&O's: Vital Signs Temp Pulse Resp BP Pulse Ox 98.3 F 75 16 139/66 H 94 09/04/19 11:54 09/04/19 11:54 09/04/19 11:54 09/04/19 11:54 09/04/19 06:45 Oxygen Delivery Method Room Air Weight: 63.5 kg Body Mass Index (BMI) 22.6 Finger Stick Blood Glucose 237 Intake and Output for Last 24 Hours 09/02/19 09/03/19 09/04/19 23:59 23:59 23:59 Intake Total 680 / 680 960 / 960 120 / 120 Balance 680 / 680 960 / 960 120 / 120 General: Alert, Cooperative, No apparent distress Lungs: Clear to auscultation, Normal air movement Cardiovascular: Regular rate, Regular Rhythm Abdomen: Soft, Non Tender, Non-Distended Skin: No rashes Laboratory Results 09/03/19 05:28: Total Creatine Kinase 28 L 09/03/19 16:30: POC Glucose 145 H 09/03/19 22:11: POC Glucose 137 H 09/04/19 05:52: PT 30.5 H, INR 3.0 09/04/19 05:52: WBC 19.6 H, RBC 2.95 L, Hgb 8.7 L, Hct 26.9 L, MCV 91.2, MCH 29.5, MCHC 32.3, RDW Std Deviation 51.3 H, RDW Coeff of Soco 15.5 H, Plt Count 201, MPV 10.4 09/04/19 05:52: Sodium 130 L, Potassium 4.4, Chloride 92 L, Carbon Dioxide 28.0, Anion Gap 10, BUN 50 H, Creatinine 4.96 H, Estim Creat Clear Calc 10.85, Est GFR (MDRD) Af Amer 15 L, Est GFR (MDRD) Non-Af 12 L, BUN/Creatinine Ratio 10.1, Glucose 103, Calcium 8.6 09/04/19 06:50: POC Glucose 99 09/04/19 11:27: POC Glucose 162 H Current Medications Acetaminophen (Tylenol) 650 mg PO Q6H PRN PRN PRN Reason: Pain Score 1-10/Temp > 100.7 F Last Admin: 09/03/19 09:42 Dose: 650 mg Documented by: Allopurinol (Zyloprim) 200 mg PO DAILYCM [facility] Last Admin: 09/04/19 11:29 Dose: 200 mg Documented by: Amlodipine Besylate (Norvasc) 5 mg PO DAILY [facility] Last Admin: 09/04/19 11:31 Dose: 5 mg Documented by: Atorvastatin Calcium (Lipitor) 40 mg PO QHS [facility] Last Admin: 09/03/19 22:15 Dose: 40 mg Documented by: Clopidogrel Bisulfate (Plavix) 75 mg PO DAILY [facility] Last Admin: 09/04/19 11:31 Dose: 75 mg Documented by: Dextrose (D50w Syringe) 0 gm IV X1 PRN; Protocol PRN Reason: Hypoglycemia Glucagon () 1 mg IM .X1 PRN PRN Reason: Hypoglycemia Hydralazine HCl (Apresoline) 50 mg PO TID [facility] Last Admin: 09/04/19 06:51 Dose: 50 mg Documented by: Sodium Chloride () 250 mls @ 15 mls/hr IV .[id number] PRN PRN Reason: Saline Flush Sodium Chloride () 250 mls @ 15 mls/hr IV .[id number] PRN PRN Reason: Additional IVPB Infusion Insulin Glargine (Lantus (Bkc)) 25 units SC DAILY [facility] Last Admin: 09/04/19 11:30 Dose: 25 u Documented by: Insulin Human Lispro (Humalog Kwikpen (Bk)) 0 unit SC ACHS [facility]; Protocol Last Admin: 09/04/19 11:31 Dose: 2 units Documented by: Magnesium Oxide (Mag-Ox 400) 400 mg PO DAILY [facility] Last Admin: 09/04/19 11:30 Dose: 400 mg Documented by: Oxycodone HCl (Oxyir) 5 mg PO Q4H PRN PRN PRN Reason: Pain Score 4-1010 Last Admin: 09/03/19 23:03 Dose: 5 mg Documented by: Pantoprazole Sodium (Protonix) 40 mg PO DAILY [facility] Last Admin: 09/04/19 11:31 Dose: 40 mg Documented by: Sertraline HCl (Zoloft) 50 mg PO DAILY [facility] Last Admin: 09/04/19 11:31 Dose: 50 mg Documented by: Sodium Chloride () 10 - 40 ml IV UD PRN PRN Reason: SALINE FLUSH Last Admin: 09/03/19 09:42 Dose: 10 ml Documented by: Tamsulosin HCl (Flomax) 0.4 mg PO QHS [facility] Last Admin: 09/03/19 22:15 Dose: 0.4 mg Documented by: Medical Necessity - Tobacco Use Smoking Status: Never smoker Tobacco Use: Non-smoker Route of nutrition/ use of supplements: [] Nutritional Intake: [] IV Site: [] Lees Catheter: [] - Assessment/Plan Antibiotics: [] Assessment/Plan: [] leukocytosis with recent falls at home, h/o dementia, ESRD, and tissue valve replacement - bcx neg so far. No fever here. No signs of infection on exam. Echo done. Wbc improved without any abx. Will sign off.
[2019-09-04 16:41] LABS: Bedside Glucose 65 mg/dL (70-110)
[2019-09-04] MEDS: Tamsulosin HCl 0.4 MG Capsule PO (22:41)
[2019-09-04] MEDS: Atorvastatin Calcium 40 MG Tablet PO (22:41)
[2019-09-04] MEDS: Acetaminophen 325 MG Tablet 650 MG PO (22:42)
[2019-09-04] MEDS: 0.9% Saline Lock 10 ML Syringe IV (22:45)
[2019-09-04 22:56] LABS: Bedside Glucose 118 mg/dL (70-110)
[2019-09-05 03:00] VITALS: PULSE 59
[2019-09-05 04:35] VITALS: BP 119/47; PULSE 55; RESP 18; TEMP 36.7; O2SAT 98
[2019-09-05 06:25] VITALS: BP 114/43; PULSE 61; RESP 18; TEMP 36.8; O2SAT 97
[2019-09-05 06:26] VITALS: BP 114/43; PULSE 61
[2019-09-05] MEDS: hydrALAZINE 50 MG Tablet PO (06:26)
[2019-09-05 06:41] LABS: Bedside Glucose 92 mg/dL (70-110)
[2019-09-05 07:02] VITALS: PULSE 61
[2019-09-05 07:29] LABS: Absolute Neutrophil Count 12.8 X10^3/uL (2.0-7.7); Basophil# 0.05 X10^3/uL; Basophil% 0.3 % (0-1); Eosinophil# 0.43 X10^3/uL; Eosinophils% 2.8 % (0-5); Hematocrit 24.3 % (40-54); Lymphocyte % 5.8 % (19-41); Mean Corp Hgb Conc 32.9 g/dL (32-36); Mean Corpuscular Hgb 29.6 pg (27.0-32.0); Mean Platelet Vol. 10.4 fl (6.2-12.0); Monocyte% 7.7 % (0-10); NRBC Flagged by Analyzer 0 % (0-5); Neutrophil # 12.81 X10^3/uL (2.7-7.7); Neutrophil % 82.3 % (47-70); Platelet Count 219 K/mm3 (150-450); RBC Distribution Width CV 15.6 % (11.6-14.6); RBC Distribution Width SD 51.5 fl (35.1-43.9); White Blood Count 15.6 K/mm3 (4.4-11.0)
[2019-09-05 07:45] LABS: International Normalized Ratio 2.2; Prothrombin Time (Protime)PT. 23.9 SECONDS (11.7-14.9)
[2019-09-05 08:01] LABS: Magnesium 2.3 mg/dL (1.6-2.6); Phosphorus 3.7 mg/dL (2.5-4.9)
[2019-09-05] MEDS: Allopurinol 100 MG Tablet 200 MG PO (08:44)
[2019-09-05] MEDS: Pantoprazole Sodium 40 MG Tablet PO (08:45)
[2019-09-05] MEDS: Clopidogrel Bisulfate 75 MG Tablet PO (08:45)
[2019-09-05] MEDS: amLODIPine 5 MG Tablet PO (08:45)
[2019-09-05] MEDS: Magnesium Oxide 400 MG Tablet PO (08:45)
[2019-09-05] MEDS: Sertraline 50 MG Tablet PO (08:46)
--- NOTE | 2019-09-05 08:59 | PCM.DC.SUM ---
Discharge Date and Diagnosis Date of Admission: 09/02/19 Date of Discharge: 09/05/19 - Primary Discharge Diagnosis Active and Suspected Problems 1. Debility with falls 2. Leukocytosis, unclear etiology. Infectious etiology ruled out. 3. End-stage renal disease on hemodialysis 4. 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 Chronic atrial fibrillation/atrial flutter 6. CAD with history of CABG 7. Type 2 diabetes mellitus 8. Suspected dementia, unknown behavioral disturbance history 9. Depression 10. History of gout 11. GERD 12. Chronic normocytic anemia/anemia of chronic disease 13. BPH 14. Hypertension - Secondary Discharge Diagnosis Chronic Problems Atrial fibrillation and flutter (Chronic) CAD (coronary artery disease) (Chronic) Chronic a-fib (Chronic) Debility (Chronic) ESRD (end stage renal disease) (Chronic) H/O mitral valve repair (Chronic) aoritc bovine 2010 replacement (Chronic) H/O aortic valve repair (Chronic) Pure hypercholesterolemia (Chronic) HTN (hypertension) (Chronic) DM (diabetes mellitus) (Chronic) Hx of CABG (Chronic) Gout (Chronic) Afib (Chronic) History of myocardial infarction (Chronic) Hospital Course and Treatment Imaging Results: Diagnostic Data Brain CT 09/02/19 08:11 IMPRESSION: Chronic involutional changes of the brain. Soft tissue swelling overlying the posterior right parietal bone. Electronically Signed: Jg Guerra at 10:06 EDT , Service support , Cervical Spine CT 09/02/19 08:11 IMPRESSION: Multilevel degenerative changes, as described above. Anterior listhesis of C7 on T1 without evidence of fracture most likely secondary to degenerative changes and facet joint osteoarthritis. Electronically Signed: Jg Guerra at 10:04 EDT , Service support , Chest X-Ray 09/02/19 09:38 IMPRESSION: Cardiomegaly and prior prosthetic valve replacement involving the aortic and mitral valves. Stable mild increased markings at the lung bases suggestive of scarring. A left-sided double-lumen catheter seen with the tip in the right atrium. Electronically Signed: Jg Guerra at 10:12 EDT , Service support , Elbow X-Ray 09/02/19 09:38 IMPRESSION: Arthrosis of the elbow, as described above. Soft tissue swelling and vascular calcification. Electronically Signed: Jg Guerra, at 10:13 EDT , Service support , Foot X-Ray 09/02/19 09:38 IMPRESSION: Mild degenerative changes at the first metacarpophalangeal joint. Soft tissue swelling and vascular calcification. Electronically Signed: Jg Guerra, at 10:15 EDT , Service support , Knee X-Ray 09/02/19 09:38 IMPRESSION: Vascular calcification. Electronically Signed: Jg Guerra at 10:17 EDT , Service support , Pelvis X-Ray 09/02/19 09:38 IMPRESSION: Degenerative changes. No fracture is seen. Electronically Signed: Jg Guerra at 10:14 EDT , Service support , Dr. Alvarenga- nephrology Dr. Jerry- ID Operations: None Procedures: 2-D Echocardiogram Summary of Care Provided: The patient is a 78 year old M admitted 09/02/2019 due to debility with falls. 1. Debility with falls-SNF at discharge. PT/OT. CT of brain negative for acute process. CT of cervical spine with degenerative disc disease. Multiple x-rays of knee, foot, elbow and pelvis with no acute process. 2. Leukocytosis-afebrile. Blood cultures with no growth. Echocardiogram demonstrates an EF of 55 to 60%, moderate to severe mitral annular calcification, pulmonary artery systolic pressure 65 mmHg, status post mitral valve repair with annuloplasty ring, mild aortic stenosis. Chest x-ray unremarkable. No indication for antibiotics at this time. Unable to obtain urinalysis due to anuria. Recommend outpatient follow-up with hematology given chronic fluctuation in white count. 3. End-stage renal disease on hemodialysis-continue follow-up with nephrology, dialysis regimen. 4. 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 Mead. Echo with stable appearing valves as noted above. 5. Chronic atrial fibrillation/atrial flutter-rate controlled. Continue Coumadin, supratherapeutic INR resolved. History of nonsustained wide-complex tachycardia, per previous cardiology note, ICD considered as outpatient. Continue outpatient follow-up. 6. CAD with history of CABG-continue Plavix, statin. 7. Type 2 diabetes [id number] with sliding scale insulin. Continue Levemir. 8. Suspected dementia, unknown behavioral disturbance history- having difficulty taking care of patient at home. SNF at discharge as noted above. 9. Depression-continue SSRI. 10. History of gout-on allopurinol. 11. GERD-continue PPI. 12. Chronic normocytic anemia/anemia of chronic disease-stable, trend CBC. 13. BPH-continue Flomax. 14. Hypertension-stable, continue amlodipine, hydralazine. General: Alert, Cooperative HEENT: Atraumatic, PERRLA, EOMI, Normocephalic Neck: Supple, No JVD, Negative Carotid Bruits Lungs: Clear to auscultation, Normal air movement Cardiovascular: Regular rate, Regular Rhythm, Normal S1, Normal S2, No murmurs Abdomen: Bowel Sounds Present, Soft, Non Tender, Non-Distended Extremities: No clubbing, No cyanosis, No edema, Capillary Refill Less than 3 Seconds Skin: No rashes, No breakdown Musculoskeletal: No Tenderness to Palpation of Joints or Extremities Neurological: Cranial nerves II-XII grossly intact, Neuro grossly intact Psych/Mental Status: Normal Affect, Appropriate Patient seen and examined prior to discharge. Physical assessment as noted above. Patient is stable for discharge with follow up recommendations as noted above. This patient was seen by SHRUTHI Post under the supervision of Dr. Salas. - Physical Exam Vitals/I&O's: Vital Signs Temp Pulse Resp BP Pulse Ox 98.3 F 61 18 114/43 L 97 09/05/19 06:25 09/05/19 07:02 09/05/19 06:25 09/05/19 06:26 09/05/19 06:25 Oxygen Delivery Method Room Air Weight: 139 lb 15.896 oz Body Mass Index (BMI) 22.6 Finger Stick Blood Glucose 237 Intake and Output for Last 24 Hours 09/03/19 09/04/19 09/05/19 23:59 23:59 23:59 Intake Total 960 / 960 340 / 340 100 / 100 Output Total 0 / 0 Balance 960 / 960 340 / 340 100 / 100 Laboratory Results 09/04/19 11:27: POC Glucose 162 H 09/04/19 15:35: POC Glucose 65 L 09/04/19 22:40: POC Glucose 118 H 09/05/19 06:16: Phosphorus 3.7, Magnesium 2.3 09/05/19 06:28: POC Glucose 92 09/05/19 06:47: WBC 15.6 H, RBC 2.70 L, Hgb 8.0 L, Hct 24.3 L, MCV 90.0, MCH 29.6, MCHC 32.9, RDW Std Deviation 51.5 H, RDW Coeff of Soco 15.6 H, Plt Count 219, MPV 10.4, Immature Gran % (Auto) 1.100 H, Neut % (Auto) 82.3 H, Lymph % (Auto) 5.8 L, Edmonson % (Auto) 7.7, Eos % (Auto) 2.8, Baso % (Auto) 0.3, Absolute Neuts (auto) 12.8 H, Absolute Lymphs (auto) 0.90, Nucleated RBC % 0 09/05/19 06:47: PT 23.9 H, INR 2.2 Current Medications Acetaminophen (Tylenol) 650 mg PO Q6H PRN PRN PRN Reason: Pain Score 1-10/Temp > 100.7 F Last Admin: 09/04/19 22:42 Dose: 650 mg Documented by: [facility] Last Admin: 09/05/19 08:44 Dose: 200 mg Documented by: Amlodipine Besylate (Norvasc) 5 mg PO DAILY [facility] Last Admin: 09/05/19 08:45 Dose: 5 mg Documented by: Atorvastatin Calcium (Lipitor) 40 mg PO QHS [facility] Last Admin: 09/04/19 22:41 Dose: 40 mg Documented by: Clopidogrel Bisulfate (Plavix) 75 mg PO DAILY [facility] Last Admin: 09/05/19 08:45 Dose: 75 mg Documented by: Dextrose (D50w Syringe) 0 gm IV X1 PRN; Protocol PRN Reason: Hypoglycemia Glucagon () 1 mg IM .X1 PRN PRN Reason: Hypoglycemia Hydralazine HCl (Apresoline) 50 mg PO TID [facility] Last Admin: 09/05/19 06:26 Dose: 50 mg Documented by: Sodium Chloride () 250 mls @ 15 mls/hr IV .[id number] PRN PRN Reason: Saline Flush Sodium Chloride () 250 mls @ 15 mls/hr IV .[id number] PRN PRN Reason: Additional IVPB Infusion Insulin Glargine (Lantus ([facility])) 25 units SC DAILY [facility] Last Admin: 09/05/19 08:44 Dose: 25 u Documented by: Insulin Human Lispro (Humalog Kwikpen ([facility])) 0 unit SC ACHS [facility]; Protocol Last Admin: 09/05/19 06:29 Dose: Not Given Documented by: Magnesium Oxide (Mag-Ox 400) 400 mg PO DAILY [facility] Last Admin: 09/05/19 08:45 Dose: 400 mg Documented by: Oxycodone HCl (Oxyir) 5 mg PO Q4H PRN PRN PRN Reason: Pain Score 4-10/10 Last Admin: 09/03/19 23:03 Dose: 5 mg Documented by: Pantoprazole Sodium (Protonix) 40 mg PO DAILY [facility] Last Admin: 09/05/19 08:45 Dose: 40 mg Documented by: Sertraline HCl (Zoloft) 50 mg PO DAILY [facility] Last Admin: 09/05/19 08:46 Dose: 50 mg Documented by: Sodium Chloride () 10 - 40 ml IV UD PRN PRN Reason: SALINE FLUSH Last Admin: 09/04/19 22:45 Dose: 10 ml Documented by: Tamsulosin HCl (Flomax) 0.4 mg PO QHS [facility] Last Admin: 09/04/19 22:41 Dose: 0.4 mg Documented by: Home Medications: Medications to take at Discharge Allopurinol [Zyloprim] 200 mg PO DAILYCM 12/31/16 Insulin Detemir [Levemir] 25 unit SQ DAILY 12/31/16 Atorvastatin Calcium [Lipitor] 40 mg PO QHS 04/09/18 Pantoprazole Sodium [Protonix] 40 mg PO DAILY 04/09/18 Sertraline HCl [Zoloft] 50 mg PO DAILY 04/09/18 Tamsulosin HCl [Flomax] 0.4 mg PO QHS 04/09/18 hydrALAZINE [Apresoline] 50 mg PO TID 04/09/18 Amlodipine [Norvasc] 5 mg PO DAILY 07/27/19 Cetirizine HCl 10 mg PO DAILY 07/27/19 Clopidogrel Bisulfate [Clopidogrel] 75 mg PO DAILY 07/27/19 Darbepoetin Daniel in Polysorbat [Aranesp] 40 mcg IJ QMONTH 07/27/19 Magnesium Oxide 400 mg PO DAILY 07/27/19 Nitroglycerin 0.4 mg SL Q5M PRN 07/27/19 Warfarin Sodium [Coumadin] 4 mg PO SUMOTUTHFR 09/02/19 Warfarin Sodium [Coumadin] 6 mg PO WESA 09/02/19 Primary Care Physician: Donavon Hamilton MD [Primary Care Provider] - Please follow up with your Primary Care Physician in: 1 Week Please Follow Up With: Anthony Al MD When: Nephrology and dialysis as scheduled Please Follow Up With: Emelina Conway MD - hematology When: Call to establish for evaluation of intermittent leukocytosis Please Follow Up With: Alfred Mead MD When: as scheduled [facility] Minutes spent on discharge:: 35 Patient Condition:: Stable Medical Necessity - Tobacco Use Smoking Status: Never smoker Tobacco Use: Non-smoker Meaningful Use Info Meaningful Use Diagnoses (Choose all that apply): None applicable
[2019-09-05 09:25] VITALS: BP 124/58; PULSE 58; RESP 16; TEMP 36.7; O2SAT 97
--- NOTE | 2019-09-05 11:53 | NURSING ---
attempted to call report to [facility] kept being put on hold and hen they hang up called again left number with real estate legal secretary to have nurse call
== END 2019-09-05 11:50 | disposition skilled nursing facility (03) | DRG 947 ==
LOC: ED 11:31 → PCU 11:40
PROVIDERS: Family Medicine; Nurse Practitioner Family; Admitting Provider Internal Medicine; Emergency Provider Emergency Medicine; PCP Family Medicine; Visit Provider Internal Medicine
DX: R53.81 Other malaise (principal); N18.6 End stage renal disease; I12.0 Hypertensive chronic kidney disease with stage 5 chronic kidney disease or end stage renal disease; I48.20 Chronic atrial fibrillation, unspecified; I48.92 Unspecified atrial flutter; R29.6 Repeated falls; D63.1 Anemia in chronic kidney disease; D72.829 Elevated white blood cell count, unspecified; E11.22 Type 2 diabetes mellitus with diabetic chronic kidney disease; I25.10 Atherosclerotic heart disease of native coronary artery without angina pectoris; I25.2 Old myocardial infarction; F03.90 Unspecified dementia, unspecified severity, without behavioral disturbance, psychotic disturbance, mood disturbance, and anxiety; F32.9 Major depressive disorder, single episode, unspecified; M1A.9XX0 Chronic gout, unspecified, without tophus (tophi); K21.9 Gastro-esophageal reflux disease without esophagitis; N40.0 Benign prostatic hyperplasia without lower urinary tract symptoms; E78.00 Pure hypercholesterolemia, unspecified; E87.5 Hyperkalemia; Z99.2 Dependence on renal dialysis; Z95.1 Presence of aortocoronary bypass graft; Z95.3 Presence of xenogenic heart valve; Z79.4 Long term (current) use of insulin; Z79.01 Long term (current) use of anticoagulants; Z79.02 Long term (current) use of antithrombotics/antiplatelets; Z79.899 Other long term (current) drug therapy; Z86.73 Personal history of transient ischemic attack (TIA), and cerebral infarction without residual deficits
CPT/HCPCS: 36415; 70450; 71045; 72125; 72170; 73080; 73564; 73630; 80048; 82550; 82962; 83735; 84100; 85025; 85027; 85610; 85730; 87040; 90937; 93005; 93306; 97110; 97116; 97162; 97166; 97530; 99285; J7030; A4216; G0257

== ENCOUNTER → 2019-09-09 | Outpatient (CLI) | payer SELFPAY ==
[2019-09-02 12:17] VITALS: BMI 22.6
[2019-09-09 19:10] LABS: Body Fluid QC Type(s) BF1Q; CRYSTALS, BODY FLUID See PATH REV; Source- Body Fluid SYNOVIAL
[2019-09-10 09:44] LABS: Pathologist Review Reviewed
== END | disposition home or self-care (01) ==
PROVIDERS: PCP Family Medicine; Referring Provider Registered Nurse; Visit Provider Registered Nurse
DX: M70.21 Olecranon bursitis, right elbow (principal)
CPT/HCPCS: 87070; 87075; 87077; 87186; 87205; 89060

== ENCOUNTER → 2019-10-27 15:43 | Outpatient (CLI) | payer MEDICARE, OTHER, SELFPAY ==
[2019-10-05 14:12] VITALS: BMI 23.3
[2019-10-27 16:35] LABS: Absolute Lymphocyte Count 1.23 X10^3/uL (0.83-4.51); Absolute Neutrophil Count 9.3 X10^3/uL (2.0-7.7); Basophil# 0.08 X10^3/uL; Basophil% 0.7 % (0-1); Eosinophil# 0.43 X10^3/uL; Eosinophils% 3.6 % (0-5); Hematocrit 39.7 % (40-54); Hemoglobin 12.5 g/dL (13.0-16.5); Lymphocyte # 1.23 X10^3/ul (4.0); Lymphocyte % 10.4 % (19-41); Mean Corp Hgb Conc 31.5 g/dL (32-36); Mean Corpuscular Hgb 29.4 pg (27.0-32.0); Mean Corpuscular Volume 93.4 fL (80-94); Mean Platelet Vol. 11.8 fl (6.2-12.0); Monocyte# 0.61 X10^3/uL; Monocyte% 5.2 % (0-10); NRBC Flagged by Analyzer 0 % (0-5); Neutrophil % 78.7 % (47-70); Platelet Count 189 K/mm3 (150-450); RBC Distribution Width CV 15.9 % (11.6-14.6); RBC Distribution Width SD 54.3 fl (35.1-43.9); Red Blood Count 4.25 M/mm3 (4.6-6.2); White Blood Count 11.8 K/mm3 (4.4-11.0)
[2019-10-27 16:56] LABS: Hemoglobin A1c 5.7 % (3.8-5.6)
[2019-10-27 17:08] LABS: ALB/GLOB Ratio 0.9 RATIO (0.9-2.4); AST(SGOT) 31 U/L (15-37); Alanine Aminotransfer ALT/SGPT 59 U/L (16-61); Albumin, Serum 3.6 g/dL (3.2-5.0); Alkaline Phosphatase 214 U/L (45-117); Anion Gap 12 (5-15); BUN 46 mg/dL (7-18); BUN/Creat Ratio 7.8 RATIO (10-20); Calcium,Total 9.1 mg/dL (8.5-10.1); Chloride 97 mmol/L (98-107); Creatinine, Serum 5.87 mg/dL (0.70-1.30); EST Glomerular Filtration Rate 10 mL/min (>60); Est Glom Filt Rate - Afr Amer 12 mL/min (>60); Globulin 3.8 g/dL (2.2-4.2); Glucose 345 mg/dL (74-106); Potassium 4.2 mmol/L (3.5-5.1); Protein, Total 7.4 g/dL (6.4-8.2); Sodium Level 135 mmol/L (136-145); Uric Acid 4.1 mg/dL (3.5-7.2)
== END ==
PROVIDERS: PCP Nurse Practitioner Family; Visit Provider Internal Medicine Rheumatology
DX: M10.9 Gout, unspecified (principal); Q66.70 Congenital pes cavus, unspecified foot; M17.0 Bilateral primary osteoarthritis of knee; I50.9 Heart failure, unspecified; E11.9 Type 2 diabetes mellitus without complications
CPT/HCPCS: 36415; 80053; 83036; 84550; 85025

== ENCOUNTER 2019-12-29 14:00 | Outpatient (RCR) | payer MEDICARE, OTHER, SELFPAY ==
[2019-10-05 14:12] VITALS: BMI 23.3
--- NOTE | 2019-10-13 16:56 | HP.PTEVAL ---
Patient's Visit Information KENIA MATA III is a 78 year old M referred to Physical Therapy by SHRUTHI Diaz with a diagnosis of R hip pain. Date of Evaluation: 10/13/19 Physical Therapist: Anthony Jerez DPT - Visit Plan Frequency: 2-3x /Week Duration: 4-6 Weeks Plan: Start with B hip flexor and HS stretching, manual DFM to R hip flexor (with stretcing ie leonardo stretching). Add in BLE strengtheing, gait with AD initially and dynamic balance activies. - Subjective Pt. is here today for his initial evaluation with diagnosis of R hip pain, repeated falls, debility and difficulty walking. Pt. reports having an OK with subsequent stents with heart cath. Pt. arrives todaywith , but she stayed in the waiting room. Pt. reports beign in hospital for ~30 days. Pt. reports justed starting to walk 2 days prior to leaving. Pt arrives using SPC walking back to evaluation rooms. After talking to patient he was a little confused on dates adn progression of his recent medical history. I talked to his who informed me that everything started in 2019. He became ill in [place], he was transported back to [place]. Then had 3 stints placed in hir heart with a valve replacement. He went back home, had a 2 falls and became very weak. He was again DC, but off of his blood thinner due to edema after the falls. 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 With in a few days he had improved from this, but was determined that he should go to a long-term for rehab. He was there for 5 weeks and was DC last week. His L sided weakness has all but resolved. He also has kidney dialysis M,W,F. Pt. now has R sided hip pain that is effecting his walking. He has decreaed pain with use of a cane, but uses on the wrong side. pt. is hopeful to increase his strength and decrease his R hip pain in order to get back to all recreational activities without limitations. - Pain R knee Pain Intensity (Out of 10): 1 Pain Intensity Range: 0, 3 R groin Pain Intensity (Out of 10): 0 Pain Intensity Range: 0 - Objective POSTURE: Pt. has sway back posture in stance. Wide ALEX, with heavy use of AD in stance. PALPATION: pt. has increased tenderness along anterior R hip, pain at iliopsoas muscle belly. No pain with rest of palpation. No distal edema noted. NEURO: normal througout. light decreased sensation of BLEs. ROM: Pt. has goot ROM throughout bilaeral LEs. Pt. has tight B HS and tight Hip flexors (R worse than L). MMT: RLE- ankle 4+/5 throughout; knee 4+/5 throughout; hip- flexion 4-/5 increase NW, abd 4/5, exte 4/5. LLE- ankle 4+/5 throughout; knee- exte 5-/5, flexion 4+/5; hip- flexion 5-/5, abd 4+/5, ext 4/5. GAIT: Pt. ambulates with SPC in R hand. Pt. has antalgic pattern during R stance phase. Pt. hesitant with his movements, taking frequent stops to gather his stability. Pt. is able to ambuate without AD, but has increased pain and increased instability. - Balance Scores Functional Gait Assessment Score: 8 % Disability: 73.3400 CATSIB Score (Max score 120 seconds): 20 - Goals Goal 1:: LTG: Pt. to be I with HEP. Goal Time Frame: 4-6 Weeks Goal 2:: STG: Pt. to ambulate with single point cane with decreased antalgic pattern community level distances. Goal Time Frame: 2-4 Weeks Goal 3:: LTG: Pt. to ambulate with least restrictive device with normalized gait pattern without increase in symptoms. Goal Time Frame: 4-6 Weeks Goal 4:: LTG: pt. have increased BLE strength by 1/2 grade of all effected musculature. Goal Time Frame: 4-6 Weeks Goal 5:: LTG: Pt. to have increaed FGA to 13/30 indicating reduced risk for future falls. Goal Time Frame: 4-6 Weeks - Rehabilitation Potential Physical Therapy Diagnosis: Pt. has signs and symptoms consistent with R hip pain, but also is recovering from repeated falls, difficulty with walking, OK, reported CVA. Pt. has marked generalized weakness, difficulty walking and increased R hip pain. Pt. would benefit from PT to address above limitations progressing back to previous levels of functional without limitations. Rehabilitation Potential: Fair - Anticipated Interventions Patient/Client Instruction: Educate patient on: Condition, Plan of Care, Risk Factors, Benefits of Fitness Program For the Purpose of:: To improve decision making, To facilitate caregiver knowledge, To improve self management, To prevent re-injury, To improve ability to perform tasks related to life management, To improve tolerance to ADL's Therapeutic Exercise to Include: Strength training, Power training, Endurance training, Balance training, Postural training, Flexibilty training, Gait and locomotor training, Neuromotor development, via Neurocom Balance Mas, Active ROM, Dynamic Lumbar Stabilization For the Purpose of:: To decrease pain, To decrease swelling/inflammation, To increase ROM, To improve nutrient delivery to tissue, To increase oxygenation perfusion, To improve muscle performance and motor function, To improve ability to perform ADL's, To increase tolerance to activity/condition/position, To improve gait and locomotor functions, To improve health of tissue, To decrease soft tissue restriction, To improve endurance, To improve balance, To improve safety with gait Thank you for the opportunity to evaluate your patient. For Medicare and Medicare HMO plans, please review the plan of care and approve it. It will need to be FAXED BACK to us at [phone] for Medicare purposes. For Medicare only, by signing this I certify the plan of care. Please let me know if there are questions or concerns regarding this plan of care. Physician Signature: Date:
--- NOTE | 2019-11-10 16:55 | HP.PTREVAL ---
Gina Sloan, CRIS-Aaron, It has been my pleasure to treat KENIA MATA III over the last 9 visits for R hip pain. Please see the progress note below for an update on the physical therapy plan of care! Subjective: Pt. reports he is no longer having any groin pain. Pt. is walking with a single poing cane. No recent falls noted. No pain reported today. Objective/Function: ROM: Pt. has good ROM of BLEs, increased hip strength abd 4/5 bilatearally. Pt. has difficulty with balance in SLS as well. Narrow ALEX is difficult as well. Pt. continues to fatigue rapidly, especially with walking. Plan Plan: Cont. wtih POC. Work on walkin endurance with progression towards community level distances. Add in hip strengthening, especially hip abd and dynamic balance progression. Goals Goal 1:: LTG: Pt. to be I with HEP. Goal Time Frame: 4-6 Weeks Goal Progress: Progressing Goal 2:: STG: Pt. to ambulate with single point cane with decreased antalgic pattern community level distances. Goal Time Frame: 2-4 Weeks Goal Progress: Progressing Goal 3:: LTG: Pt. to ambulate with least restrictive device with normalized gait pattern without increase in symptoms. Goal Time Frame: 4-6 Weeks Goal Progress: Progressing Goal 4:: LTG: pt. have increased BLE strength by 1/2 grade of all effected musculature. Goal Time Frame: 4-6 Weeks Goal Progress: Progressing Goal 5:: LTG: Pt. to have increaed FGA to 13/30 indicating reduced risk for future falls. Goal Time Frame: 4-6 Weeks Goal Progress: Progressing Anticipated Interventions Patient/Client Instruction: Educate patient on: Condition, Plan of Care, Risk Factors, Benefits of Fitness Program For the Purpose of:: To improve decision making, To facilitate caregiver knowledge, To improve self management, To prevent re-injury, To improve ability to perform tasks related to life management, To improve tolerance to ADL's Therapeutic Exercise to Include: Strength training, Power training, Endurance training, Balance training, Postural training, Flexibilty training, Gait and locomotor training, Neuromotor development, via Neurocom Balance Mas, Active ROM, Dynamic Lumbar Stabilization For the Purpose of:: To decrease pain, To decrease swelling/inflammation, To increase ROM, To improve nutrient delivery to tissue, To increase oxygenation perfusion, To improve muscle performance and motor function, To improve ability to perform ADL's, To increase tolerance to activity/condition/position, To improve gait and locomotor functions, To improve health of tissue, To decrease soft tissue restriction, To improve endurance, To improve balance, To improve safety with gait Please do not hesitate to contact me at [phone] by phone or if you have questions or concerns regarding this new plan of care! Sincerely, LANCE GodinezT
--- NOTE | 2019-12-17 12:48 | HP.PTREVAL_ITS ---
Gina Sloan, SHRUTHI, It has been my pleasure to treat KENIA MATA III over the last 12 visits for R hip pain. Please see the progress note below for an update on the physical therapy plan of care! Subjective: Pt. is back today in PT after having fistula implanted in L arm. He reports being in hospital for ~2 weeks. Pt. is still having dialysis x3 days per week (M,W,F). Pt. reports overall increased fatigue. No falls reported. Pt. reports beign hopeful to increase his strength again to get back to all household activities with reduced fatigue. Objective/Function: TU.7sec with SPC. 5 MWT: 274' with standard cane. 30 sec sit to stand test: 15sec- very fatigued. MMT: BLEs 4+/5 throughout; except 4/5 hip abd and flexion. No pain with testing. FGA: without AD: 1630 difficulty wih narrow ALEX and with eyes closed. Pt. was in hospital for ~2 weeks with gettign fistual proceedure. Pt. reports having generalized fatigue and difficulty with balance, but is no longer having any groin/hip pain. Plan Plan: Resume endurance exercises, BLE strengthening, core strengthening, gait pr ogression and balance training. Pt. does fatigue rapidly and does require frequent rest periods. I want to focus improving on these limitations progressing back to community mobility as able. Goals Goal 1:: LTG: Pt. to be I with HEP. Goal Time Frame: 4-6 Weeks Goal Progress: Progressing Goal 2:: NEW GOAL: Pt. to complete TUG with SPC under 9sec. Goal Time Frame: 2-4 Weeks Goal Progress: Progressing Goal 3:: LTG: Pt. to ambulate with least restrictive device with normalized gait pattern without increase in symptoms. Goal Time Frame: 4-6 Weeks Goal Progress: Progressing Goal 4:: LTG: pt. have increased BLE strength by 1/2 grade of all effected musculature. Goal Time Frame: 4-6 Weeks Goal Progress: Progressing Goal 5:: LTG: Pt. to have increaed FGA to 17/30 indicating reduced risk for future falls. Goal Time Frame: 4-6 Weeks Goal Progress: Progressing Goal 6:: LTG: to complete 5 MWT with greater than 500ft. Anticipated Interventions Patient/Client Instruction: Educate patient on: Condition, Plan of Care, Risk Factors, Benefits of Fitness Program For the Purpose of:: To improve decision making, To facilitate caregiver knowledge, To improve self management, To prevent re-injury, To improve ability to perform tasks related to life management, To improve tolerance to ADL's Therapeutic Exercise to Include: Strength training, Power training, Endurance training, Balance training, Postural training, Flexibilty training, Gait and locomotor training, Neuromotor development, via Neurocom Balance Mas, Active ROM, Dynamic Lumbar Stabilization For the Purpose of:: To decrease pain, To decrease swelling/inflammation, To increase ROM, To improve nutrient delivery to tissue, To increase oxygenation perfusion, To improve muscle performance and motor function, To improve ability to perform ADL's, To increase tolerance to activity/condition/position, To impro ve gait and locomotor functions, To improve health of tissue, To decrease soft tissue restriction, To improve endurance, To improve balance, To improve safety with gait Please do not hesitate to contact me at [phone] by phone or if you have questions or concerns regarding this new plan of care! Sincerely, LANCE GodinezT
== END 2019-12-29 19:00 | disposition home or self-care (01) ==
LOC: PT 14:00
PROVIDERS: PCP Nurse Practitioner Family; Referring Provider Nurse Practitioner Family; Visit Provider Nurse Practitioner Family
DX: R26.2 Difficulty in walking, not elsewhere classified (principal); M25.551 Pain in right hip
CPT/HCPCS: 97110; 97161; 97164; 97530

== ENCOUNTER 2020-01-06 07:32 | Inpatient (IN) | payer MEDICARE, OTHER, SELFPAY ==
[2019-10-05 14:12] VITALS: BMI 23.3
[2020-01-06] VITALS (9 sets, daily range): BP systolic 124–152; BP diastolic 53–68; PULSE 57–76; RESP 16–20; TEMP 36.6–36.9; O2SAT 94–98; BMI 23.9; BMI 23.2
--- NOTE | 2020-01-06 08:04 | CT_ITS ---
STUDY: CT BRAIN WITHOUT CONTRAST REASON FOR EXAM: Male, 79 years old. FELL YESTERDAY/ON THINNERS RADIATION DOSAGE (If Supplied By Facility): CTDIvol = ( 44.99 ) mGy, DLP = ( 846.73 ) mGycm TECHNIQUE: Transaxial CT imaging of the brain was performed without administration of intravenous contrast material. Individualized dose optimization techniques were used for this CT. COMPARISON: Comparison is made with prior study dated 09/02/2019. FINDINGS: Normal soft tissue structures. Normal calvarium. There is moderate cerebral atrophy with widening of the extra-axial spaces and ventricular dilatation. There are areas of decreased attenuation within the white matter tracts of the supratentorial brain, consistent with microvascular disease changes. Normal basal ganglia and thalami. Normal brainstem. There is mild cerebellar atrophy. There is no intracranial hemorrhage. There are no findings of an acute ischemic infarction. Atherosclerotic plaque formation of the vertebral arteries and cavernous portions of the internal carotid arteries bilaterally. Normal visualized paranasal sinuses. CT/Brain/Head without Contrast IMPRESSION: Chronic involutional changes of the brain. Electronically Signed: Jg Guerra, at 8:35 EDT , Service support ,
[2020-01-06 08:17] LABS: Absolute Lymphocyte Count 1.01 X10^3/uL (0.83-4.51); Absolute Neutrophil Count 12.4 X10^3/uL (2.0-7.7); Basophil# 0.06 X10^3/uL; Basophil% 0.4 % (0-1); Eosinophils% 2.7 % (0-5); Hematocrit 30.9 % (40-54); Hemoglobin 10.1 g/dL (13.0-16.5); Lymphocyte # 1.01 X10^3/ul (4.0); Lymphocyte % 6.8 % (19-41); Mean Corp Hgb Conc 32.7 g/dL (32-36); Mean Corpuscular Hgb 30.3 pg (27.0-32.0); Mean Corpuscular Volume 92.8 fL (80-94); Mean Platelet Vol. 11.7 fl (6.2-12.0); Monocyte# 0.89 X10^3/uL; NRBC Flagged by Analyzer 0 % (0-5); Neutrophil # 12.36 X10^3/uL (2.7-7.7); Neutrophil % 83.4 % (47-70); Platelet Count 119 K/mm3 (150-450); RBC Distribution Width CV 15.3 % (11.6-14.6); RBC Distribution Width SD 52.4 fl (35.1-43.9); Red Blood Count 3.33 M/mm3 (4.6-6.2); White Blood Count 14.8 K/mm3 (4.4-11.0)
[2020-01-06 08:25] LABS: Anion Gap 11 (5-15); BUN 36 mg/dL (7-18); BUN/Creat Ratio 6.1 RATIO (10-20); Calcium,Total 8.6 mg/dL (8.5-10.1); Chloride 92 mmol/L (98-107); Creatinine, Serum 5.88 mg/dL (0.70-1.30); EST Glomerular Filtration Rate 10 mL/min (>60); Est Glom Filt Rate - Afr Amer 12 mL/min (>60); Estimated Creatinine Clearance 9.04 ml/min; Glucose 136 mg/dL (74-106); Potassium 3.8 mmol/L (3.5-5.1); Sodium Level 132 mmol/L (136-145)
--- NOTE | 2020-01-06 08:25 | RAD_ITS ---
STUDY: X-RAY - PELVIS AND LEFT HIP REASON FOR EXAM: Male, 79 years old. FALL, LEFT HIP PAIN WITH DEFORMITY TECHNIQUE: 3 views of the pelvis and hip. COMPARISON: None. FINDINGS: There is a non-specific bowel gas pattern. There are atherosclerotic vascular calcifications of the pelvic arteries. There is narrowing with cortical sclerosis and osteophyte formation of the sacroiliac joint consistent with degenerative osteoarthritic changes. Healed right superior and inferior pubic rami fractures. Normal pubic symphysis. Normal bilateral ischial tuberosities. There is evidence of an impacted basi-cervical fracture of the proximal left femur. RAD/HIP, UNI W/ Pelvis 2-3 Views IMPRESSION: Impacted basicervical fracture of the proximal left femur. Electronically Signed: Jg Guerra, at 8:48 EDT , Service support ,
[2020-01-06 08:29] LABS: Prothrombin Time (Protime)PT. 35.9 SECONDS (11.7-14.9)
--- NOTE | 2020-01-06 08:55 | ED.RN ---
DR BOONE AND HOSPITALIST PAGED
--- NOTE | 2020-01-06 08:56 | EKG12_ITS ---
Test Reason : FALL Blood Pressure : / mmHG Vent. Rate : 063 BPM Atrial Rate : 060 BPM P-R Int : 000 ms QRS Dur : 106 ms QT Int : 470 ms P-R-T Axes : 000 029 070 degrees QTc Int : 480 ms Atrial fibrillation Incomplete right bundle branch block Nonspecific ST abnormality Prolonged QT Abnormal ECG Confirmed by MABEL REECE ([id number]), newspaper or periodical editor MAURILIO SERRANO ([id number]) on 01/11/2020 2:21:21 PM Referred By: GAMA Confirmed By:MABEL REECE
--- NOTE | 2020-01-06 08:56 | RAD_ITS ---
STUDY: X-RAY CHEST REASON FOR EXAM: Male, 79 years old. Fall, hip fracture today, pre op TECHNIQUE: Single AP portable view of the chest. COMPARISON: Comparison is made with prior examination dated 09/02/2019. FINDINGS: A left-sided double-lumen catheter is seen with the tip in the right atrium. Pleural-parenchymal changes seen at the left lung base. This has progressed as compared to prior study. This may represent scarring. There is no demonstrated pleural abnormality. Sternal cerclage wires are present from a prior sternotomy. Moderate cardiomegaly. Prior mitral valve and aortic valve replacement. Normal mediastinum and van. Normal visualized pulmonary arteries. Normal visualized aortic arch and descending thoracic aorta. Normal visualized thoracic spine. Normal visualized ribs, clavicles, and shoulders. There is no demonstrated abnormality of the visualized soft tissue structures of the upper abdomen. RAD/Chest 1 View (Portable) IMPRESSION: Cardiomegaly. Pleural parenchymal changes at the left lung base. This has progressed as compared to prior study. Moderate cardiomegaly and prior aortic and mitral valve replacement. Electronically Signed: Jg Guerra, at 10:29 EDT , Service support ,
[2020-01-06] MEDS: 0.9% Normal Saline 1,000 ML 15 ML IV (09:01)
--- NOTE | 2020-01-06 09:07 | ED.VISSUMM ---
- ER Visit Summary Date of Service: 01/06/20 Chief Complaint: [Fall and left groin pain] History of Present Illness: The patient is a 79 M [presents the emergency department after sustaining a fall yesterday. Patient was at home when he stubbed his toe and had a mechanical fall. Patient states that his then try to roll him over onto his back and is when he noticed severe pain in his left hip. Patient unable to bear weight. He presents via EMS. Patient has history of coronary artery disease, hypertension, A. fib, gout, and end-stage renal disease. Patient has history of prior CABG and aortic valve repair. Patient is currently on warfarin.] Patient's last dialysis was 2 days ago and he is scheduled to go today. Physical Examination: [HEENT-PERRLA, EOMI. Cranial nerves II through XII grossly intact. TMs clear. Mucous membranes moist. No adenopathy. Cardiovascular-regular rate and rhythm without murmur or ectopy Lungs-clear to auscultation, chest wall stable without crepitus or subcu emphysema Abdomen-normoactive bowel sounds, soft, nontender, no rebound or rigidity, no peritoneal signs. Extremities-intact ?4, normal range of motion, normal pulses. Left hip-patient does have pain with logrolling and palpation. No obvious deformity noted. He is neurovascular intact distally.] Test Results: [CBC with differential shows a white count 14.8, hemoglobin 10, hematocrit 31, plates 119. Chemistries unremarkable. BUN was 36 and creatinine 5.88. PT and INR pending. X-rays of the left hip showed a subcapital fracture. Patient also had a CT scan of the brain without contrast that showed nothing acute.] Emergency Department Course and Treatment: Patient had IV line established on arrival. Patient was medicated with morphine 4 mg IV and 4 mg of Zofran. Case will be discussed with hospitalist and orthopedic surgeon on-call.] Treatment Plan: [Admit] Disposition: [Admit] Impression: [Mechanical fall Left hip fracture Coumadin coagulopathy] Chronic kidney disease This note was generated with [employer] software. It may contain incorrect words, spelling, and punctuation that were not noted in review of the chart prior to signing ED Disposition - Plan for ED Patient: Referrals: Gina Sloan, NIKOLASC [Primary Care Provider] -
[2020-01-06 09:38] LABS: International Normalized Ratio 3.6
[2020-01-06] MEDS: Ondansetron 4 MG/2 ML Vial IV ×2 (09:53→23:58)
[2020-01-06] MEDS: fentaNYL 100 MCG/2 ML Ampul 50 MCG IV (09:54)
--- NOTE | 2020-01-06 09:56 | NURSING ---
MED SURG LT HIP FX ALISON
--- NOTE | 2020-01-06 10:09 | PCM.HP.STD ---
Problem List (1) Hip fracture, left Status: Acute History of Present Illness Date of Admission: 01/06/20 Chief Complaint: L groin pain s/p fall The patient is a 79 year old M who presented to the ED s/p a mechanical fall yesterday and is c/o L groin pain. He has a PMH of ESRD and is HD dependent (Dr. Al), Afib, alf OAC, BPH, Dementia, CAD, DM-2, Chronic Anemia, HTN, HPL, depression, GERD, and Gout. He reported initially that last pm he had a mechanical fall after tripping over his 's slippers and had pain after she rolled him to help him up. He is unable to bear weight and per the squad they have been called to his house several times recently for falls. He is on coumadin and Plavix and his last doses were presumed to be 01/04 but he cannot confirm this for us. He is a poor historian and his is reported to be on her way in to the hospital. He is due for HD today. He reports that he feels well otherwise. VSS. Lab work shows a mild leukocytosis and anemia. Hgb is stable. His INR is 3.6 and sCr is 5.88 but pt is due for HD today. he has slight troponin elevation but upon review it is the lowest one we have in his records. His CXR is pertinent for cardiomegaly on AP and HD catheter is in place L (IJ). EKG show a-fib with rate control and no acute ST changes. He states his pain is currently controlled as he just received 50 mcg of Fentanyl. Past Medical History Past Medical History (Chronic Problems): Chronic Problems (Last Reviewed 01/06/20 @ 10:[address] Heidi Hassan, DO) History of myocardial infarction (Chronic) Hx of CABG (Chronic) DM (diabetes mellitus) (Chronic) HTN (hypertension) (Chronic) Pure hypercholesterolemia (Chronic) H/O aortic valve repair (Chronic) aoritc bovine 2010 replacement (Chronic) H/O mitral valve repair (Chronic) Afib (Chronic) Gout (Chronic) Atrial fibrillation and flutter (Chronic) CAD (coronary artery disease) (Chronic) Chronic a-fib (Chronic) Debility (Chronic) ESRD (end stage renal disease) (Chronic) Anemia (Chronic) Medical History: Medical History (Last Reviewed 01/06/20 @ 10:[address] 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 Hypertension I10 Allergies escitalopram [From Lexapro] Allergy (Severe, Verified 01/06/20 07:38) Unknown levofloxacin [From Levaquin] Allergy (Severe, Verified 01/06/20 07:38) Other DRUG INDUCED LUPUS Penicillins Allergy (Severe, Verified 01/06/20 07:38) Unknown CONFUSED Opioids - Morphine Analogues Adverse Reaction (Severe, Verified 01/06/20 07:38) Other CONFUSION Home Medications: Ambulatory Orders Medication Instructions Recorded Allopurinol [Zyloprim] 200 mg PO DAILYCM 12/31/16 Insulin Detemir [Levemir] 25 unit SQ DAILY 12/31/16 Atorvastatin Calcium [Lipitor] 40 mg PO QHS 04/09/18 Tamsulosin HCl [Flomax] 0.4 mg PO QHS 04/09/18 hydrALAZINE [Apresoline] 50 mg PO TID 04/09/18 Amlodipine [Norvasc] 5 mg PO DAILY 07/27/19 Cetirizine HCl 10 mg PO DAILY 07/27/19 Clopidogrel Bisulfate [Clopidogrel] 75 mg PO DAILY 07/27/19 Darbepoetin Daniel in Polysorbat 40 mcg IJ QMONTH 07/27/19 [Aranesp] Magnesium Oxide 400 mg PO DAILY 07/27/19 Nitroglycerin 0.4 mg SL Q5M PRN 07/27/19 Warfarin Sodium [Coumadin] 4 mg PO SUMOTUTHFR 09/02/19 Sertraline HCl [Zoloft] 75 mg PO DAILY #0 09/05/19 Omeprazole [Prilosec] 20 mg PO DAILY 10/05/19 Surgical History: Surgical History (Last Reviewed 01/06/20 @ 10:[address] Heidi Hassan DO) H/O aortic valve replacement Z95.2 10 YEARS AGO 2010 History of heart artery stent Z95.5 [facility] History of mitral valve repair Z98.890 Surgical History: - - CABG x 1, Bovine AVR, Mitral Valve Repair, L TKR, Ear Surgery. Psychiatric History: Anxiety, Depression Lives: Spouse/ Significant Other Smoking Status: Never smoker Tobacco Use: Non-smoker Alcohol: None Drugs: None - *Family History Maternal Family History: Family History (Last Updated 10/05/19 @ 14:26 by Aubree Pteerson) Father Carotid artery disease Hypertension Mother Hypertension History Items: Diabetes, Heart Disease, Hypertension Paternal Family History: Family History (Last Updated 10/05/19 @ 14:26 by Aubree Peterson) Father Carotid artery disease Hypertension Mother Hypertension History Items: Diabetes, Heart Disease, Hypertension Review of Systems Constitutional: Denies: Anorexia, Chills, Fever, Night Sweats, Malaise, Weakness, Weight Change, Fatigue Eyes: Denies: Blurred vision, Double vision, Drainage, Eyelid Inflammation, Pain, Redness HEENT: Denies: Difficulty Hearing, Ear Pain, Nasal bleeding, Nasal Congestion, Post Nasal Drip, Sinus Congestion, Sinus Drainage, Sore Throat Cardiovascular: Denies: Chest Pain, Chest Pressure, Chest Tightness, Edema, Heaviness, Light Headedness, Orthopnea, Palpitations, Paroxysmal Noc. Dyspnea, Syncope Respiratory: Denies: Cough, Pleuritic Pain, Shortness of Breath, Shortness of breath at rest, Shortness of breath upon exertion, Sputum production, Wheezing Gastrointestinal: Denies: Constipation, Diarrhea, Dyspepsia, Hematemesis, Hematochezia, Nausea, Melena, Vomiting Genitourinary: Denies: Dysuria, Frequency, Hematuria, Hesitancy, Incontinence, Nocturia, Retention, Urgency Musculoskeletal: Reports: Joint Pain, Joint Tenderness. Denies: Back Pain, Joint stiffness, Joint swelling, Leg Pain, Muscle pain, Neck Pain Skin: Denies: Dryness, Jaundice, Lesions, Pruritis, Rash, Skin Changes, Wounds Neurological: Reports: Balance problems, Confusion. Denies: Change in Speech Psychiatric: Reports: Depression. Denies: Anxiety Endocrine: Denies: Change in Body Habitus, Heat/ Cold Intolerance, Polydipsia, Polyuria Hematologic/ Lymphatic: Reports: Anemia. Denies: Adenopathy, Easy Bleeding, Petechiae, Purpura VTE Information - Inpt Only VTE Present on Admission: No VTE Mechan Device Prophylaxis: SCD's VTE Pharm Prophylaxis ordered?: Yes Patient Problems: Active and Suspected Problems (Last Reviewed 01/06/20 @ 10:[address] Heidi Hassan DO) Hip fracture, left (Acute) - Physical Exam Vitals/I&O's: Vital Signs Temp Pulse Resp BP Pulse Ox 97.9 F 64 18 152/62 H 96 01/06/20 09:46 01/06/20 09:55 01/06/20 09:55 01/06/20 09:55 01/06/20 09:55 Oxygen Delivery Method Room Air Weight: 67.2 kg Body Mass Index (BMI) 23.9 Finger Stick Blood Glucose 237 General: Alert, Cooperative, Well developed, Well nourished, Confused, - - elderly WM lying in bed, nsg at bedside, calm HEENT: Atraumatic, EOMI, Normocephalic, EAC Clear Oral: Moist Mucosa, No Gingival or Mucosal Lesions/ Ulcerations, - - Mallampati 2, fair dentition Neck: Supple, No JVD, Negative Carotid Bruits, Negative Hepatojugular Reflux, No Nodes, No Nuchal Rigidity, Trachea Midline, Thyroid Normal Size and Texture Lungs: Clear to auscultation, Normal air movement, No rhonchi, No wheeze, No rales Cardiovascular: Regular rate, Normal S1, Normal S2, No murmurs, No rub noted, No Gallop, - - irreg rhythm Abdomen: Bowel Sounds Present, Soft, Non Tender, Non-Distended, No hernias noted Extremities: No clubbing, No cyanosis, No edema, Capillary Refill Less than 3 Seconds, Peripheral Pulses Normal Musculoskeletal: No Muscle Wasting, Arthritic Changes, Tenderness - L groin Lymphatic: No Cervical, Supraclavicular, or Inguinal Adenopathy Neurological: Cranial nerves II-XII grossly intact, Deep Tendon Reflexes 2+/4 and Symmetrical, Neuro grossly intact, Muscle tone normal, Sensory exam intact to light touch and pain, Coordination normal Psych/Mental Status: Normal Affect, Appropriate, - - baseline confusion Laboratory Results 01/06/20 07:27: WBC 14.8 H, RBC 3.33 L, Hgb 10.1 L, Hct 30.9 L, MCV 92.8, MCH 30.3, MCHC 32.7, RDW Std Deviation 52.4 H, RDW Coeff of [place] 15.3 H, Plt Count 119 L, MPV 11.7, Immature Gran % (Auto) 0.700, Neut % (Auto) 83.4 H, Lymph % (Auto) 6.8 L, [place] % (Auto) 6.0, Eos % (Auto) 2.7, Baso % (Auto) 0.4, Absolute Neuts (auto) 12.4 H, Absolute Lymphs (auto) 1.01, Nucleated RBC % 0 01/06/20 07:27: PT 35.9 H, INR 3.6 H* 01/06/20 07:27: Sodium 132 L, Potassium 3.8, Chloride 92 L, Carbon Dioxide 29.0, Anion Gap 11, BUN 36 H, Creatinine 5.88 H, Estim Creat Clear Calc 9.04, Est GFR (MDRD) Af Amer 12 L, Est GFR (MDRD) Non-Af 10 L, BUN/Creatinine Ratio 6.1 L, Glucose 136 H, Calcium 8.6 01/06/20 07:39: Troponin I 0.057 H Current Medications Sodium Chloride () 1,000 mls @ 15 mls/hr IV .Q48H SUJEY Last Admin: 01/06/20 09:01 Dose: 15 mls/hr Documented by: Assessment/Plan All Active Problems (Last Reviewed 01/06/20 @ 10:[address] Heidi Hassan, DO) Leukocytosis (Acute) Elevated troponin (Acute) Hip fracture, left (Acute) L Impacted Basi-Cervical Fx of Proximal L Femur -admit to tele/medical -consult to ortho -ortho is aware of pt being on plavix -INR 3.6--> FFP per Ortho -repeat am INR -PT and OT to follow surgery -OR tomorrow--> ok for surgery here--> ortho ok with plavix, vitamin K IV today and then FFP 1 hr prior to OR tomorrow -d/w Dr. Diaz -no IVF -suspect will need placement/rehab after d/c -MACE score is 3 with 15% 30 day risk of [place] or cardiac arrest but no current cardiac sx Supratheraputic INR -INR 3.6 today -hold coumadin -FFP tomorrow before surgery, vitamin k today Troponin Elevation -pt always has elevated level and currently is lower than has been in past -no cardiac sx -ECG without changes -cycle troponin ESRD on HD -MWF HD -Dr. Al is nephro -consult placed Permanent A-fib/CAD/HTN/HPL/H/O AVR -stent placed in 06/2019 -unable to stop Plavix with new sent in last 6 mos (unclear if HOANG on not) -continue norvasc/statin/hydralazine -prn nitro -no current cardiac sx -ECHO done 08/2019 and EF 55-60% mild -will not need bridge to restart coumadin Anemia -chronic 2/2 renal dx -stable DM 2 -continue lantus -SSI -AC and HS BGT -NPO after MN so will give 15 u of lantus tonight Dementia -baseline - for consent Gout -continue home allopurinol BPH -continue Flomax DVT prophylaxis -heparin sub once INR down Code Status -Full Inpatient E&M: 09788 Subs Hosp L3
--- NOTE | 2020-01-06 11:10 | CON.PCM_ITS ---
Reason for Consult Date of Consultation: 01/06/20 Reason for Consultation: left hip pain History of Present Illness: The patient is a 79 year old M who tripped at home per . Unable to get up this morning and bear weight on left leg, so elizabeth called and brought to the hospital. Patient is a poor historian has dementia unable to answer questions appropriately. Does point to left hip when asked about pain. Does not recall the last time he ate. States he walks by himself. Per hospitalist note, elizabeth has been called to the home numerous times for falls. per chart: pt has a PMH of ESRD and is HD dependent (Dr. 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 Patient is due for dialysis today, his INR is over 3, his troponins were slightly elevated but after discussing with hospitalist this is the lowest they have been in the chart. not at bedside/nurse at bedside for eval.[] Past Medical History Past Medical History (Chronic Problems): Chronic Problems (Last Reviewed 01/06/20 @ 10:[address] Heidi Hassan, DO) History of myocardial infarction (Chronic) Hx of CABG (Chronic) DM (diabetes mellitus) (Chronic) HTN (hypertension) (Chronic) Pure hypercholesterolemia (Chronic) H/O aortic valve repair (Chronic) aoritc bovine 2010 replacement (Chronic) H/O mitral valve repair (Chronic) Afib (Chronic) Gout (Chronic) Atrial fibrillation and flutter (Chronic) CAD (coronary artery disease) (Chronic) Chronic a-fib (Chronic) Debility (Chronic) ESRD (end stage renal disease) (Chronic) Anemia (Chronic) Medical History: Medical History (Last Reviewed 01/06/20 @ 10:[address] 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 Hypertension I10 Allergies escitalopram [From Lexapro] Allergy (Severe, Verified 01/06/20 07:38) Unknown levofloxacin [From Levaquin] Allergy (Severe, Verified 01/06/20 07:38) Other DRUG INDUCED LUPUS Penicillins Allergy (Severe, Verified 01/06/20 07:38) Unknown CONFUSED Opioids - Morphine Analogues Adverse Reaction (Severe, Verified 01/06/20 07:38) Other CONFUSION Home Medications: Ambulatory Orders Medication Instructions Recorded Allopurinol [Zyloprim] 200 mg PO DAILYCM 12/31/16 Insulin Detemir [Levemir] 25 unit SQ DAILY 12/31/16 Atorvastatin Calcium [Lipitor] 40 mg PO QHS 04/09/18 Tamsulosin HCl [Flomax] 0.4 mg PO QHS 04/09/18 hydrALAZINE [Apresoline] 50 mg PO TID 04/09/18 Cetirizine HCl 10 mg PO DAILY PRN 07/27/19 Clopidogrel Bisulfate [Clopidogrel] 75 mg PO DAILY 07/27/19 Darbepoetin Daniel in Polysorbat 40 mcg IJ QWEEK 07/27/19 [Aranesp] Magnesium Oxide 400 mg PO BID 07/27/19 Nitroglycerin 0.4 mg SL Q5M PRN 07/27/19 Warfarin Sodium [Coumadin] 4 mg PO SUMOTUTHFR 09/02/19 Sertraline HCl [Zoloft] 75 mg PO DAILY #0 09/05/19 Acetaminophen [Tylenol] 325 mg PO Q6H PRN PRN 01/06/20 B-Complex with Vitamin C [Vitamin 1 ea PO DAILY 01/06/20 B-Complex with Vit C] Pantoprazole Sodium 40 mg PO DAILY 01/06/20 Warfarin Sodium 6 mg PO WESA 01/06/20 Surgical History: Surgical History (Last Reviewed 01/06/20 @ 10:[address] Heidi Hassan, DO) H/O aortic valve replacement Z95.2 10 YEARS AGO 2009 History of heart artery stent Z95.5 [facility] 2-2019 History of mitral valve repair Z98.890 Surgical History: - - CABG x 1, Bovine AVR, Mitral Valve Repair, L TKR, Ear Surgery. Psychiatric History: Anxiety, Depression Lives: Spouse/ Significant Other Smoking Status: Never smoker Tobacco Use: Non-smoker Alcohol: None Drugs: None - *Family History Maternal Family History: Family History (Last Updated 10/05/19 @ 14:26 by Aubree Peterson) Father Carotid artery disease Hypertension Mother Hypertension History Items: Diabetes, Heart Disease, Hypertension Paternal Family History: Family History (Last Updated 10/05/19 @ 14:26 by Aubree Peterson) Father Carotid artery disease Hypertension Mother Hypertension History Items: Diabetes, Heart Disease, Hypertension Review of Systems Constitutional: Denies: Anorexia Eyes: Denies: Blurred vision HEENT: Reports: Difficulty Hearing Cardiovascular: Denies: Chest Pain Respiratory: Denies: Cough Gastrointestinal: Denies: Abdominal Pain Genitourinary: Denies: Dysuria Musculoskeletal: Reports: Joint Pain - left hip Skin: Denies: Dryness Unable to obtain accurate/complete ROS d/t: patient demented at baseline, answ most questions but inconsistent w resp - Physical Exam Vitals/I&O's: Vital Signs Temp Pulse Resp BP Pulse Ox 97.9 F 64 18 152/62 H 96 01/06/20 09:46 01/06/20 09:55 01/06/20 09:55 01/06/20 09:55 01/06/20 09:55 Oxygen Delivery Method Room Air Weight: 148 lb 2.41 oz Body Mass Index (BMI) 23.9 Finger Stick Blood Glucose 237 General: Alert, No apparent distress HEENT: Atraumatic Neck: Supple Lungs: Clear to auscultation Cardiovascular: Regular rate Abdomen: Bowel Sounds Present Extremities: No clubbing Skin: No rashes Musculoskeletal: Tenderness - left hip with irom/ secondary survey negative arom/prom ankle intact, sgi, compts soft, from upper extremities without pain, cervical rom/neuro intact ue Laboratory Results 01/06/20 07:27: WBC 14.8 H, RBC 3.33 L, Hgb 10.1 L, Hct 30.9 L, MCV 92.8, MCH 30.3, MCHC 32.7, RDW Std Deviation 52.4 H, RDW Coeff of Soco 15.3 H, Plt Count 119 L, MPV 11.7, Immature Gran % (Auto) 0.700, Neut % (Auto) 83.4 H, Lymph % (Auto) 6.8 L, [place] % (Auto) 6.0, Eos % (Auto) 2.7, Baso % (Auto) 0.4, Absolute Neuts (auto) 12.4 H, Absolute Lymphs (auto) 1.01, Nucleated RBC % 0 01/06/20 07:27: PT 35.9 H, INR 3.6 H* 01/06/20 07:27: Sodium 132 L, Potassium 3.8, Chloride 92 L, Carbon Dioxide 29.0, Anion Gap 11, BUN 36 H, Creatinine 5.88 H, Estim Creat Clear Calc 9.04, Est GFR (MDRD) Af Amer 12 L, Est GFR (MDRD) Non-Af 10 L, BUN/Creatinine Ratio 6.1 L, Glucose 136 H, Calcium 8.6 01/06/20 07:39: Troponin I 0.057 H Current Medications Sodium Chloride () 1,000 mls @ 15 mls/hr IV .Q48H SUJEY Last Admin: 01/06/20 09:01 Dose: 15 mls/hr Documented by: Assessment/Plan All Active Problems (Last Reviewed 01/06/20 @ 10:[address] Heidi Hassan, DO) Leukocytosis (Acute) Elevated troponin (Acute) Hip fracture, left (Acute) left displaced femoral neck fracture OR tomorrow with dr kreuger pending med clearance INR high, start vit k now, inr at 4am and dr krueger will order ffp based on results dialysis today cardiology/nephrology consult pending d/w hospitalist regarding clearance and troponins- which are chronically elevated and will still be followed nwb left leg d/w dr krueger/ OR for 900am call with issues/concerns
--- NOTE | 2020-01-06 12:07 | CON.PCM_ITS ---
Consultation - Renal 01/06/20 PCP/ Referring MD: Requesting physician: [] Primary care physician: SHRUTHI Diaz Reason for Consultation:: ESRD - History of Present Illness History of Present Illness: The patient is a 79 year old M who presents with fall and found with hip fx.Except L hip pain has no c/o no cp/sob/f/c/Poor historian.No other c/o mwf HD dr. Al has [facility] and LUE AVF no abd pain n/v/d/f/c/discharge from [facility] - Allergies Allergies: Allergies escitalopram [From Lexapro] Allergy (Severe, Verified 01/06/20 07:38) Unknown levofloxacin [From Levaquin] Allergy (Severe, Verified 01/06/20 07:38) Other DRUG INDUCED LUPUS Penicillins Allergy (Severe, Verified 01/06/20 07:38) Unknown CONFUSED Opioids - Morphine Analogues Adverse Reaction (Severe, Verified 01/06/20 07:38) Other CONFUSION - Current Medications Current Medications: Current Medications Acetaminophen (Tylenol) 650 mg PO Q6H PRN PRN PRN Reason: Pain Score 1-3 /Temp>100.7 Allopurinol (Zyloprim) 200 mg PO DAILYCM [facility] Amlodipine Besylate (Norvasc) 5 mg PO DAILY [facility] Atorvastatin Calcium (Lipitor) 40 mg PO QHS [facility] Hydralazine HCl (Apresoline) 50 mg PO TID [facility] Hydromorphone HCl (Dilaudid Inj) 0.5 mg IV Q3H PRN PRN PRN Reason: Pain Score 6-10/10 Insulin Glargine (Lantus (Bkc)) 15 units SC QHS [facility] Insulin Human Lispro (Humalog Kwikpen (Bkc)) 0 unit SC TIDAC [facility]; Protocol Stop: 01/07/20 00:01 Loratadine (Claritin) 10 mg PO DAILY [facility] Magnesium Oxide (Mag-Ox 400) 400 mg PO DAILYCM [facility] Nitroglycerin (Nitrostat) 0.4 mg SUBLINGUAL Q5M PRN PRN Reason: chest pain Non-Formulary Medication (Darbepoetin Daniel In Polysorbat [Aranesp]) 40 mcg IJ QMONTH SUJEY Ondansetron HCl (Zofran) 4 mg IV Q8H PRN PRN PRN Reason: Nausea Oxycodone HCl (Oxyir) 5 mg PO Q4H PRN PRN PRN Reason: Pain Score 4-5/10 Pantoprazole Sodium (Protonix) 20 mg PO DAILY SUJE[facility] Sertraline HCl (Zoloft) 75 mg PO DAILY [facility] Sodium Chloride () 10 - 40 ml IV UD PRN PRN Reason: SALINE FLUSH Tamsulosin HCl (Flomax) 0.4 mg PO QHS SUJEY - Past Medical History Past Medical History (Chronic Problems): Chronic Problems (Last Reviewed 01/06/20 @ 10:[address] Heidi Hassan, DO) History of myocardial infarction (Chronic) Hx of CABG (Chronic) DM (diabetes mellitus) (Chronic) HTN (hypertension) (Chronic) Pure hypercholesterolemia (Chronic) H/O aortic valve repair (Chronic) aoritc bovine 2010 replacement (Chronic) H/O mitral valve repair (Chronic) Afib (Chronic) Gout (Chronic) Atrial fibrillation and flutter (Chronic) CAD (coronary artery disease) (Chronic) Chronic a-fib (Chronic) Debility (Chronic) ESRD (end stage renal disease) (Chronic) Anemia (Chronic) - Past Surgical History Surgical History: - - CABG x 1, Bovine AVR, Mitral Valve Repair, L TKR, Ear Surgery. - Social History Smoking Status: Never smoker Alcohol: None Drugs: None - Family History Maternal Family History: Family History (Last Updated 10/05/19 @ 14:26 by Aubree Peterson) Father Carotid artery disease Hypertension Mother Hypertension History Items: Diabetes, Heart Disease, Hypertension Paternal Family History: Family History (Last Updated 10/05/19 @ 14:26 by Aubree Peterson) Father Carotid artery disease Hypertension Mother Hypertension History Items: Diabetes, Heart Disease, Hypertension Review of Systems Eyes: Reports: - - negative unless noted in HPI Patient Problems: Active and Suspected Problems (Last Reviewed 01/06/20 @ 10:[address] Heidi Hassan, DO) Hip fracture, left (Acute) - Physical Exam Vitals/I&O's: Vital Signs Temp Pulse Resp BP Pulse Ox 98.0 F 63 17 126/53 H 94 01/06/20 11:12 01/06/20 11:12 01/06/20 11:12 01/06/20 11:12 01/06/20 11:12 Oxygen Flow Rate (L/min) 2 Oxygen Delivery Method Nasal Cannula Weight: 65.3 kg Body Mass Index (BMI) 23.2 Finger Stick Blood Glucose 237 General: Alert, Cooperative HEENT: Atraumatic, Normocephalic Oral: Moist Mucosa Neck: Supple, - - [facility] Lungs: Clear to auscultation, Normal air movement Cardiovascular: Regular rate, Regular Rhythm, Normal S1, Normal S2 Abdomen: Bowel Sounds Present, Soft, Non Tender Extremities: No clubbing, No edema Laboratory Results 01/06/20 07:27: WBC 14.8 H, RBC 3.33 L, Hgb 10.1 L, Hct 30.9 L, MCV 92.8, MCH 30.3, MCHC 32.7, RDW Std Deviation 52.4 H, RDW Coeff of Soc[place] 15.3 H, Plt Count 119 L, MPV 11.7, Immature Gran % (Auto) 0.700, Neut % (Auto) 83.4 H, Lymph % (Auto) 6.8 L, [place] % (Auto) 6.0, Eos % (Auto) 2.7, Baso % (Auto) 0.4, Absolute Neuts (auto) 12.4 H, Absolute Lymphs (auto) 1.01, Nucleated RBC % 0 01/06/20 07:27: PT 35.9 H, INR 3.6 H* 01/06/20 07:27: Sodium 132 L, Potassium 3.8, Chloride 92 L, Carbon Dioxide 29.0, Anion Gap 11, BUN 36 H, Creatinine 5.88 H, Estim Creat Clear Calc 9.04, Est GFR (MDRD) Af Amer 12 L, Est GFR (MDRD) Non-Af 10 L, BUN/Creatinine Ratio 6.1 L, Glucose 136 H, Calcium 8.6 01/06/20 07:39: Troponin I 0.057 H 01/06/20 11:26: Blood Type Pending, Antibody Screen Pending 01/06/20 11:28: Troponin I 0.055 H Current Medications Acetaminophen (Tylenol) 650 mg PO Q6H PRN PRN PRN Reason: Pain Score 1-3 /Temp>100.7 [facility] Amlodipine Besylate (Norvasc) 5 mg PO DAILY [facility] Atorvastatin Calcium (Lipitor) 40 mg PO QHS [facility] Hydralazine HCl (Apresoline) 50 mg PO TID [facility] Hydromorphone HCl (Dilaudid Inj) 0.5 mg IV Q3H PRN PRN PRN Reason: Pain Score 6-10/10 Insulin Glargine (Lantus (Bkc)) 15 units SC QHS [facility] Insulin Human Lispro (Humalog Kwikpen (Bk)) 0 unit SC TIDAC [facility]; Protocol Stop: 01/07/20 00:01 Loratadine (Claritin) 10 mg PO DAILY [facility] Magnesium Oxide (Mag-Ox 400) [facility] Nitroglycerin (Nitrostat) 0.4 mg SUBLINGUAL Q5M PRN PRN Reason: chest pain Non-Formulary Medication (Darbepoetin Daniel In Polysorbat [Aranesp]) 40 mcg IJ QMONTH [facility] Ondansetron HCl (Zofran) 4 mg IV Q8H PRN PRN PRN Reason: Nausea Oxycodone HCl (Oxyir) 5 mg PO Q4H PRN PRN PRN Reason: Pain Score 4-5/10 Pantoprazole Sodium (Protonix) 20 mg PO DAILY [facility] Sertraline HCl (Zoloft) 75 mg PO DAILY [facility] Sodium Chloride () 10 - 40 ml IV UD PRN PRN Reason: SALINE FLUSH Tamsulosin HCl (Flomax) 0.4 mg PO QHS [facility] Assessment/Plan All Active Problems (Last Reviewed 01/06/20 @ 10:[address] Heidi Hassna, DO) Leukocytosis (Acute) Elevated troponin (Acute) Hip fracture, left (Acute) ESRD mwf HD Anemia ELIAS monitor HD HTN resume home meds CKD MBD monitor ca phos binders prn Hip fx for surgery tomorrow undergoing reversal of AC per primary d/w patient and dr. Hassan thanks for consult Will f/u
--- NOTE | 2020-01-06 12:21 | ECHOD_ITS ---
Reason For Study: PRE-OP Procedure This was a 2D Doppler, Color Flow transthoracic echocardiogram. Exam performed portable in patient room. Left Ventricle Normal size and thickness. D shaped septum in diastole. The estimated ejection fraction is 65 %. Unable to assess diastolic dysfunction due to arrhythmia. No regional wall motion abnormalities noted. Right Ventricle Severely dilated right ventricle. Moderately severe global right ventricular systolic dysfunction. Atria The left atrium is severely enlarged. The right atrium is severely enlarged. Normal atrial septum. Mitral Valve Severe mitral valve stenosis. Peak transmitral valve gradient 25 mmHg. Mean transmitral valve gradient 12 mmHg. Status post mitral valve repair with annuloplasty ring. Tricuspid Valve Normal tricuspid valve. Moderately severe (3+) tricuspid valve insufficiency. Right ventricular systolic pressure estimated to be 105 mmHg. Severe pulmonary hypertension. Aortic Valve Peak aortic valve gradient 36 mmHg. Mean aortic valve gradient 20 mmHg. Mild to moderate aortic stenosis. Stable appearing bioprosthetic aortic valve apparatus. Pulmonic Valve Normal pulmonic valve. Great Vessels Normal aortic root. Normal arch. The inferior vena cava is dilated. No collapse of the inferior vena cava. Pericardium/Pleural No pericardial effusion. MMode/2D Measurements & Calculations LVIDd: 4.5 cm IVSd: 0.95 cm LVOT diam: 2.0 cm LVIDs: 2.8 cm LVPWd: 1.0 cm LVOT area: 3.0 cm2 RVDd: 4.7 cm FS: 36.5 % Ao root diam: 3.6 cm LAV(MOD-bp): 130.8 ml LA A4 area: 32.4 cm2 LAV(MOD-bp) Indexed: 75.2 ml/m2 LAV(MOD-sp2): 137.7 ml LAV(MOD-sp4): 116.2 ml LA dimension(2D): 6.0 cm RA A4 area: 30.2 cm2 Doppler Measurements & Calculations MV V2 max: 250.2 cm/sec Ao V2 max: 300.4 cm/sec LV V1 max: 105.4 cm/sec MV max P.2 mmHg Ao max P.2 mmHg LV V1 max P.5 mmHg MV V2 mean: 165.3 cm/sec Ao V2 mean: 213.5 cm/sec LV V1 mean P.3 mmHg MV mean P.9 mmHg Ao mean P.3 mmHg LV V1 mean: 70.1 cm/sec MV V2 VTI: 91.5 cm Ao V2 VTI: 60.5 cm LV V1 VTI: 19.6 cm MVA(VTI): 0.65 cm2 PAUL(I,D): 0.98 cm2 PAUL(V,D): 1.1 cm2 SV(LVOT): 59.5 ml PA V2 max: 117.8 cm/sec PI end-d jessica: 91.1 cm/sec TR max jessica: 501.8 cm/sec MV P1/2t-pr_phl: 202.8 msec TR max P.7 mmHg Interpretation Summary The estimated ejection fraction is 65 %. Unable to assess diastolic dysfunction due to arrhythmia. Severely dilated right ventricle. Moderately severe global right ventricular systolic dysfunction. The left atrium is severely enlarged. The right atrium is severely enlarged. Status post mitral valve repair with annuloplasty ring. Severe mitral valve stenosis. Peak transmitral valve gradient 25 mmHg. Mean transmitral valve gradient 12 mmHg. Moderately severe (3+) tricuspid valve insufficiency. Right ventricular systolic pressure estimated to be 105 mmHg. Severe pulmonary hypertension. Peak aortic valve gradient 36 mmHg. Mild to moderate aortic stenosis. No collapse of the inferior vena cava. D shaped septum in diastole. Compared to echo report dated 09/03/2019, LV function has remained about the same, mitral valve gradients have gone from moderate to severe stenosis, bioprosthetic aortic valve looks about the same. RVSP has increased from 65 to 105 mmHg. Discussed echo findings with Dr. Mercado on 01/07/2020 at 8:28 AM. Ordering Physician: Mikey Jimenez Referring Physician: CHRISSY HERNANDEZ Performed By: Jane Dupont, RDCS, RVT
[2020-01-06] MEDS: 0.9% Saline Lock 10 ML Syringe IV ×2 (13:10→23:58)
--- NOTE | 2020-01-06 13:45 | CON.PCM_ITS ---
Problem List (1) History of myocardial infarction Status: Chronic (2) Hx of CABG Status: Chronic (3) DM (diabetes mellitus) Status: Chronic (4) HTN (hypertension) Status: Chronic Qualifiers: (5) aoritc bovine 2010 replacement Status: Chronic (6) H/O mitral valve repair Status: Chronic (7) Atrial fibrillation and flutter Status: Chronic Reason for Consult Date of Consultation: 01/06/20 Reason for Consultation: Preoperative stratification, coronary disease status post CABG, status post PCI per the patient, atrial flutter, hypertension, pulmonary pretension History of Present Illness: The patient is a 79 year old M moderately demented male, with a history of diabetes, chronic renal insufficiency on hemodialysis, hypertension, hypercholesterolemia, coronary disease status post CABG of unknown location, unknown date given the patient's dementia, he does not see a border patrol officer here at the [place] [email or web address]], apparently recently underwent angioplasty and stenting x3 per the patient and [facility] [place] sometime in early 2019. He is uncertain whether he had a heart attack and cannot recall his symptoms at that time. The patient tripped and fell at home, and was unable to get up. Squad was called, and the patient was brought to [facility] ER. He was found to have a left left displaced femoral neck fracture, and requires preoperative stratification for surgery. He also is a history of atrial flutter and is on chronic Coumadin therapy. He received vitamin K today, and will receive FFP tomorrow morning. As best I can tell, the patient has had no chest pain, angina, shortness of breath or dyspnea on exertion. However he does report that he felt better after his angioplasty and stenting in early 2019. He denies any chest pain during dialysis. Patient's history is somewhat challenging given his dementia and falling off to sleep. Past Medical History Allergies/Adverse Reactions: Allergies escitalopram [From Lexapro] Allergy (Severe, Verified 01/06/20 07:38) Unknown levofloxacin [From Levaquin] Allergy (Severe, Verified 01/06/20 07:38) Other DRUG INDUCED LUPUS Penicillins Allergy (Severe, Verified 01/06/20 07:38) Unknown CONFUSED Opioids - Morphine Analogues Adverse Reaction (Severe, Verified 01/06/20 07:38) Other CONFUSION Home Medications: Ambulatory Orders Medication Instructions Recorded Allopurinol [Zyloprim] 200 mg PO DAILYCM 12/31/16 Insulin Detemir [Levemir] 25 unit SQ DAILY 12/31/16 Atorvastatin Calcium [Lipitor] 40 mg PO QHS 04/09/18 Tamsulosin HCl [Flomax] 0.4 mg PO QHS 04/09/18 hydrALAZINE [Apresoline] 50 mg PO TID 04/09/18 Amlodipine [Norvasc] 5 mg PO DAILY 07/27/19 Cetirizine HCl 10 mg PO DAILY 07/27/19 Clopidogrel Bisulfate [Clopidogrel] 75 mg PO DAILY 07/27/19 Darbepoetin Daniel in Polysorbat 40 mcg IJ QMONTH 07/27/19 [Aranesp] Magnesium Oxide 400 mg PO DAILY 07/27/19 Nitroglycerin 0.4 mg SL Q5M PRN 07/27/19 Warfarin Sodium [Coumadin] 4 mg PO SUMOTUTHFR 09/02/19 Sertraline HCl [Zoloft] 75 mg PO DAILY #0 09/05/19 Omeprazole [Prilosec] 20 mg PO DAILY 10/05/19 Past Medical History (Chronic Problems): Chronic Problems (Last Reviewed 01/06/20 @ 10:[address] Heidi Hassan, DO) History of myocardial infarction (Chronic) Hx of CABG (Chronic) DM (diabetes mellitus) (Chronic) HTN (hypertension) (Chronic) Pure hypercholesterolemia (Chronic) H/O aortic valve repair (Chronic) aoritc bovine 2010 replacement (Chronic) H/O mitral valve repair (Chronic) Afib (Chronic) Gout (Chronic) Atrial fibrillation and flutter (Chronic) CAD (coronary artery disease) (Chronic) Chronic a-fib (Chronic) Debility (Chronic) ESRD (end stage renal disease) (Chronic) Anemia (Chronic) Surgical History: - - CABG x 1, Bovine AVR, Mitral Valve Repair, L TKR, Ear Surgery. Psychiatric History: Anxiety, Depression - *Family History Maternal Family History: Family History (Last Updated 10/05/19 @ 14:26 by Aubree Peterson) Father Carotid artery disease Hypertension Mother Hypertension History Items: Diabetes, Heart Disease, Hypertension Paternal Family History: Family History (Last Updated 10/05/19 @ 14:26 by Aubree Peterson) Father Carotid artery disease Hypertension Mother Hypertension History Items: Diabetes, Heart Disease, Hypertension Lives: Spouse/ Significant Other Smoking Status: Never smoker Tobacco Use: Non-smoker Alcohol: None Drugs: None Review of Systems - Review of Systems General: Denies: Fever, Night Sweats, Fatigue Cardiovascular: Denies: Chest Discomfort, Shortness of Breath, Orthopnea, PND, Peripheral Edema, Palpitations, Lightheadedness, Dizziness, Near Syncope, Syncope Respiratory: Denies: Cough, Sputum Production, Hemoptysis Gastrointestinal: Denies: Hematemesis, Hematochezia, Melena Genitourinary: Denies: Dysuria, Hematuria Skin: Denies: Rash Subjectve: Patient laying flat in bed, no acute distress. Objective: Vital Signs Temp Pulse Resp BP Pulse Ox 98.0 F 63 17 126/53 H 94 01/06/20 11:12 01/06/20 11:12 01/06/20 11:12 01/06/20 11:12 01/06/20 11:12 Oxygen Flow Rate (L/min) 2 Oxygen Delivery Method Nasal Cannula Weight: 143 lb 15.39 oz Body Mass Index (BMI) 23.2 Finger Stick Blood Glucose 237 General: Awake, Alert, Oriented x 3 HEENT: PERRL, EOMI, Sclera Non Icteric Neck: Supple, Good ROM, No Lymph Node Enlargement Lungs: Clear to auscultation Cardiovascular: Irregular Rhythm, Normal S2, No Rubs, No Gallops Murmur Murmur: Grade 2/6, Crescendo-Decrescendo Vascular: No Carotid Bruits, Normal Femoral Pulses, Normal Radial Pulses, Normal Dorsalis Pedal Pulse, Normal Posterior Tibial Pulses Abdomen: Bowel Sounds Present, Soft, Non Tender, No HSM, No Organomegaly Extremities: No Cyanosis, No Clubbing, No edema Neurological: No Focal Motor or Sensory Deficit 01/06/20 07:27: WBC 14.8 H, RBC 3.33 L, Hgb 10.1 L, Hct 30.9 L, MCV 92.8, MCH 30.3, MCHC 32.7, Plt Count 119 L, MPV 11.7, Immature Gran % (Auto) 0.700, Neut % (Auto) 83.4 H, Lymph % (Auto) 6.8 L, Carbon % (Auto) 6.0, Eos % (Auto) 2.7, Baso % (Auto) 0.4, Absolute Neuts (auto) 12.4 H, Nucleated RBC % 0 01/06/20 07:27: PT 35.9 H, INR 3.6 H* 01/06/20 07:27: Sodium 132 L, Potassium 3.8, Chloride 92 L, Carbon Dioxide 29.0, Anion Gap 11, BUN 36 H, Creatinine 5.88 H, Est GFR (MDRD) Af Amer 12 L, Est GFR (MDRD) Non-Af 10 L, BUN/Creatinine Ratio 6.1 L, Glucose 136 H, Calcium 8.6 01/06/20 07:39: Troponin I 0.057 H 01/06/20 11:28: Troponin I 0.055 H Rhythm: EKG: ECHO: Stress Test: Cardiac Cath: PCI: CT Surgery: Holter monitor: EPS: PPM: CXR: Chest CT Scan: Assessment/Plan 1. Preoperative stratification: Patient has a complex cardiac history including aortic valve replacement, mitral valve repair, coronary artery bypass surgery, recent angioplasty and stenting x3 reportedly at the [facility] in early 2019. The patient is asymptomatic at this time and denies any chest pain, angina, shortness of breath or dyspnea on exertion. In addition he is on chronic Coumadin therapy for his atrial flutter and pulmonary pretension. His most recent echocardiogram 09/03/2019 is as follows: The estimated ejection fraction is 55-60 %. Unable to assess diastolic dysfunction. Dyskinetic septum that could be related to prior open heart surgery There is moderate to severe mitral annular calcification. Trivial tricuspid valve insufficiency. Pulmonary artery systolic pressure is 65 mmHg. Mild aortic stenosis. Status post mitral valve repair with annuloplasty ring. This point the patient is at moderate risk for noncardiac hip repair surgery. I would recommend judicious use of fluids perioperatively in order to avoid acute on chronic congestive heart failure. Would also request that the patient continue on Plavix perioperatively given his recent angioplasty and stenting. Of also requested that we obtain his records from [facility] with respect to his recent angioplasty and stenting. Does not appear to have any catheterization films in our repository. I would however recommend a repeat echocardiogram to confirm/deny this presence of significant pulmonary hypertension. I would not recommend stress testing at this time given his lack of symptoms, and would only delay his repair of his femoral neck fracture. 2. Atrial flutter: The patient is on chronic Coumadin therapy, and is being reversed per protocol. Would recommend bridging subcu Lovenox or IV heparin drip per nomogram protocol in order to avoid DVT, pulmonary embolism, or CVA. Patient will need his Coumadin resumed once surgically permissible. 3. Hyperlipidemia: Continue statin based medications. 4. Thank you very much for the opportunity to participate in the cardiac care of your patient. Discussed with Dr. Hassan. Consultation time took place between 12 PM and 12:30 PM. Inpatient E&M: [id number] Init Hosp L2
[2020-01-06] MEDS: Magnesium Oxide 400 MG Tablet PO (15:06)
[2020-01-06] MEDS: Loratadine 10 MG Tablet PO (15:06)
[2020-01-06] MEDS: Sertraline 50 MG Tablet 75 MG PO (15:07)
[2020-01-06] MEDS: Pantoprazole Sodium 20 MG Tablet PO (15:07)
[2020-01-06] MEDS: Insulin Lispro 100 UNIT/ML INSULN.PEN SC ×2 (15:12→16:58)
[2020-01-06 15:21] LABS: Bedside Glucose 201 mg/dL (70-110)
[2020-01-06] MEDS: Clopidogrel Bisulfate 75 MG Tablet PO (16:58)
[2020-01-06 17:06] LABS: Bedside Glucose 177 mg/dL (70-110)
[2020-01-06] MEDS: Heparin 10,000 UNITS/10 ML Vial 10000 UNITS IV (23:11)
--- NOTE | 2020-01-06 23:17 | DIALYSIS ---
hemodialysis complete x 3hr 15mins. -1400ml UF. Stable t/o. CVC closed with Heparin. CVC dressing changed. new AVF with +bruit/thrill not used today. Report to Dari SERVIN
[2020-01-07] VITALS (7 sets, daily range): BP systolic 112–143; BP diastolic 42–83; PULSE 64–86; RESP 16–18; TEMP 36.8–37.1; O2SAT 94–96; BMI 22.8
[2020-01-07 00:36] LABS: Bedside Glucose 133 mg/dL (70-110)
--- NOTE | 2020-01-07 01:23 | NURSING ---
spoke to alicia in lab to confirm that they saw that labs are to be drawn at 0400 surgeon needs results early.
[2020-01-07 03:58] LABS: Absolute Lymphocyte Count 1.23 X10^3/uL (0.83-4.51); Absolute Neutrophil Count 12.7 X10^3/uL (2.0-7.7); Basophil# 0.09 X10^3/uL; Basophil% 0.6 % (0-1); Eosinophils% 0.7 % (0-5); Hematocrit 33.3 % (40-54); Hemoglobin 10.4 g/dL (13.0-16.5); Lymphocyte # 1.23 X10^3/ul (4.0); Lymphocyte % 8.2 % (19-41); Mean Corp Hgb Conc 31.2 g/dL (32-36); Mean Corpuscular Hgb 29.8 pg (27.0-32.0); Mean Corpuscular Volume 95.4 fL (80-94); Mean Platelet Vol. 11.6 fl (6.2-12.0); Monocyte# 0.76 X10^3/uL; Monocyte% 5.1 % (0-10); NRBC Flagged by Analyzer 0.1 % (0-5); Neutrophil # 12.68 X10^3/uL (2.7-7.7); Neutrophil % 84.4 % (47-70); Platelet Count 112 K/mm3 (150-450); RBC Distribution Width CV 15.5 % (11.6-14.6); RBC Distribution Width SD 54.5 fl (35.1-43.9); Red Blood Count 3.49 M/mm3 (4.6-6.2)
[2020-01-07 04:16] LABS: Anion Gap 8 (5-15); BUN 20 mg/dL (7-18); BUN/Creat Ratio 5.2 RATIO (10-20); Calcium,Total 8.6 mg/dL (8.5-10.1); Chloride 93 mmol/L (98-107); Creatinine, Serum 3.86 mg/dL (0.70-1.30); EST Glomerular Filtration Rate 16 mL/min (>60); Est Glom Filt Rate - Afr Amer 19 mL/min (>60); Estimated Creatinine Clearance 13.77 ml/min; Glucose 139 mg/dL (74-106); Potassium 4.8 mmol/L (3.5-5.1); Sodium Level 133 mmol/L (136-145)
--- NOTE | 2020-01-07 04:37 | NURSING ---
spoke to lcem in lab he is aware is waiting on result for coagulation labs
[2020-01-07 04:43] LABS: International Normalized Ratio 1.3; Prothrombin Time (Protime)PT. 15.9 SECONDS (11.7-14.9)
[2020-01-07] MEDS: Menthol/Lanolin/Calamine/Znox 113 GM Tube 1 APPLIC TOPICAL (06:00)
[2020-01-07 06:25] LABS: Bedside Glucose 121 mg/dL (70-110)
[2020-01-07 07:49] LABS: International Normalized Ratio 1.4; Prothrombin Time (Protime)PT. 16.6 SECONDS (11.7-14.9)
--- NOTE | 2020-01-07 08:11 | NURSING ---
spoke with Greg Rn in [facility] re: listed PCN allergy:confusion and that dr chanel aware and ordered ancef 2 gm within 1hr of OR
[2020-01-07 08:16] LABS: Hemoglobin A1c 5.3 % (3.8-5.6)
--- NOTE | 2020-01-07 08:23 | EKG12_ITS ---
Test Reason : PRE OP Blood Pressure : / mmHG Vent. Rate : 060 BPM Atrial Rate : 352 BPM P-R Int : 000 ms QRS Dur : 100 ms QT Int : 458 ms P-R-T Axes : 158 082 161 degrees QTc Int : 458 ms Atrial flutter with variable A-V block Nonspecific ST and T wave abnormality Abnormal ECG When compared with ECG of 06-JAN-2020 09:10, MANUAL COMPARISON REQUIRED, DATA IS UNCONFIRMED Confirmed by MABEL REECE ([id number]), story editor MAURILIO SERRANO ([id number]) on 01/11/2020 2:23:36 PM Referred By: JIMMY ROSAS Confirmed By:MABEL REECE
--- NOTE | 2020-01-07 08:29 | PCM.PN.CARD ---
Subjectve: Patient seen and examined this morning, no 24-hour events. Telemetry showed normal sinus rhythm with rare PVC. Objective: Vital Signs Temp Pulse Resp BP Pulse Ox 98.3 F 64 16 112/47 L 94 01/07/20 06:08 01/07/20 07:41 01/07/20 06:08 01/07/20 06:08 01/07/20 06:08 Oxygen Flow Rate (L/min) 3 Oxygen Delivery Method Nasal Cannula Weight: 141 lb 15.643 oz Body Mass Index (BMI) 22.8 Finger Stick Blood Glucose 237 Intake and Output for Last 24 Hours 01/05/20 01/06/20 01/07/20 23:59 23:59 23:59 Intake Total 371.5 / 371.5 50 / 50 Output Total 1550 / 1550 200 / 200 Balance -1178.5 / -1178.5 -150 / -150 General: Awake, Alert, Oriented x 3 HEENT: PERRL, EOMI, Sclera Non Icteric Neck: Supple, Good ROM, No Lymph Node Enlargement Lungs: Clear to auscultation Cardiovascular: Regular Rhythm, Normal S2, No Rubs, No Gallops Murmur Murmur: Grade 2/6, Crescendo-Decrescendo Vascular: No Carotid Bruits, Normal Femoral Pulses, Normal Radial Pulses, Normal Dorsalis Pedal Pulse, Normal Posterior Tibial Pulses Abdomen: Bowel Sounds Present, Soft, Non Tender, No HSM, No Organomegaly Extremities: No Cyanosis, No Clubbing, No edema Neurological: No Focal Motor or Sensory Deficit 01/06/20 07:27: PT 35.9 H, INR 3.6 H* 01/06/20 07:39: Troponin I 0.057 H 01/06/20 11:28: Troponin I 0.055 H 01/06/20 14:52: Troponin I 0.052 H 01/07/20 03:44: WBC 15.0 H, RBC 3.49 L, Hgb 10.4 L, Hct 33.3 L, MCV 95.4 H, MCH 29.8, MCHC 31.2 L, Plt Count 112 L, MPV 11.6, Immature Gran % (Auto) 1.000 H, Neut % (Auto) 84.4 H, Lymph % (Auto) 8.2 L, Cooper % (Auto) 5.1, Eos % (Auto) 0.7, Baso % (Auto) 0.6, Absolute Neuts (auto) 12.7 H, Nucleated RBC % 0.1 01/07/20 03:44: Sodium 133 L, Potassium 4.8, Chloride 93 L, Carbon Dioxide 32.0, Anion Gap 8, BUN 20 H, Creatinine 3.86 H, Est GFR (MDRD) Af Amer 19 L, Est GFR (MDRD) Non-Af 16 L, BUN/Creatinine Ratio 5.2 L, Glucose 139 H, Calcium 8.6 01/07/20 03:44: PT 15.9 H, INR 1.3, APTT 45.0 H 01/07/20 03:44: Hemoglobin A1c 5.3 01/07/20 07:25: PT 16.6 H, INR 1.4 Rhythm: EKG: ECHO: Stress Test: Cardiac Cath: PCI: CT Surgery: Holter monitor: EPS: PPM: CXR: Chest CT Scan: Medical Necessity - Tobacco Use Smoking Status: Never smoker Tobacco Use: Non-smoker Assessment/Plan 1. Preoperative stratification: Patient has a complex cardiac history including aortic valve replacement, mitral valve repair, coronary artery bypass surgery, recent angioplasty and stenting x3 reportedly at the [facility] in early 2019. The patient is asymptomatic at this time and denies any chest pain, angina, shortness of breath or dyspnea on exertion. In addition he is on chronic Coumadin therapy for his atrial flutter and pulmonary hypertension His most recent echocardiogram 09/03/2019 is as follows: The estimated ejection fraction is 55-60 %. Unable to assess diastolic dysfunction. Dyskinetic septum that could be related to prior open heart surgery There is moderate to severe mitral annular calcification. Trivial tricuspid valve insufficiency. Pulmonary artery systolic pressure is 65 mmHg. Mild aortic stenosis. Status post mitral valve repair with annuloplasty ring. I requested a repeat echocardiogram prior to surgery to reassess his LV function and more importantly his pulmonary pressures. This was done on 01/06/2020 which demonstrated intact LV function, severe RV enlargement, severe pulmonary hypertension with an RVSP increasing from 65 to 105 mmHg, severe mitral stenosis with a peak/mean gradient of 25/12 mmHg. Given the patient's severe mitral stenosis and severe pulmonary pretension, he is at high risk for hip repair surgery, as he may have difficulty being weaned from the ventilator given his fixed stenosis from his previous mitral valve repair. This could be mitigated with hemodialysis for fluid removal to decrease his pulmonary pressure, but he is most likely preload dependent with his fixed stenosis at the mitral level. In addition, the patient may require temporary Brooks-Toshia catheter management perioperatively. I have relayed these findings to his orthopedic surgeon Dr. Ryder this morning at 8:28 AM, and recommended that he is cardiac risk status be upgraded from moderate to severe, and recommended consideration for transfer to tertiary care center for hip repair surgery. I would not recommend stress testing at this time given his lack of symptoms, and would only delay his repair of his femoral neck fracture. 2. Atrial flutter: The patient is on chronic Coumadin therapy, and is being reversed per protocol. Would recommend bridging subcu Lovenox or IV heparin drip per nomogram protocol in order to avoid DVT, pulmonary embolism, or CVA. Patient will need his Coumadin resumed once surgically permissible. 3. Hyperlipidemia: Continue statin based medications. 4. Thank you very much for the opportunity to participate in the cardiac care of your patient. Discussed with Dr. Rowe. Inpatient E&M: [id number] Subs Hosp L2
--- NOTE | 2020-01-07 09:52 | DCINST_ITS ---
- Discharge Diagnoses Current Active Problems: Current Active and Chronic Problems (Last Reviewed 01/06/20 @ 10:[address] Heidi Hassan DO) Hip fracture, left (Acute) You will use the following diet at home:: Cardiac, Renal (restricted protein/sodium) Allergies/Adverse Reactions: Allergies escitalopram [From Lexapro] Allergy (Severe, Verified 01/06/20 07:38) Unknown levofloxacin [From Levaquin] Allergy (Severe, Verified 01/06/20 07:38) Other DRUG INDUCED LUPUS Penicillins Allergy (Severe, Verified 01/06/20 07:38) Unknown CONFUSED Opioids - Morphine Analogues Adverse Reaction (Severe, Verified 01/06/20 07:38) Other CONFUSION Medications to take at Discharge Allopurinol [Zyloprim] 200 mg PO DAILYCM 12/31/16 Insulin Detemir [Levemir] 25 unit SQ DAILY 12/31/16 Atorvastatin Calcium [Lipitor] 40 mg PO QHS 04/09/18 Tamsulosin HCl [Flomax] 0.4 mg PO QHS 04/09/18 hydrALAZINE [Apresoline] 50 mg PO TID 04/09/18 Cetirizine HCl 10 mg PO DAILY PRN 07/27/19 Clopidogrel Bisulfate [Clopidogrel] 75 mg PO DAILY 07/27/19 Darbepoetin Daniel in Polysorbat [Aranesp] 40 mcg IJ QWEEK 07/27/19 Magnesium Oxide 400 mg PO BID 07/27/19 Nitroglycerin 0.4 mg SL Q5M PRN 07/27/19 Warfarin Sodium [Coumadin] 4 mg PO SUMOTUTHFR 09/02/19 Sertraline HCl [Zoloft] 75 mg PO DAILY #0 09/05/19 Acetaminophen [Tylenol] 325 mg PO Q6H PRN PRN 01/06/20 B-Complex with Vitamin C [Vitamin B-Complex with Vit C] 1 ea PO DAILY 01/06/20 Pantoprazole Sodium 40 mg PO DAILY 01/06/20 Warfarin Sodium 6 mg PO WESA 01/06/20 Primary Care Physician: Gina Sloan NP-C [Primary Care Provider] - Test Results: Test results from this visit will be discussed in further detail at your follow- up appointment, if applicable. Proposed Discharge Date: 01/07/20
--- NOTE | 2020-01-07 09:53 | DS.PCM_ITS ---
Discharge Date and Diagnosis - Problem List Patient Problems: Active and Suspected Problems (Last Reviewed 01/06/20 @ 10:[address] Heidi Hassan, DO) Hip fracture, left (Acute) Date of Admission: 01/06/20 Date of Discharge: 01/07/20 - Primary Discharge Diagnosis Acute Problems: Active Problems (Last Reviewed 01/06/20 @ 10:[address] Heidi Hassan, DO) Hip fracture, left (Acute) - Secondary Discharge Diagnosis Chronic Problems: Chronic Problems (Last Reviewed 01/06/20 @ 10:[address] 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 Electronically Signed: Jg Guerra, at 8:35 EDT , Service support , Hip/Pelvis X-Ray 01/06/20 08:25 IMPRESSION: Impacted basicervical fracture of the proximal left femur. Electronically Signed: Jg Guerra at 8:48 EDT , Service support , Chest X-Ray 01/06/20 08:56 IMPRESSION: Cardiomegaly. Pleural parenchymal changes at the left lung base. This has progressed as compared to prior study. Moderate cardiomegaly and prior aortic and mitral valve replacement. Electronically Signed: Jg Guerra at 10:29 EDT , Service support , Operations: None Summary of Care Provided: The patient is a 79 year old M multiple comorbidities admitted following acute mechanical fall imaging studies demonstrated left impacted Basi-Cervical fracture involving the left femur 1. Acute mechanical fall imaging studies demonstrated left impacted Basi- Cervical fracture involving the left femur Admitted to a monitored bed with consultation placed to orthopedic surgery. Patient perioperative risk was assessed to be high case was therefore discussed with orthopedics surgery decision was made to transfer patient to [facility] call was placed patient was accepted for transfer 2. Paroxysmal A. fib ?Rate controlled patient on systemic anticoagulation with Coumadin INR on admission was 3.6 patient did receive FFP and vitamin K INR at the time of transfer 1.4 3. End-stage renal disease on hemodialysis ?Wednesdays and Fridays consult placed to nephrology 4. Coronary artery disease -. CABG and subsequent PCI; patient underwent PCI in June 2019 at [facility] 5. Severe mitral stenosis with a peak/mean gradient of 25/12 mmHg. 6. Severe pulmonary hypertension ?With estimated RVSP 106 mmHg 1. Dementia ?Patient at baseline did continue supportive care 8. Diabetes mellitus type 2 ?Patient is on Lantus continued at home dose in addition to Accu-Cheks before meals and at bedtime with sliding scale coverage 9. Anemia - Secondary to chronic disorder monitoring H&H and transfuse if patient becomes symptomatic or hemoglobin falls below 7 10. Gout ?Patient on allopurinol 11. BPH ?Patient on Flomax Patient Problems: Active and Suspected Problems (Last Reviewed 01/06/20 @ 10:[address] Heidi Hassan, DO) Hip fracture, left (Acute) - Physical Exam Vitals/I&O's: Vital Signs Temp Pulse Resp BP Pulse Ox 98.3 F 64 16 112/47 L 94 01/07/20 06:08 01/07/20 07:41 01/07/20 06:08 01/07/20 06:08 01/07/20 06:08 Oxygen Flow Rate (L/min) 3 Oxygen Delivery Method Nasal Cannula Weight: 64.4 kg Body Mass Index (BMI) 22.8 Finger Stick Blood Glucose 237 Intake and Output for Last 24 Hours 01/05/20 01/06/20 01/07/20 23:59 23:59 23:59 Intake Total 371.5 / 371.5 50 / 50 Output Total 1550 / 1550 200 / 200 Balance -1178.5 / -1178.5 -150 / -150 General: No apparent distress Lungs: Normal air movement Cardiovascular: Murmur - sy Neurological: Neuro grossly intact Laboratory Results 01/06/20 11:26: Blood Type A POSITIVE, Antibody Screen NEGATIVE 01/06/20 11:28: Troponin I 0.055 H 01/06/20 14:52: Troponin I 0.052 H 01/06/20 15:05: POC Glucose 201 H 01/06/20 16:55: POC Glucose 177 H 01/07/20 00:05: POC Glucose 133 H 01/07/20 03:44: WBC 15.0 H, RBC 3.49 L, Hgb 10.4 L, Hct 33.3 L, MCV 95.4 H, MCH 29.8, MCHC 31.2 L, RDW Std Deviation 54.5 H, RDW Coeff of [place] 15.5 H, Plt Count 112 L, MPV 11.6, Immature Gran % (Auto) 1.000 H, Neut % (Auto) 84.4 H, Lymph % (Auto) 8.2 L, [place] % (Auto) 5.1, Eos % (Auto) 0.7, Baso % (Auto) 0.6, Absolute Neuts (auto) 12.7 H, Absolute Lymphs (auto) 1.23, Nucleated RBC % 0.1 01/07/20 03:44: Sodium 133 L, Potassium 4.8, Chloride 93 L, Carbon Dioxide 32.0, Anion Gap 8, BUN 20 H, Creatinine 3.86 H, Estim Creat Clear Calc 13.77, Est GFR (MDRD) Af Amer 19 L, Est GFR (MDRD) Non-Af 16 L, BUN/Creatinine Ratio 5.2 L, Glucose 139 H, Calcium 8.6 01/07/20 03:44: PT 15.9 H, INR 1.3, APTT 45.0 H 01/07/20 03:44: Hemoglobin A1c 5.3 01/07/20 06:17: POC Glucose 121 H 01/07/20 07:25: PT 16.6 H, INR 1.4 Current Medications Acetaminophen (Tylenol) 650 mg PO Q6H PRN PRN PRN Reason: Pain Score 1-3 /Temp>100.7 [facility] Last Admin: 01/07/20 07:39 Dose: Not Given Documented by: Amlodipine Besylate (Norvasc) 5 mg PO DAILY [facility] Last Admin: 01/06/20 15:03 Dose: Not Given Documented by: Atorvastatin Calcium (Lipitor) 40 mg PO QHS [facility] Last Admin: 01/07/20 00:08 Dose: Not Given Documented by: Calamine/Phenol (Calmoseptine Ointment) 1 applic TOPICAL TID [facility]; Protocol Last Admin: 01/07/20 06:00 Dose: 1 applicatio Documented by: Hydralazine HCl (Apresoline) 50 mg PO TID [facility] Last Admin: 01/07/20 06:01 Dose: Not Given Documented by: Hydromorphone HCl (Dilaudid Inj) 0.5 mg IV Q3H PRN PRN PRN Reason: Pain Score 6-10/10 Insulin Glargine (Lantus (Bkc)) 15 units SC QHS [facility] Last Admin: 01/07/20 00:08 Dose: Not Given Documented by: Loratadine (Claritin) 10 mg PO DAILY [facility] Last Admin: 01/06/20 15:06 Dose: 10 mg Documented by: Magn[facility] (Mag-Ox 400) [facility] Last Admin: 01/07/20 07:38 Dose: Not Given Documented by: Nitroglycerin (Nitrostat) 0.4 mg SUBLINGUAL Q5M PRN PRN Reason: chest pain Nutritional Formula (Nepro Carb Steady) 120 ml PO 4X/DAY [facility] Last Admin: 01/07/20 07:39 Dose: Not Given Documented by: Ondansetron HCl (Zofran) 4 mg IV Q8H PRN PRN PRN Reason: Nausea Last Admin: 01/06/20 23:58 Dose: 4 mg Documented by: Oxycodone HCl (Oxyir) 5 mg PO Q4H PRN PRN PRN Reason: Pain Score 4-5/10 Pantoprazole Sodium (Protonix) 20 mg PO DAILY [facility] Last Admin: 01/06/20 15:07 Dose: 20 mg Documented by: Sertraline HCl (Zoloft) 75 mg PO DAILY [facility] Last Admin: 01/06/20 15:07 Dose: 75 mg Documented by: Sodium Chloride () 10 - 40 ml IV UD PRN PRN Reason: SALINE FLUSH Last Admin: 01/06/20 23:58 Dose: 10 ml Documented by: Tamsulosin HCl (Flomax) 0.4 mg PO QHS [facility] Last Admin: 01/07/20 00:07 Dose: Not Given Documented by: Home Medications: Medications to take at Discharge Allopurinol [Zyloprim] 200 mg PO DAILYCM 12/31/16 Insulin Detemir [Levemir] 25 unit SQ DAILY 12/31/16 Atorvastatin Calcium [Lipitor] 40 mg PO QHS 04/09/18 Tamsulosin HCl [Flomax] 0.4 mg PO QHS 04/09/18 hydrALAZINE [Apresoline] 50 mg PO TID 04/09/18 Cetirizine HCl 10 mg PO DAILY PRN 07/27/19 Clopidogrel Bisulfate [Clopidogrel] 75 mg PO DAILY 07/27/19 Darbepoetin Daniel in [place] [Aranesp] 40 mcg IJ QWEEK 07/27/19 Magnesium Oxide 400 mg PO BID 07/27/19 Nitroglycerin 0.4 mg SL Q5M PRN 07/27/19 Warfarin Sodium [Coumadin] 4 mg PO SUMOTUTHFR 09/02/19 Sertraline HCl [Zoloft] 75 mg PO DAILY #0 09/05/19 Acetaminophen [Tylenol] 325 mg PO Q6H PRN PRN 01/06/20 B-Complex with Vitamin C [Vitamin B-Complex with Vit C] 1 ea PO DAILY 01/06/20 Pantoprazole Sodium 40 mg PO DAILY 01/06/20 Warfarin Sodium 6 mg PO WESA 01/06/20 Primary Care Physician: Gina Sloan NP-C [Primary Care Provider] - Dis[facility] Minutes spent on discharge:: 35 Patient Condition:: Fair Medical Necessity - Tobacco Use Smoking Status: Never smoker Tobacco Use: Non-smoker Meaningful Use Info Meaningful Use Diagnoses (Choose all that apply): None applicable Inpatient E&M: 78408 Disch Hosp
[2020-01-07 11:26] LABS: Bedside Glucose 103 mg/dL (70-110)
[2020-01-07] MEDS: Sertraline 50 MG Tablet 75 MG PO (11:58)
[2020-01-07] MEDS: Pantoprazole Sodium 20 MG Tablet PO (11:58)
[2020-01-07] MEDS: Loratadine 10 MG Tablet PO (11:58)
[2020-01-07] MEDS: amLODIPine 5 MG Tablet PO (11:59)
--- NOTE | 2020-01-07 12:59 | PCM.PN.REN ---
Patient Problems: Active and Suspected Problems (Last Reviewed 01/06/20 @ 10:[address] Heidi Hassan, DO) Hip fracture, left (Acute) Subjective: No hip pain no c/o no sob/cp - Physical Exam Vitals/I&O's: Vital Signs Temp Pulse Resp BP Pulse Ox 98.4 F 86 18 124/65 H 94 01/07/20 10:23 01/07/20 10:23 01/07/20 10:23 01/07/20 10:23 01/07/20 10:23 Oxygen Flow Rate (L/min) 3 Oxygen Delivery Method Nasal Cannula Weight: 64.4 kg Body Mass Index (BMI) 22.8 Finger Stick Blood Glucose 237 Intake and Output for Last 24 Hours 01/05/20 01/06/20 01/07/20 23:59 23:59 23:59 Intake Total 371.5 / 371.5 200 / 200 Output Total 1550 / 1550 350 / 350 Balance -1178.5 / -1178.5 -150 / -150 General: Alert, Cooperative HEENT: Atraumatic, Normocephalic Oral: Moist Mucosa Neck: Supple, Trachea Midline Lungs: Clear to auscultation, Normal air movement Cardiovascular: Regular rate, Regular Rhythm, Normal S1, Normal S2 Abdomen: Bowel Sounds Present, Soft, Non Tender Extremities: No edema Skin: No rashes Laboratory Results 01/06/20 11:26: Blood Type A POSITIVE, Antibody Screen NEGATIVE 01/06/20 14:52: Troponin I 0.052 H 01/06/20 15:05: POC Glucose 201 H 01/06/20 16:55: POC Glucose 177 H 01/07/20 00:05: POC Glucose 133 H 01/07/20 03:44: WBC 15.0 H, RBC 3.49 L, Hgb 10.4 L, Hct 33.3 L, MCV 95.4 H, MCH 29.8, MCHC 31.2 L, RDW Std Deviation 54.5 H, RDW Coeff of [place] 15.5 H, Plt Count 112 L, MPV 11.6, Immature Gran % (Auto) 1.000 H, Neut % (Auto) 84.4 H, Lymph % (Auto) 8.2 L, [place] % (Auto) 5.1, Eos % (Auto) 0.7, Baso % (Auto) 0.6, Absolute Neuts (auto) 12.7 H, Absolute Lymphs (auto) 1.23, Nucleated RBC % 0.1 01/07/20 03:44: Sodium 133 L, Potassium 4.8, Chloride 93 L, Carbon Dioxide 32.0, Anion Gap 8, BUN 20 H, Creatinine 3.86 H, Estim Creat Clear Calc 13.77, Est GFR (MDRD) Af Amer 19 L, Est GFR (MDRD) Non-Af 16 L, BUN/Creatinine Ratio 5.2 L, Glucose 139 H, Calcium 8.6 01/07/20 03:44: PT 15.9 H, INR 1.3, APTT 45.0 H 01/07/20 03:44: Hemoglobin A1c 5.3 01/07/20 06:17: POC Glucose 121 H 01/07/20 07:25: PT 16.6 H, INR 1.4 01/07/20 11:19: POC Glucose 103 Current Medications Acetaminophen (Tylenol) 650 mg PO Q6H PRN PRN PRN Reason: Pain Score 1-3 /Temp>100.7 [facility] Last Admin: 01/07/20 07:39 Dose: Not Given Documented by: Amlodipine Besylate (Norvasc) 5 mg PO DAILY [facility] Last Admin: 01/07/20 11:59 Dose: 5 mg Documented by: Atorvastatin Calcium (Lipitor) 40 mg PO QHS [facility] Last Admin: 01/07/20 00:08 Dose: Not Given Documented by: Calamine/Phenol (Calmoseptine Ointment) 1 applic TOPICAL TID [facility]; Protocol Last Admin: 01/07/20 06:00 Dose: 1 applicatio Documented by: Hydralazine HCl (Apresoline) 50 mg PO TID [facility] Last Admin: 01/07/20 12:00 Dose: Not Given Documented by: Hydromorphone HCl (Dilaudid Inj) 0.5 mg IV Q3H PRN PRN PRN Reason: Pain Score 6-10/10 Insulin Glargine (Lantus (Bkc)) 15 units SC QHS [facility] Last Admin: 01/07/20 00:08 Dose: Not Given Documented by: Loratadine (Claritin) 10 mg PO DAILY [facility] Last Admin: 01/07/20 11:58 Dose: 10 mg Documented by: Magnesium Oxide (Mag-Ox 400) 400 mg PO DAILYCM [facility] Last Admin: 01/07/20 07:38 Dose: Not Given Documented by: Nitroglycerin (Nitrostat) 0.4 mg SUBLINGUAL Q5M PRN PRN Reason: chest pain Nutritional Formula (Nepro Carb Steady) 120 ml PO 4X/DAY [facility] Last Admin: 01/07/20 07:39 Dose: Not Given Documented by: Ondansetron HCl (Zofran) 4 mg IV Q8H PRN PRN PRN Reason: Nausea Last Admin: 01/06/20 23:58 Dose: 4 mg Documented by: Oxycodone HCl (Oxyir) 5 mg PO Q4H PRN PRN PRN Reason: Pain Score 4-5/10 Pantoprazole Sodium (Protonix) 20 mg PO DAILY [facility] Last Admin: 01/07/20 11:58 Dose: 20 mg Documented by: Sertraline HCl (Zoloft) 75 mg PO DAILY [facility] Last Admin: 01/07/20 11:58 Dose: 75 mg Documented by: Sodium Chloride () 10 - 40 ml IV UD PRN PRN Reason: SALINE FLUSH Last Admin: 01/06/20 23:58 Dose: 10 ml Documented by: Tamsulosin HCl (Flomax) 0.4 mg PO QHS [facility] Last Admin: 01/07/20 00:07 Dose: Not Given Documented by: Medical Necessity - Tobacco Use Smoking Status: Never smoker Tobacco Use: Non-smoker Assessment/Plan All Active Problems (Last Reviewed 01/06/20 @ 10:[address] Heidi Hassan, DO) Leukocytosis (Acute) Elevated troponin (Acute) Hip fracture, left (Acute) ESRD mwf HD for HD tomorrow via [facility]DC has also LUE AVF Anemia ELIAS monitor HD HTN continue home meds controlled monitor CKD MBD monitor ca phos binders prn Hip fx for surgery at [facility] CC awaiting transfer
--- NOTE | 2020-01-07 14:39 | NURSING ---
report called to david @ [facility]
== END 2020-01-07 15:07 | disposition short-term general hospital (02) | DRG 535 ==
LOC: ED 09:26 → PCU 10:30
PROVIDERS: Anesthesiology; Orthopaedic Surgery; Admitting Provider Internal Medicine; Emergency Provider Emergency Medicine; PCP Nurse Practitioner Family; Visit Provider Internal Medicine
DX: S72.002A Fracture of unspecified part of neck of left femur, initial encounter for closed fracture (principal); N18.6 End stage renal disease; I12.0 Hypertensive chronic kidney disease with stage 5 chronic kidney disease or end stage renal disease; I48.21 Permanent atrial fibrillation; D63.1 Anemia in chronic kidney disease; S72.012A Unspecified intracapsular fracture of left femur, initial encounter for closed fracture; W18.09XA Striking against other object with subsequent fall, initial encounter; Y93.9 Activity, unspecified; Y92.009 Unspecified place in unspecified non-institutional (private) residence as the place of occurrence of the external cause; I49.3 Ventricular premature depolarization; R79.1 Abnormal coagulation profile; I25.10 Atherosclerotic heart disease of native coronary artery without angina pectoris; M10.9 Gout, unspecified; E11.22 Type 2 diabetes mellitus with diabetic chronic kidney disease; Z95.1 Presence of aortocoronary bypass graft; Z95.2 Presence of prosthetic heart valve; Z79.01 Long term (current) use of anticoagulants; Z99.2 Dependence on renal dialysis; E78.00 Pure hypercholesterolemia, unspecified; I25.2 Old myocardial infarction; N40.0 Benign prostatic hyperplasia without lower urinary tract symptoms; F32.9 Major depressive disorder, single episode, unspecified; Z79.4 Long term (current) use of insulin; Z79.899 Other long term (current) drug therapy; F03.90 Unspecified dementia, unspecified severity, without behavioral disturbance, psychotic disturbance, mood disturbance, and anxiety; I05.0 Rheumatic mitral stenosis; I27.20 Pulmonary hypertension, unspecified; M06.9 Rheumatoid arthritis, unspecified; K21.9 Gastro-esophageal reflux disease without esophagitis; F41.9 Anxiety disorder, unspecified
CPT/HCPCS: 36415; 70450; 71045; 73502; 80048; 82962; 83036; 84484; 85025; 85610; 85730; 86850; 86900; 86901; 90937; 93005; 93306; 97802; 99285; J7030; A4216; G0257; J2405; J3490

== ENCOUNTER 2020-02-12 06:50 | Observation (INO) | payer MEDICARE, OTHER, SELFPAY ==
[2020-01-07 00:10] VITALS: BMI 22.8
[2020-02-12] VITALS (7 sets, daily range): BP systolic 145–176; BP diastolic 45–69; PULSE 51–64; RESP 16–19; TEMP 35.9–36.9; O2SAT 95–97; BMI 22.7; BMI 21.6
--- NOTE | 2020-02-12 06:57 | NURSING ---
ICU 4 DR BARAJAS ALCOHOLIC KETACIDOSIS, ETOH WITHDRAWAL
--- NOTE | 2020-02-12 07:04 | EKG12_ITS ---
Test Reason : HYPERGLYCEMIA Blood Pressure : / mmHG Vent. Rate : 056 BPM Atrial Rate : 359 BPM P-R Int : 000 ms QRS Dur : 098 ms QT Int : 482 ms P-R-T Axes : 000 -19 115 degrees QTc Int : 465 ms Atrial flutter with variable A-V block Incomplete right bundle branch block Abnormal QRS-T angle, consider primary T wave abnormality Abnormal ECG Confirmed by MYAH MIRANDA, KOBE ([id number]), commercial production editor LIZZ BECKWITH ([id number]) on 02/15/2020 1:40:33 PM Referred By: [place] Confirmed By:KOBE GLASGOW MD
[2020-02-12] MEDS: Dextrose 50%-Water 25 GM/50 ML DISP.SYRIN IV ×2 (07:05→07:10)
[2020-02-12 07:13] LABS: Absolute Lymphocyte Count 1.02 X10^3/uL (0.83-4.51); Absolute Neutrophil Count 10.6 X10^3/uL (2.0-7.7); Basophil# 0.06 X10^3/uL; Basophil% 0.5 % (0-1); Eosinophil# 0.23 X10^3/uL; Eosinophils% 1.8 % (0-5); Hematocrit 34.6 % (40-54); Hemoglobin 10.9 g/dL (13.0-16.5); Lymphocyte # 1.02 X10^3/ul (4.0); Mean Corp Hgb Conc 31.5 g/dL (32-36); Mean Corpuscular Hgb 29.8 pg (27.0-32.0); Mean Corpuscular Volume 94.5 fL (80-94); Mean Platelet Vol. 10.9 fl (6.2-12.0); Monocyte% 6.2 % (0-10); NRBC Flagged by Analyzer 0 % (0-5); Neutrophil # 10.62 X10^3/uL (2.7-7.7); Neutrophil % 82.7 % (47-70); Platelet Count 153 K/mm3 (150-450); RBC Distribution Width CV 16.8 % (11.6-14.6); RBC Distribution Width SD 57.3 fl (35.1-43.9); Red Blood Count 3.66 M/mm3 (4.6-6.2); White Blood Count 12.8 K/mm3 (4.4-11.0)
[2020-02-12 07:24] LABS: Bacteria 0 SEEN /hpf (None Seen); Mucous, Urine 0 SEEN /hpf (<or=2+); Red Blood Cells-Urine 0 SEEN /hpf (0-5); Squamous Epithelial Cells - UA 0 SEEN /hpf (0-5)
[2020-02-12 07:35] LABS: Bedside Glucose 41 mg/dL (70-110)
[2020-02-12 07:35] LABS: Bedside Glucose 137 mg/dL (70-110)
[2020-02-12 07:38] LABS: Anion Gap 5 (5-15); BUN 27 mg/dL (7-18); BUN/Creat Ratio 5.6 RATIO (10-20); Calcium,Total 9.5 mg/dL (8.5-10.1); Chloride 96 mmol/L (98-107); Creatinine, Serum 4.78 mg/dL (0.70-1.30); EST Glomerular Filtration Rate 13 mL/min (>60); Est Glom Filt Rate - Afr Amer 15 mL/min (>60); Estimated Creatinine Clearance 11.12 ml/min; Glucose 47 mg/dL (74-106); Potassium 4.6 mmol/L (3.5-5.1); Sodium Level 136 mmol/L (136-145)
--- NOTE | 2020-02-12 07:38 | ED.VISSUMM ---
- ER Visit Summary Date of Service: 02/12/20 Chief Complaint: Hypoglycemia History of Present Illness: The patient is a 79 M who was brought from dialysis for hyperglycemia. About a month ago, he was hospitalized for left hip fracture. He has an extensive medical history including end-stage renal disease. He was at dialysis today and was altered. He was found to be hypoglycemic. EMS treated him with oral glucose. On arrival to the ED his glucose is 41. Patient is somnolent but able to provide some history. He awakens to voice. He says he did not eat or drink today, and is not sure why. He denies any change in his medications. He denies any pain or any other symptoms whatsoever. Physical Examination: Afebrile and vital signs unremarkable. Patient is somnolent but arouses to voice. He is oriented to person and place. Head and neck atraumatic. Pupils normal. Eye movements normal. No facial droop. Heart regular. Lungs clear. Abdomen soft and nontender. Extremities nontender. Good strength and sensation. Skin appears pale. He is able to move all extremities. Test Results: EKG shows atrial flutter with variable AV block and incomplete right bundle branch block pattern. Glucose was 41. Other testing is pending at this time. Emergency Department Course and Treatment: Patient was placed on the monitor. Treated with dextrose. On reevaluation, he is still resting with his eyes closed. He does respond to voice. He is oriented. He has no complaints. Will reassess. White count 12.8. This appears to be chronic. Hemoglobin stable at 10.9. Glucose 47 initially and BMP reflects his end-stage renal disease. INR 1.7. Urinalysis unremarkable. Troponin normal. Repeat glucose at 7:30 AM was 137 and at 8:10 AM it was 111. Patient has remained stable, but is still somnolent. He arouses to voice and is oriented x2. He has no focal neurologic findings. I believe he is still too somnolent to return to his nursing facility. I am concerned he will be too tired to eat. I do not believe he is retaining CO2 or has other medical abnormalities currently. He has no head trauma, headache, or any focal neurologic findings. I will contact the hospitalist. Treatment Plan: As above Disposition: Admission for observation Impression: Hyperglycemia This note was generated with Dragon dictation software. It may contain incorrect words, spelling, and punctuation that were not noted in review of the chart prior to signing ED Disposition - Plan for ED Patient: Referrals: Gina Sloan NP, ACTIVE DIRECTORY SPECIALIST-C [Primary Care Provider] -
[2020-02-12 07:43] LABS: Color, Urine Yellow (Yellow); Glucose, Dipstick Normal (Normal); Ketone-Dipstick Negative (Negative); Leukocyte Esterase-Dipstick 25 /ul (Negative); Nitrite-Dipstick Negative (Negative); Occult Blood-Urine 10 /ul (Negative); Protein-Dipstick 100 mg/dl (Negative); Urine Bilirubin Dipstick Negative (Negative); Urine Clarity Clear (Clear); Urine Urobilinogen Normal (Normal)
[2020-02-12 07:53] LABS: International Normalized Ratio 1.7; Prothrombin Time (Protime)PT. 19.4 SECONDS (11.7-14.9)
[2020-02-12 07:59] LABS: White Blood Cells 0-5 SEEN /hpf (0-5)
[2020-02-12 08:15] LABS: Bedside Glucose 111 mg/dL (70-110)
--- NOTE | 2020-02-12 08:17 | NURSING ---
MED SURG OBS HYPOGLYCEMIA
--- NOTE | 2020-02-12 08:38 | PCM.HP.STD ---
Problem List (1) Hypoglycemia Status: Acute (2) Metabolic encephalopathy Status: Acute (3) History of myocardial infarction Status: Chronic (4) Hx of CABG Status: Chronic (5) DM (diabetes mellitus) Status: Chronic (6) HTN (hypertension) Status: Chronic Qualifiers: (7) Pure hypercholesterolemia Status: Chronic (8) H/O aortic valve repair Status: Chronic (9) aoritc bovine 2010 replacement Status: Chronic (10) H/O mitral valve repair Status: Chronic (11) Afib Status: Chronic Qualifiers: (12) Gout Status: Chronic Qualifiers: (13) Leukocytosis Status: Chronic Qualifiers: (14) Atrial fibrillation and flutter Status: Chronic (15) CAD (coronary artery disease) Status: Chronic (16) Chronic a-fib Status: Chronic (17) Debility Status: Chronic (18) ESRD (end stage renal disease) Status: Chronic (19) Anemia Status: Chronic (20) Hip fracture, left Status: Resolved History of Present Illness Date of Admission: 02/12/20 Chief Complaint: confusion The patient is a 79 year old M who was on dialysis this morning and was noted to be confused. In the dialysis center, patient was noted to be hypoglycemic. Patient was sent to the emergency room. Blood sugar upon arrival was 41. In the emergency room, patient received 2 rounds of D50. Blood sugar has improved but patient still is confused at this time. Given his confusion and concern is the patient could become hypoglycemic again and decision was made to bring the patient in overnight. Patient is confused and a poor historian unable to provide any history at this time. [] Past Medical History Past Medical History (Chronic Problems): Chronic Problems (Last Reviewed 01/06/20 @ 10:[address] Heidi Hassan DO) History of myocardial infarction (Chronic) Hx of CABG (Chronic) DM (diabetes mellitus) (Chronic) HTN (hypertension) (Chronic) Pure hypercholesterolemia (Chronic) H/O aortic valve repair (Chronic) aoritc bovine 2010 replacement (Chronic) H/O mitral valve repair (Chronic) Afib (Chronic) Gout (Chronic) Leukocytosis (Chronic) Atrial fibrillation and flutter (Chronic) CAD (coronary artery disease) (Chronic) Chronic a-fib (Chronic) Debility (Chronic) ESRD (end stage renal disease) (Chronic) Anemia (Chronic) Medical History: Medical History (Last Reviewed 02/12/20 @ 08:[address] Quang Muniz, DO) BPH (benign prostatic hyperplasia) N40.0 CAD (coronary artery disease) I25.10 Depression F32.9 End stage renal disease N18.6 GERD (gastroesophageal reflux disease) K21.9 History of gout Z87.39 History of myocardial infarction I25.2 Leukocytosis D72.829 Type 2 diabetes mellitus E11.9 Chronic atrial fibrillation I48.20 ATRIAL FLUTTER Hypertension I10 Allergies escitalopram [From Lexapro] Allergy (Severe, Verified 02/12/20 08:00) Unknown levofloxacin [From Levaquin] Allergy (Severe, Verified 02/12/20 08:00) Other DRUG INDUCED LUPUS Penicillins Allergy (Severe, Verified 02/12/20 08:00) Unknown CONFUSED Opioids - Morphine Analogues Adverse Reaction (Severe, Verified 02/12/20 08:00) Other CONFUSION Home Medications: Ambulatory Orders Medication Instructions Recorded Allopurinol [Zyloprim] 100 mg PO DAILYCM 12/31/16 Insulin Detemir [Levemir] 15 unit SQ DAILY 12/31/16 Atorvastatin Calcium [Lipitor] 40 mg PO QHS 04/09/18 Tamsulosin HCl [Flomax] 0.4 mg PO QHS 04/09/18 Cetirizine HCl 10 mg PO DAILY PRN 07/27/19 Clopidogrel Bisulfate [Clopidogrel] 75 mg PO DAILY 07/27/19 Darbepoetin Daniel in Polysorbat 40 mcg IJ QWEEK 07/27/19 [Aranesp] Nitroglycerin 0.4 mg SL Q5M PRN 07/27/19 Sertraline HCl [Zoloft] 75 mg PO DAILY #0 09/05/19 Acetaminophen [Tylenol] 325 mg PO Q6H PRN PRN 01/06/20 B-Complex with Vitamin C [Vitamin 1 ea PO DAILY 01/06/20 B-Complex with Vit C] Calcium Acetate 667 mg PO TID 02/12/20 Omeprazole 20 mg PO QHS 02/12/20 Warfarin Sodium 4 mg PO DAILY 02/12/20 Surgical History: Surgical History (Last Reviewed 02/12/20 @ 08:[address] Quang Muniz DO) H/O aortic valve replacement Z95.2 10 YEARS AGO 2010 History of heart artery stent Z95.5 [facility] History of mitral valve repair Z98.890 Surgical History: - - CABG x 1, Bovine AVR, Mitral Valve Repair, L TKR, Ear Surgery. Psychiatric History: Anxiety, Depression Smoking Status: Unknown if ever smoked - *Family History Maternal Family History: Family History (Last Reviewed 02/12/20 @ 08:[address] Quang Muniz DO) Father Carotid artery disease Hypertension Mother Hypertension History Items: Diabetes, Heart Disease, Hypertension Paternal Family History: Family History (Last Reviewed 02/12/20 @ 08:[address] Quang Muniz DO) Father Carotid artery disease Hypertension Mother Hypertension History Items: Diabetes, Heart Disease, Hypertension Review of Systems Unable to obtain accurate/complete ROS d/t: Patient is confused and a poor historian. VTE Information - Inpt Only VTE Present on Admission: No VTE Mechan Device Prophylaxis: None VTE Pharm Prophylaxis ordered?: No Reason prophylaxis not ordered:: Treatment Not Indicated Patient Problems: Active and Suspected Problems (Last Reviewed 01/06/20 @ 10:[address] Heidi Hassan DO) Hypoglycemia (Acute) Metabolic encephalopathy (Acute) - Physical Exam Vitals/I&O's: Vital Signs Temp Pulse Resp BP Pulse Ox 36.6 C 59 L 18 176/56 H 95 02/12/20 08:16 02/12/20 08:16 02/12/20 08:16 02/12/20 08:16 02/12/20 06:51 Oxygen Delivery Method Room Air Weight: 63.9 kg Body Mass Index (BMI) 22.7 Finger Stick Blood Glucose 111 General: Cooperative, No apparent distress, Confused HEENT: Atraumatic, Normocephalic, - - Narrow pupils bilaterally. No scleral icterus. Oral: Moist Mucosa, No Gingival or Mucosal Lesions/ Ulcerations Neck: No Nodes, Thyroid Normal Size and Texture Lungs: Clear to auscultation, Normal air movement, No rhonchi, No wheeze, No rales Cardiovascular: Regular rate, Regular Rhythm, Normal S1, Normal S2, No murmurs Abdomen: Bowel Sounds Present, Soft, Non Tender, Non-Distended, No Hepato-splenomegaly Extremities: No edema, No Calf Tenderness Skin: No rashes, No breakdown Musculoskeletal: Cachexia, Muscle Wasting Neurological: Deep Tendon Reflexes 2+/4 and Symmetrical, Clonus - To beat and lower extremities bilaterally. Psych/Mental Status: Agitated, Restless Laboratory Results 02/12/20 06:57: POC Glucose 41 L* 02/12/20 07:02: WBC 12.8 H, RBC 3.66 L, Hgb 10.9 L, Hct 34.6 L, MCV 94.5 H, MCH 29.8, MCHC 31.5 L, RDW Std Deviation 57.3 H, RDW Coeff of [place] 16.8 H, Plt Count 153, MPV 10.9, Immature Gran % (Auto) 0.800, Neut % (Auto) 82.7 H, Lymph % (Auto) 8.0 L, [place] % (Auto) 6.2, Eos % (Auto) 1.8, Baso % (Auto) 0.5, Absolute Neuts (auto) 10.6 H, Absolute Lymphs (auto) 1.02, Nucleated RBC % 0 02/12/20 07:02: Sodium 136, Potassium 4.6, Chloride 96 L, Carbon Dioxide 35.0 H, Anion Gap 5, BUN 27 H, Creatinine 4.78 H, Estim Creat Clear Calc 11.12, Est GFR (MDRD) Af Amer 15 L, Est GFR (MDRD) Non-Af 13 L, BUN/Creatinine Ratio 5.6 L, Glucose 47 L, Calcium 9.5, Troponin I 0.025 02/12/20 07:15: Urine Color Yellow, Urine Clarity Clear, Urine pH 8.0, Ur Specific [place] 1.010, Urine Protein 100 H, Urine Glucose (UA) Normal, Urine Ketones Negative, Urine Occult Blood 10 H, Urine Nitrite Negative, Urine Bilirubin Negative, Urine Urobilinogen Normal, Ur Leukocyte Esterase 25 H, Urine RBC 0 SEEN, Urine WBC 0-5 SEEN, Ur Squamous Epith Cells 0 SEEN, Urine Bacteria 0 SEEN, Urine Mucus 0 SEEN 02/12/20 07:30: PT 19.4 H, INR 1.7 02/12/20 07:30: POC Glucose 137 H 02/12/20 08:09: POC Glucose 111 H Assessment/Plan All Active Problems (Last Reviewed 01/06/20 @ 10:[address] Heidi Hassan, DO) Hip fracture, left (Resolved) Hypoglycemia (Acute) Metabolic encephalopathy (Acute) 1. Metabolic encephalopathy: Secondary to hypoglycemia. Hypoglycemia has resolved the patient is still confused at this time. No brain imaging obtained patient did have a head CT on the 12th that showed market atrophy. With suspected patient's persistent confusion after resolution of the hypoglycemia is probably just attributable to his presumed underlying dementia and that caused him to be more confused that is just persistent at this time. I dissipate improvement though may be slower than typically expected. Hold off in any potentiating medications. 2. Hypoglycemia: Appears to be improved after 2 rounds of D50. We will continue to monitor his blood sugar every hour for 4 hours then every 2 hours x 2 and then with meals thereafter. Hold off on his basal insulin for now 3. End-stage renal disease on dialysis: Is unclear how much dialysis the patient did receive. Will consult nephrology. Discussed with Dr. Al. 4. Atrial fibrillation: Rate controlled but still in A. fib. On warfarin and INR is 1.7. Continue with warfarin for now. 5. VTE prophylaxis: Low risk as patient is observation status. 6. Advanced care planning could not discuss OBSV E&M: [id number] Initial observation care L3
[2020-02-12 10:05] LABS: Bedside Glucose 78 mg/dL (70-110)
[2020-02-12 10:50] LABS: Bedside Glucose 66 mg/dL (70-110)
--- NOTE | 2020-02-12 10:58 | CON.PCM_ITS ---
Problem List (1) ESRD (end stage renal disease) on dialysis Status: Acute Consultation - Renal 02/12/20 PCP/ Referring MD: Requesting physician: [] Primary care physician: SHRUTHI Diaz Reason for Consultation:: ESRD - History of Present Illness History of Present Illness: The patient is a 79 year old M well known to us. ESRD on HD MWF schedule. last HD was saturday. came into dialysis unit today with AMS. found to be hypoglycemic. sent into ER. now sugars are better. mental status is better. says he did not eat much for dinner. breathing is ok. no LE edema. - Allergies Allergies: Allergies escitalopram [From Lexapro] Allergy (Severe, Verified 02/12/20 08:00) Unknown levofloxacin [From Levaquin] Allergy (Severe, Verified 02/12/20 08:00) Other DRUG INDUCED LUPUS Penicillins Allergy (Severe, Verified 02/12/20 08:00) Unknown CONFUSED Opioids - Morphine Analogues Adverse Reaction (Severe, Verified 02/12/20 08:00) Other CONFUSION - Current Medications Current Medications: Current Medications Acetaminophen (Tylenol) 325 mg PO Q6H PRN PRN PRN Reason: Pain Score 1-10/10 Allopurinol (Zyloprim) 100 mg PO DAILYCM [facility] Atorvastatin Calcium (Lipitor) 40 mg PO QHS [facility] Calcium Acetate (Phoslo Gel Cap) 667 mg PO TIDCM [facility] Clopidogrel Bisulfate (Plavix) 75 mg PO DAILY [facility] Sodium Chloride () 250 mls @ 15 mls/hr IV .[id number] PRN PRN Reason: Saline Flush Sodium Chloride () 250 mls @ 15 mls/hr IV .[id number] PRN PRN Reason: Additional IVPB Infusion Loratadine (Claritin) 10 mg PO DAILY PRN PRN Reason: ALLERGY Multivitamins (Allbee W/C Caplet, Thera B Comp/C) 1 capsule PO DAILYCM [facility] Nitroglycerin (Nitrostat) 0.4 mg SUBLINGUAL Q5M PRN PRN Reason: chest pain Nutritional Formula (Nepro Carb Steady) 120 ml PO 4X/DAY [facility] Ondansetron HCl (Zofran) 4 mg IV Q8H PRN PRN PRN Reason: NAUSEA/VOMITING Pantoprazole Sodium (Protonix) 20 mg PO QHS [facility] Sertraline HCl (Zoloft) 75 mg PO DAILY [facility] Sodium Chloride () 10 - 40 ml IV UD PRN PRN Reason: SALINE FLUSH Tamsulosin HCl (Flomax) 0.4 mg PO QHS [facility] Warfarin Sodium (Jantoven) 4 mg PO DAILY@1700 [facility] - Past Medical History Past Medical History (Chronic Problems): Chronic Problems (Last Reviewed 02/12/20 @ 08:[address] Quang Muniz DO) History of myocardial infarction (Chronic) Hx of CABG (Chronic) DM (diabetes mellitus) (Chronic) HTN (hypertension) (Chronic) Pure hypercholesterolemia (Chronic) H/O aortic valve repair (Chronic) aoritc bovine 2010 replacement (Chronic) H/O mitral valve repair (Chronic) Afib (Chronic) Gout (Chronic) Leukocytosis (Chronic) Atrial fibrillation and flutter (Chronic) CAD (coronary artery disease) (Chronic) Chronic a-fib (Chronic) Debility (Chronic) ESRD (end stage renal disease) (Chronic) Anemia (Chronic) - Past Surgical History Surgical History: - - CABG x 1, Bovine AVR, Mitral Valve Repair, L TKR, Ear Surgery. - Social History Smoking Status: Unknown if ever smoked - Family History Maternal Family History: Family History (Last Reviewed 02/12/20 @ 08:[address] Quang Muniz DO) Father Carotid artery disease Hypertension Mother Hypertension History Items: Diabetes, Heart Disease, Hypertension Paternal Family History: Family History (Last Reviewed 02/12/20 @ 08:[address] Quang Muniz DO) Father Carotid artery disease Hypertension Mother Hypertension History Items: Diabetes, Heart Disease, Hypertension Review of Systems Constitutional: Denies: Chills, Fever, Weight Change HEENT: Denies: Head Aches, Sinus Congestion, Sinus Drainage Cardiovascular: Denies: Chest Pain, Palpitations Respiratory: Denies: Cough, Shortness of breath at rest, Sputum production Gastrointestinal: Denies: Abdominal Pain, Nausea, Vomiting Genitourinary: Denies: Dysuria Musculoskeletal: Denies: Joint Pain, Joint Tenderness Skin: Denies: Rash, Wounds Neurological: Denies: Numbness, Tingling, Focal weakness Psychiatric: Denies: Anxiety, Depression, Homicidal Ideations, Suicidal Ideations Hematologic/ Lymphatic: Denies: Easy Bruising, Easy Bleeding Patient Problems: Active and Suspected Problems (Last Reviewed 02/12/20 @ 08:[address] 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 (Acute) ESRD (end stage renal disease) on dialysis (Acute) - Physical Exam Vitals/I&O's: Vital Signs Temp Pulse Resp BP Pulse Ox 97.5 F L 51 L 16 150/45 H 97 02/12/20 09:57 02/12/20 09:57 02/12/20 09:57 02/12/20 09:57 02/12/20 09:57 Oxygen Delivery Method Room Air Weight: 60.736 kg Body Mass Index (BMI) 21.6 Finger Stick Blood Glucose 111 General: Alert, Cooperative HEENT: Atraumatic, PERRLA, EOMI, Normocephalic Neck: Supple, No JVD, Negative Carotid Bruits Lungs: Clear to auscultation, Normal air movement Cardiovascular: Regular rate, No murmurs Abdomen: Bowel Sounds Present, Soft, Non Tender Extremities: No edema, Capillary Refill Less than 3 Seconds Skin: No rashes, No breakdown Musculoskeletal: No Tenderness to Palpation of Joints or Extremities Neurological: Cranial nerves II-XII grossly intact Psych/Mental Status: Normal Affect, Appropriate Laboratory Results 02/12/20 06:57: POC Glucose 41 L* 02/12/20 07:02: WBC 12.8 H, RBC 3.66 L, Hgb 10.9 L, Hct 34.6 L, MCV 94.5 H, MCH 29.8, MCHC 31.5 L, RDW Std Deviation 57.3 H, RDW Coeff of [place] 16.8 H, Plt Count 153, MPV 10.9, Immature Gran % (Auto) 0.800, Neut % (Auto) 82.7 H, Lymph % (Auto) 8.0 L, [place] % (Auto) 6.2, Eos % (Auto) 1.8, Baso % (Auto) 0.5, Absolute Neuts (auto) 10.6 H, Absolute Lymphs (auto) 1.02, Nucleated RBC % 0 02/12/20 07:02: Sodium 136, Potassium 4.6, Chloride 96 L, Carbon Dioxide 35.0 H, Anion Gap 5, BUN 27 H, Creatinine 4.78 H, Estim Creat Clear Calc 11.12, Est GFR (MDRD) Af Amer 15 L, Est GFR (MDRD) Non-Af 13 L, BUN/Creatinine Ratio 5.6 L, Glucose 47 L, Calcium 9.5, Troponin I 0.025 02/12/20 07:15: Urine Color Yellow, Urine Clarity Clear, Urine pH 8.0, Ur Specific [place] 1.010, Urine Protein 100 H, Urine Glucose (UA) Normal, Urine Ketones Negative, Urine Occult Blood 10 H, Urine Nitrite Negative, Urine Bilirubin Negative, Urine Urobilinogen Normal, Ur Leukocyte Esterase 25 H, Urine RBC 0 SEEN, Urine WBC 0-5 SEEN, Ur Squamous Epith Cells 0 SEEN, Urine Bacteria 0 SEEN, Urine Mucus 0 SEEN 02/12/20 07:30: PT 19.4 H, INR 1.7 02/12/20 07:30: POC Glucose 137 H 02/12/20 08:09: POC Glucose 111 H 02/12/20 09:50: POC Glucose 78 02/12/20 10:32: POC Glucose 66 L Current Medications Acetaminophen (Tylenol) 325 mg PO Q6H PRN PRN PRN Reason: Pain Score 1-10/10 Allopurinol (Zyloprim) 100 mg PO DAILYCM [facility] Atorvastatin Calcium (Lipitor) 40 mg PO QHS [facility] Calcium Acetate (Phoslo Gel Cap) 667 mg PO TIDCM [facility] Clopidogrel Bisulfate (Plavix) 75 mg PO DAILY [facility] Sodium Chloride () 250 mls @ 15 mls/hr IV .[id number] PRN PRN Reason: Saline Flush Sodium Chloride () 250 mls @ 15 mls/hr IV .[id number] PRN PRN Reason: Additional IVPB Infusion Loratadine (Claritin) 10 mg PO DAILY PRN PRN Reason: ALLERGY Multivitamins (Allbee W/C Caplet, Thera B Comp/C) 1 capsule PO DAILYCM [facility] Nitroglycerin (Nitrostat) 0.4 mg SUBLINGUAL Q5M PRN PRN Reason: chest pain Nutritional Formula (Nepro Carb Steady) 120 ml PO 4X/DAY [facility] Ondansetron HCl (Zofran) 4 mg IV Q8H PRN PRN PRN Reason: NAUSEA/VOMITING Pantoprazole Sodium (Protonix) 20 mg PO QHS [facility] Sertraline HCl (Zoloft) 75 mg PO DAILY [facility] Sodium Chloride () 10 - 40 ml IV UD PRN PRN Reason: SALINE FLUSH Tamsulosin HCl (Flomax) 0.4 mg PO QHS [facility] Warfarin Sodium (Jantoven) 4 mg PO DAILY@1700 [facility] Assessment/Plan All Active Problems (Last Reviewed 02/12/20 @ 08:[address] 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 gets long acting ELIAS with HD hypoglycemia, now better.
[2020-02-12] MEDS: Vitamin B Comp W-C Capsule 1 CAP PO (11:36)
[2020-02-12] MEDS: Sertraline 50 MG Tablet 75 MG PO (11:36)
[2020-02-12] MEDS: Calcium Acetate 667 MG Capsule PO ×2 (11:37→17:02)
[2020-02-12] MEDS: Clopidogrel Bisulfate 75 MG Tablet PO (11:37)
[2020-02-12 11:51] LABS: Bedside Glucose 101 mg/dL (70-110)
--- NOTE | 2020-02-12 11:52 | CASEMGMT ---
Addendum entered by Madiha Armenta 02/12/20 15:24: Negative COVID test is available. BRIELLE faxed results with COVID screening tool to Annemarie at [facility], wrote on fax cover sheet that pt will likely discharge tomorrow. Original Note: Social Work Note Pt is new admit today, listed as being from [facility]. BRIELLE placed a call to Annemarie at [facility], pt is skilled and is able to return when medically cleared. Annemarie does request COVID test for pt. BRIELLE updated charge nurse. SW in to speak with pt. Per H+P, pt was confused and poor historian when arrived to ED today. SW introduced self and role at [facility]. Pt is alert, confirms that he is from [facility], but unable to state how long pt has been at [facility]. BRIELLE spoke with pt regarding discharge plans. Pt states well I would like to see how I do and if I can go home at discharge. SW informed pt that it will just depend on how pt does. Pt states understanding, gave this worker permission to call his Kristina. SW placed a call to pt's Kristina. Kristina confirms pt is from [facility] and will be returning at discharge. SW placed green sheet, transport form on pt's chart. Pt will need Negative COVID test for pt to return to [facility]. 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
[2020-02-12 13:06] LABS: Bedside Glucose 181 mg/dL (70-110)
[2020-02-12] MEDS: Nepro Liquid 120 ML LIQUID PO ×3 (13:35→21:31)
[2020-02-12 14:31] LABS: Bedside Glucose 252 mg/dL (70-110)
[2020-02-12 17:00] LABS: Bedside Glucose 253 mg/dL (70-110)
[2020-02-12] MEDS: Insulin Lispro 100 UNIT/ML INSULN.PEN SC (17:00)
[2020-02-12] MEDS: Atorvastatin Calcium 40 MG Tablet PO (20:27)
[2020-02-12] MEDS: 0.9% Saline Lock 10 ML Syringe IV (20:29)
[2020-02-12] MEDS: Tamsulosin HCl 0.4 MG Capsule PO (21:31)
[2020-02-12] MEDS: Pantoprazole Sodium 20 MG Tablet PO (21:31)
[2020-02-12 21:40] LABS: Bedside Glucose 141 mg/dL (70-110)
[2020-02-13 02:35] VITALS: BP 160/63; PULSE 63; RESP 18; TEMP 36.4; O2SAT 96
[2020-02-13] MEDS: Acetaminophen 325 MG Tablet PO (03:30)
[2020-02-13 06:14] VITALS: BP 154/62
[2020-02-13 06:46] LABS: Bedside Glucose 120 mg/dL (70-110)
[2020-02-13 07:13] LABS: Absolute Neutrophil Count 7.5 X10^3/uL (2.0-7.7); Basophil# 0.05 X10^3/uL; Basophil% 0.5 % (0-1); Eosinophil# 0.36 X10^3/uL; Eosinophils% 3.6 % (0-5); Hematocrit 32.2 % (40-54); Hemoglobin 10.1 g/dL (13.0-16.5); Lymphocyte % 13.1 % (19-41); Mean Corp Hgb Conc 31.4 g/dL (32-36); Mean Corpuscular Hgb 29.2 pg (27.0-32.0); Mean Corpuscular Volume 93.1 fL (80-94); Mean Platelet Vol. 10.7 fl (6.2-12.0); Monocyte# 0.68 X10^3/uL; Monocyte% 6.8 % (0-10); NRBC Flagged by Analyzer 0 % (0-5); Neutrophil # 7.46 X10^3/uL (2.7-7.7); Neutrophil % 75.1 % (47-70); Platelet Count 151 K/mm3 (150-450); RBC Distribution Width CV 16.7 % (11.6-14.6); RBC Distribution Width SD 57.2 fl (35.1-43.9); Red Blood Count 3.46 M/mm3 (4.6-6.2); White Blood Count 9.9 K/mm3 (4.4-11.0)
[2020-02-13 07:28] LABS: International Normalized Ratio 1.9; Prothrombin Time (Protime)PT. 21.7 SECONDS (11.7-14.9)
[2020-02-13 07:35] LABS: Anion Gap 10 (5-15); BUN 38 mg/dL (7-18); BUN/Creat Ratio 6.6 RATIO (10-20); Calcium,Total 8.8 mg/dL (8.5-10.1); Chloride 95 mmol/L (98-107); Creatinine, Serum 5.73 mg/dL (0.70-1.30); EST Glomerular Filtration Rate 10 mL/min (>60); Est Glom Filt Rate - Afr Amer 12 mL/min (>60); Estimated Creatinine Clearance 8.83 ml/min; Glucose 122 mg/dL (74-106); Potassium 4.5 mmol/L (3.5-5.1); Sodium Level 135 mmol/L (136-145)
[2020-02-13 08:00] VITALS: BP 130/64; PULSE 64; RESP 18; TEMP 36.3
--- NOTE | 2020-02-13 08:48 | TREXTCAR_ITS ---
- Diet 02/12/20 09:16 Diet: Renal - General Food consistency:: Mechanical (Minced/Moist) Liquid Consistency:: Regular/Thin Dietary Modifications:: Consistent Carbohydrate - Routine Orders/Code Status Routine Lab Work: BMP - Wound(s) left hip Wound Type: Surgical Incision - Therapies Weight Bearing: Weight bearing as tolerated Physical Therapy: Eval and Treat Occupational Therapy: Eval and Treat - Problem/Diagnosis (1) Hypoglycemia Status: Acute Current Visit: Yes (2) Metabolic encephalopathy Status: Acute Current Visit: Yes (3) History of myocardial infarction Status: Chronic Current Visit: No (4) Hx of CABG Status: Chronic Current Visit: No (5) DM (diabetes mellitus) Status: Chronic Current Visit: No (6) HTN (hypertension) Status: Chronic Current Visit: No (7) Pure hypercholesterolemia Status: Chronic Current Visit: No (8) H/O aortic valve repair Status: Chronic Current Visit: No (9) aoritc bovine 2010 replacement Status: Chronic Current Visit: No (10) H/O mitral valve repair Status: Chronic Current Visit: No (11) Afib Status: Chronic Current Visit: No (12) Gout Status: Chronic Current Visit: No (13) Leukocytosis Status: Chronic Current Visit: No (14) Atrial fibrillation and flutter Status: Chronic Current Visit: No (15) CAD (coronary artery disease) Status: Chronic Current Visit: No (16) Chronic a-fib Status: Chronic Current Visit: No (17) Debility Status: Chronic Current Visit: No (18) ESRD (end stage renal disease) Status: Chronic Current Visit: No (19) Anemia Status: Chronic Current Visit: No (20) Hip fracture, left Status: Resolved Current Visit: No - Allergies/Procedures Done in Hospital Allergies/Adverse Reactions: Allergies escitalopram [From Lexapro] Allergy (Severe, Verified 02/12/20 08:00) Unknown levofloxacin [From Levaquin] Allergy (Severe, Verified 02/12/20 08:00) Other DRUG INDUCED LUPUS Penicillins Allergy (Severe, Verified 02/12/20 08:00) Unknown CONFUSED Opioids - Morphine Analogues Adverse Reaction (Severe, Verified 02/12/20 08:00) Other CONFUSION - Type of Care/Length of Stay Estimated LOS: Convalescent Care Less Than 30 days Type of Care Needed: Skilled Rehab Potential: Fair Prognosis: Fair - Additional Orders/Day of Discharge Additional Orders: blood glucose tests with meals. Day of Discharge: 02/13/20 - Dietary and Speech Recommendations Dietitian Recommendations/Changes: Will change diet to CHO Controlled / Renal - general diet r/t pmhx Speech Linguistic Eval Summary: Orientation - pt not oriented to date or location. Auditory comprehension - pt 0% accurate independently. Verbal expression - pt. unable to answer simple personal questions such as Where do you live? but was able to answer correctly from a field of 2. Problem Solving - When asked how he would get help while in acute care, he answered Kick the door down. Maximum cues were needed to reinforce the use of the call button. - Follow Up Care Primary Care Physician: Gina Sloan ANODE BUILDER, ANODE BUILDER-C [Primary Care Provider] - [facility]
--- NOTE | 2020-02-13 08:58 | DS.PCM_ITS ---
Discharge Date and Diagnosis - Problem List Patient Problems: Active and Suspected Problems (Last Reviewed 02/12/20 @ 08:[address] Quang Muniz DO) Hypoglycemia (Acute) Metabolic encephalopathy (Acute) Date of Admission: 02/12/20 Date of Discharge: 02/13/20 - Primary Discharge Diagnosis Acute Problems: Active Problems (Last Reviewed 02/12/20 @ 08:[address] 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 Quang Muniz DO) History of myocardial infarction (Chronic) Hx of CABG (Chronic) DM (diabetes mellitus) (Chronic) HTN (hypertension) (Chronic) Pure hypercholesterolemia (Chronic) H/O aortic valve repair (Chronic) aoritc bovine 2010 replacement (Chronic) H/O mitral valve repair (Chronic) Afib (Chronic) Gout (Chronic) Leukocytosis (Chronic) Atrial fibrillation and flutter (Chronic) CAD (coronary artery disease) (Chronic) Chronic a-fib (Chronic) Debility (Chronic) ESRD (end stage renal disease) (Chronic) Anemia (Chronic) Hospital Course and Treatment [facility] Operations: None Procedures: Dialysis Summary of Care Provided: The patient is a 79 year old M from dialysis with confusion. Patient was noted to be hypoglycemic. Patient received D50 in the emergency room which did improve his blood sugar but his mental status was still changed. Patient eventually did come to but is confused. Patient has some baseline underlying dementia and is confused this morning. Patient was asking where his glasses were when there indicates right in front of him and was asking nonsensical questions and questions that were already answered just before. Patient blood sugars are stable. Patient was on insulin glargine which is been held and will continue to be held. Blood sugars have been fairly well controlled. Patient will continue with sliding scale insulin upon her return to the [facility] facility. Remain to be determined if he would need to go back on basal insulin or not. [] Patient Problems: Active and Suspected Problems (Last Reviewed 02/12/20 @ 08:[address] Quang nixon DO) Hypoglycemia (Acute) Metabolic encephalopathy (Acute) - Physical Exam Vitals/I&O's: Vital Signs Temp Pulse Resp BP Pulse Ox 36.4 C L 63 18 154/62 H 96 02/13/20 02:35 02/13/20 02:35 02/13/20 02:35 02/13/20 06:14 02/13/20 02:35 Oxygen Delivery Method Room Air Weight: 60.736 kg Body Mass Index (BMI) 21.6 Finger Stick Blood Glucose 111 Intake and Output for Last 24 Hours 02/11/20 02/12/20 02/13/20 23:59 23:59 23:59 Intake Total 325 / 325 Output Total 480 / 480 75 / 75 Balance -155 / -155 -75 / -75 General: Confused HEENT: Atraumatic, Normocephalic Oral: Moist Mucosa, No Gingival or Mucosal Lesions/ Ulcerations Neck: No Nodes, Thyroid Normal Size and Texture Lungs: Clear to auscultation, Normal air movement, No rhonchi, No wheeze Cardiovascular: Regular rate, Regular Rhythm, Normal S1, Normal S2, No murmurs Abdomen: Bowel Sounds Present, Soft, Non Tender, Non-Distended, No Hepato- splenomegaly Extremities: No edema, No Calf Tenderness Laboratory Results 02/12/20 09:50: POC Glucose 78 02/12/20 10:32: POC Glucose 66 L 02/12/20 11:25: POC Glucose 101 02/12/20 11:42: COVID-19 ([place]) Not Detected 02/12/20 12:53: POC Glucose 181 H 02/12/20 14:24: POC Glucose 252 H 02/12/20 16:55: POC Glucose 253 H 02/12/20 21:35: POC Glucose 141 H 02/13/20 06:38: POC Glucose 120 H 02/13/20 06:45: WBC 9.9, RBC 3.46 L, Hgb 10.1 L, Hct 32.2 L, MCV 93.1, MCH 29.2, MCHC 31.4 L, RDW Std Deviation 57.2 H, RDW Coeff of Soco 16.7 H, Plt Count 151, MPV 10.7, Immature Gran % (Auto) 0.900, Neut % (Auto) 75.1 H, Lymph % (Auto) 13.1 L, Winston % (Auto) 6.8, Eos % (Auto) 3.6, Baso % (Auto) 0.5, Absolute Neuts (auto) 7.5, Absolute Lymphs (auto) 1.30, Nucleated RBC % 0 02/13/20 06:45: PT 21.7 H, INR 1.9 02/13/20 06:45: Sodium 135 L, Potassium 4.5, Chloride 95 L, Carbon Dioxide 30.0, Anion Gap 10, BUN 38 H, Creatinine 5.73 H, Estim Creat Clear Calc 8.83, Est GFR (MDRD) Af Amer 12 L, Est GFR (MDRD) Non-Af 10 L, BUN/Creatinine Ratio 6.6 L, Glucose 122 H, Calcium 8.8 Current Medications Acetaminophen (Tylenol) 325 mg PO Q6H PRN PRN PRN Reason: Pain Score 1-10/10 Last Admin: 02/13/20 03:30 Dose: 325 mg Documented by: [facility]) [facility] Atorvastatin Calcium (Lipitor) 40 mg PO QHS [facility] Last Admin: 02/12/20 20:27 Dose: 40 mg Documented by: Calcium Acetate (Phoslo Gel Cap) 667 mg PO TIDCM [facility] Last Admin: 02/12/20 17:02 Dose: 667 mg Documented by: Clopidogrel Bisulfate (Plavix) 75 mg PO DAILY [facility] Last Admin: 02/12/20 11:37 Dose: 75 mg Documented by: Sodium Chloride () 250 mls @ 15 mls/hr IV .[id number] PRN PRN Reason: Saline Flush Sodium Chloride () 250 mls @ 15 mls/hr IV .[id number] PRN PRN Reason: Additional IVPB Infusion Insulin Human Lispro (Humalog Kwikpen (Bkc)) 0 unit [facility]; Protocol Last Admin: 02/13/20 06:38 Dose: Not Given Documented by: Loratadine (Claritin) 10 mg PO DAILY PRN PRN Reason: ALLERGY Multivitamins (Allbee W/C Caplet, Thera B Comp/C) [facility] Last Admin: 02/12/20 11:36 Dose: 1 capsule Documented by: Nitroglycerin (Nitrostat) 0.4 mg SUBLINGUAL Q5M PRN PRN Reason: chest pain Nutritional Formula (Nepro Carb Steady) 120 ml PO 4X/DAY [facility] Last Admin: 02/12/20 21:31 Dose: 120 ml Documented by: Ondansetron HCl (Zofran) 4 mg IV Q8H PRN PRN PRN Reason: NAUSEA/VOMITING Pantoprazole Sodium (Protonix) 20 mg PO QHS [facility] Last Admin: 02/12/20 21:31 Dose: 20 mg Documented by: Sertraline HCl (Zoloft) 75 mg PO DAILY [facility] Last Admin: 02/12/20 11:36 Dose: 75 mg Documented by: Sodium Chloride () 10 - 40 ml IV UD PRN PRN Reason: SALINE FLUSH Last Admin: 02/12/20 20:29 Dose: 10 ml Documented by: Tamsulosin HCl (Flomax) 0.4 mg PO QHS [facility] Last Admin: 02/12/20 21:31 Dose: 0.4 mg Documented by: Warfarin Sodium (Jantoven) 4 mg PO DAILY@1700 [facility] Last Admin: 02/12/20 17:02 Dose: 4 mg Documented by: Discharge Diet: 1800 Calorie Control Diet Home Medications: Medications to take at Discharge Allopurinol [Zyloprim] 100 mg PO DAILYCM 12/31/16 Atorvastatin Calcium [Lipitor] 40 mg PO QHS 04/09/18 Tamsulosin HCl [Flomax] 0.4 mg PO QHS 04/09/18 Cetirizine HCl 10 mg PO DAILY PRN 07/27/19 Clopidogrel Bisulfate [Clopidogrel] 75 mg PO DAILY 07/27/19 Darbepoetin Daniel in Polysorbat [Aranesp] 40 mcg IJ QWEEK 07/27/19 Nitroglycerin 0.4 mg SL Q5M PRN 07/27/19 Acetaminophen [Tylenol] 325 mg PO Q6H PRN PRN 01/06/20 B-Complex with Vitamin C [Vitamin B-Complex with Vit C] 1 ea PO DAILY 01/06/20 Calcium Acetate 667 mg PO TID 02/12/20 Omeprazole 20 mg PO QHS 02/12/20 Sennosides/Docusate Sodium [Senokot-S Tablet] 1 ea PO BID 02/12/20 Sertraline HCl [Zoloft] 100 mg PO DAILY 02/12/20 Warfarin Sodium 4 mg PO DAILY 02/12/20 Insulin Lispro [Humalog KwikPen] See Protocol SUBCUT ACHS insuln.pen 02/13/20 Nepro Liquid [Nepro Carb Steady] 120 ml PO 4X/DAY liquid 02/13/20 Primary Care Physician: Gina Sloan LEGAL RECORDS CLERK, LEGAL RECORDS CLERK-C [Primary Care Provider] - [facility] Minutes spent on discharge:: 32 Patient Condition:: Fair Medical Necessity - Tobacco Use Smoking Status: Unknown if ever smoked Meaningful Use Info Meaningful Use Diagnoses (Choose all that apply): None applicable OBSV E&M: 08419 Observation care discharge
[2020-02-13] MEDS: Calcium Acetate 667 MG Capsule PO ×2 (10:31→13:28)
[2020-02-13] MEDS: Allopurinol 100 MG Tablet PO (10:31)
[2020-02-13] MEDS: Vitamin B Comp W-C Capsule 1 CAP PO (10:31)
[2020-02-13] MEDS: Sertraline 50 MG Tablet 75 MG PO (10:31)
[2020-02-13] MEDS: Clopidogrel Bisulfate 75 MG Tablet PO (10:40)
[2020-02-13] MEDS: Nepro Liquid 120 ML LIQUID PO (10:40)
[2020-02-13 11:25] LABS: Bedside Glucose 149 mg/dL (70-110)
[2020-02-13 11:30] VITALS: BP 109/46; RESP 16; TEMP 36.6
--- NOTE | 2020-02-13 11:37 | DIALYSIS ---
HD completed x3.15minutes. access via left upper arm graft. Net UF 700 ml. See HD flowsheet on chart.
== END 2020-02-13 14:05 | disposition skilled nursing facility (03) ==
LOC: ED 07:31 → MS3 08:42
PROVIDERS: Emergency Provider Emergency Medicine; PCP Nurse Practitioner Family
DX: E11.649 Type 2 diabetes mellitus with hypoglycemia without coma (principal); E11.22 Type 2 diabetes mellitus with diabetic chronic kidney disease; E11.65 Type 2 diabetes mellitus with hyperglycemia; G93.41 Metabolic encephalopathy; N18.6 End stage renal disease; I44.39 Other atrioventricular block; I48.92 Unspecified atrial flutter; I25.2 Old myocardial infarction; I12.0 Hypertensive chronic kidney disease with stage 5 chronic kidney disease or end stage renal disease; E78.00 Pure hypercholesterolemia, unspecified; M10.9 Gout, unspecified; I25.10 Atherosclerotic heart disease of native coronary artery without angina pectoris; N40.0 Benign prostatic hyperplasia without lower urinary tract symptoms; K21.9 Gastro-esophageal reflux disease without esophagitis; F32.9 Major depressive disorder, single episode, unspecified; F41.9 Anxiety disorder, unspecified; I48.0 Paroxysmal atrial fibrillation; Z99.2 Dependence on renal dialysis; Z79.899 Other long term (current) drug therapy; Z95.1 Presence of aortocoronary bypass graft; Z79.01 Long term (current) use of anticoagulants; Z79.02 Long term (current) use of antithrombotics/antiplatelets; Z79.4 Long term (current) use of insulin; D64.9 Anemia, unspecified; R13.12 Dysphagia, oropharyngeal phase
CPT/HCPCS: 36415; 80048; 81001; 82962; 84484; 85025; 85610; 87635; 90937; 92523; 92610; 93005; 97162; 97166; 97530; 97802; 99218; 99285; C9803; P9612; A4216; G0257; G0378; U0003

== ENCOUNTER 2020-02-16 03:25 | Emergency (ER) | payer MEDICARE, OTHER, SELFPAY ==
[2020-02-12 10:19] VITALS: BMI 21.6
--- NOTE | 2020-02-16 04:00 | CT_ITS ---
STUDY: CT CERVICAL SPINE WITHOUT CONTRAST REASON FOR EXAM: Male, 79 years old. Fall. No loss of consciousness. RADIATION DOSAGE (If Supplied By Facility): CTDIvol = ( 17.87 ) mGy, DLP = ( 362.53 ) mGycm TECHNIQUE: High resolution transaxial imaging was performed without contrast material. Sagittal and coronal images were reconstructed. Individualized dose optimization techniques were used for this CT. COMPARISON: CT scan C-spine 09/02/2019. FINDINGS: Normal craniovertebral junction. There are degenerative changes of the anterior atlantoaxial articulation. Normal odontoid process. There is straightening of the normal lordotic curve, a nonspecific finding, which may be due to positioning or which might be due to muscle spasm. Normal vertebral bodies and posterior osseous elements. There are multilevel degenerative changes of uncovertebral joints and apophyseal joints. C2-3: Normal endplates. Normal disc height and morphology. Normal central canal and intervertebral neuroforamina. C3-4: Spondylosis. Disc space narrowing. Broad posterior disc osteophyte complex. Mild spinal stenosis with central canal AP diameter of 9 mm.. Mild narrowing bilateral intervertebral neuroforamina. C4-5: Spondylosis. Disc space narrowing. Central and right posterior paracentral disc protrusion with superior and inferior extension of disc material in the anterior spinal canal. Moderate spinal stenosis with central canal AP diameter of 7 mm.. Mild narrowing right and normal left intervertebral neuroforamina. C5-6: Spondylosis. Disc space narrowing. Broad posterior disc osteophyte complex.. Moderate spinal stenosis with central canal AP diameter of 7 mm.. Mild narrowing right and moderate narrowing left left intervertebral neuroforamina. C6-7: Spondylosis. Disc space narrowing. Broad posterior disc osteophyte complex. Mild spinal stenosis with central canal AP diameter of 9 mm.. Mild narrowing bilateral intervertebral neuroforamina. C7-T1: 3 mm anterolisthesis, which is chronic, on a degenerative basis. Spondylosis. Disc space narrowing.. Normal central canal and intervertebral neuroforamina. Normal visualized soft tissue structures. CT/Spine Cervical without Contras IMPRESSION: Multilevel degenerative changes, as described above. No demonstrated fracture. No significant change from prior study. Electronically Signed: Abhay Crawford MD at 5:19 EDT , Service support ,
--- NOTE | 2020-02-16 04:00 | CT_ITS ---
STUDY: CT BRAIN WITHOUT CONTRAST REASON FOR EXAM: Male, 79 years old. FALL/No LOC RADIATION DOSAGE (If Supplied By Facility): CTDIvol = ( 44.99 ) mGy, DLP = ( 829.85 ) mGycm TECHNIQUE: Transaxial CT imaging of the brain was performed without administration of intravenous contrast material. Individualized dose optimization techniques were used for this CT. COMPARISON: CT scan of brain 09/02/2019. FINDINGS: Normal soft tissue structures. Normal calvarium. There is focal encephalomalacia in the inferior left occipital lobe, consistent with an old infarction. There is moderate cerebral atrophy with widening of the extra-axial spaces and ventricular dilatation. There are areas of decreased attenuation within the white matter tracts of the supratentorial brain, consistent with microvascular disease changes. Normal basal ganglia and thalami. Normal brainstem. There is mild cerebellar atrophy. There is atherosclerotic calcification of the vertebral and cavernous carotid arteries. There is no intracranial hemorrhage. There are no findings of an acute ischemic infarction. Normal visualized paranasal sinuses. CT/Brain/Head without Contrast IMPRESSION: Chronic involutional changes of the brain. Small, old, left occipital lobe infarction. No demonstrated acute intracranial process. Electronically Signed: Abhay Crawford MD at 5:09 EDT , Service support ,
[2020-02-16 04:47] LABS: International Normalized Ratio 2.1
--- NOTE | 2020-02-16 05:24 | ED.DEP ---
ED Disposition - Plan for ED Patient: Disposition: [facility] Facility Diagnosis: Fall Instructions: ED Fall Uncertain Cause Referrals: Alfred Moreno MD [Primary Care Provider] - As Needed
== END 2020-02-16 06:07 | disposition skilled nursing facility (03) ==
PROVIDERS: Emergency Provider Emergency Medicine; PCP Family Medicine
DX: Z04.3 Encounter for examination and observation following other accident (principal); R79.1 Abnormal coagulation profile; N18.6 End stage renal disease; Z99.2 Dependence on renal dialysis; Z79.01 Long term (current) use of anticoagulants
CPT/HCPCS: 36415; 70450; 72125; 85610; 99283

== ENCOUNTER 2020-03-03 17:59 | Emergency (ER) | payer MEDICARE, OTHER, SELFPAY ==
[2020-02-12 10:19] VITALS: BMI 21.6
[2020-03-03 18:02] VITALS: BP 130/54; PULSE 69; RESP 18; TEMP 36.4; O2SAT 96; BMI 22.8
[2020-03-03 18:05] VITALS: O2SAT 98
--- NOTE | 2020-03-03 18:21 | CT_ITS ---
STUDY: CT BRAIN WITHOUT CONTRAST REASON FOR EXAM: Male, 79 years old. FALL, HIT BACK OF HEAD. Patient on thinners. Hx of diabetes,, HTN, CAD and heart stents RADIATION DOSAGE (If Supplied By Facility): CTDIvol = ( 44.99 ) mGy, DLP = ( 880.47 ) mGycm TECHNIQUE: Transaxial CT imaging of the brain was performed without administration of intravenous contrast material. Individualized dose optimization techniques were used for this CT. COMPARISON: CT brain 02/16/2020 FINDINGS: Normal soft tissue structures. Normal calvarium. There is moderate cerebral atrophy with widening of the extra-axial spaces and ventricular dilatation. There are areas of decreased attenuation within the white matter tracts of the supratentorial brain, consistent with microvascular disease changes. Normal basal ganglia and thalami. Normal brainstem. Normal cerebellum. There is no intracranial hemorrhage. There are no findings of an acute ischemic infarction. Normal visualized paranasal sinuses. CT/Brain/Head without Contrast IMPRESSION: Chronic involutional changes of the brain. Electronically Signed: Elijah Haney MD at 19:01 EDT , Service support ,
--- NOTE | 2020-03-03 18:22 | CT_ITS ---
STUDY: CT CERVICAL SPINE WITHOUT CONTRAST REASON FOR EXAM: Male, 79 years old. FALL, HIT BACK OF HEAD. Patient on thinners. Hx of diabetes,, HTN, CAD and heart stents RADIATION DOSAGE (If Supplied By Facility): CTDIvol = ( 16.25 ) mGy, DLP = ( 307.35 ) mGycm TECHNIQUE: High resolution transaxial imaging was performed without contrast material. Sagittal and coronal images were reconstructed. Individualized dose optimization techniques were used for this CT. COMPARISON: CT cervical spine 02/16/2020 FINDINGS: Normal craniovertebral junction. Normal anterior atlantoaxial articulation. Normal odontoid process. Normal cervical lordosis. Normal vertebral bodies and posterior osseous elements. C2-3: Normal endplates. Normal disc height and morphology. Normal central canal and intervertebral neuroforamina. C3-4: Normal endplates. Normal disc height and morphology. Normal central canal and intervertebral neuroforamina. C4-5: Normal endplates. Normal disc height and morphology. Normal central canal and intervertebral neuroforamina. C5-6: Normal endplates. Normal disc height and morphology. Normal central canal and intervertebral neuroforamina. C6-7: Normal endplates. Normal disc height and morphology. Normal central canal and intervertebral neuroforamina. C7-T1: Normal endplates. Normal disc height and morphology. Normal central canal and intervertebral neuroforamina. A few millimeters anterior subluxation. Normal visualized soft tissue structures. CT/Spine Cervical without Contras IMPRESSION: Anterior subluxation C7-T1 unchanged and probably degenerative. No acute fracture. Electronically Signed: Elijah Haney MD at 19:04 EDT , Service support ,
--- NOTE | 2020-03-03 18:29 | ED.DCSUM_ITS ---
History of Present Illness Chief Complaint: Fall Informant: Patient Narrative: Patient is an 79-year-old male who presents to the emergency department from a detention facility after a fall today. Patient is not supposed to transfer himself but attempted this anyway today. He was trying to get around a couch whenever he fell backwards and struck his head against the ground. He denies any loss of consciousness. He is completely asymptomatic at this time. He denies any headache or vision changes. No neck pain. No weakness or loss of sensation in extremity. No chest pain or shortness of breath. No abdominal pain. The nursing staff was concerned as he has a history of A. fib and is on warfarin. He had lab work drawn today which showed his INR to be 5.0 with a PT of 49.7. Patient states he does have frequent falls because he is supposed to wait for somebody to help move him which he typically does not. Denies any lightheadedness. Past Medical History - Allergies and Home Meds Allergies/Adverse Reactions: Allergies escitalopram [From Lexapro] Allergy (Severe, Verified 02/12/20 08:00) Unknown levofloxacin [From Levaquin] Allergy (Severe, Verified 02/12/20 08:00) Other DRUG INDUCED LUPUS Penicillins Allergy (Severe, Verified 02/12/20 08:00) Unknown CONFUSED Opioids - Morphine Analogues Adverse Reaction (Severe, Verified 02/12/20 08:00) Other CONFUSION Primary Care Physician: Alfred Moreno MD [Primary Care Provider] - 2 Days Prior records reviewed: Yes Past Medical History: - - History of femur fracture, intracerebral hemorrhage, diabetes, end-stage renal disease, heart failure, strokes, hyperlipidemia, A. fib Surgical History: - - CABG x 1, Bovine AVR, Mitral Valve Repair, L TKR, Ear Surgery. Smoking Status: Never smoker - Family History Maternal Family History: Family History (Last Reviewed 02/12/20 @ 08:[address] Quang Muniz DO) Father Carotid artery disease Hypertension Mother Hypertension Family History: Reports: Diabetes, Heart Disease, Hypertension Paternal Family History: Family History (Last Reviewed 02/12/20 @ 08:[address] Quang Muniz DO) Father Carotid artery disease Hypertension Mother Hypertension Family History: Reports: Diabetes, Heart Disease, Hypertension Review of Systems All systems negative except as indicated General: Denies: Chills, Fever, Sweats Eyes: Denies: Visual changes - bilaterally, Diplopia ENT: Denies: Rhinorrhea, Sore throat Cardiovascular: Denies: Chest pain, Palpitations Respiratory: Denies: Dyspnea, Cough, Dyspnea on exertion Gastrointestinal: Denies: Abdominal pain, Nausea, Vomiting, Diarrhea Genitourinary: Denies: Dysuria Musculoskeletal: Denies: Neck pain, Back pain, Swelling, Extremity Pain Skin: Denies: Rash, Wounds Neurological: Denies: Headache, Weakness, Numbness Physical Exam Vital Signs/Narrative: Vital Signs Temp Pulse Resp BP Pulse Ox 03/03/20 18:05 98 03/03/20 18:02 97.6 F L 69 18 130/54 H 96 Inital Vital Signs reviewed: Yes General: Well nourished, Well developed, No Acute Distress Head: Normocephalic, Atraumatic. Negative for: Tenderness Eyes: Perrl, EOMI ENT: Moist mucous membranes, No rhinorrhea Neck: Supple, Nontender Cardiovascular: Regular rate, Regular rhythm, No murmurs Respiratory: No distress, CTA bilaterally, Chest nontender Abdomen: Soft, Nontender, Nondistended, Normal bowel sounds Back: Nontender, Normal Inspection. Negative for: Spinal tenderness Extremities: No edema. Negative for: Tenderness Skin: Normal color, No rash Neurological: Alert, Cranial nerves II-XII grossly intact, Normal Sensation Psychological: Normal affect, Normal Mood Diagnostic/Tx/Re-eval - Medical Decision Making Patient presents to the emergency department after hitting his head from a ground-level fall. He is on Coumadin with an INR 5.0 that was tested today. Will check CT scan of the head and cervical spine. Patient otherwise denies any symptoms whatsoever. Vital signs upon arrival are within normal limits. Physical exam is benign without any obvious external evidence of trauma. CT scan of the head and cervical spine did not reveal any acute traumatic findings. He has been asymptomatic throughout ED stay. This time will discharge back to the [facility] in stable condition. They are to hold his Coumadin dose given the elevated INR and follow-up with his PCP for next dosing. Warning signs and symptoms for which to return to the ED are reviewed. He understands and is agreeable with this plan. He is discharged back in stable condition. ED Disposition - Plan for ED Patient: Disposition: Care Home Facility Diagnosis: CHI (closed head injury), Supratherapeutic INR Instructions: Taking?Coumadin, ED Head Injury Adult Referrals: Alfred Moreno MD [Primary Care Provider] - 2 Days
[2020-03-03 19:48] VITALS: BP 144/48; PULSE 66; RESP 18; O2SAT 98
--- NOTE | 2020-03-03 20:09 | ED.RN ---
updated on patients condition and discharge status
== END 2020-03-03 20:19 | disposition skilled nursing facility (03) ==
PROVIDERS: Emergency Provider Emergency Medicine; PCP Family Medicine
DX: S09.90XA Unspecified injury of head, initial encounter (principal); R79.1 Abnormal coagulation profile; I25.10 Atherosclerotic heart disease of native coronary artery without angina pectoris; Z79.01 Long term (current) use of anticoagulants; Z95.1 Presence of aortocoronary bypass graft; Z95.3 Presence of xenogenic heart valve; Z86.73 Personal history of transient ischemic attack (TIA), and cerebral infarction without residual deficits; W19.XXXA Unspecified fall, initial encounter
CPT/HCPCS: 70450; 72125; 99285

== ENCOUNTER → 2020-03-10 07:46 | Outpatient (CLI) | payer SELFPAY ==
[2020-03-03 18:02] VITALS: BMI 22.8
[2020-03-10] VITALS (9 sets, daily range): BP systolic 121–140; BP diastolic 42–61; PULSE 58–68; RESP 16–18; TEMP 36.1–36.7; O2SAT 92–99; BMI 22.8
[2020-03-10] MEDS: Furosemide 20 MG/2 ML VIAL IV (11:44)
== END ==
PROVIDERS: PCP Family Medicine; Referring Provider Registered Nurse; Visit Provider Registered Nurse
DX: D64.9 Anemia, unspecified (principal)
CPT/HCPCS: 36415; 36430; 86850; 86900; 86901; 86920; 86922; J7040; P9016; A4216; J1940

== ENCOUNTER 2020-03-30 13:01 | Emergency (ER) | payer MEDICARE, OTHER, SELFPAY ==
[2020-03-10 08:47] VITALS: BMI 22.8
[2020-03-30 13:02] VITALS: BP 115/51; PULSE 64; RESP 18; TEMP 36.1; O2SAT 99; BMI 23.3
[2020-03-30 13:10] VITALS: O2SAT 94
--- NOTE | 2020-03-30 13:47 | CT_ITS ---
STUDY: CT BRAIN WITHOUT CONTRAST REASON FOR EXAM: Male, 79 years old. FELL OUT OF WHEELCHAIR, HEMATOMA TO LEFT EYE RADIATION DOSAGE (If Supplied By Facility): CTDIvol = ( 44.99 ) mGy, DLP = ( 863.60 ) mGycm TECHNIQUE: Transaxial CT imaging of the brain was performed without administration of intravenous contrast material. Individualized dose optimization techniques were used for this CT. COMPARISON: Comparison is made with prior study dated 03/03/2020. FINDINGS: Soft tissue swelling overlying the left orbit. Normal calvarium. There is moderate cerebral atrophy with widening of the extra-axial spaces and ventricular dilatation. There are areas of decreased attenuation within the white matter tracts of the supratentorial brain, consistent with microvascular disease changes. Normal basal ganglia and thalami. Normal brainstem. There is mild cerebellar atrophy. There is no intracranial hemorrhage. There are no findings of an acute ischemic infarction. Normal visualized paranasal sinuses. CT/Brain/Head without Contrast IMPRESSION: Chronic involutional changes of the brain. Soft tissue swelling overlying the left orbit. Electronically Signed: Jg Guerra, at 15:04 EST , Service support ,
--- NOTE | 2020-03-30 13:48 | CT_ITS ---
STUDY: CT CERVICAL SPINE WITHOUT CONTRAST REASON FOR EXAM: Male, 79 years old. FELL OUT OF WHEELCHAIR, HEMATOMA TO LEFT EYE RADIATION DOSAGE (If Supplied By Facility): CTDIvol = ( 19.73 ) mGy, DLP = ( 368.26 ) mGycm TECHNIQUE: High resolution transaxial imaging was performed without contrast material. Sagittal and coronal images were reconstructed. Individualized dose optimization techniques were used for this CT. COMPARISON: Comparison is made with prior study dated 03/03/2012. FINDINGS: Normal craniovertebral junction. There are degenerative changes of the anterior atlantoaxial articulation. Normal odontoid process. Normal cervical lordosis. Normal vertebral bodies and posterior osseous elements. C2-3: Mild degree of facet joint osteoarthritis. No significant stenosis is seen. C3-4: Mild degree of disc space narrowing. Mild anterior spondylosis. Mild degree of facet joint osteoarthritis. No significant stenosis is seen. C4-5: Mild degree of disc space narrowing. Anterior spondylosis. Uncovertebral arthrosis with bilateral neural foraminal stenosis worse on the left side. C5-6: Moderate degree of disc space narrowing and spondylosis. Uncovertebral arthrosis. Bilateral neural foraminal stenosis slightly worse on the left side. C6-7: Moderate degree of disc space narrowing. Uncovertebral arthrosis and facet joint osteoarthritis with marked degree of left neural foraminal stenosis and moderate degree of right neural foraminal stenosis. Calcification of the carotid bifurcations bilaterally. CT/Spine Cervical without Contras IMPRESSION: Multilevel degenerative changes, as described above. Electronically Signed: Jg Guerra, at 15:20 EST , Service support ,
[2020-03-30 14:18] LABS: Absolute Lymphocyte Count 0.71 X10^3/uL (0.83-4.51); Basophil# 0.06 X10^3/uL; Basophil% 0.6 % (0-1); Eosinophil# 0.19 X10^3/uL; Hematocrit 37.4 % (40-54); Hemoglobin 11.9 g/dL (13.0-16.5); Lymphocyte # 0.71 X10^3/ul (4.0); Lymphocyte % 7.3 % (19-41); Mean Corp Hgb Conc 31.8 g/dL (32-36); Mean Corpuscular Hgb 30.6 pg (27.0-32.0); Mean Corpuscular Volume 96.1 fL (80-94); Mean Platelet Vol. 10.3 fl (6.2-12.0); Monocyte# 0.69 X10^3/uL; Monocyte% 7.1 % (0-10); NRBC Flagged by Analyzer 0 % (0-5); Neutrophil # 7.98 X10^3/uL (2.7-7.7); Neutrophil % 82.2 % (47-70); Platelet Count 115 K/mm3 (150-450); RBC Distribution Width CV 17.8 % (11.6-14.6); RBC Distribution Width SD 62.5 fl (35.1-43.9); Red Blood Count 3.89 M/mm3 (4.6-6.2); White Blood Count 9.7 K/mm3 (4.4-11.0)
[2020-03-30 14:43] LABS: International Normalized Ratio 3.2
[2020-03-30 15:10] VITALS: BP 164/49; PULSE 69; RESP 17; O2SAT 97
[2020-03-30] MEDS: Diphth,Pertuss(Acell),Tet Vac 0.5 ML Vial IM (15:14)
--- NOTE | 2020-03-30 15:37 | ED.VIS.FALL ---
History of Present Illness Chief Complaint: Fall Informant: Patient, SNF Occurred: Today Mechanism/Context: Same level fall Usually ambulates: Non-Ambulatory Narrative: Patient is an 79-year-old male on chronic Coumadin therapy presenting after mechanical fall. Patient fell out of his wheelchair when he was trying to pick something up and hit his head. He denies any loss of consciousness. He sustained some skin tears to his left knee and elbow as well as a abrasion to his forehead on the left. He was brought in for further evaluation. No other complaints at this time. Tetanus Immunization: Unknown Past Medical History - Allergies and Home Meds Allergies/Adverse Reactions: Allergies escitalopram [From Lexapro] Allergy (Severe, Verified 03/30/20 13:15) Unknown levofloxacin [From Levaquin] Allergy (Severe, Verified 03/30/20 13:15) Other DRUG INDUCED LUPUS Penicillins Allergy (Severe, Verified 03/30/20 13:15) Unknown CONFUSED Opioids - Morphine Analogues Adverse Reaction (Severe, Verified 03/30/20 13:15) Other CONFUSION Primary Care Physician: Alfred Moreno MD [Primary Care Provider] - Past Medical History: - - Chronic atrial flutter, coronary artery disease, BPH, GERD, end-stage renal disease on hemodialysis, hypertension, diabetes mellitus type 2 Surgical History: - - CABG x 1, Bovine AVR, Mitral Valve Repair, L TKR, Ear Surgery. Lives: Assisted Smoking Status: Unknown if ever smoked - Family History Maternal Family History: Family History (Last Reviewed 02/12/20 @ 08:[address] Quang Muniz DO) Father Carotid artery disease Hypertension Mother Hypertension Family History: Reports: Diabetes, Heart Disease, Hypertension Paternal Family History: Family History (Last Reviewed 02/12/20 @ 08:[address] Quang Muniz DO) Father Carotid artery disease Hypertension Mother Hypertension Family History: Reports: Diabetes, Heart Disease, Hypertension Review of Systems General: Denies: Chills, Fever, Sweats Eyes: Denies: Visual changes - bilaterally, Diplopia ENT: Denies: Rhinorrhea, Sore throat Cardiovascular: Denies: Chest pain, Palpitations Respiratory: Denies: Dyspnea, Cough, Dyspnea on exertion Gastrointestinal: Denies: Abdominal pain, Nausea, Vomiting, Diarrhea, Melena, Hematochezia Genitourinary: Denies: Dysuria, Hematuria, Frequency Musculoskeletal: Denies: Back pain, Extremity Pain Skin: Reports: Abrasions. Denies: Rash, Wounds Neurological: Reports: Headache. Denies: Weakness, Numbness Physical Exam Vital Signs/Narrative: Vital Signs Temp Pulse Resp BP Pulse Ox 03/30/20 15:10 69 17 164/49 H 97 03/30/20 13:10 94 03/30/20 13:02 97 F L 64 18 115/51 L 99 Inital Vital Signs reviewed: Yes General: Well nourished, Well developed Head: Normocephalic, Trauma - Bruising and hematoma to the left forehead Eyes: Perrl, EOMI ENT: TM's clear, No hemotympanum or drainage Neck: Nontender, Full ROM Cardiovascular: Regular rate, Regular rhythm, No murmurs, - - AV fistula LLE Respiratory: No distress, CTA bilaterally, Chest nontender Abdomen: Soft, Nontender, Nondistended, Normal bowel sounds Back: Nontender Extremeties: No obvious deformity. Pelvis is stable. Extremities are equal length with no rotational deformity. Normal range of motion of the left knee. Normal range of motion of the left elbow. No bony tenderness. Skin: Normal color, No rash, Trauma - Skin tear to the left lateral elbow, skin tear to left lower leg over the fibular head, ecchymosis to left forehead Neurological: Alert, Oriented x3, Cranial nerves II-XII grossly intact, Normal Strength, Normal Sensation Psychological: Normal affect Diagnostic/Tx/Re-eval Clinical Impression(s) from Imaging Studies Brain CT 03/30/20 13:47 IMPRESSION: Chronic involutional changes of the brain. Soft tissue swelling overlying the left orbit. Electronically Signed: Jg Guerra, at 15:04 EST , Service support , Cervical Spine CT 03/30/20 13:48 IMPRESSION: Multilevel degenerative changes, as described above. Electronically Signed: Jg Guerra, at 15:20 EST , Service support , Laboratory Data 03/30/20 03/30/20 14:10 14:10 WBC 9.7 RBC 3.89 L Hgb 11.9 L Hct 37.4 L MCV 96.1 H MCH 30.6 MCHC 31.8 L RDW Std Deviation 62.5 H RDW Coeff of Soco 17.8 H Plt Count 115 L MPV 10.3 Immature Gran % (Auto) 0.800 Neut % (Auto) 82.2 H Lymph % (Auto) 7.3 L Greene % (Auto) 7.1 Eos % (Auto) 2.0 Baso % (Auto) 0.6 Absolute Neuts (auto) 8.0 H Absolute Lymphs (auto) 0.71 L Nucleated RBC % 0 PT 32.0 H INR 3.2 - Medical Decision Making Patient evaluated for mechanical fall. He fell out of his wheelchair. He remembers the fall. No reported loss of consciousness. He is on Coumadin and did sustain a head injury so I did check a CT of his head as well as the C-spine. No acute intracranial process or fractures noted. He has no acute bony tenderness or deformities I do not think x-rays are indicated. Tetanus is updated and localized wound care is applied to skin tears. Patient be discharged back to his nursing facility. Counseled on return precautions. ED Disposition - Plan for ED Patient: Disposition: Home or Assisted Living Diagnosis: Fall from wheelchair, Traumatic hematoma of forehead, Skin tear of left elbow without complication, Skin tear of left lower leg without complication, Need for tetanus booster, History of Coumadin therapy Instructions: ED CONTUSION Face No Wake Up, ED MECHANICAL FALL Referrals: Alfred Moreno MD [Primary Care Provider] -
[2020-03-30 15:59] VITALS: BP 167/49; PULSE 70; RESP 17; O2SAT 96
--- NOTE | 2020-03-30 16:06 | NURSING ---
CALLED [facility]. ETA IS 60 MIN
--- NOTE | 2020-03-30 17:04 | NURSING ---
PHYSICANS CALLED. ETA IS ANOTHER 60 MIN
--- NOTE | 2020-03-30 17:31 | CT_ITS ---
STUDY: CT BRAIN WITHOUT CONTRAST REASON FOR EXAM: Male, 79 years old. FELL AND HIT HEAD WHILE BEING SEEN IN THE ER RADIATION DOSAGE (If Supplied By Facility): CTDIvol = ( 44.99 ) mGy, DLP = ( 1693.46 ) mGycm TECHNIQUE: Transaxial CT imaging of the brain was performed without administration of intravenous contrast material. Individualized dose optimization techniques were used for this CT. COMPARISON: 2:46 PM. FINDINGS: Mild left frontal soft tissue swelling. Normal calvarium. There is severe cerebral atrophy with widening of the extra-axial spaces and ventricular dilatation. There are areas of decreased attenuation within the white matter tracts of the supratentorial brain, consistent with microvascular disease changes. There is no intracranial hemorrhage. There are no findings of an acute ischemic infarction. Atherosclerotic calcification of the cavernous carotid arteries. Normal visualized paranasal sinuses. CT/Brain/Head without Contrast IMPRESSION: 1. Soft tissue swelling, otherwise no acute findings. No change from 3 hours ago. 2. Microvascular ischemic changes. Atrophy. Electronically Signed: Sheri Gan MD at 18:10 EST Tel , Service support ,
--- NOTE | 2020-03-30 17:32 | ED.RN ---
[facility]. ETA 20 MINUTES. RIDE CANCELLED DUE TO NEED FOR REPEAT CT
--- NOTE | 2020-03-30 17:32 | NURSING ---
Pt heard screaming from his room. Pt found to be lying on the floor. 2 additional skin tears to left hand. Small skin tear to Left forehead. Assisted back to bed x2 max assist. Dr. Santiago into room. Areas cleansed and dressed. Staff had just been into 10 min before. Pt stating to be picking something up off the floor but nothing noted on the floor.
[2020-03-30 17:35] VITALS: BP 176/63; PULSE 68; O2SAT 99
[2020-03-30 18:57] VITALS: BP 188/65; PULSE 79; RESP 18; O2SAT 95
== END 2020-03-30 19:10 | disposition home or self-care (01) ==
PROVIDERS: Emergency Provider Emergency Medicine; PCP Family Medicine
DX: S00.83XA Contusion of other part of head, initial encounter (principal); S51.012A Laceration without foreign body of left elbow, initial encounter; S81.812A Laceration without foreign body, left lower leg, initial encounter; W05.0XXA Fall from non-moving wheelchair, initial encounter; Y93.89 Activity, other specified; Y92.9 Unspecified place or not applicable; Y99.9 Unspecified external cause status; I48.92 Unspecified atrial flutter; I25.10 Atherosclerotic heart disease of native coronary artery without angina pectoris; I12.0 Hypertensive chronic kidney disease with stage 5 chronic kidney disease or end stage renal disease; E11.22 Type 2 diabetes mellitus with diabetic chronic kidney disease; N18.6 End stage renal disease; N40.0 Benign prostatic hyperplasia without lower urinary tract symptoms; K21.9 Gastro-esophageal reflux disease without esophagitis; Z95.1 Presence of aortocoronary bypass graft; Z95.3 Presence of xenogenic heart valve; Z99.2 Dependence on renal dialysis; Z88.0 Allergy status to penicillin; Z88.1 Allergy status to other antibiotic agents; Z88.5 Allergy status to narcotic agent; Z88.8 Allergy status to other drugs, medicaments and biological substances; Z79.4 Long term (current) use of insulin; Z79.01 Long term (current) use of anticoagulants; Z79.02 Long term (current) use of antithrombotics/antiplatelets; Z79.899 Other long term (current) drug therapy
CPT/HCPCS: 70450; 72125; 85025; 85610; 90715; 99283

== ENCOUNTER 2020-04-11 15:16 | Observation (INO) | payer MEDICARE, OTHER, SELFPAY ==
[2020-04-11] VITALS (11 sets, daily range): BP systolic 138–192; BP diastolic 46–72; PULSE 58–73; RESP 16–20; TEMP 36.3–37.1; O2SAT 94–99; BMI 20.5; BMI 19.8
--- NOTE | 2020-04-11 15:37 | CT_ITS ---
STUDY: CT BRAIN WITHOUT CONTRAST REASON FOR EXAM: Male, 79 years old. FALL, ON BLOOD THINNERS RADIATION DOSAGE (If Supplied By Facility): CTDIvol = ( 44.99 ) mGy, DLP = ( 863.60 ) mGycm TECHNIQUE: Transaxial CT imaging of the brain was performed without administration of intravenous contrast material. Individualized dose optimization techniques were used for this CT. COMPARISON: 03/30/2020 FINDINGS: Normal soft tissue structures. Normal calvarium. There is moderate cerebral atrophy with widening of the extra-axial spaces and ventricular dilatation. There are areas of decreased attenuation within the white matter tracts of the supratentorial brain, consistent with microvascular disease changes. Normal basal ganglia and thalami. Normal brainstem. Normal cerebellum. There is no intracranial hemorrhage. There are no findings of an acute ischemic infarction. Normal visualized paranasal sinuses. CT/Brain/Head without Contrast IMPRESSION: Chronic involutional changes of the brain. Electronically Signed: Reynaldo Bishop MD at 16:44 EST Tel , Service support ,
--- NOTE | 2020-04-11 15:37 | EKG12_ITS ---
Test Reason : AM EKG Blood Pressure : / mmHG Vent. Rate : 063 BPM Atrial Rate : 352 BPM P-R Int : 000 ms QRS Dur : 140 ms QT Int : 470 ms P-R-T Axes : 000 047 070 degrees QTc Int : 480 ms Atrial flutter with variable A-V block Right bundle branch block Abnormal ECG Confirmed by IBETH MIRANDA, GILDARDO ([id number]), social media editor MAURILIO SERRANO ([id number]) on 04/13/2020 1:57:10 PM Referred By: MARGARET Confirmed By:GILDARDO CRISTINA MD
--- NOTE | 2020-04-11 15:39 | ED.DCSUM_ITS ---
History of Present Illness Chief Complaint: Fall Informant: Patient Onset: Today Quality: sore Location: perianal Current Severity: Mild Maximum Severity: Moderate Narrative: Patient has limited history, but states that he has been falling many times recently. He is not sure why. He does not remember if he feels dizzy beforehand or has any other prodromal symptoms. Right now he has no symptoms except for soreness at his sacrum/perianal area. He is on warfarin and clopidogrel. DNR [facility] arrest. - Past Medical History (1) Anemia Status: Chronic (2) Atrial fibrillation and flutter Status: Chronic (3) CAD (coronary artery disease) Status: Chronic (4) DM (diabetes mellitus) Status: Chronic (5) ESRD (end stage renal disease) on dialysis Status: Chronic (6) Gout Status: Chronic (7) HTN (hypertension) Status: Chronic (8) Pure hypercholesterolemia Status: Chronic (9) Diverticulosis Status: Chronic Past Medical History - Allergies and Home Meds Allergies/Adverse Reactions: Allergies escitalopram [From Lexapro] Allergy (Severe, Verified 04/11/20 15:26) Unknown levofloxacin [From Levaquin] Allergy (Severe, Verified 04/11/20 15:26) Other DRUG INDUCED LUPUS Penicillins Allergy (Severe, Verified 04/11/20 15:26) Unknown CONFUSED Opioids - Morphine Analogues Adverse Reaction (Severe, Verified 04/11/20 15:26) Other CONFUSION Primary Care Physician: Alfred Moreno MD [Primary Care Provider] - Surgical History: - - CABG x 1, Bovine AVR, Mitral Valve Repair, L TKR, Ear Surgery. Smoking Status: Never smoker - Family History Maternal Family History: Family History (Last Reviewed 02/12/20 @ 08:[address] Quang Muniz DO) Father Carotid artery disease Hypertension Mother Hypertension Family History: Reports: Diabetes, Heart Disease, Hypertension Paternal Family History: Family History (Last Reviewed 02/12/20 @ 08:[address] Quang Muniz DO) Father Carotid artery disease Hypertension Mother Hypertension Family History: Reports: Diabetes, Heart Disease, Hypertension Review of Systems General: Denies: Chills, Fever, Sweats Eyes: Denies: Visual changes - bilaterally, Diplopia ENT: Denies: Rhinorrhea, Sore throat Cardiovascular: Denies: Chest pain, Palpitations Respiratory: Denies: Dyspnea, Cough, Dyspnea on exertion Gastrointestinal: Reports: Hematochezia. Denies: Abdominal pain, Nausea, Vomiting, Diarrhea, Melena Genitourinary: Reports: - - perianal pain. Denies: Dysuria, Hematuria, Frequency Musculoskeletal: Denies: Neck pain, Back pain, Extremity Pain Skin: Reports: Wounds - Ecchymoses both upper extremities, left upper face/scalp. Denies: Rash Neurological: Denies: Headache, Weakness, Numbness Hematologic: Reports: Easy bruising, Easy bleeding Physical Exam Vital Signs/Narrative: Vital Signs Temp Pulse Resp BP Pulse Ox 04/11/20 15:21 98.1 F 58 L 20 H 145/55 H 94 Inital Vital Signs reviewed: Yes General: Well nourished, Well developed, No Acute Distress Head: Normocephalic, Trauma - Left upper face and forehead/scalp, bruising that looks subacute, no tenderness or crepitance or hematoma or break in the skin Eyes: Perrl, EOMI ENT: Moist mucous membranes, No rhinorrhea Neck: Supple, Nontender Cardiovascular: Regular rate, Regular rhythm Respiratory: No distress, CTA bilaterally, Chest nontender Abdomen: Soft, Nontender, Nondistended, Normal bowel sounds Rectal: Nontender, - - Blood present in the perianal area and a small amount of dark clotted blood in the patient's diaper. On digital rectal exam, no pooling or active bleeding. There are no sacral or perianal lacerations or skin wounds that would be responsible for the blood. Back: Nontender, Normal Inspection. Negative for: Spinal tenderness Extremities: Nontender, No edema, - - Full range of motion throughout all 4 extremities. None of the bruised areas are tender. Good thrill left upper arm AV fistula without active bleeding. Skin: Normal color, No rash, Trauma - Ecchymoses left upper extremity more so than the other 3. No lacerations. Neurological: Alert, Oriented x3, Cranial nerves II-XII grossly intact, Normal Strength, Normal Sensation Psychological: Normal affect, Normal Mood Diagnostic/Tx/Re-eval Impressions Brain CT 04/11/20 15:37 IMPRESSION: Chronic involutional changes of the brain. Electronically Signed: Reynaldo Bishop MD at 16:44 EST Tel , Service support , Pelvis X-Ray 04/11/20 16:32 IMPRESSION: Normal x-ray examination of the pelvis after left hip hemiarthroplasty. Electronically Signed: Reynaldo Bishop MD at 16:45 EST Tel , Service support , 04/11/20 15:37 Brain/Head without Contrast [CT] Stat 04/11/20 16:32 Pelvis 1 or 2 Views [RAD] Stat Laboratory Results 04/11/20 04/11/20 04/11/20 15:55 15:55 15:55 WBC 10.7 RBC 3.68 L Hgb 11.8 L Hct 34.5 L MCV 93.8 MCH 32.1 H MCHC 34.2 RDW Std Deviation 57.1 H RDW Coeff of Soco 16.6 H Plt Count 211 MPV 11.0 Immature Gran % (Auto) 1.000 H Neut % (Auto) 84.2 H Lymph % (Auto) 6.5 L Alexander % (Auto) 5.9 Eos % (Auto) 1.7 Baso % (Auto) 0.7 Absolute Neuts (auto) 9.0 H Absolute Lymphs (auto) 0.69 L Nucleated RBC % 0 PT 31.3 H INR 3.1 Sodium 139 Potassium 4.1 Chloride 99 Carbon Dioxide 36.0 H Anion Gap 4 L BUN 20 H Creatinine 3.26 H Estim Creat Clear Calc 15.64 Est GFR (MDRD) Af Amer 24 L Est GFR (MDRD) Non-Af 20 L BUN/Creatinine Ratio 6.1 L Glucose 195 H Calcium 8.9 Troponin I 0.066 H Blood Type Antibody Screen 04/11/20 15:55 WBC RBC Hgb Hct MCV MCH MCHC RDW Std Deviation RDW Coeff of Soco Plt Count MPV Immature Gran % (Auto) Neut % (Auto) Lymph % (Auto) Alexander % (Auto) Eos % (Auto) Baso % (Auto) Absolute Neuts (auto) Absolute Lymphs (auto) Nucleated RBC % PT INR Sodium Potassium Chloride Carbon Dioxide Anion Gap BUN Creatinine Estim Creat Clear Calc Est GFR (MDRD) Af Amer Est GFR (MDRD) Non-Af BUN/Creatinine Ratio Glucose Calcium Troponin I Blood Type A POSITIVE Antibody Screen NEGATIVE - Rhythm Strip Rhythm Strip: aflutter Rate: 55 Ectopy: None - EKG Initial EKG Interpretation: No Acute Injury Pattern, Atrial Flutter - w/ 6:1 conduction - Medical Decision Making Although patient had no active bleeding on rectal exam, he did have another bowel movement in the emergency department that was bloody. He remained clinically and hemodynamically stable. His hemoglobin was recently around 13, now 12.8, stable. His INR is 3.1. It. He had an aortic valve replacement, and mitral valve repair. In reviewing what [facility] and [facility] in the hospital, he has a bioprosthetic valve and not a mechanical 1. He is also in rate controlled a flutter, and it appears that is why he was anticoagulated in the literature I am able to visualize. Therefore, I am transfusing him with 2 units of FFP and 5 mg IV of vitamin K in order to reverse his coagulopathy given his lower GI bleeding which appears to be unrelated to his fall/trauma. Discussed with Dr. Olmedo, he is comfortable seeing the patient in the hospital if consulted, will admit to medicine. He also has an el evated troponin, his EKG shows no signs of an acute injury, it is just barely elevated and may be related to his chronic renal failure. Of note he is a dialysis patient and his last dialysis was this morning. Patient was consented for blood product transfusion. He is DNR [facility]. ED Disposition - Plan for ED Patient: Disposition: Acute Care Hospital [facility] Diagnosis: Multiple falls, Closed head injury without loss of consciousness, Lower GI bleeding, Chronic kidney disease with end stage renal failure on dialysis, Warfarin-induced coagulopathy, Diverticulosis, Elevated troponin, Atrial fibrillation and flutter Referrals: Alfred Moreno MD [Primary Care Provider] -
[2020-04-11 16:20] LABS: Absolute Lymphocyte Count 0.69 X10^3/uL (0.83-4.51); Basophil# 0.07 X10^3/uL; Basophil% 0.7 % (0-1); Eosinophil# 0.18 X10^3/uL; Eosinophils% 1.7 % (0-5); Hematocrit 34.5 % (40-54); Hemoglobin 11.8 g/dL (13.0-16.5); Lymphocyte # 0.69 X10^3/ul (4.0); Lymphocyte % 6.5 % (19-41); Mean Corp Hgb Conc 34.2 g/dL (32-36); Mean Corpuscular Hgb 32.1 pg (27.0-32.0); Mean Corpuscular Volume 93.8 fL (80-94); Monocyte# 0.63 X10^3/uL; Monocyte% 5.9 % (0-10); NRBC Flagged by Analyzer 0 % (0-5); Neutrophil # 8.97 X10^3/uL (2.7-7.7); Neutrophil % 84.2 % (47-70); Platelet Count 211 K/mm3 (150-450); RBC Distribution Width CV 16.6 % (11.6-14.6); RBC Distribution Width SD 57.1 fl (35.1-43.9); Red Blood Count 3.68 M/mm3 (4.6-6.2); White Blood Count 10.7 K/mm3 (4.4-11.0)
[2020-04-11 16:27] LABS: International Normalized Ratio 3.1; Prothrombin Time (Protime)PT. 31.3 SECONDS (11.7-14.9)
[2020-04-11 16:30] LABS: Anion Gap 4 (5-15); BUN 20 mg/dL (7-18); BUN/Creat Ratio 6.1 RATIO (10-20); Calcium,Total 8.9 mg/dL (8.5-10.1); Chloride 99 mmol/L (98-107); Creatinine, Serum 3.26 mg/dL (0.70-1.30); EST Glomerular Filtration Rate 20 mL/min (>60); Est Glom Filt Rate - Afr Amer 24 mL/min (>60); Estimated Creatinine Clearance 15.64 ml/min; Glucose 195 mg/dL (74-106); Potassium 4.1 mmol/L (3.5-5.1); Sodium Level 139 mmol/L (136-145)
--- NOTE | 2020-04-11 16:32 | RAD_ITS ---
STUDY: X-RAY - PELVIS REASON FOR EXAM: Male, 79 years old. Fall, pain. TECHNIQUE: One view of the pelvis was obtained. COMPARISON: 01/06/2020 FINDINGS: There is a non-specific bowel gas pattern. Normal visualized soft tissue structures. Normal bilateral iliac wings, sacroiliac joints and visualized sacrum. Normal visualized bilateral superior and inferior pubic rami. Normal pubic symphysis. Normal ischial tuberosities. Normal visualized right femoral head. Normal right acetabulum. Normal right hip joint. Interval left hip hemiarthroplasty. Normal left acetabulum. Normal left hip joint. RAD/Pelvis 1 or 2 Views IMPRESSION: Normal x-ray examination of the pelvis after left hip hemiarthroplasty. Electronically Signed: Reynaldo Bishop MD at 16:45 EST Tel , Service support ,
--- NOTE | 2020-04-11 17:55 | PCM.HP.STD ---
<Marvin Hernandez - Last Filed: 04/11/20 17:55> Problem List (1) Acute blood loss anemia Status: Acute (2) Lower GI bleeding Status: Acute (3) Warfarin-induced coagulopathy Status: Acute (4) Chronic kidney disease with end stage renal failure on dialysis Status: Chronic (5) Hx of CABG Status: Chronic (6) DM (diabetes mellitus) Status: Chronic (7) HTN (hypertension) Status: Chronic (8) Pure hypercholesterolemia Status: Chronic (9) aoritc bovine 2010 replacement Status: Chronic (10) H/O mitral valve repair Status: Chronic (11) Gout Status: Chronic (12) Atrial fibrillation and flutter Status: Chronic (13) CAD (coronary artery disease) Status: Chronic (14) Chronic a-fib Status: Chronic (15) Debility Status: Chronic History of Present Illness Date of Admission: 04/11/20 Chief Complaint: falls, gi bleeding The patient is a 79 year old M with extensive PmHx including CAD with CABG, chronic afib/flutter, bovine aortic valve, mitral valve repair, ESRD, who presented to the [facility]. He is unable to provide a significant history. He is alert and oriented only to self at this time. He states he needs to go drive to [place] a friend somewhere. He does state that he has been falling lately but not for several days. He has a large bruise on the left side of his face and scattered bruising and abrasions on his extremities. He currently denies CP, tightness, SOB, lightheadedness or dizziness. No fever/chills, cough, nausea, abdominal pain. He thinks he has had some diarrhea. He had a bloody BM while in the ER. He states he remembers this. He had a Hgb of 12.1 on 04/07 today it is 11.8. His INR is 3.1, platelets normal. He takes coumadin for afib and also plavix for CAD. Dr Olmedo plans to see the patient. [] Past Medical History Past Medical History (Chronic Problems): Chronic Problems (Last Reviewed 02/12/20 @ 08:[address] 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) History of myocardial infarction (Chronic) Hx of CABG (Chronic) DM (diabetes mellitus) (Chronic) HTN (hypertension) (Chronic) Pure hypercholesterolemia (Chronic) H/O aortic valve repair (Chronic) aoritc bovine 2010 replacement (Chronic) H/O mitral valve repair (Chronic) Afib (Chronic) Gout (Chronic) Leukocytosis (Chronic) Atrial fibrillation and flutter (Chronic) CAD (coronary artery disease) (Chronic) Chronic a-fib (Chronic) Debility (Chronic) ESRD (end stage renal disease) (Chronic) Anemia (Chronic) Metabolic encephalopathy (Chronic) 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 Quang Muniz, DO) BPH (benign prostatic hyperplasia) N40.0 CAD (coronary artery disease) I25.10 Depression F32.9 End stage renal disease N18.6 GERD (gastroesophageal reflux disease) K21.9 History of gout Z87.39 History of myocardial infarction I25.2 Leukocytosis D72.829 Type 2 diabetes mellitus E11.9 Chronic atrial fibrillation I48.20 ATRIAL FLUTTER Hypertension I10 Allergies escitalopram [From Lexapro] Allergy (Severe, Verified 04/11/20 15:26) Unknown levofloxacin [From Levaquin] Allergy (Severe, Verified 04/11/20 15:26) Other DRUG INDUCED LUPUS Penicillins Allergy (Severe, Verified 04/11/20 15:26) Unknown CONFUSED Opioids - Morphine Analogues Adverse Reaction (Severe, Verified 04/11/20 15:26) Other CONFUSION Home Medications: Ambulatory Orders Medication Instructions Recorded Allopurinol [Zyloprim] 100 mg PO DAILYCM 12/31/16 Atorvastatin Calcium [Lipitor] 40 mg PO QHS 04/09/18 Tamsulosin HCl [Flomax] 0.4 mg PO QHS 04/09/18 Cetirizine HCl 5 mg PO DAILY 07/27/19 Clopidogrel Bisulfate [Clopidogrel] 75 mg PO DAILY 07/27/19 Nitroglycerin 0.4 mg SL Q5M PRN 07/27/19 Acetaminophen [Tylenol] 650 mg PO TID 01/06/20 Calcium Acetate 667 mg PO TIDCM 02/12/20 Omeprazole 20 mg PO QHS 02/12/20 Sertraline HCl [Zoloft] 100 mg PO DAILY 02/12/20 Insulin Lispro [Humalog KwikPen] See Protocol SUBCUT ACHS 02/13/20 insuln.pen Warfarin Sodium 4 mg PO SUTUWETHSA 03/30/20 Folic Acid/Vitamin B Comp W-C 1 cap PO DAILY 04/11/20 [Nephrocaps, Renaphro] Nut Tx, Lact-Reduced, Iron [Boost 237 ml PO DAILY 04/11/20 [facility]] Warfarin Sodium 1 mg PO MOFR 04/11/20 Warfarin Sodium 2.5 mg PO MOFR 04/11/20 Surgical History: Surgical History (Last Reviewed 02/12/20 @ 08:[address] Quang Muniz, DO) H/O aortic valve replacement Z95.2 10 YEARS AGO 2009 History of heart artery stent Z95.5 [facility] -2019 History of mitral valve repair Z98.890 Surgical History: - - CABG x 1, Bovine AVR, Mitral Valve Repair, L TKR, Ear Surgery. Psychiatric History: Anxiety, Depression Lives: [facility] Smoking Status: Never smoker Tobacco Use: Non-smoker Alcohol: None Drugs: None - *Family History Maternal Family History: Family History (Last Reviewed 04/11/20 @ 18:02 by ANNETTE Clark) Father Carotid artery disease Hypertension Mother Hypertension History Items: Diabetes, Heart Disease, Hypertension Paternal Family History: Family History (Last Reviewed 04/11/20 @ 18:02 by ANNETTE Clark) Father Carotid artery disease Hypertension Mother Hypertension History Items: Diabetes, Heart Disease, Hypertension Review of Systems Constitutional: Reports: Weakness. Denies: Chills, Fever, Weight Change HEENT: Denies: Hard of Hearing, Head Aches, Sinus Congestion, Sinus Drainage Cardiovascular: Denies: Chest Pain, Chest Pressure, Chest Tightness, Edema, Light Headedness, Palpitations Respiratory: Denies: Cough, Shortness of Breath, Shortness of breath at rest, Sputum production Gastrointestinal: Reports: Diarrhea. Denies: Abdominal Pain, Nausea, Vomiting Genitourinary: Denies: Dysuria Musculoskeletal: Denies: Joint Pain, Joint Tenderness Skin: Denies: Rash, Wounds Neurological: Denies: Numbness, Tingling, Focal weakness Psychiatric: Denies: Anxiety, Depression, Homicidal Ideations, Suicidal Ideations Hematologic/ Lymphatic: Denies: Easy Bruising, Easy Bleeding VTE Information - Inpt Only VTE Present on Admission: No VTE Mechan Device Prophylaxis: SCD's, None VTE Pharm Prophylaxis ordered?: No Patient Problems: Active and Suspected Problems (Last Reviewed 02/12/20 @ 08:[address] Quang Muniz, DO) Multiple falls (Acute) Closed head injury without loss of consciousness (Acute) Lower GI bleeding (Acute) Warfarin-induced coagulopathy (Acute) Acute blood loss anemia (Acute) Diverticulosis (Acute) Elevated troponin (Acute) Atrial fibrillation and flutter (Acute) - Physical Exam Vitals/I&O's: Vital Signs Temp Pulse Resp BP Pulse Ox 98.1 F 62 19 H 148/57 H 99 04/11/20 15:21 04/11/20 17:17 04/11/20 17:17 04/11/20 17:17 04/11/20 17:17 Oxygen Delivery Method Room Air Weight: 134 lb 14.766 oz Body Mass Index (BMI) 20.5 Finger Stick Blood Glucose 111 General: Alert, Cooperative, Confused, Disoriented HEENT: Atraumatic, PERRLA, EOMI, Normocephalic Neck: Supple, No JVD, Negative Carotid Bruits Lungs: Clear to auscultation, Normal air movement Cardiovascular: Regular rate, No murmurs Abdomen: Bowel Sounds Present, Soft, Non Tender Extremities: No edema, Capillary Refill Less than 3 Seconds Skin: No rashes, No breakdown, - - various bruises and abrasions in different states of healing Musculoskeletal: No Tenderness to Palpation of Joints or Extremities Neurological: Cranial nerves II-XII grossly intact Psych/Mental Status: Normal Affect, Appropriate, Alert and oriented to time, place, person, mood and affect Laboratory Results 04/11/20 15:55: WBC 10.7, RBC 3.68 L, Hgb 11.8 L, Hct 34.5 L, MCV 93.8, MCH 32.1 H, MCHC 34.2, RDW Std Deviation 57.1 H, RDW Coeff of [place] 16.6 H, Plt Count 211, MPV 11.0, Immature Gran % (Auto) 1.000 H, Neut % (Auto) 84.2 H, Lymph % (Auto) 6.5 L, [place] % (Auto) 5.9, Eos % (Auto) 1.7, Baso % (Auto) 0.7, Absolute Neuts (auto) 9.0 H, Absolute Lymphs (auto) 0.69 L, Nucleated RBC % 0 04/11/20 15:55: PT 31.3 H, INR 3.1 04/11/20 15:55: Sodium 139, Potassium 4.1, Chloride 99, Carbon Dioxide 36.0 H, Anion Gap 4 L, BUN 20 H, Creatinine 3.26 H, Estim Creat Clear Calc 15.64, Est GFR (MDRD) Af Amer 24 L, Est GFR (MDRD) Non-Af 20 L, BUN/Creatinine Ratio 6.1 L, Glucose 195 H, Calcium 8.9, Troponin I 0.066 H 04/11/20 15:55: Blood Type A POSITIVE, Antibody Screen NEGATIVE Assessment/Plan All Active Problems (Last Reviewed 02/12/20 @ 08:[address] Quang Muniz, DO) Multiple falls (Acute) Closed head injury without loss of consciousness (Acute) Lower GI bleeding (Acute) Warfarin-induced coagulopathy (Acute) Acute blood loss anemia (Acute) Diverticulosis (Acute) Elevated troponin (Acute) Atrial fibrillation and flutter (Acute) Hip fracture, left (Resolved) Hypoglycemia (Acute) 1. Acute on chronic blood loss anemia 2/2 presumed lower GI bleed - Hgb 11.8, 12.1 on 04/07. BRBPR in ER. Warfarin 3.1. Hold warfarin, plavix. received vit K and FFP in ER. Consult Dr. Olmedo, cycle H/H. 2. CAD with prior CABG and Indeterminate troponin - Hold plavix as above. cycle enzymes, repeat am ekg. Troponin has frequently been indeterminate during last presentations. Last echo 01/13 EF 65%, poor RV function, severely enlarged atria, severe MVS, severe TVI, RVSP 105 mmHg c/w severe pulmonary HTN, mild to moderate . Significant worsening of RVSP. 3. Hypercapnia - suspect 2/2 pulmonary htn. trend BMP. No hypoxia or dyspnea at this time. 4. ESRD - consult Dr. Al 5. Worsening debility - multiple falls. PTOT evals. Consider MRI brain. Pt a/o x 1 and unable to provide significant hx. CT brain with chronic involutional changes. Check TSH. Pelvic Xray without fracture. Check orthostativ vitals. 6. Suspected Dementia - see #5. 7. DMt2 - SSI 8. Hx bovine aortic valve 9. Hx mitral valve repair 10. Chronic afib/flutter - hold warfarin. rate controlled. It would appear he is not on rate limiting meds. 11. BPH - flomax 12. GERD - PPI 13. Gout - allopurinol 14. Depression - zoloft DVT ppx: SCDs DC planning: [facility] [place] This patient was seen by Marvin Hernandez PA-C under the supervision of Dr. Bowers. <ElissaKatina - Last Filed: 04/12/20 08:47> History of Present Illness The patient is a 79 year old M [] Past Medical History Medical History: Medical History (Last Reviewed 02/12/20 @ 08:[address] Quang Muniz DO) BPH (benign prostatic hyperplasia) N40.0 CAD (coronary artery disease) I25.10 Depression F32.9 End stage renal disease N18.6 GERD (gastroesophageal reflux disease) K21.9 History of gout Z87.39 History of myocardial infarction I25.2 Leukocytosis D72.829 Type 2 diabetes mellitus E11.9 Chronic atrial fibrillation I48.20 ATRIAL FLUTTER Hypertension I10 Allergies escitalopram [From Lexapro] Allergy (Severe, Verified 04/11/20 15:26) Unknown levofloxacin [From Levaquin] Allergy (Severe, Verified 04/11/20 15:26) Other DRUG INDUCED LUPUS Penicillins Allergy (Severe, Verified 04/11/20 15:26) Unknown CONFUSED Opioids - Morphine Analogues Adverse Reaction (Severe, Verified 04/11/20 15:26) Other CONFUSION Surgical History: Surgical History (Last Reviewed 02/12/20 @ 08:[address] Quang Muniz DO) H/O aortic valve replacement Z95.2 10 YEARS AGO 2010 History of heart artery stent Z95.5 [facility] 2-2020 History of mitral valve repair Z98.890 - *Family History Maternal Family History: Family History (Last Reviewed 04/11/20 @ 18:02 by ANNETTE Clark) Father Carotid artery disease Hypertension Mother Hypertension Paternal Family History: Family History (Last Reviewed 04/11/20 @ 18:02 by ANNETTE Clark) Father Carotid artery disease Hypertension Mother Hypertension - Physical Exam Vitals/I&O's: Vital Signs Temp Pulse Resp BP Pulse Ox 98.7 F 58 L 19 H 141/46 H 97 04/11/20 18:36 04/11/20 19:00 04/11/20 18:36 04/11/20 18:36 04/11/20 18:36 Oxygen Delivery Method Room Air Weight: 130 lb 8 oz Body Mass Index (BMI) 19.8 Finger Stick Blood Glucose 111 Intake and Output for Last 24 Hours 04/09/20 04/10/20 04/11/20 23:59 23:59 23:59 Intake Total 550.5 / 550.5 Balance 550.5 / 550.5 Laboratory Results 04/11/20 15:55: WBC 10.7, RBC 3.68 L, Hgb 11.8 L, Hct 34.5 L, MCV 93.8, MCH 32.1 H, MCHC 34.2, RDW Std Deviation 57.1 H, RDW Coeff of [place] 16.6 H, Plt Count 211, MPV 11.0, Immature Gran % (Auto) 1.000 H, Neut % (Auto) 84.2 H, Lymph % (Auto) 6.5 L, [place] % (Auto) 5.9, Eos % (Auto) 1.7, Baso % (Auto) 0.7, Absolute Neuts (auto) 9.0 H, Absolute Lymphs (auto) 0.69 L, Nucleated RBC % 0 04/11/20 15:55: PT 31.3 H, INR 3.1 04/11/20 15:55: Sodium 139, Potassium 4.1, Chloride 99, Carbon Dioxide 36.0 H, Anion Gap 4 L, BUN 20 H, Creatinine 3.26 H, Estim Creat Clear Calc 15.64, Est GFR (MDRD) Af Amer 24 L, Est GFR (MDRD) Non-Af 20 L, BUN/Creatinine Ratio 6.1 L, Glucose 195 H, Calcium 8.9, Troponin I 0.066 H 04/11/20 15:55: Blood Type A POSITIVE, Antibody Screen NEGATIVE 04/11/20 19:01: TSH 2.21 04/11/20 19:01: Hgb 11.5 L, Hct 36.7 L 04/11/20 19:01: Troponin I 0.071 H Current Medications Acetaminophen (Acetaminophen 325 Mg Tablet) 650 mg PO Q6H PRN PRN PRN Reason: Pain Score 1-10 Allopurinol (Allop[facility]ol 100 Mg Tablet) [facility] Atorvastatin Calcium (Atorvastatin Calcium 40 Mg Tablet) 40 mg PO QHS COUNTS INCLUDE 234 BEDS AT THE [facility] Last Admin: 04/11/20 20:48 Dose: 40 mg Documented by: Calcium Acetate (Calcium Acetate 667 Mg Capsule) 667 mg PO TIDCM COUNTS INCLUDE 234 BEDS AT THE [facility] Dextrose (Dextrose 50%-Water 25 Gm/50 Ml Disp.Syrin) 0 gm IV X1 PRN; Protocol PRN Reason: Hypoglycemia Glucagon (Glucagon 1 Mg/Ml Syringe) 1 mg IM .X1 PRN PRN Reason: Hypoglycemia Sodium Chloride () 1,000 mls @ 100 mls/hr IV .Q10H COUNTS INCLUDE 234 BEDS AT THE [facility] Last Admin: 04/11/20 19:03 Dose: 100 mls/hr Documented by: Sodium Chloride () 500 mls @ 15 mls/hr IV PRN PRN PRN Reason: Blood Transfusion Insulin Human Lispro (Insulin Lispro 100 Unit/Ml Insuln.Pen) 0 unit SC ACHS COUNTS INCLUDE 234 BEDS AT THE [facility]; Protocol Loratadine (Loratadine 10 Mg Tablet) 5 mg PO DAILY COUNTS INCLUDE 234 BEDS AT THE [facility] Multivit/Ca Carb/B Cmplx/FA/Prenat (Folic Acid/Vitamin B Comp W-C 1 Capsule) 1 capsule PO DAILY COUNTS INCLUDE 234 BEDS AT THE [facility] Ondansetron HCl (Ondansetron 4 Mg/2 Ml Vial) 4 mg IV Q6H PRN PRN PRN Reason: NAUSEA Pantoprazole Sodium (Pantoprazole Sodium 20 Mg Tablet) 20 mg PO QHS COUNTS INCLUDE 234 BEDS AT THE [facility] Last Admin: 04/11/20 20:48 Dose: 20 mg Documented by: Sertraline HCl (Sertraline 100 Mg Tablet) 100 mg PO DAILY COUNTS INCLUDE 234 BEDS AT THE [facility] Tamsulosin HCl (Tamsulosin Hcl 0.4 Mg Capsule) 0.4 mg PO QHS COUNTS INCLUDE 234 BEDS AT THE [facility] Last Admin: 04/11/20 20:48 Dose: 0.4 mg Documented by: Assessment/Plan Patient seen by Marvin Hernandez PA-C under my supervision Patient seen and examined. He was admitted from the [place] with a complaint of falls. On admission, he was also noted to be having bright red bleeding per rectum. Per patient, he had been falling often at the [facility] living. He also remembered having the rectal bleed on the day of admission, but couldnt give much history otherwise. He has a history of mitral valve repair and afib, on coumadin. General surgery consulted. REview of systems otherwise negative. O/E: Vital Signs Temp Pulse Resp BP Pulse Ox 97.6 F L 67 16 181/72 H 98 04/11/20 21:00 04/11/20 21:00 04/11/20 21:00 04/11/20 21:00 04/11/20 21:00 General: Alert, Cooperative, Confused, HEENT: Atraumatic, PERRLA, EOMI, Normocephalic Neck: Supple, No JVD, Negative Carotid Bruits Lungs: Clear to auscultation, Normal air movement Cardiovascular: Regular rate, No murmurs Abdomen: Bowel Sounds Present, Soft, Non Tender Extremities: No edema, Capillary Refill Less than 3 Seconds Skin: No rashes, No breakdown, - - various bruises and abrasions in different states of healing Musculoskeletal: No Tenderness to Palpation of Joints or Extremities Neurological: Cranial nerves II-XII grossly intact Psych/Mental Status: Normal Affect, Appropriate, Alert and oriented to place and person only. Plan is to admit to PCU with telemetry. Troponins are indeterminate, at only 0.066. Will cycle. Hb is ~ 11.8. Keep on clear liquids overnight. Hold coumadin. INR was 3.1. He received Vitamin K and FFPs in the ER o/a of rectal bleeding and Fall precautions. General surgery consulted, await recommendations. Will discuss with cardiology about permanently discontinuing coumadin due to frequent falls and lower GI bleed. IT does appear patient had a colonoscopy a few years ago, which was positive for diverticular disease. This is likely the cause of the lower GI bleed, exacerbated by coumadin. Consult PT/OT. Cycle troponins. Nephrology consulted o/a of ESRD. He had dialysis today. Rest as per Marvin Hernandez PA-C's notes, which I have reviewed and endorsed. OBSV E&M: [id number] Initial observation care L3
--- NOTE | 2020-04-11 17:55 | NURSING ---
PCU [facility] RECTAL BLEED, DEBILITY, MECHANICAL FALLS
--- NOTE | 2020-04-11 18:12 | ED.RN ---
[facility] updated that patient was being admitted. also contacted by phone and updated on patients admission status.
[2020-04-11] MEDS: 0.9% Saline Lock 10 ML Syringe IV (19:03)
[2020-04-11] MEDS: 0.9% Normal Saline 1,000 ML 100 ML IV (19:03)
[2020-04-11 20:05] LABS: Hematocrit 36.7 % (40-54); Hemoglobin 11.5 g/dL (13.0-16.5)
[2020-04-11 20:25] LABS: Thyroid Stim Hormone (TSH) 2.21 uIU/mL (0.358-3.74)
[2020-04-11] MEDS: Tamsulosin HCl 0.4 MG Capsule PO (20:48)
[2020-04-11] MEDS: Pantoprazole Sodium 20 MG Tablet PO (20:48)
[2020-04-11] MEDS: Atorvastatin Calcium 40 MG Tablet PO (20:48)
[2020-04-11 23:51] LABS: Bedside Glucose 155 mg/dL (70-110)
[2020-04-12] VITALS (7 sets, daily range): BP systolic 160–191; BP diastolic 62–73; PULSE 56–74; RESP 14–20; TEMP 36.6–36.7; O2SAT 95–97
[2020-04-12 01:22] LABS: Mucous, Urine 0 SEEN /hpf (<or=2+); Squamous Epithelial Cells - UA 0 SEEN /hpf (0-5)
[2020-04-12 01:25] LABS: Color, Urine Yellow (Yellow); Glucose, Dipstick Normal (Normal); Ketone-Dipstick 5 mg/dl (Negative); Leukocyte Esterase-Dipstick 500 /ul (Negative); Nitrite-Dipstick Negative (Negative); Occult Blood-Urine 50 /ul (Negative); Protein-Dipstick 500 mg/dl (Negative); Urine Bilirubin Dipstick Negative (Negative); Urine Clarity Cloudy (Clear); Urine Urobilinogen Normal (Normal)
[2020-04-12 02:02] LABS: White Blood Cells >100 SEEN /hpf (0-5)
[2020-04-12 02:03] LABS: Amorphous Sediment 1+; Bacteria 2+ /hpf (None Seen)
[2020-04-12 02:05] LABS: Red Blood Cells-Urine 0-5 SEEN /hpf (0-5)
[2020-04-12 02:53] LABS: Hematocrit 34.5 % (40-54); Hemoglobin 10.3 g/dL (13.0-16.5)
[2020-04-12 05:32] LABS: Absolute Lymphocyte Count 1.07 X10^3/uL (0.83-4.51); Absolute Neutrophil Count 9.3 X10^3/uL (2.0-7.7); Basophil# 0.08 X10^3/uL; Basophil% 0.7 % (0-1); Eosinophil# 0.22 X10^3/uL; Eosinophils% 1.9 % (0-5); Hematocrit 33.9 % (40-54); Hemoglobin 10.6 g/dL (13.0-16.5); Lymphocyte # 1.07 X10^3/ul (4.0); Lymphocyte % 9.2 % (19-41); Mean Corp Hgb Conc 31.3 g/dL (32-36); Mean Corpuscular Hgb 29.9 pg (27.0-32.0); Mean Corpuscular Volume 95.8 fL (80-94); Mean Platelet Vol. 10.6 fl (6.2-12.0); Monocyte# 0.89 X10^3/uL; Monocyte% 7.6 % (0-10); NRBC Flagged by Analyzer 0 % (0-5); Neutrophil # 9.31 X10^3/uL (2.7-7.7); Neutrophil % 79.9 % (47-70); Platelet Count 175 K/mm3 (150-450); RBC Distribution Width CV 16.6 % (11.6-14.6); RBC Distribution Width SD 58.4 fl (35.1-43.9); Red Blood Count 3.54 M/mm3 (4.6-6.2); White Blood Count 11.7 K/mm3 (4.4-11.0)
[2020-04-12 05:45] LABS: International Normalized Ratio 1.2; Prothrombin Time (Protime)PT. 14.4 SECONDS (11.7-14.9)
--- NOTE | 2020-04-12 05:55 | EKG12_ITS ---
Test Reason : FALLING Blood Pressure : / mmHG Vent. Rate : 054 BPM Atrial Rate : 366 BPM P-R Int : 000 ms QRS Dur : 104 ms QT Int : 510 ms P-R-T Axes : 000 021 142 degrees QTc Int : 483 ms Atrial flutter with variable A-V block with premature ventricular or aberrantly conducted complexes Incomplete right bundle branch block Nonspecific T wave abnormality Prolonged QT Abnormal ECG Confirmed by IBETH MIRANDA, GILDARDO ([id number]), videotape editor LIZZ BECKWITH ([id number]) on 04/12/2020 1:06:18 PM Referred By: RICHARD Confirmed By:GILDARDO CRISTIAN MD
[2020-04-12 06:12] LABS: ALB/GLOB Ratio 0.9 RATIO (0.9-2.4); AST(SGOT) 21 U/L (15-37); Alanine Aminotransfer ALT/SGPT 24 U/L (16-61); Albumin, Serum 3.2 g/dL (3.2-5.0); Alkaline Phosphatase 169 U/L (45-117); Anion Gap 7 (5-15); BUN 25 mg/dL (7-18); BUN/Creat Ratio 6.9 RATIO (10-20); Calcium,Total 8.8 mg/dL (8.5-10.1); Chloride 101 mmol/L (98-107); EST Glomerular Filtration Rate 17 mL/min (>60); Est Glom Filt Rate - Afr Amer 21 mL/min (>60); Globulin 3.4 g/dL (2.2-4.2); Glucose 103 mg/dL (74-106); Potassium 3.8 mmol/L (3.5-5.1); Protein, Total 6.6 g/dL (6.4-8.2); Sodium Level 140 mmol/L (136-145)
[2020-04-12 06:55] LABS: Bedside Glucose 105 mg/dL (70-110)
--- NOTE | 2020-04-12 09:19 | PCM.CONS.R ---
Consultation - Renal PCP/ Referring MD: Requesting physician: [] Primary care physician: Dr. Alfred Moreno MD - History of Present Illness History of Present Illness: The patient is a 79 year old M PMH of Afib on warfarin, ESRD TTS HD schedule Patient presented with frequent falls. In ED he had bloody BM and patient was admitted. had HD session yesterday. denied N/V/SOB ROS: 12 systems review is negative[] - Allergies Allergies: Allergies escitalopram [From Lexapro] Allergy (Severe, Verified 04/11/20 15:26) Unknown levofloxacin [From Levaquin] Allergy (Severe, Verified 04/11/20 15:26) Other DRUG INDUCED LUPUS Penicillins Allergy (Severe, Verified 04/11/20 15:26) Unknown CONFUSED Opioids - Morphine Analogues Adverse Reaction (Severe, Verified 04/11/20 15:26) Other CONFUSION - Current Medications Current Medications: Current Medications Acetaminophen (Acetaminophen 325 Mg Tablet) 650 mg PO Q6H PRN PRN PRN Reason: Pain Score 1-10 Allopurinol (Allopurinol 100 Mg Tablet) 100 mg PO DAILYCM [facility] Atorvastatin Calcium (Atorvastatin Calcium 40 Mg Tablet) 40 mg PO QHS [facility] Last Admin: 04/11/20 20:48 Dose: 40 mg Documented by: Calcium Acetate (Calcium Acetate 667 Mg Capsule) 667 mg PO TIDCM [facility] Dextrose (Dextrose 50%-Water 25 Gm/50 Ml Disp.Syrin) 0 gm IV X1 PRN; Protocol PRN Reason: Hypoglycemia Glucagon (Glucagon 1 Mg/Ml Syringe) 1 mg IM .X1 PRN PRN Reason: Hypoglycemia Sodium Chloride () 1,000 mls @ 100 mls/hr IV .Q10H [facility] Last Admin: 04/11/20 19:03 Dose: 100 mls/hr Documented by: Sodium Chloride () 500 mls @ 15 mls/hr IV PRN PRN PRN Reason: Blood Transfusion Insulin Human Lispro (Insulin Lispro 100 Unit/Ml Insuln.Pen) 0 unit SC ACHS [facility]; Protocol Last Admin: 04/12/20 06:45 Dose: Not Given Documented by: Loratadine (Loratadine 10 Mg Tablet) 5 mg PO DAILY [facility] Multivit/Ca Carb/B Cmplx/FA/Prenat (Folic Acid/Vitamin B Comp W-C 1 Capsule) 1 capsule PO DAILY [facility] Ondansetron HCl (Ondansetron 4 Mg/2 Ml Vial) 4 mg IV Q6H PRN PRN PRN Reason: NAUSEA Pantoprazole Sodium (Pantoprazole Sodium 20 Mg Tablet) 20 mg PO QHS [facility] Last Admin: 04/11/20 20:48 Dose: 20 mg Documented by: Sertraline HCl (Sertraline 100 Mg Tablet) 100 mg PO DAILY [facility] Tamsulosin HCl (Tamsulosin Hcl 0.4 Mg Capsule) 0.4 mg PO QHS [facility] Last Admin: 04/11/20 20:48 Dose: 0.4 mg Documented by: - Past Medical History Past Medical History (Chronic Problems): Chronic Problems (Last Reviewed 02/12/20 @ 08:[address] 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 - Social History Smoking Status: Never smoker Alcohol: None Drugs: None - Family History Maternal Family History: Family History (Last Reviewed 04/11/20 @ 18:02 by ANNETTE Clark) Father Carotid artery disease Hypertension Mother Hypertension History Items: Diabetes, Heart Disease, Hypertension Paternal Family History: Family History (Last Reviewed 04/11/20 @ 18:02 by Marvin BRYANT PA) Father Carotid artery disease Hypertension Mother Hypertension History Items: Diabetes, Heart Disease, Hypertension Patient Problems: Active and Suspected Problems (Last Reviewed 02/12/20 @ 08:[address] Quang Muniz DO) Multiple falls (Acute) Closed head injury without loss of consciousness (Acute) Lower GI bleeding (Acute) Warfarin-induced coagulopathy (Acute) Acute blood loss anemia (Acute) Diverticulosis (Acute) Elevated troponin (Acute) Atrial fibrillation and flutter (Acute) - Physical Exam Vitals/I&O's: Vital Signs Temp Pulse Resp BP Pulse Ox 98.1 F 66 14 160/72 H 97 04/12/20 06:00 04/12/20 06:00 04/12/20 06:00 04/12/20 06:00 04/12/20 06:00 Oxygen Delivery Method Room Air Weight: 59.194 kg Body Mass Index (BMI) 19.8 Finger Stick Blood Glucose 111 Intake and Output for Last 24 Hours 04/10/20 04/11/20 04/12/20 23:59 23:59 23:59 Intake Total 750.5 / 750.5 200 / 200 Output Total 280 / 280 Balance 750.5 / 750.5 -80 / -80 General: Alert, Oriented x3 HEENT: PERRLA, EOMI, - - bruise over the left side of his forehead Neck: Supple, No JVD Lungs: Clear to auscultation, Normal air movement, No rhonchi Cardiovascular: Regular rate, Regular Rhythm, Normal S1, Normal S2 Abdomen: Bowel Sounds Present, Soft, Non Tender, Non-Distended Extremities: No clubbing, No cyanosis, No edema Skin: No rashes Neurological: Neuro grossly intact Laboratory Results 04/11/20 15:55: WBC 10.7, RBC 3.68 L, Hgb 11.8 L, Hct 34.5 L, MCV 93.8, MCH 32.1 H, MCHC 34.2, RDW Std Deviation 57.1 H, RDW Coeff of Soco 16.6 H, Plt Count 211, MPV 11.0, Immature Gran % (Auto) 1.000 H, Neut % (Auto) 84.2 H, Lymph % (Auto) 6.5 L, [place] % (Auto) 5.9, Eos % (Auto) 1.7, Baso % (Auto) 0.7, Absolute Neuts (auto) 9.0 H, Absolute Lymphs (auto) 0.69 L, Nucleated RBC % 0 04/11/20 15:55: PT 31.3 H, INR 3.1 04/11/20 15:55: Sodium 139, Potassium 4.1, Chloride 99, Carbon Dioxide 36.0 H, Anion Gap 4 L, BUN 20 H, Creatinine 3.26 H, Estim Creat Clear Calc 15.64, Est GFR (MDRD) Af Amer 24 L, Est GFR (MDRD) Non-Af 20 L, BUN/Creatinine Ratio 6.1 L, Glucose 195 H, Calcium 8.9, Troponin I 0.066 H 04/11/20 15:55: Blood Type A POSITIVE, Antibody Screen NEGATIVE 04/11/20 19:01: TSH 2.21 04/11/20 19:01: Hgb 11.5 L, Hct 36.7 L 04/11/20 19:01: Troponin I 0.071 H 04/11/20 22:42: POC Glucose 155 H 04/12/20 00:30: Troponin I 0.061 H 04/12/20 01:00: Urine Color Yellow, Urine Clarity Cloudy, Urine pH 7.0, Ur Specific Johnson 1.010, Urine Protein 500 H, Urine Glucose (UA) Normal, Urine Ketones 5 H, Urine Occult Blood 50 H, Urine Nitrite Negative, Urine Bilirubin Negative, Urine Urobilinogen Normal, Ur Leukocyte Esterase 500 H, Urine RBC 0-5 SEEN, Urine WBC >100 SEEN, Ur Squamous Epith Cells 0 SEEN, Amorphous Sediment 1+, Urine Bacteria 2+, Urine Mucus 0 SEEN 04/12/20 02:45: Hgb 10.3 L, Hct 34.5 L 04/12/20 05:18: WBC 11.7 H, RBC 3.54 L, Hgb 10.6 L, Hct 33.9 L, MCV 95.8 H, MCH 29.9, MCHC 31.3 L D, RDW Std Deviation 58.4 H, RDW Coeff of Soc[place] 16.6 H, Plt Count 175, MPV 10.6, Immature Gran % (Auto) 0.700, Neut % (Auto) 79.9 H, Lymph % (Auto) 9.2 L, [place] % (Auto) 7.6, Eos % (Auto) 1.9, Baso % (Auto) 0.7, Absolute Neuts (auto) 9.3 H, Absolute Lymphs (auto) 1.07, Nucleated RBC % 0 04/12/20 05:18: PT 14.4, INR 1.2 04/12/20 05:18: Sodium 140, Potassium 3.8, Chloride 101, Carbon Dioxide 32.0, Anion Gap 7, BUN 25 H, Creatinine 3.60 H, Estim Creat Clear Calc 13.70, Est GFR (MDRD) Af Amer 21 L, Est GFR (MDRD) Non-Af 17 L, BUN/Creatinine Ratio 6.9 L, Glucose 103, Calcium 8.8, Total Bilirubin 0.70, AST 21, ALT 24, Alkaline Phosphatase 169 H, Total Protein 6.6, Albumin 3.2, Globulin 3.4, Albumin/Globulin Ratio 0.9 04/12/20 06:45: POC Glucose 105 Current Medications Acetaminophen (Acetaminophen 325 Mg Tablet) 650 mg PO Q6H PRN PRN PRN Reason: Pain Score 1-10 Allopurinol ([facility]op[facility]ol 100 Mg Tablet) [facility] Atorvastatin Calcium (Atorvastatin Calcium 40 Mg Tablet) 40 mg PO QHS [facility] Last Admin: 04/11/20 20:48 Dose: 40 mg Documented by: Calcium Acetate (Calcium Acetate 667 Mg Capsule) 667 mg PO TIDCM [facility] Dextrose (Dextrose 50%-Water 25 Gm/50 Ml Disp.Syrin) 0 gm IV X1 PRN; Protocol PRN Reason: Hypoglycemia Glucagon (Glucagon 1 Mg/Ml Syringe) 1 mg IM .X1 PRN PRN Reason: Hypoglycemia Sodium Chloride () 1,000 mls @ 100 mls/hr IV .Q10H [facility] Last Admin: 04/11/20 19:03 Dose: 100 mls/hr Documented by: Sodium Chloride () 500 mls @ 15 mls/hr IV PRN PRN PRN Reason: Blood Transfusion Insulin Human Lispro (Insulin Lispro 100 Unit/Ml Insuln.Pen) [facility]; Protocol Last Admin: 04/12/20 06:45 Dose: Not Given Documented by: Loratadine (Loratadine 10 Mg Tablet) 5 mg PO DAILY [facility] Multivit/Ca Carb/B Cmplx/FA/Prenat (Folic Acid/Vitamin B Comp W-C 1 Capsule) 1 capsule PO DAILY [facility] Ondansetron HCl (Ondansetron 4 Mg/2 Ml Vial) 4 mg IV Q6H PRN PRN PRN Reason: NAUSEA Pantoprazole Sodium (Pantoprazole Sodium 20 Mg Tablet) 20 mg PO QHS [facility] Last Admin: 04/11/20 20:48 Dose: 20 mg Documented by: Sertraline HCl (Sertraline 100 Mg Tablet) 100 mg PO DAILY [facility] Tamsulosin HCl (Tamsulosin Hcl 0.4 Mg Capsule) 0.4 mg PO QHS [facility] Last Admin: 04/11/20 20:48 Dose: 0.4 mg Documented by: Assessment/Plan All Active Problems (Last Reviewed 02/12/20 @ 08:[address] Quang Muniz, DO) Multiple falls (Acute) Closed head injury without loss of consciousness (Acute) Lower GI bleeding (Acute) Warfarin-induced coagulopathy (Acute) Acute blood loss anemia (Acute) Diverticulosis (Acute) Elevated troponin (Acute) Atrial fibrillation and flutter (Acute) Hip fracture, left (Resolved) Hypoglycemia (Acute) 1- ESRD. O MWF HD schedule next HD session tomorrow 2- ANemia: Hgb > 10. No need for ELIAS 3- GI bleed. high INR. received FFP and V k. as per surgery service 4- frequent fall. PT as per hospitalist service
--- NOTE | 2020-04-12 09:57 | CASEMGMT ---
Addendum entered by Bhavya Dunbar 04/12/20 10:49: BRIELLE spoke with Annemarie at [facility] and let her know that patient may be returning today. Bhavya KNUTSON Original Note: Patient is from [facility] at [place]. BRIELLE faxed information to [facility]. BRIELLE also called Annemarie at [facility] requesting a return call. Bhavya KNUTSON
[2020-04-12] MEDS: Sertraline 100 MG Tablet PO (10:24)
[2020-04-12] MEDS: Allopurinol 100 MG Tablet PO (10:24)
[2020-04-12] MEDS: Calcium Acetate 667 MG Capsule PO ×2 (10:24→12:14)
[2020-04-12] MEDS: Loratadine 10 MG Tablet 5 MG PO (10:24)
[2020-04-12] MEDS: Folic Acid/Vitamin B Comp W-C 1 Capsule 1 CAP PO (10:24)
--- NOTE | 2020-04-12 10:56 | PCM.EXTCARCO ---
- Diet 04/12/20 10:40 Diet: Renal - General Is pt able to select menu?: No Diet Comments: dialysis pt (m-w-f) - Routine Orders/Code Status Suppository Type: Dulcolax 10mg Suppository Frequency: Daily PRN Routine Lab Work: CBC - tomorrow, BMP - tomorrow Code Status: DNRCC-A - Wound(s) LLE Wound Type: Skin Tear Heel, left Wound Type: Neuropathic/Diabetic Foot Ulcer - Therapies Physical Therapy: Eval and Treat Occupational Therapy: Eval and Treat - Problem/Diagnosis (1) Acute blood loss anemia Status: Acute (2) Lower GI bleeding Status: Acute (3) Warfarin-induced coagulopathy Status: Acute (4) Chronic kidney disease with end stage renal failure on dialysis Status: Chronic (5) Hx of CABG Status: Chronic (6) DM (diabetes mellitus) Status: Chronic (7) HTN (hypertension) Status: Chronic (8) Pure hypercholesterolemia Status: Chronic (9) aoritc bovine 2010 replacement Status: Chronic (10) H/O mitral valve repair Status: Chronic (11) Gout Status: Chronic (12) Atrial fibrillation and flutter Status: Chronic (13) CAD (coronary artery disease) Status: Chronic (14) Chronic a-fib Status: Chronic (15) Debility Status: Chronic - Allergies/Procedures Done in Hospital Allergies/Adverse Reactions: Allergies escitalopram [From Lexapro] Allergy (Severe, Verified 04/11/20 15:26) Unknown levofloxacin [From Levaquin] Allergy (Severe, Verified 04/11/20 15:26) Other DRUG INDUCED LUPUS Penicillins Allergy (Severe, Verified 04/11/20 15:26) Unknown CONFUSED Opioids - Morphine Analogues Adverse Reaction (Severe, Verified 04/11/20 15:26) Other CONFUSION Procedures: None - Type of Care/Length of Stay Estimated LOS: Convalescent Care Less Than 30 days Type of Care Needed: Skilled Rehab Potential: Fair Prognosis: Fair - Additional Orders/Day of Discharge Day of Discharge: 04/12/20 - Dietary and Speech Recommendations Dietitian Recommendations/Changes: Change to CHO controlled / renal-general diet once advanced from NPO. Will provide NeproCHO steady 120 ml w/ medpass to provide additional suzan/pro if consumed. - Follow Up Care Primary Care Physician: Alfred Moreno MD [Primary Care Provider] - Please follow up with your Primary Care Physician in: 1-2 weeks Please Follow Up With: Usual Dialysis When: continue as directed Please Follow Up With: Mikey Olmedo MD - Surgeon Re: GI bleed When: 2 weeks
--- NOTE | 2020-04-12 11:20 | PCM.DC.SUM ---
<Marvin Hernandez - Last Filed: 04/12/20 11:20> Discharge Date and Diagnosis - Problem List Patient Problems: Active and Suspected Problems (Last Reviewed 04/12/20 @ 12:08 by Maria Elena BRYANT PA-C) Multiple falls (Acute) Closed head injury without loss of consciousness (Acute) Lower GI bleeding (Acute) Warfarin-induced coagulopathy (Acute) Acute blood loss anemia (Acute) Diverticulosis (Acute) Elevated troponin (Acute) Atrial fibrillation and flutter (Acute) Date of Admission: 04/11/20 Date of Discharge: 04/12/20 - Primary Discharge Diagnosis Acute Problems: Active Problems (Last Reviewed 02/12/20 @ 08:[address] Quang Muniz DO) Falls, debility Lower GI bleed with acute blood loss anemia, suspected 2/2 diverticulosis and coumadin coagulopathy UTI - Secondary Discharge Diagnosis Chronic Problems: Chronic Problems (Last Reviewed 02/12/20 @ 08:[address] 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 RAD/Pelvis 1 or 2 Views IMPRESSION: Normal x-ray examination of the pelvis after left hip hemiarthroplasty. Consults: Nephrology - [facility] Surgery - [place] Operations: None Procedures: None Summary of Care Provided: Hospital Course: The patient is a 79 year old M with extensive pmhx as above [facility]. He is demented and unable to provide much history. In the ER he had a BM with bright red blood. He was mildly anemic. He was admitted for anemia 2/2 GI bleed suspected 2/2 diverticulosis and coumadin coagulopathy which he takes for chronic afib. INR was 3.1. He was given vitamin K and FFP. He was monitored overnight with no major decline in hgb. General surgery was consulted and recommended no intervention but to hold warfarin/plavix. He was found to have a UTI and leukocytosis and placed on keflex for 7 days. He was discharged back to SNF in stable condition. Follow up with PCP in 1-2 weeks, follow up with General surgery 2 weeks. This patient was seen by Marvin Hernandez PA-C under the supervision of Dr. Bae. [] Patient Problems: Active and Suspected Problems (Last Reviewed 04/12/20 @ 12:08 by Maria Elena BRYANT PA-C) Multiple falls (Acute) Closed head injury without loss of consciousness (Acute) Lower GI bleeding (Acute) Warfarin-induced coagulopathy (Acute) Acute blood loss anemia (Acute) Diverticulosis (Acute) Elevated troponin (Acute) Atrial fibrillation and flutter (Acute) - Physical Exam Vitals/I&O's: Vital Signs Temp Pulse Resp BP Pulse Ox 97.8 F 63 20 H 191/73 H 96 04/12/20 10:20 04/12/20 10:20 04/12/20 10:20 04/12/20 10:20 04/12/20 10:20 Oxygen Delivery Method Room Air Weight: 130 lb 8.007 oz Body Mass Index (BMI) 19.8 Finger Stick Blood Glucose 111 Intake and Output for Last 24 Hours 04/10/20 04/11/20 04/12/20 23:59 23:59 23:59 Intake Total 750.5 / 750.5 1200 / 1200 Output Total 280 / 280 Balance 750.5 / 750.5 920 / 920 General: Alert, Cooperative, Confused HEENT: Atraumatic, PERRLA, EOMI, Normocephalic Neck: Supple, No JVD, Negative Carotid Bruits Lungs: Clear to auscultation, Normal air movement Cardiovascular: Regular rate, No murmurs Abdomen: Bowel Sounds Present, Soft, Non Tender Extremities: No edema, Capillary Refill Less than 3 Seconds Skin: No rashes, No breakdown Musculoskeletal: No Tenderness to Palpation of Joints or Extremities Neurological: Cranial nerves II-XII grossly intact Psych/Mental Status: Normal Affect, Appropriate Laboratory Results 04/11/20 15:55: WBC 10.7, RBC 3.68 L, Hgb 11.8 L, Hct 34.5 L, MCV 93.8, MCH 32.1 H, MCHC 34.2, RDW Std Deviation 57.1 H, RDW Coeff of [place] 16.6 H, Plt Count 211, MPV 11.0, Immature Gran % (Auto) 1.000 H, Neut % (Auto) 84.2 H, Lymph % (Auto) 6.5 L, Anderson % (Auto) 5.9, Eos % (Auto) 1.7, Baso % (Auto) 0.7, Absolute Neuts (auto) 9.0 H, Absolute Lymphs (auto) 0.69 L, Nucleated RBC % 0 04/11/20 15:55: PT 31.3 H, INR 3.1 04/11/20 15:55: Sodium 139, Potassium 4.1, Chloride 99, Carbon Dioxide 36.0 H, Anion Gap 4 L, BUN 20 H, Creatinine 3.26 H, Estim Creat Clear Calc 15.64, Est GFR (MDRD) Af Amer 24 L, Est GFR (MDRD) Non-Af 20 L, BUN/Creatinine Ratio 6.1 L, Glucose 195 H, Calcium 8.9, Troponin I 0.066 H 04/11/20 15:55: Blood Type A POSITIVE, Antibody Screen NEGATIVE 04/11/20 19:01: TSH 2.21 04/11/20 19:01: Hgb 11.5 L, Hct 36.7 L 04/11/20 19:01: Troponin I 0.071 H 04/11/20 22:42: POC Glucose 155 H 04/12/20 00:30: Troponin I 0.061 H 04/12/20 01:00: Urine Color Yellow, Urine Clarity Cloudy, Urine pH 7.0, Ur Specific [place] 1.010, Urine Protein 500 H, Urine Glucose (UA) Normal, Urine Ketones 5 H, Urine Occult Blood 50 H, Urine Nitrite Negative, Urine Bilirubin Negative, Urine Urobilinogen Normal, Ur Leukocyte Esterase 500 H, Urine RBC 0-5 SEEN, Urine WBC >100 SEEN, Ur Squamous Epith Cells 0 SEEN, Amorphous Sediment 1+, Urine Bacteria 2+, Urine Mucus 0 SEEN 04/12/20 02:45: Hgb 10.3 L, Hct 34.5 L 04/12/20 05:18: WBC 11.7 H, RBC 3.54 L, Hgb 10.6 L, Hct 33.9 L, MCV 95.8 H, MCH 29.9, MCHC 31.3 L D, RDW Std Deviation 58.4 H, RDW Coeff of [place] 16.6 H, Plt Count 175, MPV 10.6, Immature Gran % (Auto) 0.700, Neut % (Auto) 79.9 H, Lymph % (Auto) 9.2 L, Anderson % (Auto) 7.6, Eos % (Auto) 1.9, Baso % (Auto) 0.7, Absolute Neuts (auto) 9.3 H, Absolute Lymphs (auto) 1.07, Nucleated RBC % 0 04/12/20 05:18: PT 14.4, INR 1.2 04/12/20 05:18: Sodium 140, Potassium 3.8, Chloride 101, Carbon Dioxide 32.0, Anion Gap 7, BUN 25 H, Creatinine 3.60 H, Estim Creat Clear Calc 13.70, Est GFR (MDRD) Af Amer 21 L, Est GFR (MDRD) Non-Af 17 L, BUN/Creatinine Ratio 6.9 L, Glucose 103, Calcium 8.8, Total Bilirubin 0.70, AST 21, ALT 24, Alkaline Phosphatase 169 H, Total Protein 6.6, Albumin 3.2, Globulin 3.4, Albumin/Globulin Ratio 0.9 04/12/20 06:45: POC Glucose 105 04/12/20 10:35: Hgb Pending, Hct Pending Current Medications Acetaminophen (Acetaminophen 325 Mg Tablet) 650 mg PO Q6H PRN PRN PRN Reason: Pain Score 1-10 Allop[facility]ol ([facility] Mg [facility] Last Admin: 04/12/20 10:24 Dose: 100 mg Documented by: Amlodipine Besylate (Amlodipine 10 Mg Tablet) 10 mg PO DAILY [facility] Atorvastatin Calcium (Atorvastatin Calcium 40 Mg Tablet) 40 mg PO QHS [facility] Last Admin: 04/11/20 20:48 Dose: 40 mg Documented by: Calcium Acetate (Calcium Acetate 667 Mg Capsule) 667 mg PO TIDCM [facility] Last Admin: 04/12/20 10:24 Dose: 667 mg Documented by: Cephalexin (Cephalexin 500 Mg Capsule) 500 mg PO Q12 [facility] Dextrose (Dextrose 50%-Water 25 Gm/50 Ml Disp.Syrin) 0 gm IV X1 PRN; Protocol PRN Reason: Hypoglycemia Glucagon (Glucagon 1 Mg/Ml Syringe) 1 mg IM .X1 PRN PRN Reason: Hypoglycemia Sodium Chloride () 500 mls @ 15 mls/hr IV PRN PRN PRN Reason: Blood Transfusion Insulin Human Lispro (Insulin Lispro 100 Unit/Ml Insuln.Pen) 0 unit SC ACHS [facility]; Protocol Last Admin: 04/12/20 06:45 Dose: Not Given Documented by: Loratadine (Loratadine 10 Mg Tablet) 5 mg PO DAILY [facility] Last Admin: 04/12/20 10:24 Dose: 5 mg Documented by: Multivit/Ca Carb/B Cmplx/FA/Prenat (Folic Acid/Vitamin B Comp W-C 1 Capsule) 1 capsule PO DAILY [facility] Last Admin: 04/12/20 10:24 Dose: 1 capsule Documented by: Ondansetron HCl (Ondansetron 4 Mg/2 Ml Vial) 4 mg IV Q6H PRN PRN PRN Reason: NAUSEA Pantoprazole Sodium (Pantoprazole Sodium 20 Mg Tablet) 20 mg PO QHS [facility] Last Admin: 04/11/20 20:48 Dose: 20 mg Documented by: Sertraline HCl (Sertraline 100 Mg Tablet) 100 mg PO DAILY [facility] Last Admin: 04/12/20 10:24 Dose: 100 mg Documented by: Tamsulosin HCl (Tamsulosin Hcl 0.4 Mg Capsule) 0.4 mg PO QHS [facility] Last Admin: 04/11/20 20:48 Dose: 0.4 mg Documented by: Discharge Diet: Low fat/ Low Cholesterol, 2000 mg Sodium Diet Discharge Activity: Return to Normal Activity Home Medications: Medications to take at Discharge Allopurinol [Zyloprim] 100 mg PO DAILY 12/31/16 Atorvastatin Calcium [Lipitor] 40 mg PO QHS 04/09/18 Tamsulosin HCl [Flomax] 0.4 mg PO QHS 04/09/18 Cetirizine HCl 5 mg PO DAILY 07/27/19 Nitroglycerin 0.4 mg SL Q5M PRN 07/27/19 Acetaminophen [Tylenol] 650 mg PO TID 01/06/20 Calcium Acetate 667 mg PO TIDCM 02/12/20 Omeprazole 20 mg PO QHS 02/12/20 Sertraline HCl [Zoloft] 100 mg PO DAILY 02/12/20 Insulin Lispro [Humalog KwikPen] See Protocol SUBCUT ACHS insuln.pen 02/13/20 Folic Acid/Vitamin B Comp W-C [Nephrocaps, Renaphro] 1 cap PO DAILY 04/11/20 Nut Tx, Lact-Reduced, Iron [Boost Vhc] 237 ml PO DAILY 04/11/20 Amlodipine [Norvasc] 10 mg PO DAILY tab 04/12/20 Cephalexin [Keflex] 500 mg PO Q12 cap 04/12/20 Primary Care Physician: Alfred Moreno MD [Primary Care Provider] - Please follow up with your Primary Care Physician in: 1-2 weeks Please Follow Up With: Continue Dialysis When: continue as directed Please Follow Up With: Mikey Olmedo MD - Surgeon Re: GI bleed When: 2 weeks Disposition: Retirement facility Minutes spent on discharge:: 35 Patient Condition:: Stable Medical Necessity - Tobacco Use Smoking Status: Never smoker Tobacco Use: Non-smoker Meaningful Use Info Meaningful Use Diagnoses (Choose all that apply): None applicable <Hemant Bae - Last Filed: 04/12/20 12:34> Discharge Date and Diagnosis - Primary Discharge Diagnosis Acute Problems: Active Problems (Last Reviewed 04/12/20 @ 12:08 by Maria Elena BRYANT PACamposC) Multiple falls (Acute) Closed head injury without loss of consciousness (Acute) Lower GI bleeding (Acute) Warfarin-induced coagulopathy (Acute) Acute blood loss anemia (Acute) Diverticulosis (Acute) Elevated troponin (Acute) Atrial fibrillation and flutter (Acute) - Secondary Discharge Diagnosis Chronic Problems: Chronic Problems (Last Reviewed 04/12/20 @ 12:08 by Maria Elena BRYANT PA-C) Diverticulosis (Chronic) 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) History of myocardial infarction (Chronic) Hx of CABG (Chronic) DM (diabetes mellitus) (Chronic) HTN (hypertension) (Chronic) Pure hypercholesterolemia (Chronic) H/O aortic valve repair (Chronic) 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 I have independently interviewed and examined the patient and reviewed pertinent historical, laboratory, and other data. Please refer to Marvin Hernandez PA-C note for details of this patient's presentation, findings, and recommendations. I have reviewed Marvin Hernandez PA-C note and concur with documented findings. In brief, patient is a 80-year-old gentleman with history of paroxysmal A. fib on Coumadin admitted with rectal bleed. This was attributed to patient being on Coumadin in the setting of diverticulosis resulting in diverticular bleed. Patient INR was 2.1 on admission this was reversed with vitamin K. Coumadin was discontinued on discharge due to significant risk including bleeding as well as risk for falls. Hospital course: As documented above - Physical Exam Vitals/I&O's: Vital Signs Temp Pulse Resp BP Pulse Ox 97.8 F 63 20 H 191/73 H 96 04/12/20 10:20 04/12/20 10:20 04/12/20 10:20 04/12/20 10:20 04/12/20 10:20 Oxygen Delivery Method Room Air Weight: 59.194 kg Body Mass Index (BMI) 19.8 Finger Stick Blood Glucose 111 Intake and Output for Last 24 Hours 04/10/20 04/11/20 04/12/20 23:59 23:59 23:59 Intake Total 750.5 / 750.5 1200 / 1200 Output Total 280 / 280 Balance 750.5 / 750.5 920 / 920 Laboratory Results 04/11/20 15:55: WBC 10.7, RBC 3.68 L, Hgb 11.8 L, Hct 34.5 L, MCV 93.8, MCH 32.1 H, MCHC 34.2, RDW Std Deviation 57.1 H, RDW Coeff of [place] 16.6 H, Plt Count 211, MPV 11.0, Immature Gran % (Auto) 1.000 H, Neut % (Auto) 84.2 H, Lymph % (Auto) 6.5 L, Anderson % (Auto) 5.9, Eos % (Auto) 1.7, Baso % (Auto) 0.7, Absolute Neuts (auto) 9.0 H, Absolute Lymphs (auto) 0.69 L, Nucleated RBC % 0 04/11/20 15:55: PT 31.3 H, INR 3.1 04/11/20 15:55: Sodium 139, Potassium 4.1, Chloride 99, Carbon Dioxide 36.0 H, Anion Gap 4 L, BUN 20 H, Creatinine 3.26 H, Estim Creat Clear Calc 15.64, Est GFR (MDRD) Af Amer 24 L, Est GFR (MDRD) Non-Af 20 L, BUN/Creatinine Ratio 6.1 L, Glucose 195 H, Calcium 8.9, Troponin I 0.066 H 04/11/20 15:55: Blood Type A POSITIVE, Antibody Screen NEGATIVE 04/11/20 19:01: TSH 2.21 04/11/20 19:01: Hgb 11.5 L, Hct 36.7 L 04/11/20 19:01: Troponin I 0.071 H 04/11/20 22:42: POC Glucose 155 H 04/12/20 00:30: Troponin I 0.061 H 04/12/20 01:00: Urine Color Yellow, Urine Clarity Cloudy, Urine pH 7.0, Ur Specific [place] 1.010, Urine Protein 500 H, Urine Glucose (UA) Normal, Urine Ketones 5 H, Urine Occult Blood 50 H, Urine Nitrite Negative, Urine Bilirubin Negative, Urine Urobilinogen Normal, Ur Leukocyte Esterase 500 H, Urine RBC 0-5 SEEN, Urine WBC >100 SEEN, Ur Squamous Epith Cells 0 SEEN, Amorphous Sediment 1+, Urine Bacteria 2+, Urine Mucus 0 SEEN 04/12/20 02:45: Hgb 10.3 L, Hct 34.5 L 04/12/20 05:18: WBC 11.7 H, RBC 3.54 L, Hgb 10.6 L, Hct 33.9 L, MCV 95.8 H, MCH 29.9, MCHC 31.3 L D, RDW Std Deviation 58.4 H, RDW Coeff of [place] 16.6 H, Plt Count 175, MPV 10.6, Immature Gran % (Auto) 0.700, Neut % (Auto) 79.9 H, Lymph % (Auto) 9.2 L, Anderson % (Auto) 7.6, Eos % (Auto) 1.9, Baso % (Auto) 0.7, Absolute Neuts (auto) 9.3 H, Absolute Lymphs (auto) 1.07, Nucleated RBC % 0 04/12/20 05:18: PT 14.4, INR 1.2 04/12/20 05:18: Sodium 140, Potassium 3.8, Chloride 101, Carbon Dioxide 32.0, Anion Gap 7, BUN 25 H, Creatinine 3.60 H, Estim Creat Clear Calc 13.70, Est GFR (MDRD) Af Amer 21 L, Est GFR (MDRD) Non-Af 17 L, BUN/Creatinine Ratio 6.9 L, Glucose 103, Calcium 8.8, Total Bilirubin 0.70, AST 21, ALT 24, Alkaline Phosphatase 169 H, Total Protein 6.6, Albumin 3.2, Globulin 3.4, Albumin/Globulin Ratio 0.9 04/12/20 06:45: POC Glucose 105 04/12/20 10:35: Hgb 11.0 L, Hct 35.5 L 04/12/20 11:26: POC Glucose 135 H Current Medications Acetaminophen (Acetaminophen 325 Mg Tablet) 650 mg PO Q6H PRN PRN PRN Reason: Pain Score 1-10 [facility]opurinol ([facility] 100 Mg [facility]t) [facility] Last Admin: 04/12/20 10:24 Dose: 100 mg Documented by: Amlodipine Besylate (Amlodipine 10 Mg Tablet) 10 mg PO DAILY [facility] Last Admin: 04/12/20 12:14 Dose: 10 mg Documented by: Atorvastatin Calcium (Atorvastatin Calcium 40 Mg Tablet) 40 mg PO QHS [facility] Last Admin: 04/11/20 20:48 Dose: 40 mg Documented by: Calcium Acetate (Calcium Acetate 667 Mg Capsule) 667 mg PO TIDCM [facility] Last Admin: 04/12/20 12:14 Dose: 667 mg Documented by: Cephalexin (Cephalexin 500 Mg Capsule) 500 mg PO Q12 [facility] Last Admin: 04/12/20 12:14 Dose: 500 mg Documented by: Dextrose (Dextrose 50%-Water 25 Gm/50 Ml Disp.Syrin) 0 gm IV X1 PRN; Protocol PRN Reason: Hypoglycemia Glucagon (Glucagon 1 Mg/Ml Syringe) 1 mg IM .X1 PRN PRN Reason: Hypoglycemia Sodium Chloride () 500 mls @ 15 mls/hr IV PRN PRN PRN Reason: Blood Transfusion Insulin Human Lispro (Insulin Lispro 100 Unit/Ml Insuln.Pen) 0 unit SC ACHS [facility]; Protocol Last Admin: 04/12/20 11:33 Dose: Not Given Documented by: Loratadine (Loratadine 10 Mg Tablet) 5 mg PO DAILY [facility] Last Admin: 04/12/20 10:24 Dose: 5 mg Documented by: Multivit/Ca Carb/B Cmplx/FA/Prenat (Folic Acid/Vitamin B Comp W-C 1 Capsule) 1 capsule PO DAILY [facility] Last Admin: 04/12/20 10:24 Dose: 1 capsule Documented by: Ondansetron HCl (Ondansetron 4 Mg/2 Ml Vial) 4 mg IV Q6H PRN PRN PRN Reason: NAUSEA Pantoprazole Sodium (Pantoprazole Sodium 20 Mg Tablet) 20 mg PO QHS [facility] Last Admin: 04/11/20 20:48 Dose: 20 mg Documented by: Sertraline HCl (Sertraline 100 Mg Tablet) 100 mg PO DAILY [facility] Last Admin: 04/12/20 10:24 Dose: 100 mg Documented by: Tamsulosin HCl (Tamsulosin Hcl 0.4 Mg Capsule) 0.4 mg PO QHS [facility] Last Admin: 04/11/20 20:48 Dose: 0.4 mg Documented by: OBSV E&M: [id number] Observation care discharge
[2020-04-12 11:40] LABS: Hematocrit 35.5 % (40-54)
[2020-04-12 11:41] LABS: Bedside Glucose 135 mg/dL (70-110)
--- NOTE | 2020-04-12 11:47 | PHA.DC.MR ---
Pharmacy Service has performed discharge medication reconciliation for this patient. The patient's discharge medication list was reviewed for discrepancies and discrepancies were resolved. Home Medications Allopurinol [Zyloprim] 100 mg PO DAILYCM 12/31/16 Atorvastatin Calcium [Lipitor] 40 mg PO QHS 04/09/18 Tamsulosin HCl [Flomax] 0.4 mg PO QHS 04/09/18 Cetirizine HCl 5 mg PO DAILY 07/27/19 Nitroglycerin 0.4 mg SL Q5M PRN 07/27/19 Acetaminophen [Tylenol] 650 mg PO TID 01/06/20 Calcium Acetate 667 mg PO TIDCM 02/12/20 Omeprazole 20 mg PO QHS 02/12/20 Sertraline HCl [Zoloft] 100 mg PO DAILY 02/12/20 Insulin Lispro [Humalog KwikPen] See Protocol SUBCUT ACHS insuln.pen 02/13/20 Folic Acid/Vitamin B Comp W-C [Nephrocaps, Renaphro] 1 cap PO DAILY 04/11/20 Nut Tx, Lact-Reduced, Iron [Boost Vhc] 237 ml PO DAILY 04/11/20 Amlodipine [Norvasc] 10 mg PO DAILY tab 04/12/20 Cephalexin [Keflex] 500 mg PO Q12 cap 04/12/20
--- NOTE | 2020-04-12 11:59 | PCM.CONS.GEN ---
Problem List (1) Lower GI bleeding Status: Acute Reason for Consult Date of Consultation: 04/12/20 Reason for Consultation: Rectal bleeding History of Present Illness: The patient is a 79 year old M who presented with multiple falls at the group home. It was noted in the ED that the patient had a bloody bowel movement. Patient is a poor historian. He denies rectal bleeding at the group home. He denies abdominal pain, nausea, vomiting. He noted recent diarrhea. He is on Coumadin and Plavix. His INR upon arrival was 3.1. He had vitamin K and platelet therapy which improved his INR to 1.2. His Hgb on arrival was 11.8. Patient's normal appears to be between 12 and 10. He is a dialysis patient. Patient stated he had a small amount of blood in his stool this morning. Patient has had a previous colonoscopy in approximately 2017 which demonstrated diverticulosis. Past Medical History Past Medical History (Chronic Problems): Chronic Problems (Last Reviewed 02/12/20 @ 08:[address] 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) History of myocardial infarction (Chronic) Hx of CABG (Chronic) DM (diabetes mellitus) (Chronic) HTN (hypertension) (Chronic) Pure hypercholesterolemia (Chronic) H/O aortic valve repair (Chronic) aoritc bovine 2010 replacement (Chronic) H/O mitral valve repair (Chronic) Afib (Chronic) Gout (Chronic) Leukocytosis (Chronic) Atrial fibrillation and flutter (Chronic) CAD (coronary artery disease) (Chronic) Chronic a-fib (Chronic) Debility (Chronic) ESRD (end stage renal disease) (Chronic) Anemia (Chronic) Metabolic encephalopathy (Chronic) 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) ESRD (end stage renal disease) on dialysis (Chronic) Medical History: Medical History (Last Reviewed 04/12/20 @ 12:08 by Maria Elena BRYANT, PA-C) BPH (benign prostatic hyperplasia) N40.0 CAD (coronary artery disease) I25.10 Depression F32.9 End stage renal disease N18.6 GERD (gastroesophageal reflux disease) K21.9 History of gout Z87.39 History of myocardial infarction I25.2 Leukocytosis D72.829 Type 2 diabetes mellitus E11.9 Chronic atrial fibrillation I48.20 ATRIAL FLUTTER Hypertension I10 Allergies escitalopram [From Lexapro] Allergy (Severe, Verified 04/11/20 15:26) Unknown levofloxacin [From Levaquin] Allergy (Severe, Verified 04/11/20 15:26) Other DRUG INDUCED LUPUS Penicillins Allergy (Severe, Verified 04/11/20 15:26) Unknown CONFUSED Opioids - Morphine Analogues Adverse Reaction (Severe, Verified 04/11/20 15:26) Other CONFUSION Home Medications: Ambulatory Orders Medication Instructions Recorded Allopurinol [Zyloprim] 100 mg PO DAILYCM 12/31/16 Atorvastatin Calcium [Lipitor] 40 mg PO QHS 04/09/18 Tamsulosin HCl [Flomax] 0.4 mg PO QHS 04/09/18 Cetirizine HCl 5 mg PO DAILY 07/27/19 Nitroglycerin 0.4 mg SL Q5M PRN 07/27/19 Acetaminophen [Tylenol] 650 mg PO TID 01/06/20 Calcium Acetate 667 mg PO TIDCM 02/12/20 Omeprazole 20 mg PO QHS 02/12/20 Sertraline HCl [Zoloft] 100 mg PO DAILY 02/12/20 Insulin Lispro [Humalog KwikPen] See Protocol SUBCUT ACHS 02/13/20 insuln.pen Folic Acid/Vitamin B Comp W-C 1 cap PO DAILY 04/11/20 [Nephrocaps, Renaphro] Nut Tx, Lact-Reduced, Iron [Boost 237 ml PO DAILY 04/11/20 [facility]] Amlodipine [Norvasc] 10 mg PO DAILY tab 04/12/20 Cephalexin [Keflex] 500 mg PO Q12 cap 04/12/20 Surgical History: Surgical History (Last Reviewed 04/12/20 @ 12:08 by Maria Elena BRYANT, PA-C) H/O aortic valve replacement Z95.2 10 YEARS AGO 2010 History of heart artery stent Z95.5 [facility] 2-2019 History of mitral valve repair Z98.890 Surgical History: - - CABG x 1, Bovine AVR, Mitral Valve Repair, L TKR, Ear Surgery. Psychiatric History: Anxiety, Depression Lives: Prison Smoking Status: Never smoker Tobacco Use: Non-smoker Alcohol: None Drugs: None - *Family History Maternal Family History: Family History (Last Reviewed 04/12/20 @ 12:08 by Maria Elenachong BRYANT PA-C) Father Carotid artery disease Hypertension Mother Hypertension History Items: Diabetes, Heart Disease, Hypertension Paternal Family History: Family History (Last Reviewed 04/12/20 @ 12:08 by Maria Elena BRYANT PA-C) Father Carotid artery disease Hypertension Mother Hypertension History Items: Diabetes, Heart Disease, Hypertension Review of Systems Constitutional: Denies: Chills, Fever, Weight Change HEENT: Denies: Head Aches, Sinus Congestion, Sinus Drainage Cardiovascular: Denies: Chest Pain, Palpitations Respiratory: Denies: Cough, Shortness of breath at rest, Sputum production Gastrointestinal: Reports: Diarrhea, Hematochezia Genitourinary: Denies: Dysuria Musculoskeletal: Denies: Joint Pain, Joint Tenderness Skin: Denies: Rash, Wounds Neurological: Reports: Balance problems Psychiatric: Reports: Anxiety, Depression Hematologic/ Lymphatic: Reports: Anemia, Easy Bruising, Easy Bleeding Patient Problems: Active and Suspected Problems (Last Reviewed 02/12/20 @ 08:[address] Quang Muniz, DO) Multiple falls (Acute) Closed head injury without loss of consciousness (Acute) Lower GI bleeding (Acute) Warfarin-induced coagulopathy (Acute) Acute blood loss anemia (Acute) Diverticulosis (Acute) Elevated troponin (Acute) Atrial fibrillation and flutter (Acute) - Physical Exam Vitals/I&O's: Vital Signs Temp Pulse Resp BP Pulse Ox 97.8 F 63 20 H 191/73 H 96 04/12/20 10:20 04/12/20 10:20 04/12/20 10:20 04/12/20 10:20 04/12/20 10:20 Oxygen Delivery Method Room Air Weight: 130 lb 8.007 oz Body Mass Index (BMI) 19.8 Finger Stick Blood Glucose 111 Intake and Output for Last 24 Hours 04/10/20 04/11/20 04/12/20 23:59 23:59 23:59 Intake Total 750.5 / 750.5 1200 / 1200 Output Total 280 / 280 Balance 750.5 / 750.5 920 / 920 General: Alert, Oriented x3, Cooperative HEENT: Atraumatic, PERRLA, EOMI, Normocephalic Neck: Supple, No JVD, Negative Carotid Bruits Lungs: Clear to auscultation, Normal air movement Cardiovascular: Regular rate, No murmurs Abdomen: Soft, Non Tender Extremities: No edema, Capillary Refill Less than 3 Seconds Skin: Ulcer/ Wound - multiple scabs noted on the upper extremities, - - Multiple sites of extensive ecchymosis Musculoskeletal: No Tenderness to Palpation of Joints or Extremities Neurological: Neuro grossly intact Psych/Mental Status: Normal Affect, Appropriate Laboratory Results 04/11/20 15:55: WBC 10.7, RBC 3.68 L, Hgb 11.8 L, Hct 34.5 L, MCV 93.8, MCH 32.1 H, MCHC 34.2, RDW Std Deviation 57.1 H, RDW Coeff of [place] 16.6 H, Plt Count 211, MPV 11.0, Immature Gran % (Auto) 1.000 H, Neut % (Auto) 84.2 H, Lymph % (Auto) 6.5 L, [place] % (Auto) 5.9, Eos % (Auto) 1.7, Baso % (Auto) 0.7, Absolute Neuts (auto) 9.0 H, Absolute Lymphs (auto) 0.69 L, Nucleated RBC % 0 04/11/20 15:55: PT 31.3 H, INR 3.1 04/11/20 15:55: Sodium 139, Potassium 4.1, Chloride 99, Carbon Dioxide 36.0 H, Anion Gap 4 L, BUN 20 H, Creatinine 3.26 H, Estim Creat Clear Calc 15.64, Est GFR (MDRD) Af Amer 24 L, Est GFR (MDRD) Non-Af 20 L, BUN/Creatinine Ratio 6.1 L, Glucose 195 H, Calcium 8.9, Troponin I 0.066 H 04/11/20 15:55: Blood Type A POSITIVE, Antibody Screen NEGATIVE 04/11/20 19:01: TSH 2.21 04/11/20 19:01: Hgb 11.5 L, Hct 36.7 L 04/11/20 19:01: Troponin I 0.071 H 04/11/20 22:42: POC Glucose 155 H 04/12/20 00:30: Troponin I 0.061 H 04/12/20 01:00: Urine Color Yellow, Urine Clarity Cloudy, Urine pH 7.0, Ur Specific [place] 1.010, Urine Protein 500 H, Urine Glucose (UA) Normal, Urine Ketones 5 H, Urine Occult Blood 50 H, Urine Nitrite Negative, Urine Bilirubin Negative, Urine Urobilinogen Normal, Ur Leukocyte Esterase 500 H, Urine RBC 0-5 SEEN, Urine WBC >100 SEEN, Ur Squamous Epith Cells 0 SEEN, Amorphous Sediment 1+, Urine Bacteria 2+, Urine Mucus 0 SEEN 04/12/20 02:45: Hgb 10.3 L, Hct 34.5 L 04/12/20 05:18: WBC 11.7 H, RBC 3.54 L, Hgb 10.6 L, Hct 33.9 L, MCV 95.8 H, MCH 29.9, MCHC 31.3 L D, RDW Std Deviation 58.4 H, RDW Coeff of [place] 16.6 H, Plt Count 175, MPV 10.6, Immature Gran % (Auto) 0.700, Neut % (Auto) 79.9 H, Lymph % (Auto) 9.2 L, [place] % (Auto) 7.6, Eos % (Auto) 1.9, Baso % (Auto) 0.7, Absolute Neuts (auto) 9.3 H, Absolute Lymphs (auto) 1.07, Nucleated RBC % 0 04/12/20 05:18: PT 14.4, INR 1.2 04/12/20 05:18: Sodium 140, Potassium 3.8, Chloride 101, Carbon Dioxide 32.0, Anion Gap 7, BUN 25 H, Creatinine 3.60 H, Estim Creat Clear Calc 13.70, Est GFR (MDRD) Af Amer 21 L, Est GFR (MDRD) Non-Af 17 L, BUN/Creatinine Ratio 6.9 L, Glucose 103, Calcium 8.8, Total Bilirubin 0.70, AST 21, ALT 24, Alkaline Phosphatase 169 H, Total Protein 6.6, Albumin 3.2, Globulin 3.4, Albumin/Globulin Ratio 0.9 04/12/20 06:45: POC Glucose 105 04/12/20 10:35: Hgb 11.0 L, Hct 35.5 L 04/12/20 11:26: POC Glucose 135 H Current Medications Acetaminophen (Acetaminophen 325 Mg Tablet) 650 mg PO Q6H PRN PRN PRN Reason: Pain Score 1-10 Allopurinol (Allopurinol 100 Mg Tablet) 100 mg PO DAILYCM [facility] Last Admin: 04/12/20 10:24 Dose: 100 mg Documented by: Amlodipine Besylate (Amlodipine 10 Mg Tablet) 10 mg PO DAILY [facility] Atorvastatin Calcium (Atorvastatin Calcium 40 Mg Tablet) 40 mg PO QHS [facility] Last Admin: 04/11/20 20:48 Dose: 40 mg Documented by: Calcium Acetate (Calcium Acetate 667 Mg Capsule) 667 mg PO TIDCM [facility] Last Admin: 04/12/20 10:24 Dose: 667 mg Documented by: Cephalexin (Cephalexin 500 Mg Capsule) 500 mg PO Q12 [facility] Dextrose (Dextrose 50%-Water 25 Gm/50 Ml Disp.Syrin) 0 gm IV X1 PRN; Protocol PRN Reason: Hypoglycemia Glucagon (Glucagon 1 Mg/Ml Syringe) 1 mg IM .X1 PRN PRN Reason: Hypoglycemia Sodium Chloride () 500 mls @ 15 mls/hr IV PRN PRN PRN Reason: Blood Transfusion Insulin Human Lispro (Insulin Lispro 100 Unit/Ml Insuln.Pen) 0 unit SC ACHS [facility]; Protocol Last Admin: 04/12/20 11:33 Dose: Not Given Documented by: Loratadine (Loratadine 10 Mg Tablet) 5 mg PO DAILY [facility] Last Admin: 04/12/20 10:24 Dose: 5 mg Documented by: Multivit/Ca Carb/B Cmplx/FA/Prenat (Folic Acid/Vitamin B Comp W-C 1 Capsule) 1 capsule PO DAILY [facility] Last Admin: 04/12/20 10:24 Dose: 1 capsule Documented by: Ondansetron HCl (Ondansetron 4 Mg/2 Ml Vial) 4 mg IV Q6H PRN PRN PRN Reason: NAUSEA Pantoprazole Sodium (Pantoprazole Sodium 20 Mg Tablet) 20 mg PO QHS [facility] Last Admin: 04/11/20 20:48 Dose: 20 mg Documented by: Sertraline HCl (Sertraline 100 Mg Tablet) 100 mg PO DAILY [facility] Last Admin: 04/12/20 10:24 Dose: 100 mg Documented by: Tamsulosin HCl (Tamsulosin Hcl 0.4 Mg Capsule) 0.4 mg PO QHS [facility] Last Admin: 04/11/20 20:48 Dose: 0.4 mg Documented by: Assessment/Plan All Active Problems (Last Reviewed 02/12/20 @ 08:[address] Quang Muniz, DO) Multiple falls (Acute) Closed head injury without loss of consciousness (Acute) Lower GI bleeding (Acute) Warfarin-induced coagulopathy (Acute) Acute blood loss anemia (Acute) Diverticulosis (Acute) Elevated troponin (Acute) Atrial fibrillation and flutter (Acute) Hip fracture, left (Resolved) Hypoglycemia (Acute) I have been consulted in conjunction with Dr. Olmedo Impression: Rectal bleeding likely etiology is hemorrhoids and anticoagulation combination Plan: Patient discussed with Dr. Olmedo. Recommend bleeding scan if patient continues to have rectal bleeding. No scopes or surgical intervention is being recommended at this time. Patient has had the opportunity to ask and have questions answered. Patient verbally understands and agrees with the plan. Thank you for allowing us to participate in this patient's care. Office Visits / Consults: [id number] IP Consult L3
[2020-04-12] MEDS: amLODIPine 10 MG Tablet PO (12:14)
[2020-04-12] MEDS: Cephalexin 500 MG Capsule PO (12:14)
--- NOTE | 2020-04-12 14:01 | CASEMGMT ---
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 Bhavya KNUTSON Original Note: Patient is ready for discharge back to [facility]. SW faxed orders and negative COVID test to [facility]. SW called [facility] and arranged for patient to get picked up at 3p via cot. SW notified RN and school attendance secretary. SW also wrote this information on the fax face sheet for [facility]. SW tried to call patient's and one of the cell phone's had a full voice mail and the other one had no identifying information on the message. SW will try again. Plan: d/c back to [facility] under intermediate level of care. [facility] transported via cot. Bhavya KNUTSON
== END 2020-04-12 10:57 | disposition skilled nursing facility (03) ==
LOC: ED 17:56 → PCU 18:35
PROVIDERS: Physician Assistant; Admitting Provider Student in an Organized Health Care Education/Training Program; Emergency Provider Emergency Medicine; PCP Family Medicine; Visit Provider Internal Medicine
DX: D62 Acute posthemorrhagic anemia (principal); K92.1 Melena; R29.6 Repeated falls; N39.0 Urinary tract infection, site not specified; I48.92 Unspecified atrial flutter; T45.515A Adverse effect of anticoagulants, initial encounter; I25.10 Atherosclerotic heart disease of native coronary artery without angina pectoris; N18.6 End stage renal disease; E11.22 Type 2 diabetes mellitus with diabetic chronic kidney disease; I12.0 Hypertensive chronic kidney disease with stage 5 chronic kidney disease or end stage renal disease; M10.9 Gout, unspecified; E78.00 Pure hypercholesterolemia, unspecified; Z79.899 Other long term (current) drug therapy; Z79.02 Long term (current) use of antithrombotics/antiplatelets; Z79.01 Long term (current) use of anticoagulants; Z79.4 Long term (current) use of insulin; Z95.1 Presence of aortocoronary bypass graft; Z95.3 Presence of xenogenic heart valve; R79.1 Abnormal coagulation profile; I48.0 Paroxysmal atrial fibrillation; Z99.2 Dependence on renal dialysis; S00.83XA Contusion of other part of head, initial encounter; W19.XXXA Unspecified fall, initial encounter; Y93.9 Activity, unspecified; Y92.9 Unspecified place or not applicable; F32.9 Major depressive disorder, single episode, unspecified; R06.89 Other abnormalities of breathing; K21.9 Gastro-esophageal reflux disease without esophagitis; N40.0 Benign prostatic hyperplasia without lower urinary tract symptoms
CPT/HCPCS: 36415; 36430; 70450; 72170; 80048; 80053; 81001; 82962; 84443; 84484; 85014; 85018; 85025; 85610; 86850; 86900; 86901; 87426; 93005; 96361; 96365; 97802; 99218; 99285; J7030; J7040; P9017; A4216; G0378; J3490